=== PATIENT | female | born 1965 | race Caucasian/White ===

== ENCOUNTER → 2019-03-14 09:29 | Outpatient (BNVA) | payer MEDICARE, SELFPAY | PROVIDERS: Family Provider Internal Medicine; PCP Internal Medicine; Visit Provider Nurse Practitioner Psychiatric/Mental Health | DX: F33.2 Major depressive disorder, recurrent severe without psychotic features (principal); F41.1 Generalized anxiety disorder; F43.12 Post-traumatic stress disorder, chronic; Z87.820 Personal history of traumatic brain injury | CPT/HCPCS: 99213 ==

== ENCOUNTER → 2019-03-15 10:23 | Outpatient (BNVA) | payer MEDICARE, SELFPAY | PROVIDERS: Family Provider Internal Medicine; PCP Internal Medicine; Visit Provider Anesthesiology | DX: M47.813 Spondylosis without myelopathy or radiculopathy, cervicothoracic region (principal); M51.36 Other intervertebral disc degeneration, lumbar region; M50.920 Unspecified cervical disc disorder, mid-cervical region, unspecified level; M25.511 Pain in right shoulder; M25.512 Pain in left shoulder; G50.0 Trigeminal neuralgia; Z79.891 Long term (current) use of opiate analgesic | CPT/HCPCS: 99214 ==

== ENCOUNTER 2019-03-31 14:00 | Emergency (ER) | payer MEDICARE, MEDICAID, SELFPAY ==
[2019-03-31 14:11] VITALS: BP 162/85; PULSE 79; RESP 16; TEMP 36.6; O2SAT 98; BMI 34.3
--- NOTE | 2019-03-31 14:56 | PC.NURSE ---
Pt sitting in waiting room. [place] brought to pt. No other needs at this time.
--- NOTE | 2019-03-31 15:34 | ED_ITS ---
Entered by Lia Trammell, acting as scribe for Lisa Durham DO Mar 31, 2019 14:00 HPI - Chest Pain General: Chief Complaint: Chest Pain Stated Complaint: Chest pain Time Seen by Provider: 03/31/19 15:34 Source: patient and family Mode of arrival: ambulatory Limitations: no limitations History of Present Illness: HPI narrative: 54 yo Female presents to ED with co mplaint of chest pain and confusion. Pt's family states that the patient has been having issues with confusion and memory loss. Pt's family states that the patient has a seizure history. Pt's family states that since November patient has had body pain and needs an MRI but can't get it here because of her VNS. Pt states that she has felt well in a long time. MD complaint: chest pain Onset (ago): day(s) Timing of current episode: constant and still present Onset: during rest Pain location: substernal Pain radiation: none Pain scale (0-10): 6 Relieving factors: nothing Exacerbating factors: nothing Associated symptoms: Reports other (confusion); Deny abdominal pain, dyspnea, fever(s), nausea or vomiting Treatment prior to arrival: none Review of Systems Const: Denies: fever, chills, change in appetite or malaise Eyes: Denies: change in vision, blurry vision, eye discharge or eye redness ENMT: Denies: throat pain, uvular edema, painful swallowing, mouth pain, dental pain, nasal congestion or facial/sinus pain Card: Denies: chest pain, irregular heart rhythm, swelling of feet/ankles, shortness of breath on exertion, shortness of breath when lying down or leg pain with exertion Resp: Denies: shortness of breath, productive cough, wheezing or coughing up blood GI: Denies: abdominal pain, nausea, vomiting, diarrhea, constipation or fecal incontinence : Denies: flank pain, difficulty urinating, painful urination, urinary frequency, urinary urgency or urinary hesitancy Musc: Denies: neck pain, back pain, extremity pain or extremity swelling Skin/Breast: Denies: rash, itching, redness, yellow skin or dry skin Neuro: Denies: headache, numbness in extremities, weakness in extremities, changes in sensation, lack of coordination or difficulty walking Psych: Denies: anxiety, depression, mood swings, panic attacks, sleeping less, suicidal ideation or homicidal ideation Endo: Denies: excessive urination, excessive thirst or tired all the time Tani/Lymph: Denies: easy bruising, petechiae or enlarged lymph nodes All/Imm: Denies: hives, throat swelling, facial swelling, acute wheezing or seasonal allergies PFSH ED PFSH: Statuses (acute, chronic, etc) shown below reflect problem list status as previously entered and may not be historically accurate Medical History Cervical disc disorder of mid-cervical region (Chronic) Chronic post-traumatic stress disorder (Acute) DDD (degenerative disc disease), lumbar (Chronic) Encounter for long-term use of opiate analgesic (Chronic) Facial pain syndrome (Chronic) Generalized anxiety disorder (Acute) Major depressive disorder, recurrent severe without psychotic features (Acute) Personal history of traumatic brain injury (Acute) Shoulder pain, bilateral (Chronic) Spondylosis without myelopathy or radiculopathy, cervicothoracic region (Chronic) Surgical History History of facial surgery (Acute) 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 S/P appendectomy (Acute) S/P section (Acute) S/P cholecystectomy (Acute) S/P hysterectomy (Acute) S/P tubal ligation (Acute) Social History Smoking and tobacco status: former smoker Second hand smoke exposure: No Alcohol intake: never Physical Exam Const: COMMON NORMALS: no apparent distress, oriented x3, no limitations, healthy appearing, alert and well nourished GENERAL APPEARANCE: cooperative, comfortable, well kempt and well developed ORIENTATION/CONSCIOUSNESS: Yes awake, Yes oriented to person, Yes oriented to place and Yes oriented to time HENMT: COMMON NORMALS: normocephalic, head/scalp atraumatic, hearing grossly normal bilaterally, external ears normal, EAC's normal, TM's normal bilaterally, external nose normal, nasal mucous membranes and turbinates normal, moist oral mucous membranes, oropharynx normal, dentition normal and gingiva normal HEAD & SCALP: normal to inspection, normocephalic and atraumatic FACE & SINUS: normal facial exam NOSE: external nose normal and nasal mucous membranes and turbinates normal EXTERNAL EAR: Yes external ears normal EXTERNAL AUDITORY CANAL: EAC's normal TYMPANIC MEMBRANE: TM's normal bilaterally MOUTH: oral and palatal mucosa normal, lip normal and tongue normal THROAT: no uvular edema Eye: COMMON NORMALS: PERRL, EOMs intact bilaterally, conjunctivae normal, no scleral icterus and normal visual walsh by confrontation GENERAL EYE: normal appearance of both eyes and normal light reflex VISUAL ACUITY: Yes acuity normal ALIGNMENT: Yes alignment normal PERIORBITAL: periorbital findings normal EYELID: eyelids normal CONJUNCTIVA: Yes conjunctivae normal SCLERA: sclerae normal PUPIL: Yes PERRL and Yes accommodation reflex normal DIRECT OPHTHALMOSCOPY: Yes normal light reflex Neck/C-Spine: COMMON NORMALS: full ROM, no lymphadenopathy, supple, no meningeal signs and no JVD GENERAL: Yes normal visual inspection CAROTIDS: Yes normal carotid upstroke CERVICAL SPINE: Yes cervical ROM normal Lymph: LYMPHATIC: no lymphadenopathy noted Chest: COMMONS NORMALS: inspection of chest normal CHEST: Yes symmetrical chest wall rise Resp: COMMON NORMALS: normal respiratory effort, no retractions, no use of accessory muscles and clear to auscultation bilaterally EFFORT & INSPECTION: Yes able to speak in complete sentences and Yes symmetric chest movement AUSCULTATION: clear to auscultation bilaterally Cardio: COMMON NORMALS: no JVD, regular rate, regular rhythm, S1 normal heart sound, S2 normal heart sound, no murmurs and peripheral pulses 2+ throughout RATE: regular rate RHYTHM: regular rhythm HEART SOUNDS: S1 normal and S2 normal PERIPHERAL PULSES: pulses 2+ throughout GI: COMMON NORMALS: normal to inspection, nondistended, normoactive bowel sounds and non-tender : COMMON NORMALS: Yes no CVA tenderness BLADDER/KIDNEY EXAM: Yes no CVA tenderness Back/Pelvis: COMMON NORMALS: no CVA tenderness, thoracic and lumbar spine normal to inspection, no thoracic nor lumbar tenderness and thoraco-lumbar ROM normal Extremity: COMMON NORMALS: normal to inspection, full ROM, normal capillary r efill, no calf tenderness and no pedal edema Neuro: COMMON NORMALS: oriented x3, CN's II-XII intact bilaterally, moves all extremities, no focal motor deficits, no sensory deficits noted and gait normal SENSORIUM/ORIENTATION: Yes alert, Yes oriented to person, Yes oriented to place and Yes oriented to time MENINGEAL SIGNS: Yes no meningeal signs SPEECH: speech normal GAIT: Yes normal gait MOTOR EXAM: strength 5/5 throughout, no pronator drift and no tremor noted Psych: COMMON NORMALS: mental status grossly normal, thought process normal, cooperative, affect normal, speech normal and activity/motor behavior normal APPEARANCE: Yes well kempt SPEECH: Yes normal speech THOUGHT PROCESS: normal thought process THOUGHT CONTENT: Yes normal thought content INSIGHT: insight good Skin: COMMON NORMALS: no rashes or lesions noted, no wounds, skin turgor normal and no jaundice GENERAL SKIN EXAM: no rashes or lesions noted and turgor normal Course ED course: Patient resting in ER, no evidence of acute neurologic event or deterioration. Able to answer all questions. Primarily concerned with possible stroke per family with last known normal 2300 yesterday. NIH 0 currently. Spouse stated confusion was brief and some slurred words but again transient. Advsied I would change Ultram for Loma as she does have seixure history and discussed adding Lyrica to regimen. Both agree. WIll treat over the weekend and advise follow up with PCP wednesday, return for problems Vital Signs: Vital signs: Vital Signs Temperature 98 F 03/31/19 14:11 Pulse Rate 79 03/31/19 14:11 Respiratory Rate 16 03/31/19 14:11 Blood Pressure 162/85 03/31/19 14:11 Pulse Oximetry 98 03/31/19 14:11 MDM - Chest Pain Differential Diagnosis: Cardiac arrest differential diagnosis: Unlikely acute massive pulmonary embolism, acute respiratory failure, acute myocardial infarction, cardiac arrest and sudden cardiac Lab Data: Labs: Lab Results 03/31/19 03/31/19 03/31/19 Range/Units 14:39 14:39 16:11 Sodium 136 (136-145) mmol/L Potassium 4.2 (3.5-5.1) mmol/L Chloride 99 (98-107) mmol/L Carbon Dioxide 24 (22-29) mmol/L Anion Gap 17.2 (5-19) BUN 9 (6-20) mg/dL Creatinine 0.8 (0.5-0.9) mg/dL GFR Calculation 74.5 L (90-130) mL/min Glucose 95 (65-115) mg/dL Calcium 9.8 (8.5-10.5) mg/dL Total Bilirubin 0.2 (0.15-1.2) mg/dL AST 24 (0-32) U/L ALT 35 H (0-33) U/L Alkaline Phosphata se 109 H (35-105) IU/L Troponin T Baselin e (0-10) ng/mL Total Protein 6.5 L (6.6-8.7) g/dL Albumin 3.9 (3.5-5.2) g/dL Globulin 2.6 (1.3-4.6) g/dL Urine Color Colorless (Yellow) Urine Appearance Clear (CLEAR) Urine pH 6.5 (5-7) Ur Specific Gravit y 1.005 (1.005-1.030) Urine Protein Neg (Negative) Urine Glucose (UA) Norm (Normal) Urine Ketones Negative (Negative) Urine Occult Blood Neg (Negative) Urine Nitrate Negative (Negative) Urine Bilirubin Neg (NEGATIVE) Urine Urobilinogen Norm (Negative) mg/dL Ur Leukocyte Ginger ase Negative (Negative) Urine Opiates Scre en Negative (Negative) ng/mL Ur Barbiturates Sc reen Negative (Negative) ng/mL Ur Phencyclidine S crn Negative (Negative) ng/mL Ur Amphetamines Sc reen Negative (Negative) ng/mL U Benzodiazepines Scrn Negative (Negative) ng/mL Urine Cocaine Scre en Negative (Negative) ng/mL U Marijuana (THC) Screen Negative (Negative) ng/mL Ethyl Alcohol < 10 (0-10) mg/dL 03/31/19 Range/Units 16:11 Sodium (136-145) mmol/L Potassium (3.5-5.1) mmol/L Chloride (98-107) mmol/L Carbon Dioxide (22-29) mmol/L Anion Gap (5-19) BUN (6-20) mg/dL Creatinine (0.5-0.9) mg/dL GFR Calculation (90-130) mL/min Glucose (65-115) mg/dL Calcium (8.5-10.5) mg/dL Total Bilirubin (0.15-1.2) mg/dL AST (0-32) U/L ALT (0-33) U/L Alkaline Phosphata se (35-105) IU/L Troponin T Baselin e 6 (0-10) ng/mL Total Protein (6.6-8.7) g/dL Albumin (3.5-5.2) g/dL Globulin (1.3-4.6) g/dL Urine Color (Yellow) Urine Appearance (CLEAR) Urine pH (5-7) Ur Specific Gravit y (1.005-1.030) Urine Protein (Negative) Urine Glucose (UA) (Normal) Urine Ketones (Negative) Urine Occult Blood (Negative) Urine Nitrate (Negative) Urine Bilirubin (NEGATIVE) Urine Urobilinogen (Negative) mg/dL Ur Leukocyte Ginger ase (Negative) Urine Opiates Scre en (Negative) ng/mL Ur Barbiturates Sc reen (Negative) ng/mL Ur Phencyclidine S crn (Negative) ng/mL Ur Amphetamines Sc reen (Negative) ng/mL U Benzodiazepines Scrn (Negative) ng/mL Urine Cocaine Scre en (Negative) ng/mL U Marijuana (THC) Screen (Negative) ng/mL Ethyl Alcohol (0-10) mg/dL Imaging Data^: CXR: Radiologist's impression: [place] [address] XRay Report Signed Patient: Mikala Love #: [id number] : 1965Acct#:[id number] Age/Sex: 54 / FADM Date: 03/31/19 Loc: ERRoom/Bed: Attending Dr: Ordering Provider/Ordering MD: Lisa Durham DO Date of Service: 03/31/19 Procedure(s): XR chest 1V portable [id number] Accession Number(s): [id number] Report Number: [id number] WS: [id number] Portable AP upright chest, 03/31/2019 Clinical Data: cp Comparison: Portable chest, 12/07/2018. Findings: No nodules, masses or effusions are seen. The heart is normal. The pulmonary vascularity is not increased. No pneumonia or pneumothorax is seen. There is a generator overlying the left lower chest and the wire leads to the base of the left neck. There clips in the right upper quadrant from a cholecystectomy. XR/XR chest 1V portable [id number] Impression: Negative chest. Dictated By:Mónica Townsend MD Signed By:Mónica Townsend Date/Time:03/31/19 1553 DD/ 1552 CT Head: Radiologist's impression: [facility] [address] [place] [address] CT Scan Report Signed Patient: Mikala Love #: [id number] : 1965Acct#:[id number] Age/Sex: 54 / FADM Date: 03/31/19 Loc: ERRoom/Bed: Attending Dr: Ordering Provider/Ordering MD: Lisa Durham DO Date of Service: 03/31/19 Procedure(s): CT head wo con* [id number] Accession Number(s): [id number] Report Number: [id number] WS: [id number] CT HEAD NONCONTRAST HISTORY: confusion TECHNIQUE: Contiguous axial imaging performed through the brain in 2.5 mm i maging. Bone and soft tissue windows. Sagittal and coronal reformats reviewed. All CT scans at [facility] use at least one of these dose optimization techniques: automated exposure control; mA and/or kV adjustment per patient size (includes targeted exams where dose is matched to clinical indication); or iterative reconstruction. DLP: 781.74 mGy.cm COMPARISON: 12/07/2018 No acute intracranial hemorrhage, midline shift or mass effect. No atrophy or prior infarcts or herniation. Minimal chronic microvascular ischemic changes in the white matter. No prior infarct. Ventricles: Normal size with no hydrocephalus. Paranasal sinuses: Mild mucoperiosteal thickening in the LEFT maxillary sinus. Mastoid air cells: Well pneumatized. Calvarium and scalp: Skull is intact with no soft tissue edema or swelling. CT/CT head wo con* [id number] IMPRESSION: 1. Stable noncontrast head CT. No acute intracranial hemorrhage or edema. 2. Minimally mucoperiosteal thickening in the RIGHT maxillary sinus. Dictated By:Ny Nowak DO Signed By:Ny Nowak DOSigned Date/Time:03/31/19 1631 DD/ 1629 Discharge Plan Discharge Patient Disposition: Home, Self-Care Clinical Impression: Generalized pain Condition: Stable Prescriptions: New Lyrica 50 mg capsule 50 mg PO DAILY Qty: 7 RF: 0 Loma 5-325 mg tablet 1 tab PO Q6H PRN (Reason: pain) Qty: 14 RF: 0 No Action cyclobenzaprine 10 mg tablet 10 mg PO TID PRN (Reason: muscle spasm) 30 Days Qty: 90 RF: 1 lamotrigine 100 mg tablet 100 mg PO BID RF: 0 multivitamin Capsule 1 cap PO QAM RF: 0 propranolol 10 mg tablet 10 mg PO DAILY RF: 0 pantoprazole [Protonix] 40 mg tablet,delayed release (DR/EC) 40 mg PO BID RF: 0 magnesium gluconate [Mag-G] 27 mg magnesium (500 mg) tablet 27 mg PO .MONTHLY RF: 0 aspirin [Adult Low Dose Aspirin] 81 mg tablet,delayed release (DR/EC) 81 mg PO QDAY RF: 0 tramadol 50 mg tablet 50 mg PO BID PRN (Reason: pain) 23 Days Qty: 46 RF: 0 Discharge Orders: Discharge Order (Routine); Ordered 03/31/19 Ordered By: Lisa Durham Referrals: JUDE LINO DO [Primary Care Provider] - Discharge Diet: Usual diet Discharge Activity: Resume usual activity Patient Instructions: Chronic Pain Activity Restrictions/Additional Instructions: Stop taking Ultram Coding Level of Care Code ED Needle Loom Tender for Chg Fwd Exam Problem Focused The documentation recorded by the Valeri nieto Carmen, accurately reflects the service I personally performed and the decisions made by Marva gaffney Amanda, DO Mar 31, 2019 14:00
--- NOTE | 2019-03-31 15:35 | ECG_ITS ---
Measurements Intervals [place] Rate: 80 P: 33 MN: 172 QRS: 57 QRSD: 84 T: 55 QT: 354 QTc: 410 SINUS RHYTHM WITH OCCASIONAL SUPRAVENTRICULAR PREMATURE COMPLEXES Compared to ECG 12/07/2018 13:27:24 First degree AV block no longer present Electronically Signed On 03-31-2019 22:16:53 SPENT GRAIN DRYER by Liya Portillo M.D. [id number]
--- NOTE | 2019-03-31 15:35 | XR_ITS ---
WS: [id number] Portable AP upright chest, 03/31/2019 Clinical Data: cp Comparison: Portable chest, 12/07/2018. Findings: No nodules, masses or effusions are seen. The heart is normal. The pulmonary vascularity is not increased. No pneumonia or pneumothorax is seen. There is a generator overlying the left lower c hest and the wire leads to the base of the left neck. There clips in the right upper quadrant from a cholecystectomy. XR/XR chest 1V portable [id number] Impression: Negative chest.
--- NOTE | 2019-03-31 15:50 | CT_ITS ---
WS: [id number] CT HEAD NONCONTRAST HISTORY: confusion TECHNIQUE: Contiguous axial imaging performed through the brain in 2.5 mm imaging. Bone and soft tiss ue windows. Sagittal and coronal reformats reviewed. All CT scans at [facility] use at ast one of these dose optimization techniques: automated exposure control; mA and/or kV adjustment pe r patient size (includes targeted exams where dose is matched to clinical indication); or iterative r econstruction. DLP: 781.74 mGy.cm COMPARISON: 12/07/2018 No acute intracranial hemorrhage, midline shift or mass effect. No atrophy or prior infarcts or herniation. Minimal chronic microvascular ischemic changes in the wh ite matter. No prior infarct. Ventricles: Normal size with no hydrocephalus. Paranasal sinuses: Mild mucoperiosteal thickening in the LEFT maxillary sinus. Mastoid air cells: Well pneumatized. Calvarium and scalp: Skull is intact with no soft tissue edema or swelling. CT/CT head wo con* [id number] IMPRESSION: 1. Stable noncontrast head CT. No acute intracranial hemorrhage or edema. 2. Minimally mucoperiosteal thickening in the RIGHT maxillary sinus.
[2019-03-31 16:19] LABS: Add Urine Microscopic? NO
[2019-03-31 16:26] LABS: Blood Urine Neg (Negative); Glucose Urine UA Norm (Normal); Ketones Urine Negative (Negative); Nitrate Urine Negative (Negative); Protein Urine Neg (Negative); Specific Gravity, Urine 1.005 (1.005-1.030); Urine Appearance Clear (CLEAR); Urine Color Colorless (Yellow); pH Urine 6.5 (5-7)
[2019-03-31 16:27] LABS: Bilirubin Urine Neg (NEGATIVE); Leukocyte Esterase Urine Negative (Negative); Urobilinogen Urine Norm (Negative)
[2019-03-31 16:38] LABS: Alanine Aminotransferase 35 U/L (0-33); Albumin Level 3.9 g/dL (3.5-5.2); Alkaline Phosphatase 109 IU/L (35-105); Anion Gap 17.2 (5-19); Aspartate Amino Transferase 24 U/L (0-32); Blood Urea Nitrogen 9 mg/dL (6-20); Calcium 9.8 mg/dL (8.5-10.5); Carbon Dioxide 24 mmol/L (22-29); Chloride 99 mmol/L (98-107); Globulin 2.6 g/dL (1.3-4.6); Glomerular Filtration Rate 74.5 mL/min (90-130); Glucose 95 mg/dL (65-115); Potassium 4.2 mmol/L (3.5-5.1); Sodium 136 mmol/L (136-145); Total Bilirubin 0.2 mg/dL (0.15-1.2); Total Protein 6.5 g/dL (6.6-8.7)
[2019-03-31 16:40] LABS: Troponin(5th) Baseline 6 ng/mL (0-10)
[2019-03-31 16:41] LABS: Amphetamines Screen Urine Negative (Negative); Barbiturates Screen Urine Negative (Negative); Benzodiazepines Screen Urine Negative (Negative); Cocaine Screen Urine Negative (Negative); Opiate Screen Urine Negative (Negative); PCP Screen Urine Negative (Negative); THC Screen Urine Negative (Negative)
[2019-03-31 17:23] LABS: Alcohol Level < 10 mg/dL (0-10)
[2019-03-31 17:24] LABS: Basophils # 0.1 10^3/uL (0.0-0.1); Basophils % 1.3 %; Eosinophils # 0.4 10^3/uL (0.0-0.8); Eosinophils % 6.2 %; Hematocrit 37.3 % (37.0-47.0); Hemoglobin 11.3 g/dL (11.5-15.3); Lymphocytes # 2.8 10^3/uL (0.8-4.8); Lymphocytes % 41.6 %; Mean Corpuscular HGB Conc 30.3 g/dL (30.0-36.0); Mean Corpuscular Hemoglobin 26.8 pg (28.0-34.0); Mean Corpuscular Volume 88.4 fL (81-99); Mean Platelet Volume 10.8 fL (7.4-10.4); Monocytes # 0.4 10^3/uL (0.2-0.9); Monocytes % 6.5 %; Neutrophils % 43.8 %; Nucleated Red Blood Cells % 0 %; Red Blood Count 4.22 10^6/uL (4.1-5.3); Red Cell Distribution Width 13.4 % (12.1-15.1); White Blood Count 6.8 10^3/uL (4.0-10.0)
[2019-03-31 17:43] LABS: Slide Review Slide Review Perform
[2019-03-31 17:46] LABS: Platelet Count 279 10^3/cmm (130-400)
[2019-03-31 18:16] VITALS: BP 142/69; PULSE 80; RESP 18; O2SAT 98
== END 2019-03-31 18:16 | disposition home or self-care (01) ==
PROVIDERS: Emergency Provider Emergency Medicine; Family Provider Internal Medicine; PCP Internal Medicine
DX: R52 Pain, unspecified (principal); Z79.82 Long term (current) use of aspirin; Z87.891 Personal history of nicotine dependence; Z79.899 Other long term (current) drug therapy
CPT/HCPCS: 70450; 71045; 80053; 80307; 81003; 84484; 85025; 93005; 99282; 99284

== ENCOUNTER → 2019-04-04 10:55 | Outpatient (BNVA) | payer MEDICARE, SELFPAY | PROVIDERS: Family Provider Internal Medicine; PCP Internal Medicine; Visit Provider Anesthesiology | DX: M47.813 Spondylosis without myelopathy or radiculopathy, cervicothoracic region (principal); M51.36 Other intervertebral disc degeneration, lumbar region; M50.920 Unspecified cervical disc disorder, mid-cervical region, unspecified level; G50.0 Trigeminal neuralgia; M25.511 Pain in right shoulder; M25.512 Pain in left shoulder; M79.651 Pain in right thigh; M79.652 Pain in left thigh; Z79.891 Long term (current) use of opiate analgesic | CPT/HCPCS: 99214 ==

== ENCOUNTER → 2019-05-09 08:23 | Outpatient (BNVA) | payer MEDICARE, SELFPAY | PROVIDERS: Family Provider Internal Medicine; PCP Internal Medicine; Visit Provider Anesthesiology | DX: M51.36 Other intervertebral disc degeneration, lumbar region (principal); M79.651 Pain in right thigh; M79.652 Pain in left thigh; M47.813 Spondylosis without myelopathy or radiculopathy, cervicothoracic region; M50.920 Unspecified cervical disc disorder, mid-cervical region, unspecified level; M25.511 Pain in right shoulder; M25.512 Pain in left shoulder; G50.0 Trigeminal neuralgia; Z79.891 Long term (current) use of opiate analgesic | CPT/HCPCS: 99214 ==

== ENCOUNTER → 2019-08-23 13:35 | Outpatient (BNVA) | payer MEDICARE, SELFPAY | PROVIDERS: Family Provider Internal Medicine; PCP Internal Medicine; Visit Provider Nurse Practitioner | DX: M54.41 Lumbago with sciatica, right side (principal); M54.42 Lumbago with sciatica, left side; M47.813 Spondylosis without myelopathy or radiculopathy, cervicothoracic region; M50.920 Unspecified cervical disc disorder, mid-cervical region, unspecified level; R29.6 Repeated falls; Z79.891 Long term (current) use of opiate analgesic | CPT/HCPCS: 99213; 99214 ==

== ENCOUNTER 2019-10-13 07:30 | Outpatient (RCR) | payer MEDICARE, MEDICAID, SELFPAY | END 2019-10-23 23:59 | disposition home or self-care (01) | LOC: SPT 07:30 | PROVIDERS: PCP Internal Medicine; Referring Provider Nurse Practitioner; Visit Provider Nurse Practitioner | DX: I69.993 Ataxia following unspecified cerebrovascular disease (principal) | CPT/HCPCS: 97112; 97162 ==

== ENCOUNTER 2019-10-24 06:00 | Outpatient (RCR) | payer MEDICARE, MEDICAID, SELFPAY | END 2019-11-22 23:59 | disposition home or self-care (01) | LOC: SPT 06:00 | PROVIDERS: PCP Internal Medicine; Referring Provider Nurse Practitioner; Visit Provider Nurse Practitioner | DX: R29.6 Repeated falls (principal); Z86.73 Personal history of transient ischemic attack (TIA), and cerebral infarction without residual deficits | CPT/HCPCS: 97112 ==

== ENCOUNTER → 2019-11-03 12:57 | Outpatient (BNVA) | payer MEDICARE, MEDICAID, SELFPAY | PROVIDERS: Family Provider Internal Medicine; PCP Internal Medicine; Visit Provider Nurse Practitioner | DX: M54.42 Lumbago with sciatica, left side (principal); M54.41 Lumbago with sciatica, right side; M51.36 Other intervertebral disc degeneration, lumbar region; M47.813 Spondylosis without myelopathy or radiculopathy, cervicothoracic region; M50.920 Unspecified cervical disc disorder, mid-cervical region, unspecified level; R29.6 Repeated falls; Z91.81 History of falling; R56.9 Unspecified convulsions; Z86.73 Personal history of transient ischemic attack (TIA), and cerebral infarction without residual deficits; Z79.891 Long term (current) use of opiate analgesic | CPT/HCPCS: 99215 ==

== ENCOUNTER → 2019-11-30 15:02 | Outpatient (BNVA) | payer MEDICARE, MEDICAID, SELFPAY | PROVIDERS: Family Provider Internal Medicine; PCP Internal Medicine; Visit Provider Anesthesiology | DX: M51.36 Other intervertebral disc degeneration, lumbar region (principal); M50.920 Unspecified cervical disc disorder, mid-cervical region, unspecified level; M47.813 Spondylosis without myelopathy or radiculopathy, cervicothoracic region; Z86.73 Personal history of transient ischemic attack (TIA), and cerebral infarction without residual deficits; Z79.891 Long term (current) use of opiate analgesic | CPT/HCPCS: 99214 ==

== ENCOUNTER 2020-02-19 07:47 | Outpatient (CLI) | payer MEDICARE, MEDICAID, SELFPAY ==
--- NOTE | 2020-02-19 08:01 | CT_ITS ---
WS: [id number] Exam: CT sinus wo con* [id number] Date/Time of Exam: 02/19/2020 8:05 AM Reason For Exam: CHRONIC MAXILLARY SINUSITIS DLP: 338.[address] scans at [facility] use at least one of these dose optimization techniques: automat ed exposure control; mA and/or kV adjustment per patient size (includes targeted exams where dose is matched to clinical indication); or iterative reconstruction. The paranasal sinuses are evaluated in the axial plane with coronal and sagittal reformatted images. The frontal, ethmoid and sphenoid sinuses are clear. There are numerous old fractures of both maxilla ry sinuses stabilized with plate and screw fixation. The medial berg of both maxillary sinuses are o pen to the nasal turbinates. The bilateral inferior nasal turbinates are displaced into the maxillary sinuses. No fluid level or mass noted in the maxillary sinus. Mild mucosal thickening on the right. Marked rightward deviation of the nasal septum which demonstrates old fracture. There is hardware in the the bilateral mandibular rami. The mastoids and middle ear cavities are clear. No sign of bone d estruction or acute fracture. CT/CT sinus wo con* [id number] IMPRESSION: 1. Minimal mucosal thickening of the maxillary sinuses probably posttraumatic i n nature. 2. No evidence of acute sinusitis. 3. Old bilateral maxillary sinus fractures with the hardware fixation. Addition al postoperative and posttraumatic findings as indicated above.
== END 2020-02-19 07:48 | disposition home or self-care (01) ==
LOC: RADWPI 07:55
PROVIDERS: PCP Internal Medicine; Visit Provider Specialist
DX: J32.0 Chronic maxillary sinusitis (principal)
CPT/HCPCS: 70486

== ENCOUNTER 2020-02-19 20:00 | Outpatient (CLI) | payer MEDICARE, MEDICAID, SELFPAY | END 2020-02-19 20:01 | disposition home or self-care (01) | LOC: SLEEP 02-20 08:45 | PROVIDERS: PCP Internal Medicine; Visit Provider Physician Assistant | DX: G47.33 Obstructive sleep apnea (adult) (pediatric) (principal); G47.8 Other sleep disorders | CPT/HCPCS: 95810 ==

== ENCOUNTER → 2020-03-08 09:05 | Outpatient (BNVA) | payer MEDICARE, MEDICAID, SELFPAY | PROVIDERS: PCP Internal Medicine; Visit Provider Anesthesiology | DX: M47.813 Spondylosis without myelopathy or radiculopathy, cervicothoracic region (principal); M51.36 Other intervertebral disc degeneration, lumbar region; M50.920 Unspecified cervical disc disorder, mid-cervical region, unspecified level; Z79.891 Long term (current) use of opiate analgesic; Z86.73 Personal history of transient ischemic attack (TIA), and cerebral infarction without residual deficits | CPT/HCPCS: 99213 ==

== ENCOUNTER 2020-03-21 18:00 | Inpatient (IN) | payer MEDICARE, MEDICAID, SELFPAY ==
[2020-03-21] VITALS (20 sets, daily range): BP systolic 115–195; BP diastolic 65–103; PULSE 80–96; RESP 17–28; O2SAT 92–98
--- NOTE | 2020-03-21 18:04 | XR_ITS ---
WS: [id number] Exam: XR chest 1V portable [id number] Date/Time of Exam: 03/21/2020 6:30 PM Reason For Exam: reduced breath sounds Comparison 03/31/2019. Diffuse interstitial densities noted throughout both lungs. Cardiomediastinal structures unremarkable for technique. Neurostimulator seen along the left chest with the leads extending along the left nec k. No pleural effusions or pneumothorax. Impression 1. Diffuse interstitial densities noted bilaterally. This may represent developing interstitial pneum onia. Short-term imaging follow-up should be considered.
--- NOTE | 2020-03-21 18:05 | CTR_ITS ---
PROCEDURE INFORMATION: Exam: CT Head Without Contrast Exam date and time: 03/21/2020 6:06 PM Age: 55 years old Clinical indication: Weakness, extremity; Right; Additional info: Symptoms of acute stroke TECHNIQUE: Imaging protocol: Computed tomography of the head without contrast. Radiation optimization: All CT scans at this facility use at least one of these dose optimization techniques: automated exposure control; mA and/or kV adjustment per patient size (includes targeted exams where dose is matched to clinical indication); or iterative reconstruction. COMPARISON: CT head wo con* [id number] 03/31/2019 4:30 PM RADIATION DOSE METRICS: Total DLP (mGy-cm): 804.44 FINDINGS: Brain: Unremarkable. No hemorrhage. No significant white matter disease. No edema. Cerebral ventricles: No ventriculomegaly. Bones/joints: Unremarkable. No acute fracture. Paranasal sinuses: Visualized sinuses are unremarkable. No fluid levels. Mastoid air cells: Unremarkable as visualized. No mastoid effusion. Soft tissues: Unremarkable. CT/CT head wo con* [id number] IMPRESSION: 1. No acute intracranial abnormality demonstrated. 2. There is no interval change from the prior examination. Radiation Dose CTDIVOL = (mGy): DLP = 804.44 (mGy-cm)
--- NOTE | 2020-03-21 18:05 | ECG_ITS ---
[facility] Test Date: 2020-03-21 Pat Name: Mikala Love Department: Room: Gender: Female Chief Steward/Stewardess: : 1965 Requested By: Bud Summers Order Number: [id number] Lucretia MD: Eden Pollard M.D. Measurements Intervals [place] Rate: 90 P: 61 CA: 208 QRS: 51 QRSD: 89 T: 48 QT: 330 QTc: 405 Interpretive Statements SINUS RHYTHM POSSIBLE LEFT ATRIAL ENLARGEMENT [-0.1mV P WAVE IN V1/V2] LOW QRS VOLTAGE IN PRECORDIAL LEADS [QRS DEFLECTION < 1.0 mV IN CHEST LEADS] NONSPECIFIC ST & T-WAVE ABNORMALITY Compared to ECG 03/31/2019 14:07:35 Low QRS voltage now present T-wave abnormality now present Electronically Signed On 03-22-2020 22:14:03 GUEST SERVICE SUPERVISOR by Eden Pollard M.D. [id number]
[2020-03-21 18:12] LABS: Glucose Point of Care 106 mg/dL (70-110)
[2020-03-21] MEDS: labetalol 5 mg/mL SDV 20mL 10 MG IVP ×2 (18:15→18:21)
[2020-03-21 18:28] LABS: Basophils # 0.1 10^3/uL (0.0-0.1); Basophils % 0.7 %; Eosinophils # 0.5 10^3/uL (0.0-0.8); Eosinophils % 3.9 %; Hematocrit 37.9 % (37.0-47.0); Hemoglobin 12.5 g/dL (11.5-15.3); Lymphocytes % 22.1 %; Mean Corpuscular Hemoglobin 28.2 pg (28.0-34.0); Mean Corpuscular Volume 85.4 fL (81-99); Mean Platelet Volume 10.4 fL (7.4-10.4); Monocytes # 0.8 10^3/uL (0.2-0.9); Monocytes % 6.1 %; Neutrophils # 9.05 10^3/uL (1.8-7.7); Neutrophils % 66.5 %; Nucleated Red Blood Cells % 0 %; Platelet Count 415 10^3/cmm (130-400); Red Blood Count 4.44 10^6/uL (4.1-5.3); Red Cell Distribution Width 12.7 % (12.1-15.1); White Blood Count 13.6 10^3/uL (4.0-10.0)
[2020-03-21 18:33] LABS: Partial Thromboplastin Time 30.2 SECONDS (23.9-36.7)
[2020-03-21 18:40] LABS: Alanine Aminotransferase 17 U/L (0-33); Albumin Level 4.5 g/dL (3.5-5.2); Alkaline Phosphatase 143 IU/L (35-105); Anion Gap 14.5 (5-19); Aspartate Amino Transferase 13 U/L (0-32); Blood Urea Nitrogen 13 mg/dL (6-20); Carbon Dioxide 32 mmol/L (22-29); Chloride 97 mmol/L (98-107); Glomerular Filtration Rate 64.8 mL/min (90-130); Glucose 95 mg/dL (65-115); Osmolality Calculated 290 mOsm/kg (285-295); Potassium 3.5 mmol/L (3.5-5.1); Sodium 140 mmol/L (136-145); Total Bilirubin 0.2 mg/dL (0.15-1.2); Total Protein 7.5 g/dL (6.6-8.7)
--- NOTE | 2020-03-21 18:53 | PC.NURSE ---
CHEST XRAY AT BEDSIDE
[2020-03-21 19:15] LABS: INR 0.94 (0.8-1.2)
--- NOTE | 2020-03-21 20:33 | PM.HP ---
Providers/Chief Complaint Primary Care Provider: Yesenia Lazo DO Chief Complaint: poss stroke History of Present Illness Mikala Love is a 55 year old female who presented today with chief complaint of right-sided weakness and not able to talk. is at the bedside who is endorsing that around 5 PM Ms. Love started complaining of headache, he went to the bathroom and when he returned after 30 minutes he noticed that Ms. Love was very lethargic, she was laying in her bed, he tried to get her up and take her to the bathroom, she needed assistance from the bedroom to the bathroom, she was able to move her lips but was not producing voice. She never had any seizure-like activities before, she was awake and alert throughout this, no seizure witnessed by the . Her symptoms persisted until she arrived in the ER, considering weakness of right arm and leg and mute presentation code stroke was called Dr. Villegas evaluated the patient and recommended TPA, CT head was unremarkable she was given 20 mg of IV labetalol When I evaluated the patient she was able to say her leg hurts, is telling me that recently she dropped her college courses because of stress, she was learning confucianism and agriculture. Patient also laughed during my conversation with her, she was able to keep her right leg in the ER for about 5 seconds, her right hand hospitality coordinator was weaker than the left hand, she would close her eyes when I was checking her extraocular movements however pupils are reactive, positive convergence no hemianopsia or inattention noted. NIH 5, patient is able to comprehend my questions and articulate few of the words. Review of Systems Const: Denies: fever(s) Eyes: Denies: change in vision ENMT: Denies: throat pain Card: Denies: chest pain Resp: Denies: dyspnea GI: Denies: abdominal pain : Denies: flank pain Musc: Denies: neck pain Skin/Breast: Denies: rash Neuro: Reports: difficulty walking and behavioral changes Psych: Reports: anxiety and depression Endo: Denies: polyuria Tani/Lymph: Denies: easy bruising All/Imm: Denies: urticaria Medications/Allergies Home Medications Medication Instructions Recorded Confirmed Last Taken Type aspirin 81 mg tablet,delayed 81 mg PO DAILY@0600 03/14/19 03/21/20 03/21/20 History release pantoprazole 40 mg tablet,delayed 40 mg PO BID@0600,1999 tab 03/14/19 03/21/20 03/21/20 History release docusate sodium 100 mg capsule 100 mg PO DAILY@0600 PRN 08/23/19 03/21/20 03/21/20 History amlodipine 2.5 mg tablet 2.5 mg PO BID@0600,199911/03/19 03/21/20 03/21/20 History atorvastatin 40 mg tablet 40 mg PO DAILY@0600 11/03/19 03/21/20 03/21/20 History hydrocodone 5 mg-acetaminophen 325 1 tab PO TID PRN 30 Days #90 tab 11/03/19 03/21/20 Unknown Rx mg tablet lamotrigine 100 mg tablet 200 mg PO BID@0600,1999 tab 11/03/19 03/21/20 03/21/20 History ondansetron HCl 4 mg tablet 4 mg PO Q6H 11/03/19 03/21/20 Unknown History primidone 50 mg tablet 125 mg PO BID@0600,199911/03/19 03/21/20 03/21/20 History losartan 25 mg tablet 25 mg PO BID@0600,199911/30/19 03/21/20 03/21/20 History tizanidine 4 mg tablet 4 mg PO TID PRN 30 Days #120 tab 03/08/20 03/21/20 Unknown Rx hydrochlorothiazide 25 mg PO DAILY@0600 03/21/20 03/21/20 03/21/20 History slxametrwyzg-acxsddqx-wropia 1 tab PO DAILY@0600 03/21/20 03/21/20 03/21/20 History [Multivitamin 50 Plus] propranolol 10 mg PO DAILY@0600 03/21/20 03/21/20 03/21/20 History Allergies Allergy/AdvReac Type Severity Reaction Status Date / Time lisinopril Allergy Unknown Unknown Verified 03/08/20 09:12 shellfish derived Allergy Unknown hives Verified 03/08/20 09:12 aripiprazole [From Abilify] Allergy Unknown Verified 03/08/20 09:12 codeine Allergy Unknown Verified 03/08/20 09:12 duloxetine Allergy ADR-Anxiety Verified 03/08/20 09:12 erythromycin base Allergy ADR-Nausea Verified 03/08/20 09:12 fluticasone [From Flonase] Allergy ADR-Anxiety Verified 03/08/20 09:12 guaifenesin [From Mucinex] Allergy ADR-Anxiety Verified 03/08/20 09:12 Iodinated Contrast Media Allergy Unknown Verified 03/08/20 09:12 lithium Allergy Unknown Verified 03/08/20 09:12 nitroglycerin Allergy Unknown Verified 03/08/20 09:12 risperidone [From Risperdal] Allergy ALGY-Hives Verified 03/08/20 09:12 venlafaxine [From Effexor] Allergy Unknown Verified 03/08/20 09:12 quetiapine [From Seroquel] AdvReac Unknown ZOMBIE Verified 03/08/20 09:12 tramadol AdvReac IMPROVEMENT ANALYST Verified 03/08/20 09:12 COMPLICATION PFSH Acute PFSH: Medical History Cervical disc disorder of mid-cervical region Chronic post-traumatic stress disorder DDD (degenerative disc disease), lumbar Encounter for long-term use of opiate analgesic Facial numbness Facial pain syndrome Generalized anxiety disorder HTN (hypertension) Hx of deep venous thrombosis Intermittent confusion Major depressive disorder, recurrent severe without psychotic features CONRAD (obstructive sleep apnea) Personal history of traumatic brain injury Seizure Shoulder pain, bilateral Spondylosis without myelopathy or radiculopathy, cervicothoracic region Transient atrial fibrillation Surgical History History of facial surgery 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 S/P appendectomy S/P section S/P cholecystectomy S/P hysterectomy S/P tubal ligation Family History Other Cancer Diabetes Hypertension Social History Smoking and tobacco status: former smoker Second hand smoke exposure: No Alcohol intake: never Vitals/I&O/Wt Last Vital Signs Pulse 80 03/21/20 18:42 Resp 23 H 03/21/20 18:42 BP 166/94 03/21/20 18:42 Pulse Ox 93 03/21/20 18:42 03/21/20 03/21/20 03/21/20 06:59 14:59 22:59 Intake Total 85.0 / 85.0 Balance 85.0 / 85.0 Weight last 48 hrs Weight 94.393 kg Physical Exam Narrative: EXAM NARRATIVE: Middle-age female who is laying comfortably in her bed at the bedside Patient is awake alert oriented x3 GCS 15 NIH 5, she is able to comprehend my verbal commands has weak right hand hospitality coordinator, she is able to keep her right leg in the ER for 5 seconds it drifts but does not hit the bed, no pronator drift, she closes her eyes when I was checking extraocular movement of her eyes however EOMI intact convergence positive no inattention or hemianopsia or visual field deficit noted She was able to tell me her leg hurts and she is stUDYING ORTHODOX, also had a laughter during my conversation with her S1, S2 sinus rhythm Normotensive Abdomen soft nontender Lower extremity no edema gangrene ulcer No joint swelling Data : 03/21/20 17:50 03/21/20 17:50 A&P Assessment and plan (1) Acute right-sided weakness: Status: Acute (2) Cervical disc disorder of mid-cervical region: Status: Chronic (3) DDD (degenerative disc disease), lumbar: Status: Chronic Additional A&P Information Acute right-sided weakness CT head unremarkable NIH score 5 status post TPA Admit to ICU Post TPA management neurochecks every 4, avoid Hogan catheter placement, avoid hypertension Currently she is normotensive afebrile saturating well on room air I would not start aspirin or Plavix for next 24 hours, will get CTA head and neck start her on high-dose statins Rule out ischemic stroke, her presentation is very inconsistent and atypical, she is able to comprehend my verbal commands and articulate that her leg hurts and she is reading confucianism these days but stammers to initiate conversation Bilateral carotid Doppler from October 2018 revealed no significant stenosis of carotid arteries Neck pain she does not have any signs of meningitis Cervical spine CT from 03/12 revealed C5-C7 exiting nerve root encroachment more pronounced at lEFT C5, repeat cervical CT scan in the morning this time her presentation is consistent with right hemiparesis, she has no acute respiratory distress Obstructive sleep apnea her bicarb is around 32 We will keep her on auto CPAP overnight Cardiac diet Physical therapy evaluation DVT prophylaxis not indicated would use SCDs status post TPA Full code Attestations Medical Necessity Statement*: Anticipating stay in the hospital cross more than 2 midnights currently in the ICU post TPA after acute presentation of right-sided weakness Time Spent in Patient Care: 50MINS Coding Level of Care Code Acute Gis Database Administrator for Familiag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
[2020-03-21 20:34] LABS: Add Urine Microscopic? YES; Bilirubin Urine Neg (Negative); Blood Urine 3+ (Negative); Glucose Urine UA Norm (Normal); Ketones Urine Negative (Negative); Leukocyte Esterase Urine Negative (Negative); Nitrate Urine Negative (Negative); Protein Urine Neg (Negative); Specific Gravity, Urine 1.005 (1.005-1.030); Urine Appearance Clear (CLEAR); Urine Color Straw (Yellow); Urobilinogen Urine Norm (Negative)
[2020-03-21 20:37] LABS: Amphetamines Screen Urine Negative (Negative); Barbiturates Screen Urine Positive (Negative); Benzodiazepines Screen Urine Negative (Negative); Cocaine Screen Urine Negative (Negative); Opiate Screen Urine Negative (Negative); PCP Screen Urine Negative (Negative); THC Screen Urine Negative (Negative)
[2020-03-21 20:42] LABS: Add Urine Culture? No; Bacteria Urine TRACE /hpf; Squamous Epithelial Cell Urine 0-4 /hpf (0-5)
--- NOTE | 2020-03-21 20:45 | W.ED.NEUROSD ---
HPI - Neuro Symptoms/Deficit General: Chief Complaint: Neuro Symptoms/Deficit Stated Complaint: poss stroke Time Seen by Provider: 03/21/20 18:04 History of Present Illness: HPI Narrative: The patient is a 55-year-old female who comes to the ER with a possible stroke. EMS says that the said the patient had right-sided facial droop and decreased responsiveness at 5:15 PM they noted her having trouble getting her words out. On arrival to the ER she has significant right-sided weakness and she is unable to speak with her voice but she is able to use her mouth to sound words out. Facial droop not present in the ER. She was seen by Dr. Villegas who recommended TPA administration and it was given emergently. Onset (ago): minute(s) (45) Time: 05:15 Timing confirmed by: spouse Location: speech, right face, right arm and right leg History of same: Yes Severity: moderate Quality: weak Relieving factors: none Exacerbating factors: none Context: sudden onset Associated symptoms: Deny chest pain or headache(s) Review of Systems General: Reports: 10 or more systems reviewed and unremarkable except in HPI and below Const: Denies: fatigue Eyes: Denies: change in vision, blurry vision or eye redness ENMT: Denies: throat pain, swelling of lips/tongue, ear or mastoid pain or nasal congestion Card: Denies: chest pain, palpitations, irregular heart rhythm, edema, dyspnea on exertion or orthopnea Resp: Denies: dyspnea, productive cough or non-productive cough GI: Denies: abdominal pain, diarrhea or GI cramping : Denies: flank pain, difficulty voiding, urinary frequency or urinary urgency Musc: Denies: neck pain, back pain, extremity pain, joint pain, joint redness, limited range of motion or muscle weakness Skin/Breast: Denies: rash, pruritus, erythema, skin pain or skin tenderness Neuro: Reports: weakness in extremities; Denies: headache(s), numbness in extremities, sensory changes, difficulty walking, dizziness or confusion Psych: Denies: anxiety or depression Endo: Denies: polyuria All/Imm: Denies: urticaria, throat swelling or tongue swelling PFSH ED PFSH: Medical History (Updated 03/21/20 @ 21:08 by Bud Summers MD) Cervical disc disorder of mid-cervical region Chronic post-traumatic stress disorder DDD (degenerative disc disease), lumbar Encounter for long-term use of opiate analgesic Facial numbness Facial pain syndrome Generalized anxiety disorder HTN (hypertension) Hx of deep venous thrombosis Intermittent confusion Major depressive disorder, recurrent severe without psychotic features CONRAD (obstructive sleep apnea) Personal history of traumatic brain injury Seizure Shoulder pain, bilateral Spondylosis without myelopathy or radiculopathy, cervicothoracic region Transient atrial fibrillation Surgical History History of facial surgery 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 S/P appendectomy S/P section S/P cholecystectomy S/P hysterectomy S/P tubal ligation Family History Other Cancer Diabetes Hypertension Social History Smoking and tobacco status: former smoker Second hand smoke exposure: No Alcohol intake: never Physical Exam Const: COMMON NORMALS: no acute distress, average body habitus, patient oriented x3, no limitations, healthy appearing, alert and well nourished GENERAL APPEARANCE: cooperative, comfortable, well kempt and well developed ORIENTATION/CONSCIOUSNESS: Yes awake, Yes oriented to person, Yes oriented to place and Yes oriented to time HENMT: COMMON NORMALS: normocephalic, external ears normal and Normal external nose present HEAD & SCALP: normal to inspection and normocephalic NOSE: Normal external nose present EXTERNAL EAR: Yes external ears normal MOUTH: Normal oral and palatal mucosa present THROAT: posterior oropharynx normal Eye: COMMON NORMALS: Equal, round and reactive pupils present and EOMs intact bilaterally GENERAL EYE: appearance normal, both eyes and all related structures PUPIL: Yes Equal, round and reactive pupils present Neck/C-Spine: COMMON NORMALS: full ROM, no lymphadenopathy, no meningeal signs and no JVD GENERAL: Yes normal visual inspection Lymph: LYMPHATIC: no lymphadenopathy noted Chest: COMMONS NORMALS: normal inspection of the chest and normal palpation of entire chest wall Resp: COMMON NORMALS: normal respiratory effort, No retractions, No use of accessory muscles, clear to auscultation bilaterally and percussion normal EFFORT & INSPECTION: Yes able to speak in complete sentences AUSCULTATION: clear to auscultation bilaterally PERCUSSION: percussion normal Cardio: COMMON NORMALS: no JVD, regular rate, regular rhythm, S1 normal heart sound present, S2 normal heart sound present and Peripheral pulses 2+ throughout RATE: regular rate RHYTHM: regular rhythm HEART SOUNDS: S1 normal heart sound present and S2 normal heart sound present PERIPHERAL PULSES: Peripheral pulses 2+ throughout GI: COMMON NORMALS: Normal to inspection, nondistended, normoactive bowel sounds present, Soft to palpation, non-tender and no masses INSPECTION: Yes normal to inspection PALPATION: Yes Soft to palpation : COMMON NORMALS: Yes no CVA tenderness BLADDER/KIDNEY EXAM: Yes no CVA tenderness Back/Pelvis: COMMON NORMALS: no CVA tenderness, thoracic and lumbar spine normal to inspection, no thoracic nor lumbar tenderness and thoraco-lumbar ROM normal Extremity: COMMON NORMALS: normal to inspection, full ROM, capillary refill normal, no joint enlargement and no pedal edema GENERAL: Yes normal exam except as noted Neuro: COMMON NORMALS: patient oriented x3 SENSORIUM/ORIENTATION: Yes alert, Yes oriented to person, Yes oriented to place and Yes oriented to time MENINGEAL SIGNS: Yes no meningeal signs Psych: APPEARANCE: Yes well kempt Skin: COMMON NORMALS: no rashes or lesions noted GENERAL SKIN EXAM: no rashes or lesions noted Course Vital Signs: Vital signs: Vital Signs Pulse Rate 80 03/21/20 18:42 Respiratory Rate 23 H 03/21/20 18:42 Blood Pressure 166/94 03/21/20 18:42 Pulse Oximetry 93 03/21/20 18:42 MDM - Neuro Symptoms/Deficit MDM Narrative: Medical decision making narrative: The patient was evaluated by Dr. Villegas in the ER who recommended giving TPA. CT head negative. She received it and has been stable since. She has some movement in her right side that is inconsistent. Discussed with Dr. German who accepts for ICU admission post TPA Lab Data: Labs: Lab Results 03/21/20 03/21/20 03/21/20 Range/Units 17:50 17:50 17:50 WBC 13.6 H (4.0-10.0) 10^3/ uL RBC 4.44 (4.1-5.3) 10^6/u L Hgb 12.5 (11.5-15.3) g/dL Hct 37.9 (37.0-47.0) % MCV 85.4 (81-99) fL MCH 28.2 (28.0-34.0) pg MCHC 33.0 (30.0-36.0) g/dL RDW 12.7 (12.1-15.1) % Plt Count 415 H (130-400) 10^3/c mm MPV 10.4 (7.4-10.4) fL Neut % (Auto) 66.5 % Lymph % (Auto) 22.1 % [place] % (Auto) 6.1 % Eos % (Auto) 3.9 % Baso % (Auto) 0.7 % Neut # (Auto) 9.05 H (1.8-7.7) 10^3/u L Lymph # (Auto) 3.0 (0.8-4.8) 10^3/u L [place] # (Auto) 0.8 (0.2-0.9) 10^3/u L Eos # (Auto) 0.5 (0.0-0.8) 10^3/u L Baso # (Auto) 0.1 (0.0-0.1) 10^3/u L Nucleated RBC % (a uto) 0 % Nucleated RBCs # 0.0 /100WBC PT 12.90 (12.1-14.9) SECO NDS INR 0.94 (0.8-1.2) APTT 30.2 (23.9-36.7) SECO NDS Sodium 140 (136-145) mmol/L Potassium 3.5 (3.5-5.1) mmol/L Chloride 97 L (98-107) mmol/L Carbon Dioxide 32 H (22-29) mmol/L Anion Gap 14.5 (5-19) BUN 13 (6-20) mg/dL Creatinine 0.9 (0.5-0.9) mg/dL GFR Calculation 64.8 L (90-130) mL/min Glucose 95 (65-115) mg/dL POC Glucose (70-110) mg/dL Calculated Osmolal ity 290 (285-295) mOsm/k g Calcium 10.0 (8.5-10.5) mg/dL Total Bilirubin 0.2 (0.15-1.2) mg/dL AST 13 (0-32) U/L ALT 17 (0-33) U/L Alkaline Phosphata se 143 H (35-105) IU/L Total Protein 7.5 (6.6-8.7) g/dL Albumin 4.5 (3.5-5.2) g/dL Globulin 3.0 (1.3-4.6) g/dL Urine Color (Yellow) Urine Appearance (CLEAR) Urine pH (5-7) Ur Specific Gravit y (1.005-1.030) Urine Protein (Negative) Urine Glucose (UA) (Normal) Urine Ketones (Negative) Urine Blood (Negative) Urine Nitrate (Negative) Urine Bilirubin (Negative) Urine Urobilinogen (Negative) mg/dL Ur Leukocyte Ginger ase (Negative) Urine RBC (0-2) /hpf Urine WBC (0-5) /hpf Ur Squamous Epith Cells (0-5) /hpf Amorphous Sediment Urine Bacteria (NONE) /hpf Urine Opiates Scre en (Negative) ng/mL Ur Barbiturates Sc reen (Negative) ng/mL Ur Phencyclidine S crn (Negative) ng/mL Ur Amphetamines Sc reen (Negative) ng/mL U Benzodiazepines Scrn (Negative) ng/mL Urine Cocaine Scre en (Negative) ng/mL U Marijuana (THC) Screen (Negative) ng/mL 03/21/20 03/21/20 03/21/20 Range/Units 18:08 20:10 20:10 WBC (4.0-10.0) 10^3/ uL RBC (4.1-5.3) 10^6/u L Hgb (11.5-15.3) g/dL Hct (37.0-47.0) % MCV (81-99) fL MCH (28.0-34.0) pg MCHC (30.0-36.0) g/dL RDW (12.1-15.1) % Plt Count (130-400) 10^3/c mm MPV (7.4-10.4) fL Neut % (Auto) % Lymph % (Auto) % [place] % (Auto) % Eos % (Auto) % Baso % (Auto) % Neut # (Auto) (1.8-7.7) 10^3/u L Lymph # (Auto) (0.8-4.8) 10^3/u L [place] # (Auto) (0.2-0.9) 10^3/u L Eos # (Auto) (0.0-0.8) 10^3/u L Baso # (Auto) (0.0-0.1) 10^3/u L Nucleated RBC % (a uto) % Nucleated RBCs # /100WBC PT (12.1-14.9) SECO NDS INR (0.8-1.2) APTT (23.9-36.7) SECO NDS Sodium (136-145) mmol/L Potassium (3.5-5.1) mmol/L Chloride (98-107) mmol/L Carbon Dioxide (22-29) mmol/L Anion Gap (5-19) BUN (6-20) mg/dL Creatinine (0.5-0.9) mg/dL GFR Calculation (90-130) mL/min Glucose (65-115) mg/dL POC Glucose 106 (70-110) mg/dL Calculated Osmolal ity (285-295) mOsm/k g Calcium (8.5-10.5) mg/dL Total Bilirubin (0.15-1.2) mg/dL AST (0-32) U/L ALT (0-33) U/L Alkaline Phosphata se (35-105) IU/L Total Protein (6.6-8.7) g/dL Albumin (3.5-5.2) g/dL Globulin (1.3-4.6) g/dL Urine Color Straw (Yellow) Urine Appearance Clear (CLEAR) Urine pH 7.0 (5-7) Ur Specific Gravit y 1.005 (1.005-1.030) Urine Protein Neg (Negative) Urine Glucose (UA) Norm (Normal) Urine Ketones Negative (Negative) Urine Blood 3+ H (Negative) Urine Nitrate Negative (Negative) Urine Bilirubin Neg (Negative) Urine Urobilinogen Norm (Negative) mg/dL Ur Leukocyte Ginger ase Negative (Negative) Urine RBC 5-10 H (0-2) /hpf Urine WBC None (0-5) /hpf Ur Squamous Epith Cells 0-4 H (0-5) /hpf Amorphous Sediment Not Reportable Urine Bacteria Trace (NONE) /hpf Urine Opiates Scre en Negative (Negative) ng/mL Ur Barbiturates Sc reen Positive H (Negative) ng/mL Ur Phencyclidine S crn Negative (Negative) ng/mL Ur Amphetamines Sc reen Negative (Negative) ng/mL U Benzodiazepines Scrn Negative (Negative) ng/mL Urine Cocaine Scre en Negative (Negative) ng/mL U Marijuana (THC) Screen Negative (Negative) ng/mL Discharge Plan Discharge Patient Disposition: Admitted As Inpatient Clinical Impression: Acute right-sided weakness Condition: Stable Coding Level of Care Code ED Butcher Supervisor for Kun Saba
--- NOTE | 2020-03-21 22:20 | CTR_ITS ---
PROCEDURE INFORMATION: Exam: CT Angiography Head With Contrast Exam date and time: 03/21/2020 11:48 PM Age: 55 years old Clinical indication: Speech disturbance; Slurred speech; Additional info: Post tpa TECHNIQUE: Imaging protocol: Computed tomography angiography of the head with intravenous contrast. 3D rendering (Not supervised by radiologist): MIP and/or 3D reconstructed images were created by the technologist. Radiation optimization: All CT scans at this facility use at least one of these dose optimization techniques: automated exposure control; mA and/or kV adjustment per patient size (includes targeted exams where dose is matched to clinical indication); or iterative reconstruction. Contrast material: [id number]; Contrast volume: 95 ml; Contrast route: INTRAVENOUS (IV); COMPARISON: 1. CT head wo con* [id number] 2020-03-21 17:[address] head wo con* [id number] 2019-03-31 16:30 RADIATION DOSE METRICS: Total DLP (mGy-cm): 2172.19 FINDINGS: ANTERIOR CIRCULATION: Right internal carotid artery: Unremarkable. Intracranial segment is patent with no significant stenosis. No aneurysm. Right middle cerebral artery: Unremarkable. No occlusion or significant stenosis. No aneurysm. Right anterior cerebral artery: Unremarkable. No occlusion or significant stenosis. No aneurysm. Left internal carotid artery: Unremarkable. Intracranial segment is patent with no significant stenosis. No aneurysm. Left middle cerebral artery: Unremarkable. No occlusion or significant stenosis. No aneurysm. Left anterior cerebral artery: Unremarkable. No occlusion or significant stenosis. No aneurysm. POSTERIOR CIRCULATION: Right vertebral artery: Unremarkable. No occlusion or significant stenosis. No aneurysm. Left vertebral artery: Unremarkable. No occlusion or significant stenosis. No aneurysm. Basilar artery: Unremarkable. No occlusion or significant stenosis. No aneurysm. Right posterior cerebral artery: Unremarkable. No occlusion or significant stenosis. No aneurysm. Left posterior cerebral artery: Unremarkable. No occlusion or significant stenosis. No aneurysm. Brain: No definite mass, mass effect, or midline shift. Cerebral ventricles: No ventriculomegaly. Bones/joints: Unremarkable. No acute fracture. Soft tissues: Unremarkable. IMPRESSION: No large vessel stenosis or occlusion. PROCEDURE INFORMATION: Exam: CT Angiography Neck With Contrast Exam date and time: 03/21/2020 11:48 PM Age: 55 years old Clinical indication: Speech disturbance; Slurred speech; Additional info: Post tpa TECHNIQUE: Imaging protocol: Computed tomography angiography of the neck with intravenous contrast. 3D rendering (Not supervised by radiologist): MIP and/or 3D reconstructed images were created by the technologist. Radiation optimization: All CT scans at this facility use at least one of these dose optimization techniques: automated exposure control; mA and/or kV adjustment per patient size (includes targeted exams where dose is matched to clinical indication); or iterative reconstruction. Contrast material: [id number]; Contrast volume: 95 ml; Contrast route: INTRAVENOUS (IV); COMPARISON: 1. CT head wo con* [id number] 2020-03-21 17:[address] head wo con* [id number] 2019-03-31 16:30 RADIATION DOSE METRICS: Total DLP (mGy-cm): 2172.19 FINDINGS: Right common carotid artery: No stenosis. No dissection or occlusion. Right internal carotid artery: No stenosis of the extracranial segment. No dissection or occlusion. Right external carotid artery: No occlusion or stenosis of the origin. Right vertebral artery: No stenosis. No dissection or occlusion. Left common carotid artery: No stenosis. No dissection or occlusion. Left internal carotid artery: No stenosis of the extracranial segment. No dissection or occlusion. Left external carotid artery: No occlusion or stenosis of the origin. Left vertebral artery: No stenosis. No dissection or occlusion. Bones/joints: Moderate cervical spondylosis. Soft tissues: Normal. No significant soft tissue swelling. CT/CT angio headneck* [id number] IMPRESSION: No stenosis or occlusion. REFERENCES: NASCET CRITERIA. The degree of internal carotid artery stenosis is based on NASCET criteria. Normal is no stenosis. Mild is less than 50% stenosis. Moderate is 50-69% stenosis. Severe is 70% to 99% stenosis. Total occlusion is no detectable patent lumen. Radiation Dose CTDIVOL = (mGy): DLP = 2172.19~2172.19 (mGy-cm)
[2020-03-21] MEDS: HYDROmorphone 1 mg/mL INJ 1 mL 0.5 MG IVP (23:11)
[2020-03-21] MEDS: diphenhydrAMINE 50 mg/mL SDV 1mL IVP (23:15)
[2020-03-21] MEDS: iodixanol 320 mg/mL 100mL Btl IV (23:49)
[2020-03-22] VITALS (55 sets, daily range): BP systolic 89–148; BP diastolic 46–77; PULSE 66–92; RESP 13–26; TEMP 36.7; O2SAT 90–98
[2020-03-22] MEDS: HYDROmorphone 1 mg/mL INJ 1 mL 0.5 MG IVP ×2 (02:36→05:54)
--- NOTE | 2020-03-22 02:59 | PC.NURSE ---
[address] aware that pt failed nurse-driven swallow test. Dr aware pt cannot take oral medicines. Speech therapy order is in for a swallow consult. Medicines not given at this time. Dayshift nurse to be notified.
--- NOTE | 2020-03-22 07:00 | CTR_ITS ---
PROCEDURE INFORMATION: Exam: CT Cervical Spine Without Contrast Exam date and time: 03/22/2020 7:16 AM Age: 55 years old Clinical indication: Neck pain TECHNIQUE: Imaging protocol: Computed tomography images of the cervical spine without contrast. Radiation optimization: All CT scans at this facility use at least one of these dose optimization techniques: automated exposure control; mA and/or kV adjustment per patient size (includes targeted exams where dose is matched to clinical indication); or iterative reconstruction. COMPARISON: CT Cervical Spine w cont [id number] 03/10/2018 12:24 PM RADIATION DOSE METRICS: Total DLP (mGy-cm): 730.19 FINDINGS: Vertebrae: No fracture or other acute bony abnormalities are seen. There is straightening of the cervical spine which is probably positional. There is degenerative disc space narrowing with mild sclerosis and osteophytes. Degenerative changes are present in the facet joints greater on the left side with narrowing sclerosis and hypertrophy.. C2-C3: No significant disc protrusion. No severe spinal canal stenosis. No significant neural foraminal narrowing. C3-C4: No significant disc protrusion. No severe spinal canal stenosis. No significant neural foraminal narrowing. C4-C5: No significant disc protrusion. No severe spinal canal stenosis. There are facet joint hypertrophic changes causing moderate narrowing of the left C4-C5 neural foramen. C5-C6: There is mild degenerative disc protrusion/osteophyte complex. No herniation is seen. No severe spinal canal stenosis. No significant neural foraminal narrowing. C6-C7: No significant disc protrusion. No severe spinal canal stenosis. No significant neural foraminal narrowing. C7-T1: No significant disc protrusion. No severe spinal canal stenosis. No significant neural foraminal narrowing. Soft tissues: Unremarkable. Lungs: Lung apices are normal. CT/CT cervical spin wo con* [id number] IMPRESSION: 1. No acute abnormality. 2. Chronic degenerative changes. There is no significant central spinal canal stenosis. There is moderate narrowing of the left C4-C5 neural foramen. Radiation Dose CTDIVOL = (mGy): DLP = 730.19 (mGy-cm)
--- NOTE | 2020-03-22 09:16 | PC.OT ---
HOLD OT EVALUATION UNTIL 03/23 DUE TO TPA ADMINISTRATION AND PROTOCOL. TO BE ATTEMPTED TOMORROW.
[2020-03-22] MEDS: HYDROcodone-acetaminophen 5-325 mg Tablet 1 TAB PO (11:01)
[2020-03-22] MEDS: acetaminophen 500 mg Tablet PO ×3 (11:02→20:22)
[2020-03-22] MEDS: atorvastatin 40 mg Tablet 80 MG PO (11:05)
--- NOTE | 2020-03-22 11:48 | USCV_ITS ---
Mikala Love Age: 55 Gender: F : 1965 Exam Date: 03/22/2020 15:15 Ordering Phys: Debbie Alas MD Technologist: Hellen Zelaya Exam Location[place] [facility] [place] Indication: CVA BP: 102 / 51 HR: 75 Rhythm: Sinus Technical Quality: Adequate MEASUREMENTS (Male / Female) Normal Values 2D ECHO LV Diastolic Diameter PLAX 3.1 cm 4.2 - 5.9 / 3.9 - 5.3 cm LV Systolic Diameter PLAX 2.4 cm LV Chamber Size 4.1 cm IVS Diastolic Thickness 1.1 cm 0.6 - 1.0 / 0.6 - 0.9 cm IVS Systolic Thickness 1.5 cm LVPW Diastolic Thickness 1.1 cm 0.6 - 1.0 / 0.6 - 0.9 cm LVPW Systolic Thickness 1.4 cm RV Chamber Size 2.2 cm LVOT Diameter 2.0 cm LV Ejection Fraction 2D Teich 48.5 % LV Ejection Fraction MOD 2C 80.0 % LV Ejection Fraction 2C AL 82.7 % LA Diameter 3.2 cm LA Width 2.9 cm LA Height 4.8 cm RA Width 2.5 cm RA Height 4.3 cm Aorta at Sinotubular Diameter 3.0 cm M-MODE LV Diastolic Diameter MM 2.7 cm 4.2 - 5.9 / 3.9 - 5.3 cm LV Systolic Diameter MM 1.7 cm LV Ejection Fraction MM Teich 68.9 % IVS Diastolic Thickness MM 1.9 cm 0.6 - 1.0 / 0.6 - 0.9 cm IVS Systolic Thickness MM 1.7 cm LVPW Diastolic Thickness MM 1.3 cm 0.6 - 1.0 / 0.6 - 0.9 cm LVPW Systolic Thickness MM 1.4 cm RV Diastolic Diameter MM 1.5 cm Aortic Annulus Diameter 2.9 cm LA Ao Ratio MM 1.3 MV E Point Septal Separation 0.3 cm DOPPLER AV Peak Velocity 195.0 cm/s LVOT Peak Velocity 96.0 cm/s AV Area Cont Eq vti 2.1 cm squared AV Area Cont Eq pk 1.6 cm squared MV Area PHT 4.9 cm squared Mitral E to A Ratio 1.1 MV E' Velocity 72.0 cm/s Mitral E to MV E' Ratio 11.6 Mitral E to LV E' Lateral Ratio 10.7 Mitral E to LV E' Septal Ratio 12.7 TR Peak Velocity 224.8 cm/s TR Peak Gradient 20.2 mmHg TR Mean Velocity 162.6 cm/s TR Mean Gradient 11.8 mmHg TR Velocity Time Integral 51.5 cm TV Peak E Velocity 65.0 cm/s Right Atrial Pressure 3.0 mmHg Pulmonary Artery Systolic Pressu 23.2 mmHg PV Peak Velocity 93.0 cm/s RV Acceleration Time 0.1 s RV Ejection Time 0.3 s RV AcT/ET 0.3 FINDINGS Left Ventricle Normal left ventricular size and systolic function. LVEF is 60 to 65%. No regional wall motion abnormalities are seen. Normal diastolic filling pattern. Right Ventricle The right ventricle is normal in size and function. Right Atrium The right atrium is normal in size. Left Atrium The left atrium is normal in size. Mitral Valve Structurally normal mitral valve without significant stenosis or prolapse. There is no mitral regurgitation. Aortic Valve Aortic valve is thickened. No significant aortic stenosis is seen. There is no aortic regurgitation. Tricuspid Valve Structurally normal tricuspid valve without significant stenosis or regurgitation. Insufficient TR jet to calculate RVSP. Pulmonic Valve Structurally normal pulmonic valve without significant stenosis. There is no pulmonic regurgitation. Pericardium Normal pericardium without effusion. Aorta Normal ascending aorta dimension. CONCLUSIONS LV systolic function test was normal with a EF of 60 to 65%. Normal diastolic function. No significant valvular heart disease noted. Aortic valve thickening without significant stenosis or regurgitation. Compared to prior echocardiogram from 11/17/2018, no significant changes are seen. Albin Campbell MD (Electronically Signed) Final Date: 22 March 2020 18:48 S
--- NOTE | 2020-03-22 11:49 | ECG_ITS ---
[facility] Test Date: 2020-03-22 Pat Name: Mikala Love Department: Room: [id number] Gender: Female [employer]: : 1965 Requested By: Debbie Alas Order Number: [id number] Lucretia MD: Eden Pollard M.D. Measurements Intervals [place] Rate: 71 P: 46 UT: 238 QRS: 15 QRSD: 89 T: 26 QT: 380 QTc: 416 Interpretive Statements SINUS RHYTHM WITH FIRST DEGREE AV BLOCK Compared to ECG 03/21/2020 18:10:02 First degree AV block now present T-wave abnormality no longer present Electronically Signed On 03-22-2020 22:23:01 FINE ARTS MODEL by Eden Pollard M.D. [id number]
--- NOTE | 2020-03-22 13:10 | PC.CHAP ---
Pastoral Care Encounter/Spiritual Assessment Type of Contact [] Declined feeder loader visit [] Patient/Family/Request visit [] Outpatient visit [] Follow-up visit [] Physician referral [] Code/Alert [] Routine visit [] Staff referral [] Actively dying [] Patient sleeping [] Family support [] [] Out of room [] Palliative care [] [xx] Receiving care in room [] Pre-surgical visit [] Trauma [] Long length of stay [xx] ICU visit [xx] Other: Follow up needed Relational/Emotional Strength [] Patient feels connected with others/family/visitors/staff [] Distress [] Loneliness/isolation [] Abandonment Spirituality of Patient [] Person of Elenita [] Attends Taoist of their Elenita [] Believes in Prayer [] Reads Bible or Religion materials [] There are Spiritual issues to be addressed Sales And Production Manager Interventions [] Prayer [] Active listening [] Non-anxious presence [] Spiritual/emotional support [] Crisis/trauma care [] Spiritual counseling [] Bereavement support [] Provided bereavement packet [] Provided Bible/devotional materials [] Provided toy/stuffed animal, coloring book to patient or family member [] Provided Communion [] Anointing/Ulmer [] Salvation [] Completed spiritual assessment [] Other: Impact on Illness or Injury [] Angry [] Fearful [] Anxious [] Often cries [] Exhaustion [] Unable to work [] Unable to attend gnosticism [] Unable to walk/stand [] Unable to read [] Unable to drive [] Unable to eat/drink [] Unable to sleep [] Unable to be with family [] Patient intubated [] Other: Summary Medicl staff were working with her constantly so visit not accomplished. Follow up later. Time spent with patient
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
[2020-03-22] MEDS: tizanidine 4 mg Tablet PO ×2 (16:05→21:31)
--- NOTE | 2020-03-22 16:12 | P.PN_ITS ---
Subjective Subjective: Interval history: overnight labs and H7P reveiwed. Irregular HR noted on tele, appears to be sinus arrhythmias Medications: Reviewed: Yes Vitals/I&O/Wt Last Vital Signs Temp 98.1 F 03/22/20 05:00 Pulse 82 03/22/20 15:00 Resp 15 03/22/20 10:00 BP 102/51 03/22/20 10:00 Pulse Ox 97 03/22/20 11:13 03/22/20 03/22/20 03/22/20 06:59 14:59 22:59 Output Total 225 / 225 225 / 225 Balance -225 / -140.0 -225 / -225 Weight last 48 hrs Weight 94.393 kg Physical Exam Narrative: EXAM NARRATIVE: GEN: Awake, alert and oriented, no acute distress CVS: S1S2 N RS: CTA B/L Abd: Soft, nt/nd , bs+ MASTER AUTOMOTIVE TECHNICIAN: Power 1 out of 5 R lower extremity, 2 out of 5 R upper extremity , 5/5 lue and lle Data : 03/21/20 17:50 03/21/20 17:50 A&P Assessment and plan (1) Acute right-sided weakness: Status: Acute (2) Cervical disc disorder of mid-cervical region: Status: Chronic (3) DDD (degenerative disc disease), lumbar: Status: Chronic Additional A&P Information Acute right-sided weakness CT head unremarkable NIH score 5 status post TPA Post TPA management neurochecks every 4, avoid Hogan catheter placement, avoid hypertension Currently she is normotensive afebrile saturating well on room air Hold off on aspirin or Plavix for next 24 hours Continue statin [address] this evening CTa neck without significant carotis stenosis Has h/o transient A fib after a stress test few years ago. Holter from one year ago without significant events. Check 12 lead EKG and echocardiogram to r/o cardiac causes Obstructive sleep apnea her bicarb is around 32 We will keep her on auto CPAP overnight Cardiac diet Physical therapy evaluation DVT prophylaxis not indicated would use SCDs status post TPA Full code Attestations Medical Necessity Statement*: [address] scan this evening, therapy assessment Coding Level of Care Code Acute Carpenters Supervisor for Chg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
--- NOTE | 2020-03-22 16:13 | PC.PT ---
HOLD PT EVALUATION UNTIL 03/23 DUE TO TPA ADMINISTRATION AND PROTOCOL. TO BE ATTEMPTED TOMORROW.
--- NOTE | 2020-03-22 19:00 | CTR_ITS ---
PROCEDURE INFORMATION: Exam: CT Head Without Contrast Exam date and time: 03/22/2020 7:17 PM Age: 55 years old Clinical indication: Other: 24 hr S/P tpa f/u; Patient HX: F/u 24 hrs S/P tpa; Additional info: Post tpa TECHNIQUE: Imaging protocol: Computed tomography of the head without contrast. Radiation optimization: All CT scans at this facility use at least one of these dose optimization techniques: automated exposure control; mA and/or kV adjustment per patient size (includes targeted exams where dose is matched to clinical indication); or iterative reconstruction. COMPARISON: CT head wo con* [id number] 03/21/2020 5:53 PM RADIATION DOSE METRICS: Total DLP (mGy-cm): 775.87 FINDINGS: Brain: There are moderate periventricular and subcortical lucencies consistent with chronic microvascular ischemic changes. The conley-white differentiation is maintained. No hemorrhage. No edema. Cerebral ventricles: No ventriculomegaly. Bones/joints: Unremarkable. No acute fracture. Paranasal sinuses: Visualized sinuses are unremarkable. No fluid levels. Mastoid air cells: Visualized mastoid air cells are well aerated. Soft tissues: Unremarkable. CT/CT head wo con* [id number] IMPRESSION: No acute intracranial abnormality. Chronic microvascular ischemic changes. Radiation Dose CTDIVOL = (mGy): DLP = 775.87 (mGy-cm)
[2020-03-22] MEDS: primidone 50 mg Tablet 125 MG PO (20:28)
[2020-03-22] MEDS: lamoTRIgine 100 mg Tablet 200 MG PO (20:30)
[2020-03-22] MEDS: pantoprazole DR 40 mg Tablet PO (20:30)
[2020-03-22] MEDS: losartan 50 mg Tablet 25 MG PO (20:31)
[2020-03-22] MEDS: amlodipine 5 mg Tablet 2.5 MG PO (20:31)
--- NOTE | 2020-03-22 20:45 | PC.NURSE ---
Patient transported to CT and back by wheelchair, without any incident. Resting in bed, reading a book, and no other verbalized needs at this time.
--- NOTE | 2020-03-22 21:43 | PC.NURSE ---
phoned to check-in on patient. Reviewed patient's plan of care, v/s and tests/procedures planned. No other questions at this time.
[2020-03-23] VITALS (22 sets, daily range): BP systolic 88–138; BP diastolic 52–85; PULSE 57–80; RESP 13–20; TEMP 36.5–37; O2SAT 92–98
[2020-03-23] MEDS: HYDROcodone-acetaminophen 5-325 mg Tablet 1 TAB PO ×3 (03:16→22:18)
[2020-03-23] MEDS: acetaminophen 500 mg Tablet PO ×4 (03:16→22:20)
[2020-03-23 05:39] LABS: Anion Gap 15.3 (5-19); Blood Urea Nitrogen 16 mg/dL (6-20); Calcium 9.3 mg/dL (8.5-10.5); Carbon Dioxide 28 mmol/L (22-29); Chloride 98 mmol/L (98-107); Glomerular Filtration Rate 74.2 mL/min (90-130); Glucose 103 mg/dL (65-115); Osmolality Calculated 287 mOsm/kg (285-295); Potassium 3.3 mmol/L (3.5-5.1); Sodium 138 mmol/L (136-145)
[2020-03-23] MEDS: primidone 50 mg Tablet 125 MG PO ×2 (06:09→20:59)
[2020-03-23] MEDS: amlodipine 5 mg Tablet 2.5 MG PO ×2 (06:10→20:56)
[2020-03-23] MEDS: losartan 50 mg Tablet 25 MG PO ×2 (06:11→20:55)
[2020-03-23] MEDS: lamoTRIgine 100 mg Tablet 200 MG PO ×2 (06:12→20:56)
[2020-03-23] MEDS: pantoprazole DR 40 mg Tablet PO ×2 (06:12→20:55)
[2020-03-23] MEDS: hydroCHLOROthiazide 25 mg Tablet PO (06:13)
--- NOTE | 2020-03-23 07:03 | PC.NURSE ---
Shift Summary: Mostly uneventful shift noted. Patient rested well. Had two complaints of pain throughout shift that was treated with PRN pain medications. Stated she usually only takes Tylenol with her Hydrocodone for her home use to control pain. Patient was able to get up and down from bedside commode with minimal standby assistance. No needs verbalized at this time. Report given to oncjenny dayshift RN.
[2020-03-23] MEDS: atorvastatin 40 mg Tablet 80 MG PO (08:55)
[2020-03-23] MEDS: tizanidine 4 mg Tablet PO ×2 (08:57→22:20)
--- NOTE | 2020-03-23 10:05 | PM.PN ---
Subjective Subjective: Interval history: no acute overnight events, [address] scan withotu any hemorrhage, echocardiogram without any gross abnormalities, EKG with sinus rhythm. Awaiting PT assesment for discharge planning Medications: Reviewed: Yes Vitals/I&O/Wt Last Vital Signs Temp 98.2 F 03/23/20 00:00 Pulse 65 03/23/20 07:02 Resp 16 03/23/20 07:02 BP 132/67 03/23/20 07:02 Pulse Ox 94 03/23/20 06:30 03/22/20 03/23/20 03/23/20 22:59 06:59 14:59 Intake Total 750 / 750 250 / 1000 250 / 250 Output Total 500 / 725 850 / 1575 300 / 300 Balance 250 / 25 -600 / -575 -50 / -50 Weight last 48 hrs Weight 94.393 kg Physical Exam Narrative: EXAM NARRATIVE: GEN: Awake, alert and oriented, no acute distress CVS: S1S2 N RS: CTA B/L Abd: Soft, nt/nd , bs+ Nuero: R hemiparesis Data : 03/21/20 17:50 03/23/20 04:46 A&P Assessment and plan (1) Acute right-sided weakness: Status: Acute (2) Cervical disc disorder of mid-cervical region: Status: Chronic (3) DDD (degenerative disc disease), lumbar: Status: Chronic Additional A&P Information Acute right-sided weakness Initial CT head unremarkable NIH score 5 status post TPA on 03/[address] without any hemorrhage Resume ASA 81mg qd Continue statin CTa neck without significant carotis stenosis Has h/o transient A fib after a stress test few years ago, sinus rhythm 12 lead EKG and echocardiogram without obvious abnormalities. Obstructive sleep apnea her bicarb is around 32 We will keep her on auto CPAP overnight Cardiac diet Physical therapy evaluation pending Dispo: SNF vs home with HH DVT prophylaxis : lovenox Full code Attestations Medical Necessity Statement*: awaiting therapy assesssments for discharge planning Coding Level of Care Code Acute Checking Department Supervisor for Chg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
[2020-03-23] MEDS: potassium chloride oral liq 20 mEq/15 mL UDC 40 MEQ PO (14:41)
--- NOTE | 2020-03-23 17:27 | PC.NURSE ---
transfer to 2nd floor at this time
--- NOTE | 2020-03-23 17:43 | P.PN_ITS ---
Vitals/I&O/Wt Last Vital Signs Temp 98.6 F 03/23/20 17:32 Pulse 77 03/23/20 17:32 Resp 17 03/23/20 17:32 BP 110/67 03/23/20 17:32 Pulse Ox 94 03/23/20 17:32 03/23/20 03/23/20 03/23/20 06:59 14:59 22:59 Intake Total 250 / 1000 550 / 550 Output Total 850 / 1575 300 / 300 Balance -600 / -575 250 / 250 Weight last 48 hrs Weight 94.393 kg Data : 03/21/20 17:50 03/23/20 04:46 Coding Level of Care Code Acute Treating Plant Operator for Familiag Wandy
[2020-03-24 04:33] VITALS: BP 106/70; PULSE 76; RESP 16; TEMP 36.5; O2SAT 95
[2020-03-24] MEDS: acetaminophen 500 mg Tablet PO (06:29)
[2020-03-24] MEDS: docusate sodium 100 mg Capsule PO (06:30)
[2020-03-24] MEDS: hydroCHLOROthiazide 25 mg Tablet PO (06:30)
[2020-03-24] MEDS: pantoprazole DR 40 mg Tablet PO (06:30)
[2020-03-24] MEDS: amlodipine 5 mg Tablet 2.5 MG PO (06:30)
[2020-03-24] MEDS: lamoTRIgine 100 mg Tablet 200 MG PO (06:30)
[2020-03-24 06:31] VITALS: BP 106/70
[2020-03-24] MEDS: losartan 50 mg Tablet 25 MG PO (06:31)
[2020-03-24] MEDS: primidone 50 mg Tablet 125 MG PO (06:31)
--- NOTE | 2020-03-24 07:03 | PC.NURSE ---
Report to Dhara Chamberlain RN
[2020-03-24 07:25] VITALS: BP 140/73; PULSE 74; RESP 19; TEMP 36.5; O2SAT 96
[2020-03-24] MEDS: aspirin 81 mg EC Tablet PO (08:32)
[2020-03-24] MEDS: atorvastatin 40 mg Tablet 80 MG PO (08:33)
[2020-03-24] MEDS: HYDROcodone-acetaminophen 5-325 mg Tablet 1 TAB PO (08:34)
--- NOTE | 2020-03-24 08:55 | PC.SOCIAL ---
Pg 2 IMM Explained to pt Pg 2 IMM. No questions voiced. Provided pt a copy. Signed, dated, & timed a copy & placed in chart.
--- NOTE | 2020-03-24 10:56 | PM.DCS ---
Discharge Providers Date of Admission: 03/21/20 21:30 Date of Discharge: March 24, 2020 Attending Provider at Admission: Liya German MD Attending Provider at Discharge: Debbie Alas MD Primary Care Provider: Yesenia Lazo DO Diagnoses at Discharge Discharge Diagnosis (1) Acute right-sided weakness: Status: Acute (2) Cervical disc disorder of mid-cervical region: Status: Chronic (3) DDD (degenerative disc disease), lumbar: Status: Chronic Reason for Visit Reason for Visit: poss stroke Hospital Course Hospital Course Mikala Love is a 55 year old female who presented today with chief complaint of right-sided weakness and not able to talk. Code stroke was called , Dr. Villegas evaluated the patient and recommended TPA, which she received on 03/22. Since getting the TPA her right-sided weakness improved, as did her aphasia. 24-hour post TPA CT did not show any evidence of hemorrhage. Antiplatelets were resumed at the time of discharge. She is being discharged with Plavix 75 mg p.o. daily for the next 3 weeks and thereafter transition back to her aspirin 81 mg which she was on previously. Recommend follow-up with her current neurologist in [place] versus Dr. Villegas, patient is figuring out her insurance currently to see which provider she would be able to follow-up with. No acute events noted during hospital admission otherwise. Home health including physical therapy was arranged. Physical Exam Narrative: EXAM NARRATIVE: GEN: Awake, alert and oriented, no acute distress , speech is much improved, no word finding difficulty noted today CVS: S1S2 N RS: CTA B/L Abd: Soft, nt/nd , bs+ DRAMA THERAPIST: Right upper extremity 4 out of 5, left upper extremity 5 out of 5 lower extremity weakness also improving additionally compared to on admission today. Discharge Data Data Completed and Pending: Completed Studies During Hospitalization Category Date Time Status CT angio headneck * 65990/56713 Rout ine Cat Scan 03/21/20 22:[address] cervical spin wo con* 50808 Rout ine Cat Scan 03/22/20 07:[address] head wo con* 7 0450 Routine Cat Scan 03/22/20 19:[address] head wo con* 7 0450 Stat Cat Scan 03/21/20 18:05 Completed XR chest 1V miguel ble [id number] Stat Exams 03/21/20 18:04 Completed CV echo complete* [id number] Routine Ultrasound 03/22/20 11:48 Completed Vitals: Last Vital Signs Temp 97.7 F 03/24/20 07:25 Pulse 74 03/24/20 07:25 Resp 19 H 03/24/20 07:25 BP 140/73 03/24/20 07:25 Pulse Ox 96 03/24/20 07:25 Discharge Plan Discharge Patient Disposition: Home Health Service Condition: Stable Prescriptions: New Plavix 75 mg tablet 75 mg PO DAILY 21 Days Qty: 21 RF: 0 Continued pantoprazole [Protonix] 40 mg tablet,delayed release (DR/EC) 40 mg PO BID@599,1999 RF: 0 lamotrigine 100 mg tablet 200 mg PO BID@599,1999 RF: 0 ondansetron HCl [Zofran] 4 mg tablet 4 mg PO Q6H RF: 0 amlodipine 2.5 mg tablet 2.5 mg PO BID@599,1999 RF: 0 primidone 50 mg tablet 125 mg PO BID@599,1999 RF: 0 hydrocodone-acetaminophen 5-325 mg tablet 1 tab PO TID PRN (Reason: pain) 30 Days Qty: 90 RF: 0 losartan 25 mg tablet 25 mg PO BID@599,1999 RF: 0 docusate sodium 100 mg capsule 100 mg PO DAILY@0600 PRN (Reason: Constipation) RF: 0 tizanidine 4 mg tablet 4 mg PO TID PRN (Reason: muscle spasticity) 30 Days Qty: 120 RF: 1 Multivitamin 50 Plus Tablet 1 tab PO DAILY@0600 RF: 0 propranolol 10 mg tablet 10 mg PO DAILY@0600 RF: 0 hydrochlorothiazide 25 mg tablet 25 mg PO DAILY@0600 RF: 0 Changed atorvastatin 40 mg tablet 80 mg PO DAILY@0600 Qty: 0 RF: 0 Held aspirin [Adult Low Dose Aspirin] 81 mg tablet,delayed release (DR/EC) 81 mg PO DAILY@0600 RF: 0 Hold Instructions: Resume on 04/14/20. Discharge Orders: Discharge Order (Routine); Ordered 03/24/20 Ordered By: Debbie Alas Other Ambulatory Orders: DME: Walker (Order) Location: None Selected Ordered By: Debbie Alas Referrals: [facility] [Other] (Call this number if you are interested in getting [facility] setup. They will ask questions & it is based off of a point system, from the answers of the questions they asked. ) [facility] [Outside] [facility] ([facility]) [Outside] Yesenia Lazo DO [Primary Care Provider] - 7-10 days (Call office Wednesday to make an appointment to be seen within the next 1-7 days for a follow up.) Discharge Diet: Usual diet and As Directed Discharge Activity: Increase activity as tolerated and As per PT/OT instructions Patient Instructions: Clopidogrel (By mouth), Ischemic Stroke (DC), Stroke Stoplight Discharge Attestations Time Spent in Discharge Care*: greater than 30 min Quality Metrics Clinical Quality Measures During this hospital stay, did patient experience: Stroke Contraindication to Antithrombotic: Antithrombotic prescribed Contraindication to Anticoagulation: Anticoagulation prescribed Contraindication to Statin: Statin prescribed Contraindication to tPA: tPA given Coding Level of Care Code 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
[2020-03-24 11:53] VITALS: BP 151/101; PULSE 74; RESP 18; TEMP 36.6; O2SAT 97
[2020-03-24 12:15] VITALS: BP 151/101; PULSE 74; RESP 18; TEMP 36.6; O2SAT 97
== END 2020-03-24 12:16 | disposition home health service (06) | DRG 62 ==
LOC: ER 21:08 → ICU 21:36 → MEDSURG 03-23 17:11
PROVIDERS: Admitting Provider Internal Medicine; Emergency Provider Family Medicine; PCP Internal Medicine; Visit Provider Student in an Organized Health Care Education/Training Program
DX: I63.9 Cerebral infarction, unspecified (principal); G81.90 Hemiplegia, unspecified affecting unspecified side; F33.3 Major depressive disorder, recurrent, severe with psychotic symptoms; M50.920 Unspecified cervical disc disorder, mid-cervical region, unspecified level; M51.36 Other intervertebral disc degeneration, lumbar region; F43.10 Post-traumatic stress disorder, unspecified; I48.91 Unspecified atrial fibrillation; Z79.82 Long term (current) use of aspirin; R29.705 NIHSS score 5; I10 Essential (primary) hypertension; G47.33 Obstructive sleep apnea (adult) (pediatric); Z87.891 Personal history of nicotine dependence
CPT/HCPCS: 12345; 36415; 36416; 70450; 70496; 70498; 71045; 72125; 80048; 80053; 80306; 81001; 82962; 85025; 85610; 85730; 92523; 92610; 93005; 93306; 94660; 97110; 97161; 97166; 97530; 99283; J1170; J1200; J1650; J2930; J2997; J3490; Q9967

== ENCOUNTER 2020-04-02 20:00 | Outpatient (CLI) | payer MEDICARE, MEDICAID, SELFPAY | END 2020-04-02 20:01 | disposition home or self-care (01) | LOC: SLEEP 04-03 09:46 | PROVIDERS: PCP Internal Medicine; Visit Provider Physician Assistant | DX: G47.33 Obstructive sleep apnea (adult) (pediatric) (principal) | CPT/HCPCS: 95811 ==

== ENCOUNTER → 2020-04-15 09:38 | Outpatient (BNVA) | payer MEDICARE, MEDICAID, SELFPAY | PROVIDERS: PCP Internal Medicine; Referring Provider Nurse Practitioner Family; Visit Provider Nurse Practitioner | DX: I69.351 Hemiplegia and hemiparesis following cerebral infarction affecting right dominant side (principal); G40.909 Epilepsy, unspecified, not intractable, without status epilepticus; R00.2 Palpitations; Z96.82 Presence of neurostimulator; Z87.891 Personal history of nicotine dependence | CPT/HCPCS: 95970; 99205 ==

== ENCOUNTER 2020-04-29 08:34 | Outpatient (CLI) | payer MEDICARE, MEDICAID, SELFPAY ==
--- NOTE | 2020-04-29 08:42 | MR_ITS ---
WS: [id number] MRI HEAD WITH CONTRAST TECHNIQUE: Sagittal T1, T2 axial, T2 axial FLAIR, axial susceptibility weighted imaging, axial diffus ion weighted images, and coronal T2 images were obtained. Pre and post-T1 axial and post T1 coronal i mages. ADC and FSPGR images. CLINICAL INFORMATION: I63.512 - Cerebral infarction due to unspecified occlusion or stenosis of left middle cerebral artery COMPARISON: CT head March 22, 2019 And MRI September 09, 2019 FINDINGS: No evidence of restricted diffusion to suggest acute ischemia. Ventricular system and basal cisterns are patent. Moderate small vessel changes. Moderate parenchymal volume loss. Normal posterior fossa. Normal vascular flow voids at the skull base. No extra-axial fluid collections. No evidence of mass o r mass effect. Paranasal sinuses and mastoid air cells are well aerated. Mild mucosal thickening in t he maxillary sinuses. Evidence of prior maxillary antrostomies with polypoid mucosal thickening. Mild symmetric atrophy temporal lobes and hippocampal formations. Normal optic chiasm and pituitary i nfundibulum. No hemosiderin on susceptibly weighted images. No abnormal gadolinium enhancement. Normal optic chiasm and pituitary infundibulum. Normal cavernous sinuses and Meckel's cave. Normal dural venous sinuses. MR/MR head wo/w con [id number] IMPRESSION: 1. No evidence of restricted diffusion to suggest acute ischemia. 2. Moderate small vessel changes with moderate parenchymal volume loss. 3. No hemosiderin on susceptibly weighted images. 4. No abnormal gadolinium enhancement. 5. No other significant changes from previous.
[2020-04-29] MEDS: gadobenate dimeglumine 20 mL vial IV (09:59)
== END 2020-04-29 08:35 | disposition home or self-care (01) ==
LOC: RADSHAW 08:38
PROVIDERS: PCP Internal Medicine; Visit Provider Nurse Practitioner
DX: I63.512 Cerebral infarction due to unspecified occlusion or stenosis of left middle cerebral artery (principal)
CPT/HCPCS: 70553; A9577

== ENCOUNTER 2020-05-08 08:00 | Outpatient (CLI) | payer MEDICARE, MEDICAID, SELFPAY ==
--- NOTE | 2020-05-08 08:13 | MM_ITS ---
WS: [id number] Bilateral screening digital mammogram, 05/08/2020 Clinical Data: SCREENING Comparison: 09/29/2018, 01/07/2017, 12/13/2015, 06/25/2015, 06/10/2015, 06/07/2014, 03/15/2013, 03/12/2004. Findings: The breast parenchymal pattern shows fat replacement. No spiculated masses or clustered calcification s are seen. There are no secondary signs of carcinoma. There is a pacemaker generator in the left axi lla. There are lymph nodes in the right axilla. MM/[place] [id number] Impression: 1. Negative bilateral mammogram unchanged. 2. Recommend annual screening mammograms. BIRADS: 1-Negative FOLLOW UP: 1 Year Follow-up The CAD roller checker was used.
== END 2020-05-08 08:01 | disposition home or self-care (01) ==
LOC: RADSHAW 08:06
PROVIDERS: PCP Internal Medicine; Visit Provider Nurse Practitioner Family
DX: Z12.31 Encounter for screening mammogram for malignant neoplasm of breast (principal)
CPT/HCPCS: 77067

== ENCOUNTER → 2020-06-24 13:33 | Outpatient (BNVA) | payer MEDICARE, MEDICAID, SELFPAY | PROVIDERS: PCP Internal Medicine; Visit Provider Nurse Practitioner | DX: I69.351 Hemiplegia and hemiparesis following cerebral infarction affecting right dominant side (principal); R93.0 Abnormal findings on diagnostic imaging of skull and head, not elsewhere classified; R53.1 Weakness; Z87.891 Personal history of nicotine dependence | CPT/HCPCS: 99213 ==

== ENCOUNTER → 2020-07-03 12:21 | Outpatient (BNVA) | payer MEDICARE, MEDICAID, SELFPAY | PROVIDERS: PCP Internal Medicine; Visit Provider Nurse Practitioner | DX: G89.29 Other chronic pain (principal); M47.813 Spondylosis without myelopathy or radiculopathy, cervicothoracic region; M50.920 Unspecified cervical disc disorder, mid-cervical region, unspecified level; M51.36 Other intervertebral disc degeneration, lumbar region; G50.0 Trigeminal neuralgia; M25.511 Pain in right shoulder; M25.512 Pain in left shoulder; R29.6 Repeated falls; Z86.73 Personal history of transient ischemic attack (TIA), and cerebral infarction without residual deficits; Z79.891 Long term (current) use of opiate analgesic | CPT/HCPCS: 99214 ==

== ENCOUNTER → 2020-07-09 11:30 | Outpatient (BNVA) | payer MEDICARE, MEDICAID, SELFPAY | PROVIDERS: PCP Internal Medicine; Visit Provider Specialist | DX: F44.5 Conversion disorder with seizures or convulsions (principal); F44.9 Dissociative and conversion disorder, unspecified; S06.9X9S Unspecified intracranial injury with loss of consciousness of unspecified duration, sequela; Y93.9 Activity, unspecified; M47.813 Spondylosis without myelopathy or radiculopathy, cervicothoracic region; M51.36 Other intervertebral disc degeneration, lumbar region; M50.920 Unspecified cervical disc disorder, mid-cervical region, unspecified level; G50.0 Trigeminal neuralgia; M25.511 Pain in right shoulder; M25.512 Pain in left shoulder; Z86.73 Personal history of transient ischemic attack (TIA), and cerebral infarction without residual deficits; Z87.891 Personal history of nicotine dependence | CPT/HCPCS: 99215 ==

== ENCOUNTER → 2020-07-24 07:54 | Outpatient (BNVA) | payer MEDICARE, MEDICAID, SELFPAY | PROVIDERS: PCP Internal Medicine; Visit Provider Anesthesiology | DX: G89.29 Other chronic pain (principal); M51.36 Other intervertebral disc degeneration, lumbar region; M47.813 Spondylosis without myelopathy or radiculopathy, cervicothoracic region; M50.920 Unspecified cervical disc disorder, mid-cervical region, unspecified level; Z86.73 Personal history of transient ischemic attack (TIA), and cerebral infarction without residual deficits; Z79.891 Long term (current) use of opiate analgesic | CPT/HCPCS: 99214 ==

== ENCOUNTER 2020-09-11 14:39 | Inpatient (IN) | payer MEDICARE, MEDICAID, SELFPAY ==
[2020-09-11 14:54] VITALS: BP 163/99; PULSE 81; RESP 17; TEMP 37.2; O2SAT 99; BMI 34.7
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
[2020-09-11 16:02] LABS: Basophils # 0.1 10^3/uL (0.0-0.1); Basophils % 0.8 %; Eosinophils # 0.4 10^3/uL (0.0-0.8); Eosinophils % 3.3 %; Hematocrit 35.3 % (37.0-47.0); Hemoglobin 11.8 g/dL (11.5-15.3); Lymphocytes # 2.1 10^3/uL (0.8-4.8); Lymphocytes % 19.9 %; Mean Corpuscular HGB Conc 33.4 g/dL (30.0-36.0); Mean Corpuscular Hemoglobin 28.4 pg (28.0-34.0); Mean Corpuscular Volume 84.9 fL (81-99); Mean Platelet Volume 10.4 fL (7.4-10.4); Monocytes # 0.7 10^3/uL (0.2-0.9); Monocytes % 6.5 %; Neutrophils # 7.42 10^3/uL (1.8-7.7); Neutrophils % 69.1 %; Nucleated Red Blood Cells % 0 %; Platelet Count 349 10^3/cmm (130-400); Red Blood Count 4.16 10^6/uL (4.1-5.3); White Blood Count 10.7 10^3/uL (4.0-10.0)
[2020-09-11 16:09] LABS: Amphetamines Screen Urine Negative (Negative); Barbiturates Screen Urine Positive (Negative); Benzodiazepines Screen Urine Negative (Negative); Cocaine Screen Urine Negative (Negative); Opiate Screen Urine Positive (Negative); PCP Screen Urine Negative (Negative); THC Screen Urine Negative (Negative)
[2020-09-11 16:36] LABS: Alanine Aminotransferase 25 U/L (0-33); Albumin Level 4.6 g/dL (3.5-5.2); Alkaline Phosphatase 135 IU/L (35-105); Anion Gap 16.1 (5-19); Aspartate Amino Transferase 16 U/L (0-32); Blood Urea Nitrogen 13 mg/dL (6-20); Calcium 8.8 mg/dL (8.5-10.5); Carbon Dioxide 27 mmol/L (22-29); Chloride 93 mmol/L (98-107); Globulin 1.9 g/dL (1.3-4.6); Glomerular Filtration Rate 64.8 mL/min (90-130); Glucose 96 mg/dL (65-115); Osmolality Calculated 274 mOsm/kg (285-295); Potassium 4.1 mmol/L (3.5-5.1); Sodium 132 mmol/L (136-145); Total Bilirubin 0.2 mg/dL (0.15-1.2); Total Protein 6.5 g/dL (6.6-8.7)
[2020-09-11 16:38] LABS: Acetaminophen < 5.0 ug/mL (10-30); Alcohol Level < 10 mg/dL (0-10); Salicylate < 0.3 mg/dL (3-10)
[2020-09-11] MEDS: tizanidine 4 mg Tablet PO (17:16)
[2020-09-11] MEDS: HYDROcodone-acetaminophen 5-325 mg Tablet 1 TAB PO (17:16)
[2020-09-11 17:57] VITALS: BP 138/82; PULSE 87; O2SAT 99
--- NOTE | 2020-09-11 18:00 | PC.PHAR ---
pt states she takes care of her own medications-pt verified meds
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
[2020-09-11 18:46] VITALS: BP 162/94; PULSE 94; RESP 18; TEMP 36.7; O2SAT 97
[2020-09-11 21:16] VITALS: BP 108/69; PULSE 79; RESP 19; TEMP 36.6; O2SAT 97
[2020-09-12] MEDS: hyDROXYzine 25 mg Capsule 50 MG PO (01:46)
[2020-09-12] MEDS: acetaminophen 325 mg Tablet 650 MG PO ×2 (01:46→11:57)
--- NOTE | 2020-09-12 01:47 | PC.NURSE ---
Vistaril 50mg Po given for insomnia and anxiety.
[2020-09-12 03:51] VITALS: BP 146/76; PULSE 78; RESP 16; TEMP 36.7; O2SAT 99
[2020-09-12] MEDS: hydroCHLOROthiazide 25 mg Tablet PO (08:11)
[2020-09-12] MEDS: losartan 50 mg Tablet PO ×2 (08:11→20:33)
[2020-09-12] MEDS: pantoprazole DR 40 mg Tablet PO ×2 (08:11→20:34)
[2020-09-12] MEDS: lamoTRIgine 100 mg Tablet 200 MG PO ×2 (08:11→20:35)
[2020-09-12] MEDS: HYDROcodone-acetaminophen 5-325 mg Tablet 1 TAB PO ×3 (08:28→21:37)
[2020-09-12] MEDS: fixodent 39 gm Tube 1 APPLIC DENTAL (10:03)
[2020-09-12 13:40] VITALS: BP 134/80; PULSE 72; RESP 15; TEMP 37.6; O2SAT 97
[2020-09-12] MEDS: tizanidine 4 mg Tablet PO ×2 (13:42→21:37)
--- NOTE | 2020-09-12 13:42 | PC.NURSE ---
PRN ZANAFLEX 4 MG GIVEN PO PER PT C/O MUSCLE SPASMS
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
[2020-09-12] MEDS: atorvastatin 40 mg Tablet 80 MG PO (20:33)
[2020-09-12] MEDS: amlodipine 5 mg Tablet 2.5 MG PO (20:35)
[2020-09-12 21:02] VITALS: BP 138/82; PULSE 76; RESP 18; TEMP 37; O2SAT 97
[2020-09-12] MEDS: diphenhydrAMINE 50 mg Capsule PO (21:34)
[2020-09-13 06:00] VITALS: BP 121/78; PULSE 100; RESP 16; TEMP 36.6; O2SAT 96
[2020-09-13] MEDS: fixodent 39 gm Tube 1 APPLIC DENTAL (07:13)
[2020-09-13] MEDS: pantoprazole DR 40 mg Tablet PO ×2 (08:13→20:29)
[2020-09-13] MEDS: losartan 50 mg Tablet PO ×2 (08:13→20:48)
[2020-09-13] MEDS: lamoTRIgine 100 mg Tablet 200 MG PO ×2 (08:13→20:47)
[2020-09-13] MEDS: hydroCHLOROthiazide 25 mg Tablet PO (08:13)
[2020-09-13] MEDS: tizanidine 4 mg Tablet PO ×3 (08:14→20:28)
[2020-09-13] MEDS: amlodipine 5 mg Tablet PO (08:14)
[2020-09-13] MEDS: clopidogrel 75 mg Tablet PO (08:14)
[2020-09-13] MEDS: propranolol 20 mg Tablet 10 MG PO (08:14)
[2020-09-13] MEDS: HYDROcodone-acetaminophen 5-325 mg Tablet 1 TAB PO ×3 (08:15→20:48)
--- NOTE | 2020-09-13 08:15 | PC.NURSE ---
PRN ZANAFLEX 4 MG GIVEN PO PER PT C/O STATED MUSCLE SPASMS. 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 MOOD PLEASANT. SMILING AND LAUGHING IN CONVERSATION WITH STAFF.
[2020-09-13] MEDS: acetaminophen 325 mg Tablet 650 MG PO (10:03)
[2020-09-13] MEDS: diphenhydrAMINE 50 mg Capsule PO ×3 (11:18→21:37)
--- NOTE | 2020-09-13 11:19 | PC.NURSE ---
PRN BENADRYL 50 MG GIVEN PO PER PT C/O STATED ITCHING SOMATIC IN COMPLAINTS, ASKING FOR ANY AND ALL PRN MEDICATIONS SHE CAN HAVE
[2020-09-13 14:00] VITALS: BP 158/88; PULSE 73; RESP 17; TEMP 36.8; O2SAT 97
--- NOTE | 2020-09-13 15:37 | PM.NPN ---
Subjective NPU Subjective: Interval history: Mikala presents today reporting that she is feeling really any different. We reviewed her medications and discussed the risk benefits and alternatives of starting Geodon twice daily with meals in the morning and she understood and agreed proceed as is documented in this note. We discussed her situation at home and now she and her have had a challenging relationship for some time. But she continued to talk about the multiple and that about her own feelings or anger in relation to him. Mental Status Exam MSE Comments: This is an obese white female in hospital scrubs with adequate grooming and eye contact. Walking with a rolling walker with mild shuffling. No abnormal movements. Cooperative with exam in no acute distress. Speech is normal rate and volume. Mood described as same, affect slightly subdued. Thought process organized. Thought content: Patient denies suicidal ideation but continued homicidal ideation, there were no delusions reported or noted, he denied any auditory or visual hallucinations but spoke about different multiples speaking. That really concentration were intact and memory appeared unreliable at times and unreliable at others but none were formally tested. He is alert and oriented x3. Insight and judgment are impaired and impulse control is limited. Vitals/I&O/Wt Last Vital Signs Temp 98.3 F 09/13/20 14:00 Pulse 73 09/13/20 14:00 Resp 17 09/13/20 14:00 BP 158/88 09/13/20 14:00 Pulse Ox 97 09/13/20 14:00 Data NPU : 09/11/20 15:54 09/11/20 15:54 A&P Additional A&P Information (1) Aggressive behavior: (2) History of dissociative disorder: (3) S/P placement of VNS (vagus nerve stimulation) device: (4) Traumatic brain injury: (5) Dissociative and conversion disorder: (6) Functional 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: (7) Abnormal MRI of head: (8) Seizure disorder: (9) Left acute arterial ischemic stroke, MCA (middle cerebral artery): (10) Acute right-sided weakness: (11) History of recent fall: (12) Spine pain, lumbar: (13) Status post cerebrovascular accident: (14) Frequent falls: (15) CONRAD (obstructive sleep apnea): (16) Transient atrial fibrillation: (17) Seizure: (18) HTN (hypertension): (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, cervicothoracic region: (20) Encounter for long-term use of opiate analgesic: (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 1. Continue current medication. Start geodon 20 mg po bid with meals tomorrow morning 2. Continue every 15 minute checks for safety. 3. Encourage individual, group and milieu therapies. 4. We will explore records and determine whether a medication change is appropriate. Involuntary Hold Information 96 Hour Hold: 96 Hour Involuntary Admission: No Attestations NPU Medical Necessity Statement*: Inpatient hospitalization is medically necessary and the clinically appropriate intervention at this time. We will monitor medications and make changes as indicated. Likely length of stay 3-5 days. Coding Level of Care Code Acute Executive Search Consultant for [facility]
--- NOTE | 2020-09-13 16:27 | PC.NURSE ---
PRN ZANAFLEX & BENADRYL ZANAFLEX 4 MG GIVEN PO WITH BENADRYL 50 MG PO PER PT C/O STATED MUSCLE SPASMS AND ITCHING
[2020-09-13 20:12] VITALS: PULSE 73; RESP 17; TEMP 36.4; O2SAT 97
[2020-09-13] MEDS: amlodipine 5 mg Tablet 2.5 MG PO (20:27)
[2020-09-13] MEDS: atorvastatin 40 mg Tablet 80 MG PO (20:29)
[2020-09-13 20:48] VITALS: BP 130/92
[2020-09-13] MEDS: primidone 50 mg Tablet 100 MG PO (21:00)
--- NOTE | 2020-09-13 21:55 | PC.NURSE ---
Requested Benadryl 50 mg po for itching skin. Given.
[2020-09-14] MEDS: tizanidine 4 mg Tablet PO ×3 (01:44→22:33)
[2020-09-14] MEDS: diphenhydrAMINE 50 mg Capsule PO ×4 (01:44→22:33)
--- NOTE | 2020-09-14 02:08 | PC.NURSE ---
Benadryl 50 mg po given for c/o itching. Zanaflex 4 mg po given for c/o muscle cramps.
[2020-09-14] MEDS: HYDROcodone-acetaminophen 5-325 mg Tablet 1 TAB PO (03:36)
[2020-09-14] MEDS: clopidogrel 75 mg Tablet PO (05:55)
[2020-09-14] MEDS: amlodipine 5 mg Tablet PO (05:55)
[2020-09-14 06:00] VITALS: BP 116/72; PULSE 78; RESP 18; TEMP 36.5; O2SAT 96
[2020-09-14] MEDS: losartan 50 mg Tablet PO ×2 (10:08→22:01)
[2020-09-14] MEDS: lamoTRIgine 100 mg Tablet 200 MG PO ×2 (10:08→22:03)
[2020-09-14] MEDS: propranolol 20 mg Tablet 10 MG PO (10:08)
[2020-09-14] MEDS: hydroCHLOROthiazide 25 mg Tablet PO (10:09)
[2020-09-14] MEDS: pantoprazole DR 40 mg Tablet PO ×2 (10:09→22:02)
[2020-09-14] MEDS: primidone 50 mg Tablet 150 MG PO (10:09)
--- NOTE | 2020-09-14 10:11 | PC.NURSE ---
PRN ZANAFLEX 4 MG GIVEN PO PER PT C/O MUSCLE SPASMS
--- NOTE | 2020-09-14 12:18 | PC.NURSE ---
PRN BENADRYL 50 MG GIVEN PO PER PT C/O ITCHING
[2020-09-14] MEDS: ziprasidone hcl 20 mg Capsule PO ×2 (13:23→17:58)
[2020-09-14 13:55] VITALS: BP 107/63; PULSE 77; RESP 18; TEMP 36.8; O2SAT 93
--- NOTE | 2020-09-14 16:05 | PM.NPN ---
Subjective NPU Subjective: Interval history: Mikala presents today reporting that she is feeling a little better. She denies clear efficacy of Geodon but denies that it is making things worse or that she is having any specific side effects. She was able to contemplate the possibility of discharge and that being something that can be safely undertaken which is a start. She denies current thoughts to kill her . And reports he sleeping okay. Mental Status Exam MSE Comments: This is an obese white female in hospital scrubs with adequate grooming and eye contact. Walking with a rolling walker with mild shuffling. No abnormal movements. Cooperative with exam in no acute distress. Speech is normal rate and volume. Mood described as a little better maybe, affect slightly brighter. Thought process organized. Thought content: Patient denies suicidal or homicidal ideation, there were no delusions reported or noted, he denied any auditory or visual hallucinations and did not speak about her multiples. That really concentration were intact and memory appeared more reliable at time, but none were formally tested. She is alert and oriented x3. Insight and judgment are limited and impulse control is limited, but improving. Vitals/I&O/Wt Last Vital Signs Temp 98.3 F 09/14/20 13:55 Pulse 77 09/14/20 13:55 Resp 18 09/14/20 13:55 BP 107/63 09/14/20 13:55 Pulse Ox 93 09/14/20 13:55 Weight last 48 hrs Weight 91.626 kg Data NPU : 09/11/20 15:54 09/11/20 15:54 A&P Additional A&P Information (1) Aggressive behavior: (2) History of dissociative disorder: (3) S/P placement of VNS (vagus nerve stimulation) device: (4) Traumatic brain injury: (5) Dissociative and conversion disorder: (6) Functional 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: (7) Abnormal MRI of head: (8) Seizure disorder: (9) Left acute arterial ischemic stroke, MCA (middle cerebral artery): (10) Acute right-sided weakness: (11) History of recent fall: (12) Spine pain, lumbar: (13) Status post cerebrovascular accident: (14) Frequent falls: (15) CONRAD (obstructive sleep apnea): (16) Transient atrial fibrillation: (17) Seizure: (18) HTN (hypertension): (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, cervicothoracic region: (20) Encounter for long-term use of opiate analgesic: (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 1. Continue current medication. Start geodon 20 mg po bid with meals. 2. Continue every 15 minute checks for safety. 3. Encourage individual, group and milieu therapies. Involuntary Hold Information 96 Hour Hold: 96 Hour Involuntary Admission: No Attestations NPU Medical Necessity Statement*: Inpatient hospitalization is medically necessary and the clinically appropriate intervention at this time. We will monitor medications and make changes as indicated. Likely length of stay 2-4 days. Coding Level of Care Code Acute Research Statistician for [facility]
--- NOTE | 2020-09-14 18:03 | PC.NURSE ---
PRN BENADRYL 50 MG GIVEN PO PER PT C/O STATED ITCHING
[2020-09-14 22:00] VITALS: BP 138/75; PULSE 81; RESP 18; TEMP 36.7; O2SAT 99
[2020-09-14 22:01] VITALS: BP 138/82
[2020-09-14] MEDS: atorvastatin 40 mg Tablet 80 MG PO (22:03)
[2020-09-14] MEDS: amlodipine 5 mg Tablet 2.5 MG PO (22:04)
--- NOTE | 2020-09-14 22:40 | PC.NURSE ---
PT REQUESTED BENADRYL FOR ALLERGIC RASH ITCH, TIZANIDINE FOR MUSCLE SPASMS AND PAIN MED FOR BODY ACHES. BENADRYL 50MG PO, TIZANIDINE 4MG PO, AND NORCO 5/325 PO GIVEN.
--- NOTE | 2020-09-15 | PC.NURSE ---
PT RESTING QUIETLY WITH BOTH EYES CLOSED.
[2020-09-15] MEDS: HYDROcodone-acetaminophen 5-325 mg Tablet 1 TAB PO ×4 (04:26→23:51)
[2020-09-15 06:00] VITALS: BP 132/82; PULSE 66; RESP 18; TEMP 36.6; O2SAT 97; BMI 34.7
[2020-09-15] MEDS: clopidogrel 75 mg Tablet PO (06:32)
[2020-09-15] MEDS: amlodipine 5 mg Tablet PO ×2 (06:32→21:30)
[2020-09-15] MEDS: fixodent 39 gm Tube 1 APPLIC DENTAL ×2 (06:33→15:19)
[2020-09-15] MEDS: ziprasidone hcl 20 mg Capsule PO ×2 (06:59→17:27)
[2020-09-15] MEDS: propranolol 20 mg Tablet 10 MG PO (09:07)
[2020-09-15] MEDS: hydroCHLOROthiazide 25 mg Tablet PO (09:07)
[2020-09-15 09:08] VITALS: BP 132/82
[2020-09-15] MEDS: pantoprazole DR 40 mg Tablet PO ×2 (09:08→21:28)
[2020-09-15] MEDS: lamoTRIgine 100 mg Tablet 200 MG PO ×2 (09:08→21:29)
[2020-09-15] MEDS: losartan 50 mg Tablet PO ×2 (09:08→21:30)
[2020-09-15] MEDS: primidone 50 mg Tablet 150 MG PO (09:09)
[2020-09-15] MEDS: tizanidine 4 mg Tablet PO ×3 (13:15→21:29)
[2020-09-15 14:00] VITALS: BP 133/94; PULSE 81; RESP 20; TEMP 36; O2SAT 95
--- NOTE | 2020-09-15 18:21 | PM.NPN ---
Subjective NPU Subjective: Interval history: Mikala presents today reporting that she is doing better and feels more optimistic that she can be safe at home. With medications are really helping and we discussed the risks, benefits and alternatives of discharging in the morning which she understood and agreed to proceed as documented in this note. Mental Status Exam MSE Comments: This is an obese white female in hospital scrubs with adequate grooming and eye contact. Walking with a rolling walker with mild shuffling. No abnormal movements. Cooperative with exam in no acute distress. Speech is normal rate and volume. Mood described as better, affect brighter. Thought process organized. Thought content: Patient denies suicidal or homicidal ideation, there were no delusions reported or noted, she denied any auditory or visual hallucinations and did not speak about her multiples. That really concentration were intact and memory appeared more reliable at time, but none were formally tested. She is alert and oriented x3. Insight and judgment are limited, but improving and impulse control is improving. Vitals/I&O/Wt Last Vital Signs Temp 98.3 F 09/15/20 21:44 Pulse 76 09/15/20 21:44 Resp 16 09/15/20 21:44 BP 92/62 09/15/20 21:44 Pulse Ox 95 09/15/20 21:44 Weight last 48 hrs Weight 91.626 kg Data NPU : 09/11/20 15:54 09/11/20 15:54 A&P Additional A&P Information (1) Aggressive behavior: (2) History of dissociative disorder: (3) S/P placement of VNS (vagus nerve stimulation) device: (4) Traumatic brain injury: (5) Dissociative and conversion disorder: (6) Functional 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: (7) Abnormal MRI of head: (8) Seizure disorder: (9) Left acute arterial ischemic stroke, MCA (middle cerebral artery): (10) Acute right-sided weakness: (11) History of recent fall: (12) Spine pain, lumbar: (13) Status post cerebrovascular accident: (14) Frequent falls: (15) CONRAD (obstructive sleep apnea): (16) Transient atrial fibrillation: (17) Seizure: (18) HTN (hypertension): (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, cervicothoracic region: (20) Encounter for long-term use of opiate analgesic: (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 1. Continue current medication. 2. Continue every 15 minute checks for safety. 3. Encourage individual, group and milieu therapies. Involuntary Hold Information 96 Hour Hold: 96 Hour Involuntary Admission: No Attestations NPU Medical Necessity Statement*: Inpatient hospitalization is medically necessary and the clinically appropriate intervention at this time. We will monitor medications and make changes as indicated. Likely length of stay 1-3 days. Coding Level of Care Code Acute Rubber Stamp Dies Inspector for Kun Saba
[2020-09-15] MEDS: diphenhydrAMINE 50 mg Capsule PO (21:28)
[2020-09-15] MEDS: atorvastatin 40 mg Tablet 80 MG PO (21:28)
[2020-09-15] MEDS: primidone 50 mg Tablet 100 MG PO (21:29)
[2020-09-15 21:30] VITALS: BP 104/77
--- NOTE | 2020-09-15 21:30 | PC.NURSE ---
pt requested zanaflex, benadryl and pain med be given with HS meds. Zanaflex 4mg po, benadryl 50mg po given.
[2020-09-15 21:44] VITALS: BP 92/62; PULSE 76; RESP 16; TEMP 36.8; O2SAT 95
--- NOTE | 2020-09-15 23:27 | PC.NURSE ---
Patient states I'm nervous about going home tomorrow and that she is terrified of hurting . Extensive discussion regarding resources and coping mechanisms reviewed. Patient states she has MOCARS magnet on her refridgerator and and herself have MOCARS and BHC programmed into their phone.
[2020-09-15] MEDS: amlodipine 5 mg Tablet 2.5 MG PO (23:33)
[2020-09-15] MEDS: hyDROXYzine 25 mg Capsule 50 MG PO (23:51)
--- NOTE | 2020-09-15 23:55 | PC.NURSE ---
pt requested pain med and med for anxiety. norco 5/325 po and vistaril 50mg given.
--- NOTE | 2020-09-16 01:15 | PC.NURSE ---
pt resting quietly with both eyes closed.
[2020-09-16 06:00] VITALS: BP 104/62; PULSE 84; RESP 14; TEMP 36.9; O2SAT 95
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
[2020-09-16] MEDS: clopidogrel 75 mg Tablet PO (07:00)
[2020-09-16] MEDS: ziprasidone hcl 20 mg Capsule PO (07:01)
[2020-09-16] MEDS: amlodipine 5 mg Tablet PO (07:01)
[2020-09-16] MEDS: fixodent 39 gm Tube 1 APPLIC DENTAL (07:03)
[2020-09-16 09:28] VITALS: BP 104/62; PULSE 84; RESP 14; TEMP 36.9; O2SAT 95
[2020-09-16] MEDS: acetaminophen 325 mg Tablet 650 MG PO (09:31)
[2020-09-16] MEDS: hydroCHLOROthiazide 25 mg Tablet PO (09:31)
[2020-09-16 09:34] VITALS: BP 104/62
[2020-09-16] MEDS: tizanidine 4 mg Tablet PO (09:34)
[2020-09-16] MEDS: losartan 50 mg Tablet PO (09:34)
[2020-09-16] MEDS: propranolol 20 mg Tablet 10 MG PO (09:35)
[2020-09-16] MEDS: lamoTRIgine 100 mg Tablet 200 MG PO (09:35)
[2020-09-16] MEDS: pantoprazole DR 40 mg Tablet PO (09:36)
[2020-09-16] MEDS: primidone 50 mg Tablet 150 MG PO (09:38)
--- NOTE | 2020-09-16 15:38 | DCPLANNER ---
IMM completed with pt on 09/16/20 @ 2496
== END 2020-09-16 09:49 | disposition home or self-care (01) | DRG 883 ==
LOC: ER 16:48 → NP 17:51
PROVIDERS: Admitting Provider Psychiatry & Neurology Psychiatry; Emergency Provider Physician Assistant; PCP Internal Medicine; Visit Provider Psychiatry & Neurology Psychiatry
DX: F44.81 Dissociative identity disorder (principal); F33.9 Major depressive disorder, recurrent, unspecified; E66.9 Obesity, unspecified; Z68.34 Body mass index [BMI] 34.0-34.9, adult; Z81.8 Family history of other mental and behavioral disorders; G89.29 Other chronic pain; M47.813 Spondylosis without myelopathy or radiculopathy, cervicothoracic region; I10 Essential (primary) hypertension; Z87.820 Personal history of traumatic brain injury; F43.12 Post-traumatic stress disorder, chronic; F41.1 Generalized anxiety disorder; Z86.718 Personal history of other venous thrombosis and embolism; G47.33 Obstructive sleep apnea (adult) (pediatric); Z96.82 Presence of neurostimulator; G40.909 Epilepsy, unspecified, not intractable, without status epilepticus; Z79.891 Long term (current) use of opiate analgesic; Z79.02 Long term (current) use of antithrombotics/antiplatelets; R45.850 Homicidal ideations; M51.36 Other intervertebral disc degeneration, lumbar region; R29.6 Repeated falls
CPT/HCPCS: 80053; 80306; 80307; 85025; 99285; Q0163

== ENCOUNTER → 2020-09-24 08:01 | Outpatient (BNVA) | payer MEDICARE, MEDICAID, SELFPAY | PROVIDERS: PCP Internal Medicine; Visit Provider Anesthesiology | DX: G89.29 Other chronic pain (principal); M47.813 Spondylosis without myelopathy or radiculopathy, cervicothoracic region; M51.36 Other intervertebral disc degeneration, lumbar region; M50.920 Unspecified cervical disc disorder, mid-cervical region, unspecified level; Z79.891 Long term (current) use of opiate analgesic; Z86.73 Personal history of transient ischemic attack (TIA), and cerebral infarction without residual deficits | CPT/HCPCS: 99214 ==

== ENCOUNTER 2020-09-28 17:15 | Emergency (ER) | payer MEDICARE, MEDICAID, SELFPAY ==
[2020-09-28 17:51] VITALS: BP 160/88; PULSE 75; RESP 18; TEMP 37.1; O2SAT 95; BMI 35.9
--- NOTE | 2020-09-28 19:19 | ED_ITS ---
HPI - Back Pain/Injury General: Chief Complaint: Back Pain/Injury Stated Complaint: BACK PAIN Time Seen by Provider: 09/28/20 19:19 History of Present Illness: HPI Narrative: 55-year-old female comes in today with complaints of injuries to the neck and low back. Patient reports that she was sitting on the seat of her walker when her pad pulled away from her causing her to lose balance and fall from the seat. Patient reports some neck and low back pain. Patient does have a history of chronic neck and low back pain. Patient denies any loss of consciousness. Patient states the pain is just a little worse than her normal. Patient appears well. Patient does have a c- collar intact from EMS transport to the ER. Review of Systems General: Reports: 10 or more systems reviewed and unremarkable except in HPI and below Musc: Reports: neck pain and back pain PFSH ED PFSH: Medical History Abnormal MRI of head Cervical disc disorder of mid-cervical region Chronic post-traumatic stress disorder DDD (degenerative disc disease), lumbar Encounter for long-term use of opiate analgesic Facial numbness Facial pain syndrome Generalized anxiety disorder HTN (hypertension) Hx of deep venous thrombosis Intermittent confusion Major depressive disorder, recurrent severe without psychotic features CONRAD (obstructive sleep apnea) Personal history of traumatic brain injury Seizure Seizure disorder Shoulder pain, bilateral Spondylosis without myelopathy or radiculopathy, cervicothoracic region Transient atrial fibrillation Surgical History History of facial surgery 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 S/P appendectomy S/P section S/P cholecystectomy S/P hysterectomy S/P placement of VNS (vagus nerve stimulation) device S/P tubal ligation Family History Other Cancer Diabetes Hypertension Social History Smoking and tobacco status: former smoker Second hand smoke exposure: No Alcohol intake: never History of recent travel: No Physical Exam Const: COMMON NORMALS: no acute distress and patient oriented x3 GENERAL APPEARANCE: cooperative HENMT: COMMON NORMALS: normocephalic and Normal external nose present HEAD & SCALP: normal to inspection and normocephalic NOSE: Normal external nose present Eye: GENERAL EYE: appearance normal, both eyes and all related structures Neck/C-Spine: OTHER: Tenderness is noted along cervical spine, c-collar is intact on initial exam. Chest: COMMONS NORMALS: normal inspection of the chest Resp: COMMON NORMALS: normal respiratory effort EFFORT & INSPECTION: Yes able to speak in complete sentences Cardio: COMMON NORMALS: regular rate and regular rhythm RATE: regular rate RHYTHM: regular rhythm GI: COMMON NORMALS: non-tender Back/Pelvis: THORACIC SPINE/UPPER BACK: Yes normal to inspection LUMBAR SPINE/LOWER BACK: Yes lumbar spinal tenderness Lumbar spinal tenderness location: L2 Extremity: COMMON NORMALS: normal to inspection Neuro: COMMON NORMALS: patient oriented x3 and moves all extremities Psych: COMMON NORMALS: mental status grossly normal and cooperative Skin: COMMON NORMALS: no rashes or lesions noted GENERAL SKIN EXAM: no rashes or lesions noted Course ED course: Initial review of the x-ray of the cervical spine indicated no acute fractures we will await radiology for final report. I went ahead and removed patient hard cervical collar she was able to new her neck without any increase in pain or discomfort. Patient appears well. Patient is feeling better after orphenadrine for muscle spasms. Vital Signs: Vital signs: Vital Signs Temperature 98.7 F 09/28/20 17:51 Pulse Rate 75 09/28/20 17:51 Respiratory Rate 18 09/28/20 17:51 Blood Pressure 160/88 09/28/20 17:51 Pulse Oximetry 95 09/28/20 17:51 MDM - Back Pain/Injury MDM Narrative: Medical decision making narrative: 55-year-old female comes in today for evaluation of injury sustained from a fall from a seated position. On exam patient has some tenderness in the cervical spine and the L1-L2 area of the lumbar spine. Patient moves extremities well. Patient does have some weakness to the right upper and lower extremities secondary to a prior CVA. Differential diagnosis includes but not limited to muscle spasm, contusion, fracture. X-rays of the cervical spine and the lumbar spine indicated no acute fractures. Patient was given a dose of orphenadrine IM in the emergency department with improvement of muscle spasms. Patient was also given 2 Tylenol for complaints of headache. Patient has hydrocodone and tizanidine at home for her routine treatment of pain. Patient believed that those medications would be appropriate for her. Recommended patient follow-up with primary care for recheck in 1 week. Return to the ER for as needed. Discharge Plan Discharge Patient Disposition: Home Clinical Impression: Fall Qualifiers: Encounter type: initial encounter Qualified Code(s): W19.XXXA - Unspecified fall, initial encounter Condition: Stable Prescriptions: No Action pantoprazole [Protonix] 40 mg tablet,delayed release (DR/EC) 40 mg PO BID RF: 0 ondansetron HCl [Zofran] 4 mg tablet 4 mg PO Q6H PRN (Reason: Nausea And Vomiting) RF: 0 amlodipine 2.5 mg tablet See Rx Instructions .ROUTE .COMPLEX RF: 0 clopidogrel 75 mg tablet 75 mg PO QAM RF: 0 docusate sodium 100 mg capsule See Rx Instructions .ROUTE .COMPLEX PRN (Reason: Constipation) RF: 0 losartan 50 mg tablet 50 mg PO BID RF: 0 hydrocodone-acetaminophen 5-325 mg tablet 1 tab PO QID PRN (Reason: pain) 30 Days Qty: 120 RF: 0 hydrocodone-acetaminophen 5-325 mg tablet 1 tab PO QID 30 Days Qty: 120 RF: 0 tizanidine 4 mg tablet 4 mg PO QID PRN (Reason: muscle spasticity) 30 Days Qty: 120 RF: 1 Multivitamin 50 Plus Tablet 1 tab PO DAILY RF: 0 propranolol 10 mg tablet 10 mg PO DAILY RF: 0 hydrochlorothiazide 25 mg tablet 25 mg PO DAILY RF: 0 Metamucil 3.4 gram/5.4 gram Powder 1 - 2 tbsp PO PRN RF: 0 Rescue Herb Liquid See Rx Instructions .ROUTE .COMPLEX RF: 0 Wild Lettuce Extract See Rx Instructions .ROUTE .COMPLEX RF: 0 atorvastatin 40 mg tablet 80 mg PO QPM RF: 0 primidone 50 mg tablet See Rx Instructions .ROUTE .COMPLEX RF: 0 lamotrigine 100 mg tablet 200 mg PO BID RF: 0 ziprasidone HCl 20 mg Capsule 20 mg PO 0700,1700 30 Days Qty: 60 RF: 1 Discharge Orders: Discharge ED (Routine); Ordered 09/28/20 Ordered By: Cali Lamas Referrals: Yesenia Lazo DO [Primary Care Provider] - Discharge Diet: Usual diet Discharge Activity: Increase activity as tolerated Patient Instructions: Fall Prevention for Older Adults (ED), Opioid Safety Activity Restrictions/Additional Instructions: Activity as tolerated. Continue with routine medications as directed. Follow- up with primary care for further instruction. Return to the ER for new concerns. Coding Level of Care Code ED Cardroom Manager for Kun Fwkaci Exam Comprehensive
--- NOTE | 2020-09-28 19:28 | XRR_ITS ---
PROCEDURE INFORMATION: Exam: XR Cervical Spine Exam date and time: 09/28/2020 7:28 PM Age: 55 years old Clinical indication: Injury or trauma; Fall; Blunt trauma; Prior surgery; Surgery date: 6+ months; Additional info: Fall from sitting TECHNIQUE: Imaging protocol: XR of the cervical spine. Views: 2 or 3 views. COMPARISON: CT cervical spin wo con* [id number] 03/22/2020 7:20 AM FINDINGS: Tubes, catheters and devices: There are leads overlying the left neck. Bones/joints: Multilevel uncovertebral and facet degenerative changes. Multilevel disc space narrowing. The C7 vertebra is not well seen on the lateral view secondary to overlying shadows. Soft tissues: Unremarkable. XR/XR cervical spine 3V* [id number] IMPRESSION: There are degenerative changes as described above. No evidence for acute fracture. Please note the C7 vertebra is not well seen on the lateral view.
--- NOTE | 2020-09-28 19:28 | XRR_ITS ---
PROCEDURE INFORMATION: Exam: XR Lumbosacral Spine Exam date and time: 09/28/2020 7:28 PM Age: 55 years old Clinical indication: Injury or trauma; Fall; Blunt trauma (contusions or hematomas); Additional info: Fall from sitting TECHNIQUE: Imaging protocol: XR of the lumbosacral spine. Views: 2 or 3 views. COMPARISON: CT Lumbar Spine w philip [id number] 03/10/2018 12:21 PM FINDINGS: Bones/joints: 7 degree lumbar levoscoliosis. There is a transitional lumbosacral vertebra designated L5 for the purposes of this study with a bat wing type left L5 transverse process articulating with the sacrum. Degenerative changes are present across this articulation. Multilevel small marginal osteophyte formations. There is multilevel lumbar facet arthropathy. Soft tissues: Unremarkable. Intraperitoneal space: Clips are present in the right upper quadrant consistent with prior cholecystectomy. XR/XR lumbar spine 2-3V* [id number] IMPRESSION: 1. There are degenerative changes as described above. No evidence for acute fracture. 2. 7 degree lumbar levoscoliosis.
[2020-09-28] MEDS: orphenadrine 30 mg/mL Inj 2 mL 60 MG IM (19:57)
[2020-09-28] MEDS: acetaminophen 500 mg Tablet 1000 MG PO (20:59)
[2020-09-28 21:11] VITALS: BP 159/89; PULSE 77; RESP 18; O2SAT 96
== END 2020-09-28 21:13 | disposition home or self-care (01) ==
PROVIDERS: Emergency Provider Nurse Practitioner Family; PCP Internal Medicine
DX: M54.2 Cervicalgia (principal); M54.5 Low back pain; Z79.02 Long term (current) use of antithrombotics/antiplatelets; I10 Essential (primary) hypertension; Z87.891 Personal history of nicotine dependence
CPT/HCPCS: 72040; 72100; 96372; 99283; J2360

== ENCOUNTER 2020-10-01 14:51 | Outpatient (RCR) | payer MEDICARE, MEDICAID, SELFPAY | END 2020-10-22 23:59 | disposition home or self-care (01) | LOC: SPT 14:51 | PROVIDERS: PCP Internal Medicine; Referring Provider Internal Medicine; Visit Provider Internal Medicine | DX: I69.90 Unspecified sequelae of unspecified cerebrovascular disease (principal); M54.2 Cervicalgia; M54.9 Dorsalgia, unspecified | CPT/HCPCS: 97110; 97162 ==

== ENCOUNTER → 2020-10-08 08:06 | Outpatient (BNVA) | payer MEDICARE, MEDICAID, SELFPAY | PROVIDERS: PCP Internal Medicine; Visit Provider Specialist | DX: G37.9 Demyelinating disease of central nervous system, unspecified (principal); F44.5 Conversion disorder with seizures or convulsions | CPT/HCPCS: 99215 ==

== ENCOUNTER 2020-10-23 06:00 | Outpatient (RCR) | payer MEDICARE, MEDICAID, SELFPAY | END 2020-11-21 23:59 | disposition home or self-care (01) | LOC: SPT 06:00 | PROVIDERS: PCP Internal Medicine; Referring Provider Internal Medicine; Visit Provider Internal Medicine | DX: I63.9 Cerebral infarction, unspecified (principal); M54.2 Cervicalgia; M54.9 Dorsalgia, unspecified | CPT/HCPCS: 97110 ==

== ENCOUNTER → 2020-11-13 08:32 | Outpatient (BNVA) | payer MEDICARE, MEDICAID, SELFPAY | PROVIDERS: PCP Internal Medicine; Visit Provider Psychiatry & Neurology Psychiatry | DX: F44.9 Dissociative and conversion disorder, unspecified (principal); F60.3 Borderline personality disorder; F44.5 Conversion disorder with seizures or convulsions; F43.12 Post-traumatic stress disorder, chronic; L73.9 Follicular disorder, unspecified | CPT/HCPCS: 99204 ==

== ENCOUNTER 2020-11-22 06:00 | Outpatient (RCR) | payer MEDICARE, MEDICAID, SELFPAY | END 2020-12-22 23:59 | disposition home or self-care (01) | LOC: SPT 06:00 | PROVIDERS: PCP Internal Medicine; Referring Provider Internal Medicine; Visit Provider Internal Medicine | DX: M54.2 Cervicalgia (principal) | CPT/HCPCS: 97110 ==

== ENCOUNTER 2020-11-26 08:01 | Emergency (ER) | payer MEDICARE, MEDICAID, SELFPAY ==
[2020-11-26] VITALS (7 sets, daily range): BP systolic 130–174; BP diastolic 71–92; PULSE 70–88; RESP 17–20; TEMP 36.1; O2SAT 94–99; BMI 35.7
--- NOTE | 2020-11-26 08:10 | ECG_ITS ---
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 Measurements Intervals [place] Rate: 70 P: 48 OK: 258 QRS: 31 QRSD: 78 T: 41 QT: 382 QTc: 413 Interpretive Statements SINUS RHYTHM WITH FIRST DEGREE AV BLOCK MODERATE ST DEPRESSION [0.05+ mV ST DEPRESSION] Compared to ECG 03/22/2020 13:17:32 ST (T wave) deviation now present Electronically Signed On 11-26-2020 17:29:14 CDT by Curtis Jefferson M.D. [id number]
--- NOTE | 2020-11-26 08:10 | CT_ITS ---
WS: [id number] CT HEAD NONCONTRAST HISTORY: Symptoms of Acute Stroke TECHNIQUE: Contiguous axial imaging performed through the brain in 2.5 mm imaging. Bone and soft tiss ue windows. Sagittal and coronal reformats reviewed. All CT scans at [facility] use at least one of these dose optimization techniques: automated exposure control; mA and/or kV adjustment per pa tient size (includes targeted exams where dose is matched to clinical indication); or iterative recon struction. DLP: 854.49 mGy.cm COMPARISON: 03/22/2020 No acute intracranial hemorrhage, midline shift or mass effect. Very minimal cerebral atrophy and very mild chronic microvascular ischemic type changes. Small prior lacunar infarct in the anterior limb RIGHT internal capsule. Ventricles: Normal size with no hydrocephalus. Paranasal sinuses: Extensive surgical repair involving the maxillary sinuses with mucoperiosteal thic kening. Similar findings are seen on prior studies. This is not acute. Mastoid air cells: Well pneumatized. Calvarium and scalp: Skull is intact with no soft tissue edema or swelling. CT/CT head wo con* [id number] IMPRESSION: 1. No acute intracranial hemorrhage or edema. 2. Mild atrophy and chronic ischemic disease. No change since 03/22/2020.
[2020-11-26 08:37] LABS: Glucose Point of Care 120 mg/dL (70-110)
--- NOTE | 2020-11-26 08:38 | PC.NURSE ---
Pt has no right sided arm or leg drift but does have right sided weak hand and foot strength. Pt reports a previous stroke with right sided deficits and states baseline right sided deficits.
--- NOTE | 2020-11-26 08:44 | PC.NURSE ---
ERP states no IV at this time and to straight stick pt. Lab at bedside to obtain blood at this time.
[2020-11-26 09:08] LABS: Basophils # 0.1 10^3/uL (0.0-0.1); Basophils % 0.5 %; Eosinophils # 0.2 10^3/uL (0.0-0.8); Eosinophils % 1.3 %; Hematocrit 33.2 % (37.0-47.0); Hemoglobin 10.7 g/dL (11.5-15.3); Lymphocytes # 1.5 10^3/uL (0.8-4.8); Lymphocytes % 11.7 %; Mean Corpuscular HGB Conc 32.2 g/dL (30.0-36.0); Mean Platelet Volume 10.7 fL (7.4-10.4); Monocytes # 0.7 10^3/uL (0.2-0.9); Monocytes % 5.5 %; Neutrophils # 10.27 10^3/uL (1.8-7.7); Neutrophils % 80.7 %; Nucleated Red Blood Cells % 0 %; Platelet Count 316 10^3/cmm (130-400); Red Blood Count 3.69 10^6/uL (4.1-5.3); Red Cell Distribution Width 12.9 % (12.1-15.1); White Blood Count 12.7 10^3/uL (4.0-10.0)
[2020-11-26 09:28] LABS: INR 0.96 (0.8-1.2)
[2020-11-26 09:29] LABS: Partial Thromboplastin Time 28.1 SECONDS (23.9-36.7)
[2020-11-26 09:36] LABS: Amphetamines Screen Urine Negative (Negative); Barbiturates Screen Urine Positive (Negative); Benzodiazepines Screen Urine Negative (Negative); Cocaine Screen Urine Negative (Negative); Opiate Screen Urine Positive (Negative); PCP Screen Urine Negative (Negative); THC Screen Urine Negative (Negative)
[2020-11-26 09:39] LABS: Alanine Aminotransferase 22 U/L (0-33); Albumin Level 4.4 g/dL (3.5-5.2); Alkaline Phosphatase 122 IU/L (35-105); Anion Gap 16.3 (5-19); Aspartate Amino Transferase 13 U/L (0-32); Blood Urea Nitrogen 20 mg/dL (6-20); Calcium 9.6 mg/dL (8.5-10.5); Carbon Dioxide 27 mmol/L (22-29); Chloride 91 mmol/L (98-107); Globulin 2.4 g/dL (1.3-4.6); Glomerular Filtration Rate 42.4 mL/min (90-130); Glucose 89 mg/dL (65-115); Osmolality Calculated 274 mOsm/kg (285-295); Potassium 3.3 mmol/L (3.5-5.1); Sodium 131 mmol/L (136-145); Total Bilirubin 0.2 mg/dL (0.15-1.2); Total Protein 6.8 g/dL (6.6-8.7)
[2020-11-26 09:47] LABS: Glucose Urine UA Norm (Normal); Ketones Urine Negative (Negative); Protein Urine Neg (Negative); Urine Appearance Clear (CLEAR); Urine Color Yellow (Yellow); pH Urine 5 (5-7)
[2020-11-26 09:48] LABS: Add Urine Microscopic? YES; Bacteria Urine TRACE /hpf; Bilirubin Urine Neg (Negative); Blood Urine 2+ (Negative); Leukocyte Esterase Urine Negative (Negative); Nitrate Urine Negative (Negative); RBC Urine 0-4 /hpf (0-2); Squamous Epithelial Cell Urine RARE /hpf (0-5); Urobilinogen Urine Norm (Negative); WBC Urine RARE /hpf (0-5)
--- NOTE | 2020-11-26 10:12 | W.ED.NEUROSD ---
HPI - Neuro Symptoms/Deficit General: Chief Complaint: Weakness Stated Complaint: sent by pcp needs checked poss stroke Time Seen by Provider: 11/26/20 08:04 History of Present Illness: HPI Narrative: 55-year-old female presents to the emergency room with complaint of left-sided numbness and weakness difficulty with walking. She was seen earlier today had some reported some dizziness at her primary care doctor's office and had some lateral nystagmus. On arrival here she is still having difficulty walking. She did previously this year had an MRI and CTA of the head and work-up for stroke and there was no significant finding. He is denying any chest pain at this time. Patient reports she got up around 2 AM this morning and was at her normal baseline without any difficulties and when she got up later this morning she began having difficult time with the dizziness and weakness on the right side. Onset (ago): hour(s) Location: left arm and left leg History of same: Yes Severity: mild Quality: weak and numb Relieving factors: none Exacerbating factors: none Context: sudden onset Associated symptoms: Reports tingling, vertigo and weakness; Deny chest pain, cough, diaphoresis, fevers/chills, headache(s), anorexia, malaise, nausea, seizures, short of breath, syncope or vomiting Treatments Prior to Arrival: none Review of Systems Const: Denies: malaise or diaphoresis Card: Denies: chest pain or syncope GI: Denies: nausea or vomiting Neuro: Reports: vertigo; Denies: headache(s) [facility] ED PFSH: Medical History (Updated 11/26/20 @ 16:04 by Carmine Estrella DO) Abnormal MRI of head Cervical disc disorder of mid-cervical region Chronic post-traumatic stress disorder DDD (degenerative disc disease), lumbar Encounter for long-term use of opiate analgesic Facial numbness Facial pain syndrome Generalized anxiety disorder HTN (hypertension) Hx of deep venous thrombosis Intermittent confusion Major depressive disorder, recurrent severe without psychotic features CONRAD (obstructive sleep apnea) Personal history of traumatic brain injury Psychiatric care Seizure Seizure disorder Shoulder pain, bilateral Spondylosis without myelopathy or radiculopathy, cervicothoracic region Transient atrial fibrillation Surgical History History of facial surgery 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 S/P appendectomy S/P section S/P cholecystectomy S/P hysterectomy S/P placement of VNS (vagus nerve stimulation) device S/P tubal ligation Family History Other Cancer Diabetes Hypertension Social History (Updated 11/13/20 @ 08:53 by Kian Apple LPN) Smoking and tobacco status: former smoker Quit status (tobacco): has quit using tobacco Year quit tobacco: 2014 Second hand smoke exposure: No Alcohol intake: never History of recent travel: No NIH stroke score NIHSS: Level Of Consciousness - 1a: 0 Level Of Consciousness Questions - 1b: Both Correct Level Of Consciousness Commands - 1c: Both Correct Best Gaze - 2: Normal Visual [place] - 3: No Visual Loss Facial Palsy - 4: Normal Motor Arm Right - 5: Drift Motor Arm Left - 5: No Drift Motor Leg Right - 6: Effort Against [place] Motor Leg Left - 6: No Drift Limb Ataxia - 7: Present In Two Limbs Sensory - 8: Mild To Moderate Loss Best Language - 9: No Aphasia Dysarthia - 10: Normal Extinction And Inattention - 11: 0 Score: Total Score: 6 Physical Exam Const: COMMON NORMALS: no acute distress GENERAL APPEARANCE: cooperative and comfortable ORIENTATION/CONSCIOUSNESS: Yes awake, Yes oriented to person, Yes oriented to place and Yes oriented to time HENMT: COMMON NORMALS: normocephalic, atraumatic, hearing grossly normal bilaterally, external ears normal, EAC's normal, TM's normal bilaterally, Normal nasal mucous membranes and turbinates present, moist oral mucous membranes and oropharynx normal HEAD & SCALP: normocephalic and atraumatic NOSE: Normal nasal mucous membranes and turbinates present EXTERNAL EAR: Yes external ears normal EXTERNAL AUDITORY CANAL: EAC's normal TYMPANIC MEMBRANE: TM's normal bilaterally Eye: COMMON NORMALS: Equal, round and reactive pupils present, EOMs intact bilaterally, conjunctivae normal and no scleral icterus CONJUNCTIVA: Yes conjunctivae normal PUPIL: Yes Equal, round and reactive pupils present Neck/C-Spine: COMMON NORMALS: full ROM, no lymphadenopathy, supple and no JVD Lymph: LYMPHATIC: no lymphadenopathy noted and no lymphedema noted Resp: COMMON NORMALS: normal respiratory effort, No retractions, No use of accessory muscles and clear to auscultation bilaterally AUSCULTATION: clear to auscultation bilaterally Cardio: COMMON NORMALS: no JVD, regular rate, regular rhythm and No murmurs present (Cardio) RATE: regular rate RHYTHM: regular rhythm GI: COMMON NORMALS: Soft to palpation and No hepatosplenomegaly present AUSCULTATION: Yes normoactive bowel sounds PALPATION: Yes Soft to palpation, No Tenderness to palpation present (GI), No Guarding due to palpation present (GI) and Yes No hepatosplenomegaly present Extremity: COMMON NORMALS: normal to inspection, capillary refill normal, no clubbing, cyanosis or edema, no calf tenderness and no pedal edema Neuro: SENSORIUM/ORIENTATION: Yes oriented to person, Yes oriented to place and Yes oriented to time Skin: COMMON NORMALS: no rashes or lesions noted GENERAL SKIN EXAM: no rashes or lesions noted Course Vital Signs: Vital signs: Vital Signs Temperature 97 F L 11/26/20 08:06 Pulse Rate 78 11/26/20 15:13 Respiratory Rate 17 11/26/20 15:13 Blood Pressure 166/92 11/26/20 15:13 Pulse Oximetry 95 11/26/20 15:13 MDM - Neuro Symptoms/Deficit MDM Narrative: Medical decision making narrative: Patient presents from diagnostic challenges and that she has had significant previous work-up which was negative she seen Dr. Villegas in the past and has not had any significant findings. She had the recent MRI in the recent CT of the head and neck which was also negative. Her stroke score is rather subjective a couple of points. Is evaluating her she would be fully functional in the bed readjusting herself moving repositioning using small items with her right hand without any difficulty with good coordination however when I went specifically to test her she would develop right arm drift and weakness in the right arm. However I did notice she actually had significant loss of sensation in the right leg compared to the left using the tip of a dulled 18-gauge needle she had no response to sharp touch on the right foot but reacted quickly on the left foot. Discussed case with Dr. Villegas she is very familiar this patient she recommends repeating CTA of the head and if negative will allow patient to go home. Given her previous work-up she felt a lot of this was functional issues. We had significant difficulty securing IV access for the CTA eventually were able to do so the CTA is negative by this time patient symptoms have pretty much resolved. I discussed with the patient that she is a lot of functional symptoms in the past related to her anxiety and stress issues. She readily acknowledges this and admits that could be part of the problem. After the CTA was completed she is feeling better since her symptoms are resolved and she is okay with going home. Given all of this history I think we can safely let her go home continue her current medications follow-up with primary care doctor return if is further problems. Lab Data: Labs: Lab Results 11/26/20 11/26/20 11/26/20 08:32 08:48 08:48 WBC 12.7 10^3/uL H 10 ^3/uL (4.0-10.0) RBC 3.69 10^6/uL L 10 ^6/uL (4.1-5.3) Hgb 10.7 g/dL L g/dL (11.5-15.3) Hct 33.2 % L % (37.0-47.0) MCV 90.0 fl fl (81-99) MCH 29.0 pg pg (28.0-34.0) MCHC 32.2 g/dL g/dL (30.0-36.0) RDW 12.9 % % (12.1-15.1) Plt Count 316 10^3/cmm 10^3 /cmm (130-400) MPV 10.7 fL H fL (7.4-10.4) Neut % (Auto) 80.7 % % Lymph % (Auto) 11.7 % % [place] % (Auto) 5.5 % % Eos % (Auto) 1.3 % % Baso % (Auto) 0.5 % % Neut # (Auto) 10.27 10^3/uL H 1 0^3/uL (1.8-7.7) Lymph # (Auto) 1.5 10^3/uL 10^3/ uL (0.8-4.8) [place] # (Auto) 0.7 10^3/uL 10^3/ uL (0.2-0.9) Eos # (Auto) 0.2 10^3/uL 10^3/ uL (0.0-0.8) Baso # (Auto) 0.1 10^3/uL 10^3/ uL (0.0-0.1) Nucleated RBC % (a uto) 0 % % Nucleated RBCs # 0.0 /100WBC /100W BC PT 13.10 SECONDS SEC ONDS (12.1-14.9) INR 0.96 (0.8-1.2) APTT 28.1 SECONDS SECO NDS (23.9-36.7) Sodium Potassium Chloride Carbon Dioxide Anion Gap BUN Creatinine GFR Calculation Glucose POC Glucose 120 mg/dL H mg/dL (70-110) Calculated Osmolal ity Calcium Total Bilirubin AST ALT Alkaline Phosphata se Total Protein Albumin Globulin Urine Color Urine Appearance Urine pH Ur Specific Gravit y Urine Protein Urine Glucose (UA) Urine Ketones Urine Blood Urine Nitrate Urine Bilirubin Urine Urobilinogen Ur Leukocyte Ginger ase Urine RBC Urine WBC Ur Squamous Epith Cells Amorphous Sediment Urine Bacteria Urine Opiates Scre en Ur Barbiturates Sc reen Ur Phencyclidine S crn Ur Amphetamines Sc reen U Benzodiazepines Scrn Urine Cocaine Scre en U Marijuana (THC) Screen 11/26/20 11/26/20 11/26/20 08:48 09:20 09:20 WBC RBC Hgb Hct MCV MCH MCHC RDW Plt Count MPV Neut % (Auto) Lymph % (Auto) [place] % (Auto) Eos % (Auto) Baso % (Auto) Neut # (Auto) Lymph # (Auto) [place] # (Auto) Eos # (Auto) Baso # (Auto) Nucleated RBC % (a uto) Nucleated RBCs # PT INR APTT Sodium 131 mmol/L L mmol /L (136-145) Potassium 3.3 mmol/L L mmol /L (3.5-5.1) Chloride 91 mmol/L L mmol/ L (98-107) Carbon Dioxide 27 mmol/L mmol/L (22-29) Anion Gap 16.3 (5-19) BUN 20 mg/dL mg/dL (6-20) Creatinine 1.3 mg/dL H mg/dL (0.5-0.9) GFR Calculation 42.4 mL/min L mL/ min (90-130) Glucose 89 mg/dL mg/dL (65-115) POC Glucose Calculated Osmolal ity 274 mOsm/kg L mOs m/kg (285-295) Calcium 9.6 mg/dL mg/dL (8.5-10.5) Total Bilirubin 0.2 mg/dL mg/dL (0.15-1.2) AST 13 U/L U/L (0-32) ALT 22 U/L U/L (0-33) Alkaline Phosphata se 122 IU/L H IU/L (35-105) Total Protein 6.8 g/dL g/dL (6.6-8.7) Albumin 4.4 g/dL g/dL (3.5-5.2) Globulin 2.4 g/dL g/dL (1.3-4.6) Urine Color Yellow (Yellow) Urine Appearance Clear (CLEAR) Urine pH 5 (5-7) Ur Specific Gravit y 1.020 (1.005-1.030) Urine Protein Neg (Negative) Urine Glucose (UA) Norm (Normal) Urine Ketones Negative (Negative) Urine Blood 2+ H (Negative) Urine Nitrate Negative (Negative) Urine Bilirubin Neg (Negative) Urine Urobilinogen Norm mg/dL mg/dL (Negative) Ur Leukocyte Ginger ase Negative (Negative) Urine RBC 0-4 /hpf H /hpf (0-2) Urine WBC Rare /hpf /hpf (0-5) Ur Squamous Epith Cells Rare /hpf /hpf (0-5) Amorphous Sediment Not Reportable Urine Bacteria Trace /hpf /hpf (NONE) Urine Opiates Scre en Positive ng/mL H ng/mL (Negative) Ur Barbiturates Sc reen Positive ng/mL H ng/mL (Negative) Ur Phencyclidine S crn Negative ng/mL ng /mL (Negative) Ur Amphetamines Sc reen Negative ng/mL ng /mL (Negative) U Benzodiazepines Scrn Negative ng/mL ng /mL (Negative) Urine Cocaine Scre en Negative ng/mL ng /mL (Negative) U Marijuana (THC) Screen Negative ng/mL ng /mL (Negative) Discharge Plan Discharge Patient Disposition: Home Clinical Impression: Right leg weakness Condition: Stable Prescriptions: No Action pantoprazole [Protonix] 40 mg tablet,delayed release (DR/EC) 40 mg PO BID RF: 0 ondansetron HCl [Zofran] 4 mg tablet 4 mg PO Q6H PRN (Reason: Nausea And Vomiting) RF: 0 amlodipine 2.5 mg tablet 2.5 mg PO BID RF: 0 clopidogrel 75 mg tablet 75 mg PO QAM RF: 0 oahkoplhm-mqfsgoe-tnaaknkcd Capsule 3 cap PO QPM RF: 0 docusate sodium 100 mg capsule See Rx Instructions .ROUTE .COMPLEX PRN (Reason: Constipation) RF: 0 losartan 50 mg tablet 50 mg PO BID RF: 0 hydrocodone-acetaminophen 5-325 mg tablet 1 tab PO QID PRN (Reason: pain) 30 Days Qty: 120 RF: 0 tizanidine 4 mg tablet 4 mg PO QID PRN (Reason: muscle spasticity) 30 Days Qty: 120 RF: 1 primidone 50 mg tablet See Rx Instructions .ROUTE .COMPLEX Qty: 450 RF: 0 Multivitamin 50 Plus Tablet 1 tab PO DAILY@12 RF: 0 propranolol 10 mg tablet 10 mg PO DAILY@12 RF: 0 hydrochlorothiazide 25 mg tablet 25 mg PO DAILY@12 RF: 0 Metamucil 3.4 gram/5.4 gram Powder 1 - 2 tbsp PO PRN RF: 0 lamotrigine 100 mg tablet 200 mg PO BID RF: 0 atorvastatin 80 mg tablet 80 mg PO QPM RF: 0 Benadryl 25 mg Capsule 25 mg PO TID RF: 0 prazosin 5 mg capsule 5 mg PO BEDTIME RF: 0 ziprasidone HCl 20 mg capsule 20 mg PO BID@0700,1700 RF: 0 Discharge Orders: Discharge ED (Routine); Ordered 11/26/20 Ordered By: Carmine Estrella Referrals: Yesenia Lazo DO [Primary Care Provider] - Discharge Diet: Usual diet Discharge Activity: Increase activity as tolerated Patient Instructions: Opioid Safety Coding Level of Care Code ED 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
--- NOTE | 2020-11-26 10:29 | CT_ITS ---
WS: [id number] CT ANGIOGRAM CEREBRAL AND CAROTID ARTERIES HISTORY: L sided weakness TECHNIQUE: CT angiogram is performed of the carotid and cerebral arteries. During arterial injection imaging is obtained from the skull vertex to the aortic arch in 1.25 mm imaging. Coronal and sagittal reformats are submitted. Additional multi planar reformats of the carotid and cerebral arteries are submitted, MIP imaging also reviewed. NASCET criteria utilized. [facility] CT [email or web address] at least one of these dose optimization techniques: automated exposure control; mA and/or kV adjust ment per patient size (includes targeted exams where dose is matched to clinical indication); or iter ative reconstruction. CONTRAST: Visipaque 320; 95 mL IV. DLP: 2206.59 mGy.cm COMPARISON: None available. Carotid Angiogram: Right carotid: Common carotid artery: Arises normally from the innominate artery. No significant plaque or stenosis. Internal carotid artery: No plaque or stenosis. External carotid artery: Patent. Left carotid: Common carotid artery: Arises normally from the aorta. No significant plaque or stenosis. Internal carotid artery: No plaque or stenosis. External carotid artery: Patent. Right vertebral artery: Unremarkable. Left vertebral artery: Unremarkable. Arises normally from the subclavian artery. Subclavian arteries: No stenosis or significant abnormality. Upper thorax: Normal. Thyroid gland: Normal. Osseous structures: Unremarkable. CEREBRAL ANGIOGRAM: Intracranial vertebral arteries: Normal with no significant atherosclerosis. Basilar artery: No significant stenosis or occlusion. No aneurysm. Intracranial Internal carotid arteries: Poor opacification through the petrous ridges. No occlusion. Mild atherosclerotic plaque. Middle cerebral arteries: Normal. Anterior cerebral arteries and ACOM: Normal. Posterior cerebral arteries and PCOM's: Normal. Dural venous sinuses are normally enhancing. CT/CT angio headneck* [id number] IMPRESSION: 1. Normal carotid arteries. 2. Mild atherosclerosis in the intracranial carotid arteries. No high-grade st enosis or occlusions.
[2020-11-26] MEDS: diphenhydrAMINE 50 mg/mL SDV 1mL IVP (14:02)
[2020-11-26] MEDS: hydrocortisone 100 mg/2 mL SDV IVP (14:02)
[2020-11-26] MEDS: sodium chloride 0.9% 500 ML 999 ML IV (14:03)
[2020-11-26] MEDS: iodixanol 320 mg/mL 100mL Btl IV (14:42)
--- NOTE | 2020-11-26 14:52 | PC.PHAR ---
pt states she takes care of her own medications-rx filled on 11/16/20 30d/s for amlodipine 5mg po qam and 2.5mg qpm-pt states just takes 2.5mg bid-notes are made in the pharmacy comments
== END 2020-11-26 16:31 | disposition home or self-care (01) ==
PROVIDERS: Emergency Provider Family Medicine; PCP Internal Medicine
DX: R53.1 Weakness (principal); Z79.02 Long term (current) use of antithrombotics/antiplatelets; I10 Essential (primary) hypertension; Z87.891 Personal history of nicotine dependence; L03.011 Cellulitis of right finger
CPT/HCPCS: 10160; 36415; 36416; 70450; 70496; 70498; 80053; 80306; 81001; 82962; 85025; 85610; 85730; 93005; 96374; 96375; 99284; J1200; J1720; J7040; Q9967

== ENCOUNTER → 2020-11-29 08:45 | Outpatient (BNVA) | payer MEDICARE, MEDICAID, SELFPAY | PROVIDERS: PCP Internal Medicine; Visit Provider Anesthesiology | DX: G89.29 Other chronic pain (principal); M51.36 Other intervertebral disc degeneration, lumbar region; M50.920 Unspecified cervical disc disorder, mid-cervical region, unspecified level; M47.813 Spondylosis without myelopathy or radiculopathy, cervicothoracic region; Z86.73 Personal history of transient ischemic attack (TIA), and cerebral infarction without residual deficits; Z79.891 Long term (current) use of opiate analgesic | CPT/HCPCS: 99214 ==

== ENCOUNTER → 2020-12-25 09:41 | Outpatient (BNVA) | payer MEDICARE, MEDICAID, SELFPAY | PROVIDERS: PCP Internal Medicine; Visit Provider Psychiatry & Neurology Psychiatry | DX: F43.12 Post-traumatic stress disorder, chronic (principal); F60.3 Borderline personality disorder | CPT/HCPCS: 99213 ==

== ENCOUNTER → 2021-01-06 15:53 | Outpatient (BNVA) | payer MEDICARE, MEDICAID, SELFPAY | PROVIDERS: PCP Internal Medicine; Visit Provider Nurse Practitioner | DX: F44.5 Conversion disorder with seizures or convulsions (principal); Z87.891 Personal history of nicotine dependence | CPT/HCPCS: 99212; 99213 ==

== ENCOUNTER → 2021-03-03 15:39 | Outpatient (BNVA) | payer MEDICARE, MEDICAID, SELFPAY | PROVIDERS: PCP Family Medicine Adult Medicine; Visit Provider Family Medicine Adult Medicine | DX: I10 Essential (primary) hypertension (principal); I25.10 Atherosclerotic heart disease of native coronary artery without angina pectoris; Z13.6 Encounter for screening for cardiovascular disorders; R73.03 Prediabetes | CPT/HCPCS: 80053; 83036; 84443; 85025 ==

== ENCOUNTER → 2021-03-07 09:48 | Outpatient (BNVA) | payer MEDICARE, MEDICAID, SELFPAY | PROVIDERS: PCP Family Medicine Adult Medicine; Visit Provider Anesthesiology | DX: G89.29 Other chronic pain (principal); Z13.6 Encounter for screening for cardiovascular disorders; E66.9 Obesity, unspecified; Z68.34 Body mass index [BMI] 34.0-34.9, adult; M51.36 Other intervertebral disc degeneration, lumbar region; M47.813 Spondylosis without myelopathy or radiculopathy, cervicothoracic region; M50.920 Unspecified cervical disc disorder, mid-cervical region, unspecified level; Z86.73 Personal history of transient ischemic attack (TIA), and cerebral infarction without residual deficits; Z79.891 Long term (current) use of opiate analgesic; Z87.891 Personal history of nicotine dependence | CPT/HCPCS: 80061; 99214 ==

== ENCOUNTER 2021-03-11 14:26 | Outpatient (CLI) | payer MEDICARE, MEDICAID, SELFPAY ==
--- NOTE | 2021-03-11 14:34 | USCV_ITS ---
Mikala Love Age: 56 Gender: F : 1965 Exam Date: 03/11/2021 14:52 Ordering Phys: Omar Valencia MD Technologist: Delbert Salter Exam Location: [facility] [place] Indication: chest pain BP: 106 / 84 HR: 59 Rhythm: Sinus Technical Quality: Adequate MEASUREMENTS (Male / Female) Normal Values 2D ECHO LV Diastolic Diameter PLAX 2.7 cm 4.2 - 5.9 / 3.9 - 5.3 cm LV Systolic Diameter PLAX 1.9 cm IVS Diastolic Thickness 0.9 cm 0.6 - 1.0 / 0.6 - 0.9 cm IVS Systolic Thickness 1.1 cm LVPW Diastolic Thickness 1.1 cm 0.6 - 1.0 / 0.6 - 0.9 cm LVPW Systolic Thickness 1.0 cm LVOT Diameter 2.0 cm LV Ejection Fraction 2D Teich 57.1 % LV Ejection Fraction MOD 2C 54.9 % LV Ejection Fraction 2C AL 53.4 % LA Diameter 3.9 cm LA Width 3.4 cm LA Height 5.1 cm RA Width 3.4 cm RA Height 3.9 cm Aorta at Sinotubular Diameter 2.2 cm M-MODE Aortic Annulus Diameter 3.0 cm LA Ao Ratio MM 1.5 MV E Point Septal Separation 0.8 cm DOPPLER AV Peak Velocity 186.0 cm/s LVOT Peak Velocity 134.0 cm/s AV Area Cont Eq vti 2.0 cm squared AV Area Cont Eq pk 2.3 cm squared MV Area PHT 5.0 cm squared Mitral E to A Ratio 0.9 MV E' Velocity 61.5 cm/s Mitral E to MV E' Ratio 11.5 Mitral E to LV E' Lateral Ratio 11.8 Mitral E to LV E' Septal Ratio 11.4 TR Peak Velocity 197.0 cm/s TR Peak Gradient 15.5 mmHg TV Peak E Velocity 100.0 cm/s Right Atrial Pressure 3.0 mmHg Pulmonary Artery Systolic Pressu 18.5 mmHg PV Peak Velocity 75.0 cm/s FINDINGS Left Ventricle Normal left ventricular cavity size. Normal left ventricular systolic function. No regional wall motion abnormalities. Left ventricular ejection fraction is estimated at 60 %. Grade I/IV diastolic dysfunction (abnormal relaxation filling pattern), normal to mildly elevated filling pressures. Right Ventricle The right ventricle is normal in size and function. Right Atrium The right atrium is normal in size. Left Atrium The left atrium is normal in size. Mitral Valve Moderately thickened mitral valve. No mitral valve stenosis. Mild mitral valve regurgitation. Aortic Valve Structurally normal aortic valve without significant sclerosis or stenosis. There is no aortic regurgitation. Tricuspid Valve Trace tricuspid valve regurgitation. Pulmonic Valve Structurally normal pulmonic valve without significant stenosis. There is no pulmonic regurgitation. Pericardium Normal pericardium without effusion. Aorta Normal ascending aorta dimension. CONCLUSIONS 1-Normal left ventricular cavity size. Normal left ventricular systolic function. No regional wall motion abnormalities. Left ventricular ejection fraction is estimated at 60 %. Grade I/IV diastolic dysfunction (abnormal relaxation filling pattern), normal to mildly elevated filling pressures. 2-There is no pericardial effusion. 3-No significant valve abnormalities. 4-Pulmonary artery systolic pressure is within normal limits. 5-Right atrial pressure is around 5 mm of mercury. 6-No significant change since the prior echocardiogram study of 03/22/2020. Liya Portillo MD (Electronically Signed) Final Date: 11 March 2021 18:58 S
== END 2021-03-11 14:27 | disposition home or self-care (01) ==
LOC: RAD 14:30
PROVIDERS: PCP Family Medicine Adult Medicine; Visit Provider Family Medicine
DX: R01.1 Cardiac murmur, unspecified (principal); I95.1 Orthostatic hypotension; R07.9 Chest pain, unspecified
CPT/HCPCS: 93306

== ENCOUNTER → 2021-03-12 09:46 | Outpatient (BNVA) | payer MEDICARE, MEDICAID, SELFPAY | PROVIDERS: PCP Family Medicine Adult Medicine; Visit Provider Psychiatry & Neurology Psychiatry | DX: F43.12 Post-traumatic stress disorder, chronic (principal); F60.3 Borderline personality disorder; F44.9 Dissociative and conversion disorder, unspecified; F41.1 Generalized anxiety disorder; F33.2 Major depressive disorder, recurrent severe without psychotic features | CPT/HCPCS: 99213 ==

== ENCOUNTER → 2021-06-04 12:49 | Outpatient (BNVA) | payer MEDICARE, MEDICAID, SELFPAY | PROVIDERS: PCP Family Medicine Adult Medicine; Visit Provider Psychiatry & Neurology Psychiatry | DX: F43.12 Post-traumatic stress disorder, chronic (principal); F60.3 Borderline personality disorder; F44.9 Dissociative and conversion disorder, unspecified; F41.1 Generalized anxiety disorder; F33.2 Major depressive disorder, recurrent severe without psychotic features | CPT/HCPCS: 99213 ==

== ENCOUNTER → 2021-06-10 09:11 | Outpatient (BNVA) | payer MEDICARE, MEDICAID, SELFPAY | PROVIDERS: PCP Family Medicine Adult Medicine; Visit Provider Family Medicine Adult Medicine | DX: R73.03 Prediabetes (principal); I10 Essential (primary) hypertension; Z86.718 Personal history of other venous thrombosis and embolism; Z13.6 Encounter for screening for cardiovascular disorders; K59.03 Drug induced constipation; T40.2X5A Adverse effect of other opioids, initial encounter | CPT/HCPCS: 80053; 83036 ==

== ENCOUNTER → 2021-07-10 13:55 | Outpatient (BNVA) | payer MEDICARE, MEDICAID, SELFPAY | PROVIDERS: PCP Family Medicine Adult Medicine; Visit Provider Family Medicine Adult Medicine | DX: S89.91XA Unspecified injury of right lower leg, initial encounter (principal); W19.XXXA Unspecified fall, initial encounter | CPT/HCPCS: 73562 ==

== ENCOUNTER → 2021-07-14 13:34 | Outpatient (BNVA) | payer MEDICARE, MEDICAID, SELFPAY | PROVIDERS: PCP Family Medicine Adult Medicine; Visit Provider Thoracic Surgery (Cardiothoracic Vascular Surgery) | DX: L97.811 Non-pressure chronic ulcer of other part of right lower leg limited to breakdown of skin (principal); I96 Gangrene, not elsewhere classified | CPT/HCPCS: 97597; 99203; 99213 ==

== ENCOUNTER → 2021-07-28 13:18 | Outpatient (BNVA) | payer MEDICARE, MEDICAID, SELFPAY | PROVIDERS: PCP Family Medicine Adult Medicine; Visit Provider Thoracic Surgery (Cardiothoracic Vascular Surgery) | DX: L97.811 Non-pressure chronic ulcer of other part of right lower leg limited to breakdown of skin (principal) | CPT/HCPCS: 99212; 99213; A6212 ==

== ENCOUNTER → 2021-08-04 09:47 | Outpatient (BNVA) | payer MEDICARE, MEDICAID, SELFPAY | PROVIDERS: PCP Family Medicine Adult Medicine; Visit Provider Thoracic Surgery (Cardiothoracic Vascular Surgery) | DX: Z09 Encounter for follow-up examination after completed treatment for conditions other than malignant neoplasm (principal) | CPT/HCPCS: 99212 ==

== ENCOUNTER → 2021-08-20 07:55 | Outpatient (BNVA) | payer MEDICARE, MEDICAID, SELFPAY | PROVIDERS: PCP Family Medicine Adult Medicine; Visit Provider Nurse Practitioner | DX: Z96.82 Presence of neurostimulator (principal) | CPT/HCPCS: 95970; G0463 ==

== ENCOUNTER → 2021-09-15 09:51 | Outpatient (BNVA) | payer MEDICARE, MEDICAID, SELFPAY | PROVIDERS: PCP Family Medicine Adult Medicine; Visit Provider Internal Medicine Cardiovascular Disease | DX: R42 Dizziness and giddiness (principal); R07.9 Chest pain, unspecified; I10 Essential (primary) hypertension; I48.91 Unspecified atrial fibrillation; G47.33 Obstructive sleep apnea (adult) (pediatric); Z87.891 Personal history of nicotine dependence | CPT/HCPCS: 99214 ==

== ENCOUNTER → 2021-11-18 09:57 | Outpatient (BNVA) | payer MEDICARE, MEDICAID, SELFPAY | PROVIDERS: PCP Family Medicine Adult Medicine; Visit Provider Podiatrist Foot & Ankle Surgery | DX: L60.3 Nail dystrophy (principal); R94.4 Abnormal results of kidney function studies; Z86.718 Personal history of other venous thrombosis and embolism; M79.671 Pain in right foot; M79.672 Pain in left foot | CPT/HCPCS: 11721 ==

== ENCOUNTER → 2021-12-09 13:19 | Outpatient (BNVA) | payer MEDICARE, MEDICAID, SELFPAY | PROVIDERS: PCP Family Medicine Adult Medicine; Visit Provider Family Medicine Adult Medicine | DX: I10 Essential (primary) hypertension (principal); R94.4 Abnormal results of kidney function studies; R73.03 Prediabetes; G89.4 Chronic pain syndrome; Z86.718 Personal history of other venous thrombosis and embolism; I25.10 Atherosclerotic heart disease of native coronary artery without angina pectoris; F44.5 Conversion disorder with seizures or convulsions; F60.3 Borderline personality disorder; S06.9X9A Unspecified intracranial injury with loss of consciousness of unspecified duration, initial encounter; G47.33 Obstructive sleep apnea (adult) (pediatric); M51.36 Other intervertebral disc degeneration, lumbar region; F33.2 Major depressive disorder, recurrent severe without psychotic features; F41.1 Generalized anxiety disorder | CPT/HCPCS: 80053; 83036; 85025 ==

== ENCOUNTER → 2022-02-06 07:42 | Outpatient (BNVA) | payer MEDICARE, MEDICAID, SELFPAY | PROVIDERS: PCP Family Medicine Adult Medicine; Referring Provider Specialist; Visit Provider Nurse Practitioner | DX: I67.2 Cerebral atherosclerosis (principal); Z96.82 Presence of neurostimulator | CPT/HCPCS: 99212 ==

== ENCOUNTER → 2022-03-17 11:37 | Outpatient (BNVA) | payer MEDICARE, MEDICAID, SELFPAY | PROVIDERS: PCP Family Medicine Adult Medicine; Visit Provider Podiatrist Foot & Ankle Surgery | DX: L60.3 Nail dystrophy (principal); N18.2 Chronic kidney disease, stage 2 (mild); R94.4 Abnormal results of kidney function studies; Z86.718 Personal history of other venous thrombosis and embolism | CPT/HCPCS: 11721 ==

== ENCOUNTER → 2022-03-23 12:42 | Outpatient (BNVA) | payer MEDICARE, MEDICAID, SELFPAY | PROVIDERS: PCP Family Medicine Adult Medicine; Visit Provider Internal Medicine Cardiovascular Disease | DX: R42 Dizziness and giddiness (principal); R07.9 Chest pain, unspecified; G47.33 Obstructive sleep apnea (adult) (pediatric); F41.1 Generalized anxiety disorder; I12.9 Hypertensive chronic kidney disease with stage 1 through stage 4 chronic kidney disease, or unspecified chronic kidney disease; N18.2 Chronic kidney disease, stage 2 (mild); B37.9 Candidiasis, unspecified | CPT/HCPCS: 99214; Q3014 ==

== ENCOUNTER → 2022-06-15 10:20 | Outpatient (BNVA) | payer MEDICARE, MEDICAID, SELFPAY | PROVIDERS: PCP Family Medicine Adult Medicine; Visit Provider Podiatrist Foot & Ankle Surgery | DX: I73.9 Peripheral vascular disease, unspecified (principal); L60.3 Nail dystrophy; R94.4 Abnormal results of kidney function studies; Z86.718 Personal history of other venous thrombosis and embolism; N18.2 Chronic kidney disease, stage 2 (mild) | CPT/HCPCS: 11721 ==

== ENCOUNTER 2022-07-25 10:11 | Observation (INO) | payer MEDICARE, MEDICAID, SELFPAY ==
[2022-07-25] VITALS (13 sets, daily range): BP systolic 147–187; BP diastolic 77–98; PULSE 57–69; RESP 16–18; TEMP 36.5–37.2; O2SAT 95–99; BMI 30.7
--- NOTE | 2022-07-25 10:25 | CTR_ITS ---
PROCEDURE INFORMATION: Exam: CT Cervical Spine Without Contrast Exam date and time: 07/25/2022 10:52 AM Age: 57 years old Clinical indication: Syncope and fall with blunt trauma. TECHNIQUE: Imaging protocol: Computed tomography of the cervical spine without contrast. Radiation optimization: All CT scans at this facility use at least one of these dose optimization techniques: automated exposure control; mA and/or kV adjustment per patient size (includes targeted exams where dose is matched to clinical indication); or iterative reconstruction. REPORTING DATA: Count of CT and Cardiac NM exams in prior 12 months: This patient has received 0 known CTs and 0 known cardiac nuclear medicine studies in the 12 months prior to the current study. COMPARISON: CT cervical spin wo con* [id number] 03/22/2020 7:20 AM RADIATION DOSE METRICS: Total DLP (mGy-cm): 181 FINDINGS: Straightening and slight reversal of the normal cervical lordosis may relate to patient positioning or muscle spasm. No prevertebral soft tissue swelling is seen. Mild degenerative disc disease in the cervical spine. Old fractures involving the maxillary sinuses with hardware. There is mucosal thickening in the right maxillary sinus. The atlantoaxial interval and craniocervical junction are maintained. Small, scattered cervical lymph nodes are noted. Mild scarring in the lung apices. There is tubing in the low left neck and ventral left chest wall that is incompletely visualized and of unknown clinical significance. CT/CT cervical spin wo con* [id number] IMPRESSION: 1. No acute cervical fracture. 2. Straightening and slight reversal of the normal cervical lordosis may relate to patient positioning or muscle spasm. 3. Tubing in the low left neck and ventral left chest wall that is incompletely visualized and of unknown clinical significance.
--- NOTE | 2022-07-25 10:25 | CTR_ITS ---
PROCEDURE INFORMATION: Exam: CT Head Without Contrast Exam date and time: 07/25/2022 10:52 AM Age: 57 years old Clinical indication: Syncope and fall with blunt trauma. TECHNIQUE: Imaging protocol: Computed tomography of the head without contrast. Radiation optimization: All CT scans at this facility use at least one of these dose optimization techniques: automated exposure control; mA and/or kV adjustment per patient size (includes targeted exams where dose is matched to clinical indication); or iterative reconstruction. REPORTING DATA: Count of CT and Cardiac NM exams in prior 12 months: This patient has received 0 known CTs and 0 known cardiac nuclear medicine studies in the 12 months prior to the current study. COMPARISON: CT head wo con* [id number] 11/26/2020 8:16 AM RADIATION DOSE METRICS: Total DLP (mGy-cm): 1257.07 FINDINGS: Brain: No acute intracranial hemorrhage. No mass, mass effect or midline shift. There is no evidence of acute large vessel infarct. The subcortical and periventricular white matter is normal in attenuation. The posterior fossa is grossly unremarkable; however, it is partially obscurred by beam hardening artifact. Cerebral ventricles: The ventricles are normal in configuration. Paranasal sinuses: The visualized paranasal sinuses are clear. Mastoid air cells: No mastoid effusion. Orbital cavities: The visualized orbits are unremarkable. Bones/joints: No acute fracture is seen. Soft tissues: No significant scalp soft tissue swelling is seen. CT/CT head wo con* [id number] IMPRESSION: No acute intracranial abnormality.
--- NOTE | 2022-07-25 10:26 | XRR_ITS ---
PROCEDURE INFORMATION: Exam: XR Chest Exam date and time: 07/25/2022 10:47 AM Age: 57 years old Clinical indication: Patient HX: Syncope and fall; ; Additional info: Syncope, fall TECHNIQUE: Imaging protocol: Radiologic exam of the chest. Views: 1 view. COMPARISON: CR XR chest 1V portable [id number] 03/21/2020 6:42 PM FINDINGS: Lungs: Central interstitial markings are indistinct. There is focal opacity in the central left lower lung. No consolidation on the right. Pleural spaces: There is no pleural effusion or pneumothorax. Heart/Mediastinum: There is mild enlargement of the cardiac silhouette. Bones/joints: There is moderate degenerative disease at both shoulders. No acute fracture. XR/XR chest 1V portable [id number] IMPRESSION: 1. Indistinct central interstitial markings suggest interstitial edema. This finding is persistent or recurrent since 03/21/2020. 2. Focal opacity in the left lower lung is new. Probable atelectasis. Infection or neoplasm cannot be excluded. Recommend radiographic follow-up to resolution. 3. Cardiac enlargement.
--- NOTE | 2022-07-25 10:26 | ECG_ITS ---
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 Measurements Intervals [place] Rate: 63 P: 46 ND: 271 QRS: 30 QRSD: 88 T: 38 QT: 400 QTc: 411 Interpretive Statements SINUS RHYTHM WITH FIRST DEGREE AV BLOCK LOW QRS VOLTAGE IN PRECORDIAL LEADS [QRS DEFLECTION < 1.0 mV IN CHEST LEADS] Compared to ECG 11/26/2020 08:12:42 Low QRS voltage now present ST (T wave) deviation no longer present Electronically Signed On 07-25-2022 12:09:27 CDT by Albin Campbell M.D. [id number]
--- NOTE | 2022-07-25 10:32 | XRR_ITS ---
PROCEDURE INFORMATION: Exam: XR Right Hip Exam date and time: 07/25/2022 10:49 AM Age: 57 years old Clinical indication: Injury or trauma; Blunt trauma (contusions or hematomas); Right; Injury date: 07/25/22; Patient HX: Syncope; Fall; C/O pain RT hip; Additional info: Fall, pain TECHNIQUE: Imaging protocol: Radiologic exam of the right hip. Views: 1 view hip with pelvis when performed. COMPARISON: CT abdomen pelvis w con* [id number] 05/28/2018 1:49 PM FINDINGS: Bones/joints: Alignment is normal. Joint spaces are preserved. No visible pelvic or femoral fracture. The visible portion the sacrum is unremarkable. Soft tissues: Visible soft tissues are unremarkable. XR/XR hip RT 2-3V wo/w pel* [id number] IMPRESSION: No acute fracture.
[2022-07-25 10:39] LABS: Basophils # 0.1 10^3/uL (0.0-0.1); Basophils % 1.2 %; Eosinophils # 0.2 10^3/uL (0.0-0.8); Eosinophils % 3.3 %; Hematocrit 34.6 % (37.0-47.0); Hemoglobin 11.1 g/dL (11.5-15.3); Lymphocytes # 1.9 10^3/uL (0.8-4.8); Mean Corpuscular HGB Conc 32.1 g/dL (30.0-36.0); Mean Corpuscular Hemoglobin 28.6 pg (28.0-34.0); Mean Corpuscular Volume 89.2 fl (81-99); Mean Platelet Volume 11.2 fL (7.4-10.4); Monocytes # 0.3 10^3/uL (0.2-0.9); Monocytes % 4.8 %; Neutrophils # 3.39 10^3/uL (1.8-7.7); Neutrophils % 58.5 %; Nucleated Red Blood Cells % 0 %; Platelet Count 264 10^3/cmm (130-400); Red Blood Count 3.88 10^6/uL (4.1-5.3); Red Cell Distribution Width 12.7 % (12.1-15.1); White Blood Count 5.8 10^3/uL (4.0-10.0)
[2022-07-25 10:54] LABS: Alanine Aminotransferase 19 U/L (0-33); Albumin Level 3.9 g/dL (3.5-5.2); Alkaline Phosphatase 87 U/L (35-105); Anion Gap 13.1 (5-19); Aspartate Amino Transferase 14 U/L (0-32); Blood Urea Nitrogen 13 mg/dL (6-20); Calcium 9.1 mg/dL (8.5-10.5); Carbon Dioxide 30 mmol/L (22-29); Chloride 103 mmol/L (98-107); Glomerular Filtration Rate 73.7 mL/min (90-130); Glucose 85 mg/dL (65-115); Osmolality Calculated 293 mOsm/kg (285-295); Potassium 4.1 mmol/L (3.5-5.1); Sodium 142 mmol/L (136-145); Total Bilirubin 0.2 mg/dL (0.15-1.2); Total Protein 5.9 g/dL (6.6-8.7)
[2022-07-25 10:55] LABS: Troponin(5th) Baseline 6 ng/L (0-10)
--- NOTE | 2022-07-25 12:04 | ED_ITS ---
HPI - Syncope General: Chief Complaint: Syncope Stated Complaint: SYNCOPE; FALL Time Seen by Provider: 07/25/22 10:25 History of Present Illness: This patient is a 57 year old presenting for a syncopal episode. She says that she was walking her puppy and then work up in the ambulance. She doesn't remember feeling poorly before had. She has a history of TBI, borderline personality, functional neurological disorder. She is asking repeated questions in the ED - she asked me several times if her was at dialysis and also wanted to know where her dog was. She complains of pain in the right hip. She has a history of chronic pain and sees the pain clinic for hydrocodone. 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 Generalized anxiety disorder HTN (hypertension) Hx of deep venous thrombosis Left acute arterial ischemic stroke, MCA (middle cerebral artery) Lip lesion Major depressive disorder, recurrent severe 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 S/P tubal ligation Family History Other Cancer Diabetes Hypertension Social History Smoking and tobacco status: never smoked Quit status (tobacco): has quit using tobacco Year quit tobacco: 2014 Second hand smoke exposure: No Smoking risk assessment/counseling performed?: No Alcohol intake: former Year of sobriety/quit date alcohol: 2002 Desire information about alcohol rehabilitation?: No Counseling given: No Substance/Drug Use: never Desire information about substance/drug rehabilitation?: No Counseling given: No Caregiver/support person: Yes Lives independently: No Household members: significant other Marital status: service: No Current occupational status: disabled Current gender identity: Female and Trans [id number] Physical Exam Const: COMMON NORMALS: no acute distress, no limitations and alert GENERAL APPEARANCE: cooperative and comfortable HENMT: HEAD & SCALP: normal to inspection FACE & SINUS: normal facial exam OTHER: surgical repair scars from cleft lip Eye: GENERAL EYE: appearance normal, both eyes and all related structures Neck/C-Spine: COMMON NORMALS: supple, no meningeal signs and no JVD Chest: COMMONS NORMALS: normal inspection of the chest Resp: COMMON NORMALS: normal respiratory effort, No use of accessory muscles and clear to auscultation bilaterally AUSCULTATION: clear to auscultation bilaterally Cardio: COMMON NORMALS: no JVD, regular rate, regular rhythm and No murmurs present (Cardio) RATE: regular rate RHYTHM: regular rhythm GI: COMMON NORMALS: Normal to inspection, nondistended, normoactive bowel sounds present, Soft to palpation and non-tender INSPECTION: Yes normal to inspection AUSCULTATION: Yes normoactive bowel sounds PALPATION: Yes Soft to palpation Back/Pelvis: COMMON NORMALS: thoracic and lumbar spine normal to inspection Extremity: COMMON NORMALS: normal to inspection Neuro: COMMON NORMALS: moves all extremities, no focal motor deficits and no sensory deficits noted SENSORIUM/ORIENTATION: Yes alert and Yes other (repetitive questioning) MENINGEAL SIGNS: Yes no meningeal signs Psych: COMMON NORMALS: mental status grossly normal, cooperative and normal affect Skin: COMMON NORMALS: no rashes or lesions noted and turgor normal GENERAL SKIN EXAM: no rashes or lesions noted and turgor normal Course Vital Signs: Vital signs: Vital Signs Temperature 97.9 F 07/25/22 17:41 Pulse Rate 65 07/25/22 17:41 Respiratory Rate 18 07/25/22 17:41 Blood Pressure 180/82 07/25/22 17:41 Pulse Oximetry 97 07/25/22 17:41 Oxygen Delivery Me thod Room Air 07/25/22 17:41 MDM - Syncope Medical Decision Making Syncope - no further history available the episode was not witnessed and patient has no recollection. Hip pain on the right - xrays pending. Check labs, EKG, CT head and C spine. Evaluate for injuries from the fall, as well as causes of a syncopal episode. Note is made of the patient's history of functional neurological disorder. Patient was not able to get up and walk and thus will be admitted to the hospital. MR requested to rule out stroke. Lab Data 07/25/22 10:24 07/25/22 10:24 Radiology Impressions Cervical Spine CT 07/25/22 10:25 IMPRESSION: 1. No acute cervical fracture. 2. Straightening and slight reversal of the normal cervical lordosis may relate to patient positioning or muscle spasm. 3. Tubing in the low left neck and ventral left chest wall that is incompletely visualized and of unknown clinical significance. Head CT 07/25/22 10:25 IMPRESSION: No acute intracranial abnormality. Head MRI 07/25/22 15:26 IMPRESSION: No acute intracranial abnormality. Laboratory Results WBC 5.8 10^3/uL (4.0-10.0) 07/25/22 10:24 RBC 3.88 10^6/uL (4.1-5.3) L 07/25/22 10:24 Hgb 11.1 g/dL (11.5-15.3) L 07/25/22 10:24 Hct 34.6 % (37.0-47.0) L 07/25/22 10:24 MCV 89.2 fl (81-99) 07/25/22 10:24 MCH 28.6 pg (28.0-34.0) 07/25/22 10:24 MCHC 32.1 g/dL (30.0-36.0) 07/25/22 10:24 RDW 12.7 % (12.1-15.1) 07/25/22 10:24 Plt Count 264 10^3/cmm (130-400) 07/25/22 10:24 MPV 11.2 fL (7.4-10.4) H 07/25/22 10:24 Neut % (Auto) 58.5 % 07/25/22 10:24 Lymph % (Auto) 32.0 % 07/25/22 10:24 [place] % (Auto) 4.8 % 07/25/22 10:24 Eos % (Auto) 3.3 % 07/25/22 10:24 Baso % (Auto) 1.2 % 07/25/22 10:24 Neut # (Auto) 3.39 10^3/uL (1.8-7.7) 07/25/22 10:24 Lymph # (Auto) 1.9 10^3/uL (0.8-4.8) 07/25/22 10:24 [place] # (Auto) 0.3 10^3/uL (0.2-0.9) 07/25/22 10:24 Eos # (Auto) 0.2 10^3/uL (0.0-0.8) 07/25/22 10:24 Baso # (Auto) 0.1 10^3/uL (0.0-0.1) 07/25/22 10:24 Nucleated RBC % (auto) 0 % 07/25/22 10:24 Nucleated RBCs # 0.0 /100WBC 07/25/22 10:24 Sodium 142 mmol/L (136-145) 07/25/22 10:24 Potassium 4.1 mmol/L (3.5-5.1) 07/25/22 10:24 Chloride 103 mmol/L (98-107) 07/25/22 10:24 Carbon Dioxide 30 mmol/L (22-29) H 07/25/22 10:24 Anion Gap 13.1 (5-19) 07/25/22 10:24 BUN 13 mg/dL (6-20) 07/25/22 10:24 Creatinine 0.8 mg/dL (0.5-0.9) 07/25/22 10:24 GFR Calculation 73.7 mL/min (90-130) L 07/25/22 10:24 Glucose 85 mg/dL (65-115) 07/25/22 10:24 Calculated Osmolality 293 mOsm/kg (285-295) 07/25/22 10:24 Calcium 9.1 mg/dL (8.5-10.5) 07/25/22 10:24 Iron 47 ug/dL (37-145) 07/25/22 10:24 TIBC 245 mcg/dl 07/25/22 10:24 % Saturation 19.1 % (20-50) L 07/25/22 10:24 Unsat Iron Binding 198 ug/dL (112-347) 07/25/22 10:24 Total Bilirubin 0.2 mg/dL (0.15-1.2) 07/25/22 10:24 AST 14 U/L (0-32) 07/25/22 10:24 ALT 19 U/L (0-33) 07/25/22 10:24 Alkaline Phosphatase 87 U/L (35-105) 07/25/22 10:24 Creatine Kinase 51 U/L (26-192) 07/25/22 10:24 Troponin T Baseline 6 ng/L (0-10) 07/25/22 10:24 Troponin T 120 Minute 6.00 ng/L (0-10) 07/25/22 12:38 Delta Troponin T 0 ABS# (0-10) 07/25/22 12:38 Total Protein 5.9 g/dL (6.6-8.7) L 07/25/22 10:24 Albumin 3.9 g/dL (3.5-5.2) 07/25/22 10:24 Globulin 2.0 g/dL (1.3-4.6) 07/25/22 10:24 Vitamin B12 1008 pg/mL (232-1245) 07/25/22 10:24 Procalcitonin 0.02 ng/mL (0-0.5) 07/25/22 10:24 TSH 2.14 uIU/mL (0.27-4.20) 07/25/22 10:24 Urine Color Yellow (Yellow) 07/25/22 11:39 Urine Appearance Clear (CLEAR) 07/25/22 11:39 Urine pH 8 (5-7) H 07/25/22 11:39 Ur Specific [place] 1.020 (1.005-1.030) 07/25/22 11:39 Urine Protein Neg (Negative) 07/25/22 11:39 Urine Glucose (UA) Norm (Normal) 07/25/22 11:39 Urine Ketones Negative (Negative) 07/25/22 11:39 Urine Blood 2+ (Negative) H 07/25/22 11:39 Urine Nitrate Negative (Negative) 07/25/22 11:39 Urine Bilirubin Neg (Negative) 07/25/22 11:39 Prot Sulfosalicylic Acd Negative (Negative) 07/25/22 11:39 Urine Urobilinogen Norm mg/dL (Negative) 07/25/22 11:39 Ur Leukocyte Esterase 1+ (Negative) H 07/25/22 11:39 Urine RBC 0-4 /hpf (0-2) H 07/25/22 11:39 Urine WBC 5-10 /hpf (0-5) H 07/25/22 11:39 Ur Squamous Epith Cells 0-4 /hpf (0-5) H 07/25/22 11:39 Amorphous Sediment Not Reportable 07/25/22 11:39 Urine Bacteria Trace /hpf (NONE) 07/25/22 11:39 Urine Mucus Trace /hpf 07/25/22 11:39 Urine Opiates Screen Negative ng/mL (Negative) 07/25/22 11:39 Ur Barbiturates Screen Negative ng/mL (Negative) 07/25/22 11:39 Ur Phencyclidine Scrn Negative ng/mL (Negative) 07/25/22 11:39 Ur Amphetamines Screen Negative ng/mL (Negative) 07/25/22 11:39 U Benzodiazepines Scrn Negative ng/mL (Negative) 07/25/22 11:39 Urine Cocaine Screen Negative ng/mL (Negative) 07/25/22 11:39 U Marijuana (THC) Screen Negative ng/mL (Negative) 07/25/22 11:39 Discharge Plan Discharge Patient Disposition: Admitted As Inpatient Admit Provider: Wicho Reyes Clinical Impression: Syncope, Chronic pain disorder, Unable to ambulate Condition: Stable Coding Level of Care Code ED Cloud Architect for Kun Saba
--- NOTE | 2022-07-25 12:13 | ECG_ITS ---
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 Measurements Intervals [place] Rate: 58 P: 42 OR: 248 QRS: 44 QRSD: 92 T: 44 QT: 406 QTc: 401 Interpretive Statements SINUS BRADYCARDIA WITH FIRST DEGREE AV BLOCK Compared to ECG 07/25/2022 10:34:52 Sinus rhythm no longer present Electronically Signed On 07-25-2022 21:05:36 CDT by Albin Campbell M.D. [email or web address] [email or web address] regional medical centerUnion Bay [email or web address]/[id number]
[2022-07-25 12:30] LABS: Add Urine Microscopic? YES; Bilirubin Urine Neg (Negative); Blood Urine 2+ (Negative); Glucose Urine UA Norm (Normal); Ketones Urine Negative (Negative); Leukocyte Esterase Urine 1+ (Negative); Nitrate Urine Negative (Negative); Protein Urine Neg (Negative); Sulfosalicylic Acid Urine Negative (Negative); Urine Appearance Clear (CLEAR); Urine Color Yellow (Yellow); Urobilinogen Urine Norm (Negative); pH Urine 8 (5-7)
[2022-07-25 12:32] LABS: RBC Urine 0-4 /hpf (0-2); Squamous Epithelial Cell Urine 0-4 /hpf (0-5)
[2022-07-25 12:33] LABS: Bacteria Urine TRACE /hpf; Mucus Urine TRACE /hpf
[2022-07-25 12:34] LABS: Add Urine Culture? Yes
--- NOTE | 2022-07-25 13:58 | PC.NURSE ---
ORTHOSTATIC VS ATTEMPTED TO OBTAIN. PT UNABLE TO STAND FOR DURATION OF BLOOD PRESSURE MEASUREMENT
[2022-07-25 13:59] LABS: Troponin 5 2HR Delta 0 ABS# (0-10)
[2022-07-25] MEDS: sodium chloride 0.9% 1,000 ML 999 ML IV (14:11)
[2022-07-25] MEDS: fentaNYL 50 mcg/mL INJ 2mL IVP (14:11)
--- NOTE | 2022-07-25 15:22 | PC.NURSE ---
PT ATTEMPTED TO AMBULATE. PT TOOK ONE STEP AND COLLAPSED. PT DID NOT FALL TO FLOOR. PT CAUGHT HERSELF WITH ASSISTANCE OF STAFF MEMBER AND GAIT BELT.
--- NOTE | 2022-07-25 15:26 | MRR_ITS ---
PROCEDURE INFORMATION: Exam: MR Head Without Contrast Exam date and time: 07/25/2022 4:19 PM Age: 57 years old Clinical indication: Weakness, extremity; Bilateral; Additional info: Unable to stand TECHNIQUE: Imaging protocol: Magnetic resonance imaging of the head without contrast. COMPARISON: CT head wo con* [id number] 07/25/2022 10:52 AM FINDINGS: Brain: No acute infarct. No hemorrhage. Stable mild involutional changes of the brain. No mass effect. Cerebral ventricles: Stable ventricular size. No ventriculomegaly. Bones/joints: Unremarkable. Paranasal sinuses: There is a polyp present in the right maxillary sinus extending into the nasal cavity as well as a polyp seen in the left nasal cavity. No sinus air-fluid levels. Mastoid air cells: Normal as visualized. No mastoid effusion. Orbital cavities: Unremarkable. Soft tissues: Unremarkable. MR/MR head wo con* [id number] IMPRESSION: No acute intracranial abnormality.
--- NOTE | 2022-07-25 15:47 | PC.NURSE ---
PT REQUESTED SIGN MRI CONSENT FOR DUE TO INABILITY TO SIGN BECAUSE OF TREMORS.
--- NOTE | 2022-07-25 16:06 | USCV_ITS ---
Mikala Love Age: 57 Gender: F : 1965 Exam Date: 07/25/2022 21:23 Ordering Phys: Wicho Reyes MD Technologist: ROSSI Exam Location: [facility] Indication: stroke BP: / HR: 68 Rhythm: Sinus Technical Quality: Adequate MEASUREMENTS (Male / Female) Normal Values 2D ECHO LV Diastolic Diameter PLAX 4.8 cm 4.2 - 5.9 / 3.9 - 5.3 cm LV Systolic Diameter PLAX 3.1 cm IVS Diastolic Thickness 0.6 cm 0.6 - 1.0 / 0.6 - 0.9 cm IVS Systolic Thickness 1.1 cm LVPW Diastolic Thickness 0.6 cm 0.6 - 1.0 / 0.6 - 0.9 cm LVPW Systolic Thickness 1.0 cm LVOT Diameter 2.0 cm LV Ejection Fraction 2D Teich 63.6 % LV Ejection Fraction MOD 2C 66.1 % LV Ejection Fraction 2C AL 66.6 % LA Diameter 3.2 cm M-MODE Aortic Annulus Diameter 2.5 cm LA Ao Ratio MM 1.5 MV E Point Septal Separation 0.4 cm DOPPLER AV Peak Velocity 158.0 cm/s LVOT Peak Velocity 144.0 cm/s AV Area Cont Eq vti 3.3 cm squared AV Area Cont Eq pk 2.9 cm squared MV Area PHT 2.9 cm squared Mitral E to A Ratio 0.9 MV E' Velocity 53.0 cm/s Mitral E to MV E' Ratio 10.4 Mitral E to LV E' Lateral Ratio 10.7 Mitral E to LV E' Septal Ratio 10.2 TR Peak Velocity 158.7 cm/s TR Peak Gradient 10.1 mmHg TV Peak E Velocity 52.0 cm/s Right Atrial Pressure 3.0 mmHg Pulmonary Artery Systolic Pressu 13.1 mmHg PV Peak Velocity 111.0 cm/s FINDINGS Left Ventricle Left ventricle is normal in size. LV systolic function is normal with EF 60 to 65%. No regional wall motion abnormalities are seen. Grade 1 diastolic dysfunction Right Ventricle Normal in size and function Right Atrium Normal in size Left Atrium Normal in size Mitral Valve Structurally normal mitral valve. Mild mitral regurgitation. Aortic Valve Structurally normal aortic valve.No significant stenosis or regurgitation. Tricuspid Valve Mild tricuspid regurgitation. Pulmonary artery systolic pressure is normal Pulmonic Valve Not well-visualized. Pericardium Normal Aorta Normal in size IVC Appears to be normal CONCLUSIONS LV systolic function is normal with EF 60 to 65%. Grade 1 disatolic dysfunction Mild mitral regurgitation Mild tricuspid regurgitation Compared to prior echocardiogram from 03/11/2021, no significant changes are needed. Albin Campebll MD (Electronically Signed) Final Date: 26 July 2022 10:43 S
--- NOTE | 2022-07-25 16:06 | P.HP_ITS ---
Providers/Chief Complaint Admitting Physician: Wicho Reyes MD Primary Care Provider: Giovanni Eugene MD Chief Complaint: SYNCOPE; FALL History of Present Illness Mikala Love is a 57 year old female with past medical history of hypertension, former smoker, history of seizure s/p VNS implant which was turned off in 2016, possible TIA, on chronic pain management with pain team, borderline personality disorder, anxiety/depression, PTSD, possibility of schizophrenia who presented to the ER today after being found collapsed on her porch. As per the who is at bedside patient went out to walk the dog and she was found by the neighbor in a collapsed manner. Patient only remembers waking up while in the ambulance to the ER. He does not remember anything around the episode. There was no bowel or bladder accidents or frothing from the mouth. Patient did have 4 episodes of collapse on . Today is Wednesday. During that time she was complaining of dizziness prior to the episodes. Denied any chest pain, nausea, vomiting, hot flashes, changes in her vision. In the ER she is complaining of pain in her back and weakness in the legs on trying to stand up on multiple occasions hence hospitalist service was consulted for admission. Review of Systems General: Reports: 10 or more systems reviewed and unremarkable except in HPI and below Const: Denies: fever(s), chills, body aches, change in appetite, change in weight, malaise, night sweats, diaphoresis, change in sleep pattern, daytime sleepiness or snoring Eyes: Denies: change in vision, blurry vision, photophobia, eye discomfort or eye discharge ENMT: Denies: throat pain, enlarged tonsils, hoarseness, mouth pain, oral so res, dry mouth, tinnitus, nasal congestion or post nasal drip Card: Denies: chest pain, palpitations, irregular heart rhythm, edema, swelling of feet/ankles, lightheadedness, syncope, pre-syncope, dyspnea on exertion, orthopnea, leg pain with exertion or acrocyanosis Resp: Denies: dyspnea, productive cough, non-productive cough, wheezing, stridor, pain on inspiration, change in phlegm color, hemoptysis or chest congestion GI: Denies: abdominal pain, nausea, vomiting, hematemesis, coffee ground emesis, dysphagia, heartburn, diarrhea, constipation, bloating, GI cramping, change in bowel habits, pain on defecation, hematochezia or melena : Denies: flank pain, dysuria, urinary frequency, urinary urgency, urinary hesitancy, nocturia or hematuria Musc: Denies: neck pain, back pain, extremity pain, joint pain, joint swelling, joint redness, joint stiffness or limited range of motion Neuro: Denies: headache(s), numbness in extremities, weakness in extremities, sensory changes, lack of coordination, difficulty walking, frequent falls, dizziness, vertigo, confusion, Slurred speech present, difficulty communicating thoughts or seizure-like activity Psych: Denies: anxiety, depression, mood swings, panic attacks, hopelessness or irritability Endo: Denies: polyuria, polydipsia, tired all the time, cold intolerance, excessive sweating, flushing or heat intolerance Tani/Lymph: Denies: easy bruising or easy bleeding All/Imm: Denies: tongue swelling, facial swelling or acute wheezing Medications/Allergies Home Medications Medication Instructions Recorded Confirmed Last Taken Type docusate sodium 100 mg capsule See Rx Instructions .Route 08/23/19 07/25/22 07/24/22 History .COMPLEX PRN Constipation lgcgonocsgjf-rdwiyplc-abgezm 1 tab PO DAILY@12 03/21/20 07/25/22 07/24/22 History tablet (Multivitamin 50 Plus tablet) propranolol 10 mg tablet 10 mg PO DAILY@12 03/21/20 07/25/22 07/24/22 History clopidogrel 75 mg tablet 75 mg PO QAM 04/15/20 07/25/22 07/24/22 History psyllium husk 3.4 gram/5.4 gram 1 - 2 tbsp PO DAILY PRN 06/04/21 07/25/22 07/24/22 History oral powder (Metamucil) Constipation ondansetron HCl 4 mg tablet See Rx Instructions .Route 12/10/21 07/25/22 Unknown Rx .COMPLEX #20 tabs tizanidine 4 mg tablet 4 mg PO BID PRN muscle spasticity 12/15/21 07/25/22 Unknown Rx #60 tabs atorvastatin 80 mg tablet 80 mg PO DAILY for high 03/02/22 07/25/22 07/24/22 Rx cholesterol #90 tabs naloxegol 25 mg tablet 25 mg PO QAM #30 tabs 03/16/22 07/25/22 07/24/22 Rx mupirocin 2 % topical ointment 1 applic topical BID PRN Rash 03/23/22 07/25/22 Unknown History pantoprazole 40 mg tablet,delayed 40 mg PO BID #60 tabs 05/08/22 07/25/22 07/24/22 Rx release (Protonix) hydrocodone 7.5 mg-acetaminophen 1 tab PO BID PRN pain 06/02/22 07/25/22 Unknown History 325 mg tablet lamotrigine 200 mg tablet 200 mg PO BID #60 tabs 06/02/22 07/25/22 07/24/22 Rx (Lamictal) prazosin 5 mg capsule 20 mg PO BEDTIME #120 caps 06/02/22 07/25/22 07/24/22 Rx ziprasidone HCl 40 mg capsule 40 mg PO BID #60 caps 06/02/22 07/25/22 07/24/22 Rx (Geodon) gabapentin 100 mg capsule 100 mg PO TID chronic pain #90 caps 06/16/22 07/25/22 07/24/22 Rx trazodone 100 mg tablet 400 mg PO BEDTIME PRN insomnia 07/25/22 07/25/22 Unknown History Allergies Allergy/AdvReac Type Severity Reaction Status Date / Time lisinopril Allergy Unknown Unknown Verified 06/15/22 10:22 shellfish derived Allergy Unknown hives Verified 06/15/22 10:22 aripiprazole [From Abilify] Allergy Unknown Verified 06/15/22 10:22 codeine Allergy Unknown Verified 06/15/22 10:22 duloxetine Allergy ADR-Anxiety Verified 06/15/22 10:22 erythromycin base Allergy ADR-Nausea Verified 06/15/22 10:22 fluticasone [From Flonase] Allergy ADR-Anxiety Verified 06/15/22 10:22 guaifenesin [From Mucinex] Allergy ADR-Anxiety Verified 06/15/22 10:22 Iodinated Contrast Media Allergy Unknown Verified 06/15/22 10:22 lithium Allergy Unknown Verified 06/15/22 10:22 nitroglycerin Allergy Unknown Verified 06/15/22 10:22 risperidone [From Risperdal] Allergy ALGY-Hives Verified 06/15/22 10:22 venlafaxine [From Effexor] Allergy Unknown Verified 06/15/22 10:22 quetiapine [From Seroquel] AdvReac Unknown ZOMBIE Verified 06/15/22 10:22 tramadol AdvReac FISCAL ECONOMIST Verified 06/15/22 10:22 COMPLICATION TOILET PAPER Allergy ADR-Itching Uncoded 06/15/22 10:22 PFSH Acute PFSH: Medical History (Updated 07/25/22 @ 16:31 by Wicho Reyes MD) CAD (coronary artery disease) [place] rash of groin Cervical disc disorder of mid-cervical region Chronic pain disorder CKD (chronic kidney disease), stage II DDD (degenerative disc disease), lumbar Demyelinating changes in 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 Generalized anxiety disorder HTN (hypertension) Hx of deep venous thrombosis Left acute arterial ischemic stroke, MCA (middle cerebral artery) Lip lesion Major depressive disorder, recurrent severe without psychotic features Night terror disorder Onychodystrophy CONRAD (obstructive sleep apnea) Pre-diabetes Psychiatric care PVD (peripheral vascular disease) Shoulder pain, bilateral Therapeutic opioid induced constipation Transient atrial fibrillation Yeast cells and fungal elements present on diagnostic testing Surgical History (Updated 07/25/22 @ 16:36 by Wicho Reyes MD) History of facial surgery 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 S/P tubal ligation Family History Other Cancer Diabetes Hypertension Social History Smoking and tobacco status: never smoked Quit status (tobacco): has quit using tobacco Year quit tobacco: 2014 Second hand smoke exposure: No Smoking risk assessment/counseling performed?: No Alcohol intake: former Year of sobriety/quit date alcohol: 2002 Desire information about alcohol rehabilitation?: No Counseling given: No Substance/Drug Use: never Desire information about substance/drug rehabilitation?: No Counseling given: No Caregiver/support person: Yes Lives independently: No Household members: significant other Marital status: service: No Current occupational status: disabled Current gender identity: Female and Trans Scuj-xw-Qzqrsi Vitals/I&O/Wt Last Vital Signs Temp 99.0 F 07/25/22 10:24 Pulse 61 07/25/22 14:15 Resp 16 07/25/22 14:15 BP 161/83 07/25/22 14:15 Pulse Ox 96 07/25/22 14:15 O2 Del Method Room Air 07/25/22 11:10 Weight last 48 hrs Weight 81.193 kg Physical Exam Narrative: General: No acute distress, AO x3 HEENT: PERRLA, pupils bilaterally equal and reactive Chest: Normal vesicular breath sounds, no added sounds, equal good air entry bilaterally CVS: S1-S2 regular, no murmurs, no tachycardia, no gallops, no rubs Abdomen: Soft, nontender, no organomegaly, bowel sounds present Neuro: No focal deficits, no facial deformity, AO x3, power 5/5 in all limbs Data 07/25/22 10:24 07/25/22 10:24 Other Labs: Radiology Impressions Cervical Spine CT 07/25/22 10:25 IMPRESSION: 1. No acute cervical fracture. 2. Straightening and slight reversal of the normal cervical lordosis may relate to patient positioning or muscle spasm. 3. Tubing in the low left neck and ventral left chest wall that is incompletely visualized and of unknown clinical significance. Head CT 07/25/22 10:25 IMPRESSION: No acute intracranial abnormality. Laboratory Results WBC 5.8 10^3/uL (4.0-10.0) 07/25/22 10:24 RBC 3.88 10^6/uL (4.1-5.3) L 07/25/22 10:24 Hgb 11.1 g/dL (11.5-15.3) L 07/25/22 10:24 Hct 34.6 % (37.0-47.0) L 07/25/22 10:24 MCV 89.2 fl (81-99) 07/25/22 10:24 MCH 28.6 pg (28.0-34.0) 07/25/22 10:24 MCHC 32.1 g/dL (30.0-36.0) 07/25/22 10:24 RDW 12.7 % (12.1-15.1) 07/25/22 10:24 Plt Count 264 10^3/cmm (130-400) 07/25/22 10:24 MPV 11.2 fL (7.4-10.4) H 07/25/22 10:24 Neut % (Auto) 58.5 % 07/25/22 10:24 Lymph % (Auto) 32.0 % 07/25/22 10:24 [place] % (Auto) 4.8 % 07/25/22 10:24 Eos % (Auto) 3.3 % 07/25/22 10:24 Baso % (Auto) 1.2 % 07/25/22 10:24 Neut # (Auto) 3.39 10^3/uL (1.8-7.7) 07/25/22 10:24 Lymph # (Auto) 1.9 10^3/uL (0.8-4.8) 07/25/22 10:24 [place] # (Auto) 0.3 10^3/uL (0.2-0.9) 07/25/22 10:24 Eos # (Auto) 0.2 10^3/uL (0.0-0.8) 07/25/22 10:24 Baso # (Auto) 0.1 10^3/uL (0.0-0.1) 07/25/22 10:24 Nucleated RBC % (auto) 0 % 07/25/22 10:24 Nucleated RBCs # 0.0 /100WBC 07/25/22 10:24 Sodium 142 mmol/L (136-145) 07/25/22 10:24 Potassium 4.1 mmol/L (3.5-5.1) 07/25/22 10:24 Chloride 103 mmol/L (98-107) 07/25/22 10:24 Carbon Dioxide 30 mmol/L (22-29) H 07/25/22 10:24 Anion Gap 13.1 (5-19) 07/25/22 10:24 BUN 13 mg/dL (6-20) 07/25/22 10:24 Creatinine 0.8 mg/dL (0.5-0.9) 07/25/22 10:24 GFR Calculation 73.7 mL/min (90-130) L 07/25/22 10:24 Glucose 85 mg/dL (65-115) 07/25/22 10:24 Calculated Osmolality 293 mOsm/kg (285-295) 07/25/22 10:24 Calcium 9.1 mg/dL (8.5-10.5) 07/25/22 10:24 Total Bilirubin 0.2 mg/dL (0.15-1.2) 07/25/22 10:24 AST 14 U/L (0-32) 07/25/22 10:24 ALT 19 U/L (0-33) 07/25/22 10:24 Alkaline Phosphatase 87 U/L (35-105) 07/25/22 10:24 Troponin T Baseline 6 ng/L (0-10) 07/25/22 10:24 Troponin T 120 Minute 6.00 ng/L (0-10) 07/25/22 12:38 Delta Troponin T 0 ABS# (0-10) 07/25/22 12:38 Total Protein 5.9 g/dL (6.6-8.7) L 07/25/22 10:24 Albumin 3.9 g/dL (3.5-5.2) 07/25/22 10:24 Globulin 2.0 g/dL (1.3-4.6) 07/25/22 10:24 Urine Color Yellow (Yellow) 07/25/22 11:39 Urine Appearance Clear (CLEAR) 07/25/22 11:39 Urine pH 8 (5-7) H 07/25/22 11:39 Ur Specific [place] 1.020 (1.005-1.030) 07/25/22 11:39 Urine Protein Neg (Negative) 07/25/22 11:39 Urine Glucose (UA) Norm (Normal) 07/25/22 11:39 Urine Ketones Negative (Negative) 07/25/22 11:39 Urine Blood 2+ (Negative) H 07/25/22 11:39 Urine Nitrate Negative (Negative) 07/25/22 11:39 Urine Bilirubin Neg (Negative) 07/25/22 11:39 Prot Sulfosalicylic Acd Negative (Negative) 07/25/22 11:39 Urine Urobilinogen Norm mg/dL (Negative) 07/25/22 11:39 Ur Leukocyte Esterase 1+ (Negative) H 07/25/22 11:39 Urine RBC 0-4 /hpf (0-2) H 07/25/22 11:39 Urine WBC 5-10 /hpf (0-5) H 07/25/22 11:39 Ur Squamous Epith Cells 0-4 /hpf (0-5) H 07/25/22 11:39 Amorphous Sediment Not Reportable 07/25/22 11:39 Urine Bacteria Trace /hpf (NONE) 07/25/22 11:39 Urine Mucus Trace /hpf 07/25/22 11:39 A&P Assessment and plan (1) Syncope: Unknown etiology. Could be multifactorial in the patient. Patient does have history of TIA, possible stroke, seizure disorder, borderline personality disorder, chronic pain disorder, generalized anxiety disorder in the past. Blood work in the ER negative for any signs of infection or electrolyte abnormality. Troponin cycle negative in 2 hours. UA negative for UTI. Complete troponin cycled. MRI brain for further work-up of stroke, rule out hypertensive changes. Check echocardiogram, carotid Dopplers. Orthostatic blood pressure checks. Urine drug screen. surveillance system monitor. Check Lamictal levels. Check TSH, vitamin B12, folate, iron panel. PT/OT evaluation. Fall, seizure precautions. Continue chronic home medications. Normal saline at 75 cc/h for 1 bag. (2) Back pain: Cervical spine negative for any acute abnormality. Hip x-ray negative for acute abnormality. Check lumbar x-ray Continue with [place] 7.5 mg every 6 hourly as needed. PT as above. (3) CAD (coronary artery disease): Troponin cycled so far negative. Echocardiogram as above. Continue with home dose of statin, clopidogrel, propranolol. (4) HTN (hypertension): Goal blood pressure less than 140/90 mmHg. For now continue with home dose of prazosin, propanolol. Will uptitrate medications as per goal blood pressures. Qualifiers: Hypertension type: essential hypertension Qualified Code(s): I10 - Essential (primary) hypertension (5) CKD (chronic kidney disease), stage II: Creatinine at goal. Monitor BMP daily. (6) Major depressive disorder, recurrent severe without psychotic features: With history of generalized anxiety disorder, borderline personality disorder. Continue with home dose of Lamictal, trazodone and ziprasidone. 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: (11) Chronic pain disorder: Plan Full code. Cardiac diet. Heparin 5000 every 12 hourly for DVT prophylaxis Continue with home dose of Protonix for PUD prophylaxis. Attestations Medical Necessity Statement*: Admission under observation for less than 2 midnights for full work-up of ankle pain and collapse while TIA/stroke is ruled out. Diagnoses Syncope R55 Back pain M54.9 CAD (coronary artery disease) I25.10 HTN (hypertension) I10 Hypertension type: essential hypertension CKD (chronic kidney disease), stage II N18.2 Major depressive disorder, recurrent severe without psychotic features F33.2 Generalized anxiety disorder F41.1 Borderline personality disorder in adult F60.3 Functional 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 F44.5 S/P placement of VNS (vagus nerve stimulation) device Z96.89 Chronic pain disorder G89.4
--- NOTE | 2022-07-25 16:06 | USR_ITS ---
PROCEDURE INFORMATION: Exam: US Duplex Bilateral Extracranial Arteries; Complete; Carotid Arteries Exam date and time: 07/25/2022 8:52 PM Age: 57 years old Clinical indication: Syncope and collapse TECHNIQUE: Imaging protocol: Real-time duplex ultrasound scan of the bilateral extracranial arteries combining conley scale, color Doppler and spectral waveform analysis with image documentation. Complete exam. Exam focused on the carotid arteries. COMPARISON: CT angio headneck* [id number] 11/26/2020 2:18 PM FINDINGS: Right common carotid artery: Unremarkable. No occlusion or stenosis. Waveforms are normal. Right internal carotid artery: Mild atherosclerotic plaque is seen in the proximal right internal carotid artery without significant stenosis (0%). Right ICA/CCA ratio: Within normal limits. Right external carotid artery: No stenosis in the origin. Right vertebral artery: Unremarkable. Antegrade flow. Left common carotid artery: Unremarkable. No occlusion or stenosis. Waveforms are normal. Left internal carotid artery: Unremarkable. No occlusion or stenosis. Waveforms are normal. Left ICA/CCA ratio: Within normal limits. Left external carotid artery: No stenosis in the origin. Left vertebral artery: Unremarkable. Antegrade flow. US/CV carotid duplex BI* [id number] IMPRESSION: No evidence of hemodynamically significant stenosis. REFERENCES: SRU CRITERIA. The degree of internal carotid artery stenosis is based on criteria defined by the Society of Radiologists in Ultrasound (SRU). Normal is no stenosis. Mild is less than 50% stenosis. Moderate is 50-69% stenosis. Severe is greater than 69% stenosis to near occlusion. Near occlusion is a markedly narrowed lumen. Total occlusion is no detectable patent lumen.
--- NOTE | 2022-07-25 16:26 | ECG_ITS ---
[facility] Test Date: 2022-07-25 Pat Name: Mikala Love Department: Room: 273 Gender: Female Account Services Representative: : 1965 Requested By: Lillie Blank Order Number: [id number] Lucretia MD: Albin Campbell M.D. Measurements Intervals [place] Rate: 64 P: 44 VT: 224 QRS: 35 QRSD: 90 T: 22 QT: 393 QTc: 405 Interpretive Statements SINUS RHYTHM WITH FIRST DEGREE AV BLOCK Compared to ECG 07/25/2022 12:13:03 Sinus bradycardia no longer present Electronically Signed On 07-25-2022 21:05:13 CDT by Albin Campbell M.D. [id number]
[2022-07-25 16:36] LABS: Amphetamines Screen Urine Negative (Negative); Barbiturates Screen Urine Negative (Negative); Benzodiazepines Screen Urine Negative (Negative); Cocaine Screen Urine Negative (Negative); Opiate Screen Urine Negative (Negative); PCP Screen Urine Negative (Negative); THC Screen Urine Negative (Negative)
[2022-07-25 17:30] LABS: Procalcitonin 0.02 ng/mL (0-0.5); Thyroid Stimulating Hormone 2.14 uIU/mL (0.27-4.20); Vitamin B12 1008 pg/mL (232-1245)
[2022-07-25 17:40] LABS: Creatine Phosphokinase 51 U/L (26-192); Iron 47 ug/dL (37-145); Percent Saturation 19.1 % (20-50); Total Iron Binding Capacity 245 mcg/dl; Unsaturated Iron Binding 198 ug/dL (112-347)
[2022-07-25 18:14] LABS: Troponin 5 6HR Delta 0 ng/L (0-12)
[2022-07-25] MEDS: sodium chloride 0.9% 1,000 ML 75 ML IV (18:46)
[2022-07-25] MEDS: heparin 5,000 unit/mL INJ 1 mL 5000 UNIT SUBCUT (18:47)
[2022-07-25] MEDS: pantoprazole DR 40 mg Tablet PO (18:47)
[2022-07-25] MEDS: ziprasidone hcl 40 mg Capsule PO (18:47)
--- NOTE | 2022-07-25 19:52 | PC.NURSE ---
Patient reports that she visits the pain clinic for chronic pain and takes Hydrocodone daily at 10AM and 10PM. Patient reports that her last Hydrocodone was given at 10PM on 07/24/2022. On 07/25/2022 patient drug screen negative for Opiates. Patient states that a nurse from [facility] [place] sets up medications for her. Notifies Dr. Reyes of findings, no new orders. Report completed to Elder Abuse Hotline on 07/25/2022 at 1951. Confirmation number : [id number].
[2022-07-25] MEDS: prazosin 5 mg Capsule 20 MG PO (22:01)
[2022-07-25] MEDS: gabapentin 100 mg Capsule PO (22:02)
[2022-07-25] MEDS: HYDROcodone-acetaminophen 7.5-325 mg Tablet 1 TAB PO (22:02)
[2022-07-25] MEDS: trazodone 100 mg Tablet 400 MG PO (22:06)
[2022-07-25] MEDS: tizanidine 4 mg Tablet PO (22:06)
[2022-07-26] VITALS (9 sets, daily range): BP systolic 94–135; BP diastolic 60–77; PULSE 52–84; RESP 15–18; TEMP 36.4–36.9; O2SAT 91–98
[2022-07-26] MEDS: HYDROcodone-acetaminophen 7.5-325 mg Tablet 1 TAB PO ×3 (03:57→20:02)
[2022-07-26 05:07] LABS: Basophils # 0.1 10^3/uL (0.0-0.1); Basophils % 0.7 %; Eosinophils # 0.1 10^3/uL (0.0-0.8); Eosinophils % 1.5 %; Hematocrit 36.3 % (37.0-47.0); Hemoglobin 11.6 g/dL (11.5-15.3); Lymphocytes # 2.6 10^3/uL (0.8-4.8); Mean Corpuscular Hemoglobin 28.2 pg (28.0-34.0); Mean Corpuscular Volume 88.3 fl (81-99); Mean Platelet Volume 10.7 fL (7.4-10.4); Monocytes # 0.4 10^3/uL (0.2-0.9); Monocytes % 4.1 %; Neutrophils # 5.67 10^3/uL (1.8-7.7); Neutrophils % 64.5 %; Nucleated Red Blood Cells % 0 %; Platelet Count 251 10^3/cmm (130-400); Red Blood Count 4.11 10^6/uL (4.1-5.3); Red Cell Distribution Width 12.3 % (12.1-15.1); White Blood Count 8.8 10^3/uL (4.0-10.0)
[2022-07-26 05:30] LABS: Chol HDL Ratio 2.35 mg/dL (0.0-4.40); Cholesterol 134 mg/dL (0-200); Estmated Average Glucose 103; HDL Cholesterol 57 mg/dL (60-100); Hemoglobin A1C 5.2 % (4.0-6.0); LDL Cholesterol Calculated 60 mg/dL (50-129); LDL HDL Ratio 1.05 RATIO (0.00-3.22); Triglycerides 83 mg/dL (0-150)
[2022-07-26 05:31] LABS: Alanine Aminotransferase 17 U/L (0-33); Albumin Level 3.7 g/dL (3.5-5.2); Alkaline Phosphatase 91 U/L (35-105); Anion Gap 13.5 (5-19); Aspartate Amino Transferase 15 U/L (0-32); Blood Urea Nitrogen 9 mg/dL (6-20); Calcium 8.1 mg/dL (8.5-10.5); Carbon Dioxide 27 mmol/L (22-29); Chloride 100 mmol/L (98-107); Glomerular Filtration Rate 102.7 mL/min (90-130); Glucose 88 mg/dL (65-115); Magnesium 1.8 mg/dL (1.7-2.3); Osmolality Calculated 282 mOsm/kg (285-295); Phosphorus 3.1 mg/dL (2.5-4.5); Potassium 3.5 mmol/L (3.5-5.1); Sodium 137 mmol/L (136-145); Total Bilirubin 0.4 mg/dL (0.15-1.2); Total Protein 5.7 g/dL (6.6-8.7)
[2022-07-26] MEDS: heparin 5,000 unit/mL INJ 1 mL 5000 UNIT SUBCUT ×2 (05:38→18:10)
[2022-07-26] MEDS: clopidogrel 75 mg Tablet PO (05:38)
[2022-07-26 07:00] LABS: Folate Level > 20.0 ng/mL (4.8-37.3)
--- NOTE | 2022-07-26 08:20 | ECG_ITS ---
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 Interpretive Statements NAME OF STUDY: LEXISCAN SESTAMIBI STRESS TEST INDICATION: Syncope PROCEDURE: At the baseline, the blood pressure was 130/71 mmHg with a heart rate of 61 bpm. The electrocardiogram showed sinus rhythm with baseline artifact. The Lexiscan was infused over a period of 20 seconds. A total of 0.4 milligrams of Lexiscan was infused. The stress phase was continued for a total of 5 minutes. Heart rate at the end of the stress phase was 89 bpm with a blood pressure 114/55 mm Hg. The EKG at the peak infusion revealed sinus rhythm at 89 bpm with no significant [address]-T wave changes. Sestamibi was injected 20 seconds after the Lexiscan infusion. Blood pressure at the end of the recovery phase was 107/58 mmHg with a heart rate of 84 beats per minute. CONCLUSION: 1. No significant EKG changes with the LexiScan infusion. 2. No LexiScan induced chest pain or cardiac arrhythmia. 3. Normal blood pressure and heart rate response. 4. Sestamibi/sestamibi perfusion scan pending; see separate report. Electronically Signed On 08-03-2022 16:32:10 CDT by Eden Pollard M.D. [id number]
[2022-07-26] MEDS: atorvastatin 40 mg Tablet 80 MG PO (09:39)
[2022-07-26] MEDS: pantoprazole DR 40 mg Tablet PO ×2 (09:39→18:10)
[2022-07-26] MEDS: lamoTRIgine 100 mg Tablet 200 MG PO ×2 (09:39→18:10)
[2022-07-26] MEDS: ziprasidone hcl 40 mg Capsule PO ×2 (09:39→18:10)
[2022-07-26] MEDS: gabapentin 100 mg Capsule PO ×3 (09:39→20:02)
--- NOTE | 2022-07-26 09:48 | CTR_ITS ---
PROCEDURE INFORMATION: Exam: CT Lumbar Spine Without Contrast Exam date and time: 07/26/2022 3:37 PM Age: 57 years old Clinical indication: Low back pain TECHNIQUE: Imaging protocol: Computed tomography of the lumbar spine without contrast. Radiation optimization: All CT scans at this facility use at least one of these dose optimization techniques: automated exposure control; mA and/or kV adjustment per patient size (includes targeted exams where dose is matched to clinical indication); or iterative reconstruction. REPORTING DATA: Count of CT and Cardiac NM exams in prior 12 months: This patient has received 2 known CTs and 0 known cardiac nuclear medicine studies in the 12 months prior to the current study. COMPARISON: CT lumbar spine w con [id number] 03/10/2018 12:21 PM RADIATION DOSE METRICS: Total DLP (mGy-cm): 687.72 FINDINGS: Bones/joints: No acute fracture. Normal alignment. Multilevel small endplate osteophytes similar to prior exam. Oerm-rt-zbnxwwcx facet arthropathy. L1-L2: No significant disc bulge or herniation. No severe spinal canal stenosis. No significant neural foraminal narrowing. L2-L3: No significant disc bulge or herniation. No severe spinal canal stenosis. No significant neural foraminal narrowing. L3-L4: No significant disc bulge or herniation. No severe spinal canal stenosis. No significant neural foraminal narrowing. L4-L5: No significant disc bulge or herniation. No severe spinal canal stenosis. No significant neural foraminal narrowing. L5-S1: No significant disc bulge or herniation. No severe spinal canal stenosis. No significant neural foraminal narrowing. Soft tissues: Unremarkable. CT/CT lumbar spine wo con* [id number] IMPRESSION: No acute spine findings. No severe stenosis.
[2022-07-26] MEDS: morphine 4 mg/mL SDV 1 mL 2 MG IVP (10:58)
[2022-07-26] MEDS: tizanidine 4 mg Tablet PO (11:04)
--- NOTE | 2022-07-26 14:22 | P.PN_ITS ---
Subjective Subjective: Patient was seen this morning, she is lying flat in bed, refusing to move, due to severe back pain, she is telling that she has severe spasms of her back, the morphine in the hydrocodone helped alleviate the pain but it continues to return, she has chronic back pain, but after a fall it has worsened, she has a chronic history of low back pain for which she has received back injections before, but the back injections she tells me have worn off, she did get up to the side of the bed with help, she tells me that she had severe pain, denies any chest pain, palpitations Vitals/I&O/Wt Last Vital Signs Temp 97.7 F 07/26/22 08:00 Pulse 65 07/26/22 08:00 Resp 18 07/26/22 10:58 BP 135/77 07/26/22 08:00 Pulse Ox 95 07/26/22 08:00 O2 Del Method Room Air 07/26/22 03:31 07/25/22 07/26/22 07/26/22 22:59 06:59 14:59 Intake Total 1000 / 1000 1500 / 1500 Balance 1000 / 1000 1500 / 1500 Weight last 48 hrs Weight 81.193 kg Weight 81.193 kg Physical Exam Const: COMMON NORMALS: no acute distress and patient oriented x3 Resp: COMMON NORMALS: normal respiratory effort, No retractions, No use of accessory muscles and clear to auscultation bilaterally AUSCULTATION: clear to auscultation bilaterally Cardio: COMMON NORMALS: regular rate, regular rhythm, S1 normal heart sound present and S2 normal heart sound present RATE: regular rate RHYTHM: re gular rhythm HEART SOUNDS: S1 normal heart sound present and S2 normal heart sound present GI: COMMON NORMALS: Normal to inspection, nondistended, normoactive bowel sounds present and non-tender Extremity: COMMON NORMALS: no pedal edema Neuro: COMMON NORMALS: patient oriented x3 Psych: COMMON NORMALS: mental status grossly normal Data 07/26/22 04:36 07/26/22 04:36 Micro: Microbiology 07/25/22 11:39 Urine Culture - Preliminary Urine,Clean Catch A&P Assessment and plan (1) Syncope: Sounds like true syncope and collapse episode No significant evidence of UTI No significant radiographic evidence of pneumonia 6-hour troponin 6 Does have sinus bradycardia Cardiac echocardiogram LV systolic function is normal with EF 60 to 65%. ?Grade 1 disatolic dysfunction ?Mild mitral regurgitation ?Mild tricuspid regurgitation ?Compared to prior echocardiogram from 03/11/2021, no significant ?changes are needed. Carotid artery ultrasound no evidence of hemodynamically significant stenosis MRI brain for further work-up of stroke, rule out hypertensive changes. Orthostatic blood pressure checks, mildly positive start normal saline at 50 cc an hour surveillance monitor. Check Lamictal levels. PT/OT evaluation. Fall, seizure precautions. Continue chronic home medications. Given her syncope and collapse episode, with underlying history of CAD, we will go ahead and perform a cardiac stress test (2) Back pain: Cervical spine negative for any acute abnormality. Hip x-ray negative for acute abnormality. Continues to have intractable pain CT lumbar spine Continue with [place] 7.5 mg every 4 hours hourly as needed., Morphine for breakthrough pain 2 mg every 12 hours PT as above. (3) CAD (coronary artery disease): Troponin cycled so far negative. Echocardiogram as above. Continue with home dose of statin, clopidogrel, stop for valve due to concerns for orthostatic hypotension N.p.o. midnight, for cardiac stress test tomorrow morning (4) HTN (hypertension): Goal blood pressure less than 140/90 mmHg. For now continue with home dose of prazosin, propanolol. Will uptitrate medications as per goal blood pressures. Qualifiers: Hypertension type: essential hypertension Qualified Code(s): I10 - Essential (primary) hypertension (5) CKD (chronic kidney disease), stage II: Creatinine at goal. Monitor BMP daily. (6) Major depressive disorder, recurrent severe without psychotic features: With history of generalized anxiety disorder, borderline personality disorder. Continue with home dose of Lamictal, trazodone and ziprasidone. 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 Cardiac diet. Heparin 5000 every 12 hourly for DVT prophylaxis Continue with home dose of Protonix for PUD prophylaxis. Plan for today pain control, up out of bed, n.p.o. midnight, for cardiac stress test tomorrow morning, CT lumbar spine Attestations Medical Necessity Statement*: Patient requires hospitalization, for syncope and collapse, intractable low back pain and High Time for a total of 60 minutes, includes reviewing past or interval history, examining/interviewing patient, placing orders, counseling patient/family/other support, updating patient/family/other support, discussing plan of care with staff, communicating with other healthcare providers, documenting encounter and coordinating care Diagnoses Syncope R55 Back pain M54.9 CAD (coronary artery disease) I25.10 HTN (hypertension) I10 Hypertension type: essential hypertension CKD (chronic kidney disease), stage II N18.2 Major depressive disorder, recurrent severe without psychotic features F33.2 Generalized anxiety disorder F41.1 Borderline personality disorder in adult F60.3 Functional 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 F44.5 S/P placement of VNS (vagus nerve stimulation) device Z96.89 Chronic pain disorder G89.4 Syncope and collapse R55 Acute exacerbation of chronic low back pain M54.50; G89.29 Orthostatic hypotension I95.1 Intractable pain R52
[2022-07-26] MEDS: sodium chloride 0.9% 1,000 ML 50 ML IV (15:22)
[2022-07-26] MEDS: trazodone 100 mg Tablet 400 MG PO (20:02)
[2022-07-26] MEDS: prazosin 5 mg Capsule 20 MG PO (20:02)
[2022-07-26] MEDS: docusate sodium 100 mg Capsule PO (20:09)
[2022-07-27] VITALS (20 sets, daily range): BP systolic 89–153; BP diastolic 57–86; PULSE 54–94; RESP 14–18; TEMP 36.5–37.2; O2SAT 89–97
[2022-07-27] MEDS: HYDROcodone-acetaminophen 7.5-325 mg Tablet 1 TAB PO ×3 (00:06→22:00)
[2022-07-27] MEDS: tizanidine 4 mg Tablet PO ×2 (00:06→22:02)
[2022-07-27 05:35] LABS: Basophils # 0.1 10^3/uL (0.0-0.1); Basophils % 0.9 %; Eosinophils # 0.2 10^3/uL (0.0-0.8); Eosinophils % 3.3 %; Hematocrit 34.3 % (37.0-47.0); Hemoglobin 10.9 g/dL (11.5-15.3); Lymphocytes # 2.1 10^3/uL (0.8-4.8); Lymphocytes % 33.6 %; Mean Corpuscular HGB Conc 31.8 g/dL (30.0-36.0); Mean Corpuscular Hemoglobin 28.7 pg (28.0-34.0); Mean Corpuscular Volume 90.3 fl (81-99); Mean Platelet Volume 10.8 fL (7.4-10.4); Monocytes # 0.4 10^3/uL (0.2-0.9); Monocytes % 6.9 %; Neutrophils % 55.1 %; Nucleated Red Blood Cells % 0 %; Platelet Count 235 10^3/cmm (130-400); Red Cell Distribution Width 12.6 % (12.1-15.1); White Blood Count 6.4 10^3/uL (4.0-10.0)
[2022-07-27 05:49] LABS: Anion Gap 10.1 (5-19); Blood Urea Nitrogen 12 mg/dL (6-20); Calcium 8.4 mg/dL (8.5-10.5); Carbon Dioxide 30 mmol/L (22-29); Chloride 105 mmol/L (98-107); Glomerular Filtration Rate 64.3 mL/min (90-130); Glucose 89 mg/dL (65-115); Osmolality Calculated 291 mOsm/kg (285-295); Potassium 4.1 mmol/L (3.5-5.1); Sodium 141 mmol/L (136-145)
[2022-07-27] MEDS: clopidogrel 75 mg Tablet PO (05:49)
[2022-07-27] MEDS: heparin 5,000 unit/mL INJ 1 mL 5000 UNIT SUBCUT ×2 (05:49→18:18)
[2022-07-27] MEDS: regadenoson 0.4 Mg/5 ml Syringe IVP (07:45)
--- NOTE | 2022-07-27 08:00 | NMCV_ITS ---
NM noni perf SPECT r/s* [id number] Mikala Love Age: 57 Gender: F : 1965 Exam Date: 07/27/2022 08:00 Ordering Phys: Messi Madrid MD Technologist: ELAN Johnson Exam Location: [facility] Indications: CHEST PAIN STRESS TEST Please see separate stress test report in [facility] for full findings IMAGE PROTOCOL Rest/Stress 1 Lexiscan Day Radiopharmaceutical Dose (mCi) Administration Site Administered by Rest: Tc-99m 10.7 IV ELAN Ochoa Sestamibi Stress:Tc-99m 32.8 IV ELAN Ochoa Sestamibi Rest: 27-Jul-2022 60 Discovery 630 Stress: 27-Jul-2022 30 Discovery 630 0.4mg Lexiscan. Supine position only as patient was unable to lay prone. SPECT RESULTS Technical Quality: Excellent Raw Data Analysis: Normal Image Corrections: No attenuation or motion correction applied Summed Stress Score: 0 Summed Rest Score: 0 Summed Difference Score: 0 PERFUSION FINDINGS SPECT images demonstrate homogeneous tracer distribution throughout the myocardium. FUNCTIONAL RESULTS (calculated via Gated SPECT) Stress Image LV EF (%): 74 Stress EDV (mL):62 TID: 0.88 Stress ESV (mL):16 FUNCTIONAL FINDINGS: There is normal left ventricular systolic function. IMPRESSIONS 1. Normal myocardial perfusion imaging with no evidence of ischemia 2. LV systolic function is normal. Albin Campbell MD (Electronically Signed) Final Date: 27 July 2022 12:50 S
[2022-07-27] MEDS: lamoTRIgine 100 mg Tablet 200 MG PO ×2 (08:51→18:18)
[2022-07-27] MEDS: atorvastatin 40 mg Tablet 80 MG PO (08:52)
[2022-07-27] MEDS: gabapentin 100 mg Capsule PO ×3 (08:52→22:00)
[2022-07-27] MEDS: ziprasidone hcl 40 mg Capsule PO ×2 (08:52→18:18)
[2022-07-27] MEDS: pantoprazole DR 40 mg Tablet PO ×2 (08:52→18:18)
--- NOTE | 2022-07-27 09:43 | PC.NURSE ---
Jennifer Otero with Adult [employer] Services calls to confirm report received. States she will check on patient this week.
--- NOTE | 2022-07-27 13:04 | ECG_ITS ---
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 Measurements Intervals [place] Rate: 79 P: 48 MT: 201 QRS: 7 QRSD: 97 T: 7 QT: 394 QTc: 452 Interpretive Statements SINUS RHYTHM Compared to ECG 07/25/2022 17:33:34 First degree AV block no longer present Electronically Signed On 07-27-2022 16:43:26 CDT by Albin Campbell M.D. [id number]
--- NOTE | 2022-07-27 13:40 | PC.OT ---
Tx held d/t heart rate between 14 and 45
--- NOTE | 2022-07-27 14:37 | ECG_ITS ---
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 Measurements Intervals [place] Rate: 67 P: 32 HI: 207 QRS: -3 QRSD: 93 T: 6 QT: 416 QTc: 440 Interpretive Statements SINUS RHYTHM Compared to ECG 07/27/2022 13:04:09 No significant changes Electronically Signed On 07-27-2022 16:45:19 CDT by Albin Campbell M.D. [id number]
[2022-07-27 14:54] LABS: Troponin(5th) Baseline 6 ng/L (0-10)
--- NOTE | 2022-07-27 16:09 | PM.PN ---
Subjective Subjective: Patient was seen this morning, she tells me that she continues to have back pain, no lightheadedness, no dizziness, denies passing out, she went for her stress test Patient was seen after her stress test, stress test results were within normal limits, I was can have physical therapy work with her, to see if she could go home When patient worked with physical therapy, apparently she passed out she was not on telemetry, no significant head trauma but she fell to her knees, she was gotten back into a chair her orthostats were negative, on telemetry monitoring her heart rates were in the 30s, normal sinus rhythm -When I examined her, she was on telemetry heart rates in the 30s, alert oriented x3 she tells me that she was not feeling well, no lightheadedness, dizziness but was in a lot of pain, EKG performed showed heart rates in the 70s, normal sinus rhythm, no bundle branch block, no AV block, no acute ST-T wave changes, baseline troponin 6 Her repeat orthostatics were within normal limits I advised patient that we will probably watch her for another 24 hours move her down to CSU for monitoring for symptomatic bradycardia the question is is that is her recurrent syncope and collapse episodes related to her bradycardia Spoke to cardiology spoke to Dr. Hernandez who will consult and see patient for consideration of possible pacemaker placement depending on her clinical progress currently she is hemodynamically stable, alert oriented x3, normal sinus rhythm heart rates in the 70s She had an event monitor placed back in 2020 which showed heart rate anywhere between 55-1 26, Vitals/I&O/Wt Last Vital Signs Temp 97.8 F 07/27/22 15:42 Pulse 74 07/27/22 15:42 Resp 18 07/27/22 15:42 BP 147/86 07/27/22 15:42 Pulse Ox 96 07/27/22 15:42 O2 Del Method Room Air 07/27/22 15:42 07/27/22 07/27/22 07/27/22 06:59 14:59 22:59 Intake Total 1120 / 1120 Balance 1120 / 1120 Weight last 48 hrs Weight 81.193 kg Physical Exam Const: COMMON NORMALS: no acute distress and patient oriented x3 Resp: COMMON NORMALS: normal respiratory effort, No retractions, No use of accessory muscles and clear to auscultation bilaterally AUSCULTATION: clear to auscultation bilaterally Cardio: COMMON NORMALS: regular rhythm, S1 normal heart sound present and S2 normal heart sound present RATE: bradycardic RHYTHM: regular rhythm HEART SOUNDS: S1 normal heart sound present and S2 normal heart sound present GI: COMMON NORMALS: Normal to inspection, nondistended, normoactive bowel sounds present, non-tender and no bruits Extremity: COMMON NORMALS: capillary refill normal and no pedal edema Neuro: COMMON NORMALS: patient oriented x3 Psych: COMMON NORMALS: mental status grossly normal Data 07/27/22 05:06 07/27/22 05:06 Micro: Microbiology 07/25/22 11:39 Urine Culture - Final Urine,Clean Catch A&P Assessment and plan (1) Syncope: Sounds like true syncope and collapse episode No significant evidence of UTI No significant radiographic evidence of pneumonia 6-hour troponin 6 Does have sinus bradycardia, as below Cardiac echocardiogram LV systolic function is normal with EF 60 to 65%. ?Grade 1 disatolic dysfunction ?Mild mitral regurgitation ?Mild tricuspid regurgitation ?Compared to prior echocardiogram from 03/11/2021, no significant ?changes are needed. 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 Check Lamictal levels. PT/OT evaluation. Fall, seizure precautions. Continue chronic home medications. Beta-rodney stopped Carotid artery ultrasound within normal limits Cardiac stress test shows IMPRESSIONS ?1.? Normal myocardial perfusion imaging with no evidence of ischemia ?2.? LV systolic function is normal. -Sinus bradycardia as of below, cardiology consulted, will monitor in CSU (2) Back pain: Cervical spine negative for any acute abnormality. Hip x-ray negative for acute abnormality. Continues to have intractable pain CT lumbar spine Continue with [place] 7.5 mg every 4 hours hourly as needed., Morphine for breakthrough pain 2 mg every 12 hours PT as above. (3) CAD (coronary artery disease): Troponin cycled so far negative. Echocardiogram as above. Continue with home dose of statin, clopidogrel, stop for valve due to concerns for orthostatic hypotension N.p.o. midnight, for cardiac stress test tomorrow morning (4) HTN (hypertension): Goal blood pressure less than 140/90 mmHg. For now continue with home dose of prazosin, propanolol. Will uptitrate medications as per goal blood pressures. Qualifiers: Hypertension type: essential hypertension Qualified Code(s): I10 - Essential (primary) hypertension (5) CKD (chronic kidney disease), stage II: Creatinine at goal. Monitor BMP daily. (6) Major depressive disorder, recurrent severe without psychotic features: With history of generalized anxiety disorder, borderline personality disorder. Continue with home dose of Lamictal, trazodone and ziprasidone. 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: (11) Chronic pain disorder: (12) Syncope and collapse: - As above (13) Acute exacerbation of chronic low back pain: - CT lumbar spine no acute findings (14) Orthostatic hypotension: - Repeat orthostatics unremarkable (15) Intractable pain: - Pain control as above (16) Symptomatic bradycardia: - Potentially patient's syncope and collapse episodes could be due to symptomatic bradycardia -Had 1 episode here in the hospital which during physical therapy she passed out, to her knees, she lost conscious according to physical therapy staff was not on telemetry no facial droop, no slurring of her words, currently alert and awake, no facial droop, no slurring of her words, no unilateral weakness, no focal weakness, just feels unwell she tells me -We will continue to monitor telemetry -Atropine as needed for heart rate less than 60 and symptomatic bradycardia -Potentially narcotics could be an etiology behind her bradycardia as her dose of hydrocodone has been increased, will monitor -Dr. Hernandez consulted Plan Full code. Cardiac diet. Heparin 5000 every 12 hourly for DVT prophylaxis Continue with home dose of Protonix for PUD prophylaxis. Plan for today moved down to cardiac stepdown unit, monitor for pain, continue telemetry monitoring, cardiology consulted spoke to cardiology spoke to nursing staff spoke to patient, Attestations Medical Necessity Statement*: Patient requires hospitalization for recurrent syncope and collapse, symptomatic bradycardia Diagnoses Syncope R55 Back pain M54.9 CAD (coronary artery disease) I25.10 HTN (hypertension) I10 Hypertension type: essential hypertension CKD (chronic kidney disease), stage II N18.2 Major depressive disorder, recurrent severe without psychotic features F33.2 Generalized anxiety disorder F41.1 Borderline personality disorder in adult F60.3 Functional 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 F44.5 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
--- NOTE | 2022-07-27 17:03 | PM.CONSULT ---
Providers/Reason For Consult Consulting Physician/Specialty*: Dr. Pollard, Cardiology Reason for Consult*: Syncopal epiosde Attending Physician: Messi Madrid MD Primary Care Provider: Giovanni Eugene MD History of Present Illness History of Present Illness Mikala Love is a 57 year old female ?with past medical history of obesity, anxiety/depression, posttraumatic stress disorder,borderline personality disorder, chronic migraines, history of hypertension, former smoker, history of seizures, status post VNS implant and explant in 2014, possible TIA in 1992, history of cardiac workup for chest pain in the past. She had some form of stress test attempted at [place] [facility] that sounds like?possibly dobutamine stress test where she had a transient atrial fibrillation in that setting.?She? is using CPAP. She has h/o aneurysm in her mom, maternal grandfather and another aunt. She was admitted with syncopal episode, back pain and fall. She tells me yesterday she did not behave herself. She did not greet her acquaintances in her apartement complex while taking her dog for walk. Shortly after she was outside she passed out and does not recall any of this. She was herself after she was in the hospital. She underwent stress test that did not show ischemia. No significant pauses or bradycardia on telemetry. She was about to be discharged but while walking with PT her legs gave way and she sat on ground. Her HR afterwards was reportedly in 30's. She was not on tele when the episode happened Review of Systems Const: Denies: fever(s) or chills Eyes: Denies: change in vision Card: Denies: chest pain, palpitations, irregular heart rhythm, swelling of feet/ankles, lightheadedness, dyspnea on exertion or orthopnea Resp: Denies: dyspnea, productive cough or non-productive cough GI: Reports: nausea; Denies: abdominal pain or vomiting Musc: Reports: neck pain, back pain and joint pain Neuro: Denies: headache(s) or dizziness Psych: Denies: anxiety or depression Tani/Lymph: Reports: easy bruising; Denies: easy bleeding Medications/Allergies Home Medications Medication Instructions Recorded Confirmed Last Taken Type docusate sodium 100 mg capsule See Rx Instructions .Route 08/23/19 07/25/22 07/24/22 History .COMPLEX PRN Constipation dnbtkmxkfeit-rczmzduv-sjcaop 1 tab PO DAILY@12 03/21/20 07/25/22 07/24/22 History tablet (Multivitamin 50 Plus tablet) propranolol 10 mg tablet 10 mg PO DAILY@12 03/21/20 07/25/22 07/24/22 History clopidogrel 75 mg tablet 75 mg PO QAM 04/15/20 07/25/22 07/24/22 History psyllium husk 3.4 gram/5.4 gram 1 - 2 tbsp PO DAILY PRN 06/04/21 07/25/22 07/24/22 History oral powder (Metamucil) Constipation ondansetron HCl 4 mg tablet See Rx Instructions .Route 12/10/21 07/25/22 Unknown Rx .COMPLEX #20 tabs tizanidine 4 mg tablet 4 mg PO BID PRN muscle spasticity 12/15/21 07/25/22 Unknown Rx #60 tabs atorvastatin 80 mg tablet 80 mg PO DAILY for high 03/02/22 07/25/22 07/24/22 Rx cholesterol #90 tabs naloxegol 25 mg tablet 25 mg PO QAM #30 tabs 03/16/22 07/25/22 07/24/22 Rx mupirocin 2 % topical ointment 1 applic topical BID PRN Rash 03/23/22 07/25/22 Unknown History pantoprazole 40 mg tablet,delayed 40 mg PO BID #60 tabs 05/08/22 07/25/22 07/24/22 Rx release (Protonix) hydrocodone 7.5 mg-acetaminophen 1 tab PO BID PRN pain 06/02/22 07/25/22 Unknown History 325 mg tablet lamotrigine 200 mg tablet 200 mg PO BID #60 tabs 06/02/22 07/25/22 07/24/22 Rx (Lamictal) prazosin 5 mg capsule 20 mg PO BEDTIME #120 caps 06/02/22 07/25/22 07/24/22 Rx ziprasidone HCl 40 mg capsule 40 mg PO BID #60 caps 06/02/22 07/25/22 07/24/22 Rx (Geodon) gabapentin 100 mg capsule 100 mg PO TID chronic pain #90 caps 06/16/22 07/25/22 07/24/22 Rx trazodone 100 mg tablet 400 mg PO BEDTIME PRN insomnia 07/25/22 07/25/22 Unknown History Allergies Allergy/AdvReac Type Severity Reaction Status Date / Time lisinopril Allergy Unknown Unknown Verified 06/15/22 10:22 shellfish derived Allergy Unknown hives Verified 06/15/22 10:22 aripiprazole [From Abilify] Allergy Unknown Verified 06/15/22 10:22 aspartame Allergy ADR-Nausea Verified 07/28/22 10:17 codeine Allergy Unknown Verified 06/15/22 10:22 duloxetine Allergy ADR-Anxiety Verified 06/15/22 10:22 erythromycin base Allergy ADR-Nausea Verified 06/15/22 10:22 fluticasone [From Flonase] Allergy ADR-Anxiety Verified 06/15/22 10:22 guaifenesin [From Mucinex] Allergy ADR-Anxiety Verified 06/15/22 10:22 Iodinated Contrast Media Allergy Unknown Verified 06/15/22 10:22 lithium Allergy Unknown Verified 06/15/22 10:22 nitroglycerin Allergy Unknown Verified 06/15/22 10:22 risperidone [From Risperdal] Allergy ALGY-Hives Verified 06/15/22 10:22 venlafaxine [From Effexor] Allergy Unknown Verified 06/15/22 10:22 quetiapine [From Seroquel] AdvReac Unknown ZOMBIE Verified 06/15/22 10:22 tramadol AdvReac [employer] Verified 06/15/22 10:22 COMPLICATION [employer] Allergy ADR-Itching Uncoded 06/15/22 10:22 Current Medications Generic Name Dose Route Start Last Admin Trade Name Freq PRN Reason Stop Dose Admin Hydrocodone Bitart/Acetaminophen 1 tab 07/26/22 09:48 07/27/22 08:52 Hydrocodone-Acetaminophen 7.5-325 Mg Tablet PO 1 tab Q4H PRN Administration pain Atorvastatin Calcium 80 mg 07/26/22 09:00 07/27/22 08:52 Atorvastatin 40 Mg Tablet PO 80 mg DAILY LITA Administration Clopidogrel Bisulfate 75 mg 07/26/22 06:00 07/27/22 05:49 Clopidogrel 75 Mg Tablet PO 75 mg QAM LITA Administration Docusate Sodium 100 mg 07/25/22 18:09 07/26/22 20:09 Docusate Sodium 100 Mg Capsule PO 100 mg BEDTIME PRN Administration CONSTIPATION Gabapentin 100 mg 07/25/22 21:00 07/27/22 15:34 Gabapentin 100 Mg Capsule PO 100 mg TID LITA Administration Heparin Sodium (Porcine) 5,000 unit 07/25/22 18:00 07/27/22 05:49 Heparin 5,000 Unit/Ml Inj 1 Ml SUBCUT 5,000 unit Q12H LITA Administration Lamotrigine 200 mg 07/26/22 09:00 07/27/22 08:51 Lamotrigine 100 Mg Tablet PO 200 mg BID LITA Administration Pantoprazole Sodium 40 mg 07/25/22 18:00 07/27/22 08:[address] 40 Mg Tablet PO 40 mg BID LITA Administration Prazosin HCl 20 mg 07/25/22 21:00 07/26/22 20:02 Prazosin 5 Mg Capsule PO 20 mg BEDTIME LITA Administration Tizanidine HCl 4 mg 07/25/22 17:41 07/27/22 00:06 Tizanidine 4 Mg Tablet PO 4 mg BID PRN Administration muscle spasticity Trazodone HCl 400 mg 07/25/22 17:41 07/26/22 20:02 Trazodone 100 Mg Tablet PO 400 mg BEDTIME PRN Administration insomnia Ziprasidone 40 mg 07/25/22 18:00 07/27/22 08:52 Ziprasidone Hcl 40 Mg Capsule PO 40 mg BID LITA Administration PFSH Acute PFSH: Medical History CAD (coronary artery disease) [place]ina rash of groin Cervical disc disorder of mid-cervical region Chronic pain disorder CKD (chronic kidney disease), stage II DDD (degenerative disc disease), lumbar Demyelinating changes in 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 Generalized anxiety disorder HTN (hypertension) Hx of deep venous thrombosis Left acute arterial ischemic stroke, MCA (middle cerebral artery) Lip lesion Major depressive disorder, recurrent severe without psychotic features Night terror disorder Onychodystrophy CONRAD (obstructive sleep apnea) Pre-diabetes Psychiatric care PVD (peripheral vascular disease) Shoulder pain, bilateral Therapeutic opioid induced constipation Transient atrial fibrillation Yeast cells and fungal elements present on diagnostic testing Surgical History History of facial surgery 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 S/P tubal ligation Family History Other Cancer Diabetes Hypertension Social History Smoking and tobacco status: never smoked Quit status (tobacco): has quit using tobacco Year quit tobacco: 2014 Second hand smoke exposure: No Smoking risk assessment/counseling performed?: No Alcohol intake: former Year of sobriety/quit date alcohol: 2002 Desire information about alcohol rehabilitation?: No Counseling given: No Substance/Drug Use: never Desire information about substance/drug rehabilitation?: No Counseling given: No Caregiver/support person: Yes Lives independently: No Household members: significant other Marital status: service: No Current occupational status: disabled Current gender identity: Female and Trans Hecs-yr-Buxxyp Vitals/I&O/Wt Last Vital Signs Temp 97.8 F 07/27/22 15:42 Pulse 74 07/27/22 15:42 Resp 18 07/27/22 15:42 BP 147/86 07/27/22 15:42 Pulse Ox 96 07/27/22 15:42 O2 Del Method Room Air 07/27/22 15:42 07/27/22 07/27/22 07/27/22 06:59 14:59 22:59 Intake Total 1120 / 1120 Balance 1120 / 1120 Weight last 48 hrs Weight 179 lb Physical Exam Const: COMMON NORMALS: no acute distress, patient oriented x3 and alert GENERAL APPEARANCE: cooperative, comfortable, well kempt and well hydrated HENMT: COMMON NORMALS: hearing grossly normal bilaterally, external ears normal and moist oral mucous membranes FACE & SINUS: normal facial exam EXTERNAL EAR: Yes external ears normal Eye: COMMON NORMALS: EOMs intact bilaterally and no scleral icterus GENERAL EYE: appearance normal, both eyes and all related structures ALIGNMENT: Yes alignment normal Neck/C-Spine: COMMON NORMALS: no lymphadenopathy, supple and no JVD GENERAL: Yes normal visual inspection and Yes trachea midline CAROTIDS: Yes normal carotid upstroke Lymph: LYMPHATIC: no lymphadenopathy noted Chest: COMMONS NORMALS: normal inspection of the chest and normal palpation of entire chest wall CHEST: Yes Symmetrical chest wall rise and No tenderness Resp: COMMON NORMALS: clear to auscultation bilaterally EFFORT & INSPECTION: Yes able to speak in complete sentences, No tachypneic, No respiratory distress, No pursed lip breathing, No labored and No Actively coughing AUSCULTATION: clear to auscultation bilaterally, no crackles, no rales, no rhonchi and no wheezes Cardio: COMMON NORMALS: no JVD, regular rate, regular rhythm, S1 normal heart sound present, S2 normal heart sound present and Peripheral pulses 2+ throughout PALPATION: normal PMI RATE: regular rate RHYTHM: regular rhythm HEART SOUNDS: S1 normal heart sound present, S2 normal heart sound present, no click, no gallops and no murmurs BRUITS: no carotid bruits PERIPHERAL PULSES: Peripheral pulses 2+ throughout, radial pulses present, posterior tibial pulses present and dorsalis pedis present GI: COMMON NORMALS: Soft to palpation AUSCULTATION: Yes normoactive bowel sounds PALPATION: Yes Soft to palpation, No Tenderness to palpation present (GI), No Guarding due to palpation present (GI) and No Rigid due to palpation PERCUSSION: tympanic to percussion Extremity: GENERAL: No clubbing, No cyanosis, Yes edema and No pallor Neuro: COMMON NORMALS: patient oriented x3 and no focal motor deficits SENSORIUM/ORIENTATION: Yes alert Psych: COMMON NORMALS: Normal thought process present and speech normal APPEARANCE: Yes well kempt SPEECH: Yes normal speech MOOD & AFFECT: Yes euthymic mood THOUGHT PROCESS: Normal thought process present THOUGHT CONTENT: Yes Normal thought content present Data 07/29/22 04:22 07/29/22 04:22 Micro: Microbiology 07/25/22 11:39 Urine Culture - Final Urine,Clean Catch Other data: TTE (07/26/22) ?CONCLUSIONS ?LV systolic function is normal with EF 60 to 65%. ?Grade 1 disatolic dysfunction ?Mild mitral regurgitation ?Mild tricuspid regurgitation ?Compared to prior echocardiogram from 03/11/2021, no significant ?changes are needed. Event monitor (04/2020) Conclusion: 1.? Baseline rhythm is sinus rhythm.? Heart rate ranged from 55 to 126 bpm with average heart rate of 75 bpm. 2.? Patient symptoms did not correlate with any arrhythmia. 3.? Normal monitor. A&P Assessment and plan (1) Syncope and collapse: No arrhythmia on telemetry, no significant bradycardia. -not orthostatic +ve -plan for overnight monitoring and d/c on event monitor on discharge. (2) CKD (chronic kidney disease), stage II: (3) CONRAD (obstructive sleep apnea): Plan s/p fall Weakness H/O seizures Conversion disorder Coding Level of Care Code 91699 Diagnoses Syncope and collapse R55 CKD (chronic kidney disease), stage II N18.2 CONRAD (obstructive sleep apnea) G47.33
[2022-07-27 17:28] LABS: Troponin 5 2HR Delta 0 ABS# (0-10)
--- NOTE | 2022-07-27 18:54 | ECG_ITS ---
[facility] Test Date: 2022-07-27 Pat Name: Mikala Love Department: Room: 273 Gender: Female Scientific Aide: : 1965 Requested By: Messi Madrid Order Number: [id number] Lucretia MD: Albin Campbell M.D. Measurements Intervals [place] Rate: 76 P: 38 TN: 177 QRS: 27 QRSD: 86 T: 20 QT: 326 QTc: 368 Interpretive Statements SINUS RHYTHM NONSPECIFIC T-WAVE ABNORMALITY Compared to ECG 07/27/2022 14:37:22 T-wave abnormality now present Electronically Signed On 07-27-2022 18:28:19 CDT by Albin Campbell M.D. [id number]
--- NOTE | 2022-07-27 21:29 | PC.NURSE ---
2125: patient alert, oriented, no complaints, transported to [facility] via wheelchair, tolerated well, belongings sent with patient.
[2022-07-27 21:54] LABS: Troponin 5 6HR Delta 0 ng/L (0-12)
[2022-07-27] MEDS: bisacodyl 5 mg Tablet 10 MG PO (22:01)
[2022-07-27] MEDS: docusate sodium 100 mg Capsule PO (22:02)
[2022-07-27] MEDS: prazosin 5 mg Capsule 20 MG PO (22:23)
[2022-07-28] VITALS (159 sets, daily range): BP systolic 96–128; BP diastolic 53–75; PULSE 55–90; RESP 7–29; TEMP 36.4–36.6; O2SAT 85–96
[2022-07-28] MEDS: clopidogrel 75 mg Tablet PO (05:05)
[2022-07-28] MEDS: heparin 5,000 unit/mL INJ 1 mL 5000 UNIT SUBCUT ×2 (05:05→18:16)
[2022-07-28 06:00] LABS: Basophils # 0.1 10^3/uL (0.0-0.1); Basophils % 1.1 %; Eosinophils # 0.2 10^3/uL (0.0-0.8); Eosinophils % 3.4 %; Hematocrit 35.9 % (37.0-47.0); Hemoglobin 11.3 g/dL (11.5-15.3); Lymphocytes # 2.9 10^3/uL (0.8-4.8); Lymphocytes % 40.7 %; Mean Corpuscular HGB Conc 31.5 g/dL (30.0-36.0); Mean Corpuscular Volume 88.9 fl (81-99); Mean Platelet Volume 11.3 fL (7.4-10.4); Monocytes # 0.5 10^3/uL (0.2-0.9); Monocytes % 6.6 %; Neutrophils # 3.43 10^3/uL (1.8-7.7); Neutrophils % 47.9 %; Nucleated Red Blood Cells % 0 %; Platelet Count 260 10^3/cmm (130-400); Red Blood Count 4.04 10^6/uL (4.1-5.3); Red Cell Distribution Width 12.5 % (12.1-15.1); White Blood Count 7.2 10^3/uL (4.0-10.0)
[2022-07-28 06:26] LABS: Blood Urea Nitrogen 15 mg/dL (6-20); Calcium 8.7 mg/dL (8.5-10.5); Carbon Dioxide 26 mmol/L (22-29); Chloride 103 mmol/L (98-107); Glomerular Filtration Rate 73.7 mL/min (90-130); Glucose 75 mg/dL (65-115); Osmolality Calculated 290 mOsm/kg (285-295); Sodium 140 mmol/L (136-145)
[2022-07-28 06:29] LABS: Anion Gap 14.8 (5-19); Potassium 3.8 mmol/L (3.5-5.1)
--- NOTE | 2022-07-28 09:09 | ECG_ITS ---
[facility] Test Date: 2022-07-28 Pat Name: Mikala Love Department: Room: 101 Gender: Female Acid Blower: : 1965 Requested By: Messi Madrid Order Number: [id number] Lucretia MD: Eden Pollard M.D. Measurements Intervals [place] Rate: 82 P: 39 VT: 172 QRS: 31 QRSD: 98 T: 30 QT: 319 QTc: 373 Interpretive Statements SINUS RHYTHM NONSPECIFIC T-WAVE ABNORMALITY Compared to ECG 07/27/2022 18:06:24 No significant changes Electronically Signed On 07-28-2022 16:51:01 CDT by Eden Pollard M.D. [id number]
[2022-07-28 09:11] LABS: Glucose Point of Care 166 mg/dL (70-110)
[2022-07-28] MEDS: atorvastatin 40 mg Tablet 80 MG PO (09:16)
[2022-07-28] MEDS: ziprasidone hcl 40 mg Capsule PO ×2 (09:17→18:17)
[2022-07-28] MEDS: pantoprazole DR 40 mg Tablet PO ×2 (09:17→18:17)
[2022-07-28] MEDS: gabapentin 100 mg Capsule PO ×3 (09:17→20:35)
[2022-07-28] MEDS: lamoTRIgine 100 mg Tablet 200 MG PO ×2 (09:17→18:17)
--- NOTE | 2022-07-28 10:37 | CT_ITS ---
WS: [id number] CT HEAD TECHNIQUE: Noncontrast CT of the head obtained from the skullbase to the vertex. CLINICAL INFORMATION: fall COMPARISON: July 25, 2022 CT and MRI DLP: 1018.[address] scans at [facility] use at least one of these dose optimization techniques: automated e xposure control; mA and/or kV adjustment per patient size (includes targeted exams where dose is matc hed to clinical indication); or iterative reconstruction. FINDINGS: No evidence of intracranial hemorrhage or mass effect. Ventricular system and basal cisterns are yañez nt. Mild small vessel changes with moderate parenchymal volume loss. Vascular calcification. No extra -axial fluid collections. Paranasal sinuses and mastoid air cells are well aerated. .Normal visualized soft tissues. CT/CT head wo con* [id number] IMPRESSION: 1. No evidence of intracranial hemorrhage or mass effect. 2. Mild small vessel changes with moderate parenchymal volume loss. 3. No acute intracranial findings.
--- NOTE | 2022-07-28 11:44 | PC.OT ---
OT tx with held due to pt having rapid response called this a.m. Will attempt tx again at later time.
--- NOTE | 2022-07-28 15:15 | PM.PN ---
Subjective Subjective: - Patient was examined multiple times throughout the morning -Early in the morning rapid response was called, as nursing staff were performing orthostatic vitals, patient dropped to her knees, no loss of consciousness, she was still alert, but slow according to nursing staff no facial droop, no slurring of her words, no seizure-like episodes -I was present during this event -Her orthostats at that time were negative, no significant systolic blood pressure dropped more than 20 her pulse was normal sinus rhythm, in the 80s, -Patient was gone back into bed, n she is back in bed, she was complaining of low back pain, she denies any headaches, no blurry vision, no nausea, no vomiting, -She tells me that she has chronic right-sided weakness right upper right lower extremity weakness after her stroke, after her first stroke, and after her second stroke the right-sided weakness worsen, she does have persistent right upper right lower extremity weakness which she deals with, -On examination she does have weakness on the right side right upper right lower extremity compared to left is about 4 out of 5 no slurring of words, no facial droop, no visual deficits she is actually reading a book right now -I spoke to patient's home health care nurse, who is at bedside, and present during the event, who tells me that this happens frequently at her home, a couple times a day, it when she falls to the floor, and she usually has to crawl -She denies any headaches, no blurry vision, no nausea, no vomiting, abdominal pain, no chest pain, no palpitations -I advised patient that I have done an extensive work-up and I cannot find any significant medical reason to explain her falls, I do not think she has orthostatic hypotension as her orthostats have been negative I do not think it is POTS, as there is no tachycardia associated with these episodes, she did have that bradycardia yesterday with heart rates into the low 30s, but beyond that there is been nothing else to exactly explain her symptoms and I do not quite an extensive work-up -I spoke to neurology, spoke to Dr. Olguin, who recommended an outpatient EEG, with a event monitor -Discussed with patient that we will likely need an event monitor EEG as outpatient, I would recommend either her going to a residential facility for rehab, she is open to this, will have case workers, I will monitor for the next 24 hours, she is agreeable Vitals/I&O/Wt Last Vital Signs Temp 97.6 F 07/28/22 08:00 Pulse 73 07/28/22 11:14 Resp 16 07/28/22 11:14 BP 119/54 07/28/22 11:14 Pulse Ox 92 07/28/22 11:14 O2 Del Method Room Air 07/28/22 11:14 07/28/22 07/28/22 07/28/22 06:59 14:59 22:59 Intake Total 600 / 600 Balance 600 / 600 Weight last 48 hrs Weight 81.238 kg Physical Exam Const: COMMON NORMALS: no acute distress and patient oriented x3 Resp: COMMON NORMALS: normal respiratory effort, No retractions, No use of accessory muscles and clear to auscultation bilaterally AUSCULTATION: clear to auscultation bilaterally Cardio: COMMON NORMALS: regular rate, regular rhythm, S1 normal heart sound present and S2 normal heart sound present RATE: regular rate RHYTHM: regular rhythm HEART SOUNDS: S1 normal heart sound present and S2 normal heart sound present GI: COMMON NORMALS: Normal to inspection, nondistended, normoactive bowel sounds present and non-tender Extremity: COMMON NORMALS: no pedal edema Neuro: COMMON NORMALS: patient oriented x3 Psych: COMMON NORMALS: mental status grossly normal Data 07/28/22 03:42 07/28/22 03:42 A&P Assessment and plan (1) Syncope: Has recurrent presyncopal episodes, does not pass out, feels weakness in her knees, and falls to her knees, during this episode this morning there was no bradycardia, no tachycardia there was no orthostatic hypotension According to caregiver, these happen daily when she is at her home No significant evidence of UTI No significant radiographic evidence of pneumonia 6-hour troponin 6 Does have sinus bradycardia, as below Cardiac echocardiogram LV systolic function is normal with EF 60 to 65%. ?Grade 1 disatolic dysfunction ?Mild mitral regurgitation ?Mild tricuspid regurgitation ?Compared to prior echocardiogram from 03/11/2021, no significant ?changes are needed. Carotid artery ultrasound no evidence of hemodynamically significant stenosis MRI brain for further work-up of stroke, within normal limits Orthostatic blood pressure checks, repeat this morning negative She has a history of CVA, status post tPA in 2020, with chronic right upper right lower extremity weakness electronic device monitor. PT/OT evaluation. Fall, seizure precautions. Continue chronic home medications. Beta-rodney stopped Carotid artery ultrasound within normal limits Cardiac stress test shows IMPRESSIONS ?1.? Normal myocardial perfusion imaging with no evidence of ischemia ?2.? LV systolic function is normal. -Sinus bradycardia as of below, cardiology consulted, will monitor in [facility], no current episodes, we will medically manage likely discharge in event monitor Will continue to monitor the next 24 hours Working on potential residential facility placement for rehab Will repeat CT of the head (2) Back pain: Cervical spine negative for any acute abnormality. Hip x-ray negative for acute abnormality. CT lumbar spine no acute findings Decrease hydrocodone, 7.5 mg to every 12 hours PT as above. (3) CAD (coronary artery disease): Troponin cycled so far negative. Echocardiogram as above. Continue with home dose of statin, clopidogrel, (4) HTN (hypertension): Goal blood pressure less than 140/90 mmHg. For now continue with home dose of prazosin, propanolol. Will uptitrate medications as per goal blood pressures. Qualifiers: Hypertension type: essential hypertension Qualified Code(s): I10 - Essential (primary) hypertension (5) CKD (chronic kidney disease), stage II: Creatinine at goal. Monitor BMP daily. (6) Major depressive disorder, recurrent severe without psychotic features: With history of generalized anxiety disorder, borderline personality disorder. Continue with home dose of Lamictal, trazodone and ziprasidone. 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: (11) Chronic pain disorder: (12) Syncope and collapse: - As above (13) Acute exacerbation of chronic low back pain: - CT lumbar spine no acute findings (14) Orthostatic hypotension: - Repeat orthostatics unremarkable (15) Intractable pain: - Pain control as above (16) Symptomatic bradycardia: - Potentially patient's syncope and collapse episodes could be due to symptomatic bradycardia -Had 1 episode here in the hospital which during physical therapy she passed out, to her knees, she lost conscious according to physical therapy staff was not on telemetry no facial droop, no slurring of her words, currently alert and awake, no facial droop, no slurring of her words, has chronic right upper right lower extremity weakness from prior stroke -During this episode of presyncope, this morning rapid response was called, no bradycardia noted -We will continue to monitor telemetry -Atropine as needed for heart rate less than 60 and symptomatic bradycardia -Dr. simentalsulted Plan Full code. Cardiac diet. Heparin 5000 every 12 hourly for DVT prophylaxis Continue with home dose of Protonix for PUD prophylaxis. Plan for today continue telemetry monitoring, CT of the head, spoke to cardiology, spoke to neurology, Attestations Medical Necessity Statement*: Patient requires hospitalization for recurrent presyncopal symptoms, bradycardia Diagnoses Syncope R55 Back pain M54.9 CAD (coronary artery disease) I25.10 HTN (hypertension) I10 Hypertension type: essential hypertension CKD (chronic kidney disease), stage II N18.2 Major depressive disorder, recurrent severe without psychotic features F33.2 Generalized anxiety disorder F41.1 Borderline personality disorder in adult F60.3 Functional 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 F44.5 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
[2022-07-28] MEDS: tizanidine 4 mg Tablet PO (15:19)
--- NOTE | 2022-07-28 16:48 | PM.PN ---
Subjective Subjective: Another episode of falling and sitting on floor while walking No events on telemetry Medications: Reviewed: Yes Vitals/I&O/Wt Last Vital Signs Temp 97.6 F 07/28/22 08:00 Pulse 65 07/28/22 16:00 Resp 17 07/28/22 16:00 BP 108/62 07/28/22 16:00 Pulse Ox 96 07/28/22 16:00 O2 Del Method Room Air 07/28/22 16:00 07/28/22 07/28/22 07/28/22 06:59 14:59 22:59 Intake Total 600 / 600 Balance 600 / 600 Weight last 48 hrs Weight 179 lb 1.6 oz Physical Exam Const: COMMON NORMALS: no acute distress, patient oriented x3 and alert GENERAL APPEARANCE: cooperative, comfortable, well kempt and well hydrated HENMT: COMMON NORMALS: hearing grossly normal bilaterally and external ears normal FACE & SINUS: normal facial exam EXTERNAL EAR: Yes external ears normal Eye: COMMON NORMALS: EOMs intact bilaterally and no scleral icterus GENERAL EYE: appearance normal, both eyes and all related structures ALIGNMENT: Yes alignment normal Neck/C-Spine: COMMON NORMALS: no lymphadenopathy, supple and no JVD GENERAL: Yes normal visual inspection and Yes trachea midline CAROTIDS: Yes normal carotid upstroke Lymph: LYMPHATIC: no lymphadenopathy noted Chest: COMMONS NORMALS: normal inspection of the chest and normal palpation of entire chest wall CHEST: Yes Symmetrical chest wall rise and No tenderness Resp: COMMON NORMALS: clear to auscultation bilaterally AUSCULTATION: clear to auscultation bilaterally, no crackles, no rales, no rhonchi and no wheezes Cardio: COMMON NORMALS: no JVD, regular rate, regular rhythm, S1 normal heart sound present, S2 normal heart sound present and Peripheral pulses 2+ throughout PALPATION: normal PMI RATE: regular rate RHYTHM: regular rhythm HEART SOUNDS: S1 normal heart sound present, S2 normal heart sound present, no gallops and no murmurs BRUITS: no carotid bruits PERIPHERAL PULSES: Peripheral pulses 2+ throughout, radial pulses present, posterior tibial pulses present and dorsalis pedis present GI: COMMON NORMALS: Soft to palpation AUSCULTATION: Yes normoactive bowel sounds PALPATION: Yes Soft to palpation, No Tenderness to palpation present (GI), No Guarding due to palpation present (GI) and No Rigid due to palpation Extremity: GENERAL: No cyanosis, Yes edema and No pallor Neuro: COMMON NORMALS: patient oriented x3 and no focal motor deficits SENSORIUM/ORIENTATION: Yes alert Psych: COMMON NORMALS: Normal thought process present and speech normal APPEARANCE: Yes well kempt SPEECH: Yes normal speech MOOD & AFFECT: Yes euthymic mood THOUGHT PROCESS: Normal thought process present THOUGHT CONTENT: Yes Normal thought content present Data 07/29/22 04:22 07/29/22 04:22 A&P Assessment and plan (1) Syncope and collapse: No arrhythmia on telemetry, no significant bradycardia. -not orthostatic +ve - d/c on 30 day event monitor on discharge. (2) CKD (chronic kidney disease), stage II: (3) CONRAD (obstructive sleep apnea): Plan s/p fall Weakness H/O seizures Conversion disorder Attestations Medical Necessity Statement*: As per primary team Coding Level of Care Code 80434 Diagnoses Syncope and collapse R55 CKD (chronic kidney disease), stage II N18.2 CONRAD (obstructive sleep apnea) G47.33
[2022-07-28] MEDS: trazodone 100 mg Tablet 400 MG PO (20:35)
[2022-07-28] MEDS: bisacodyl 5 mg Tablet 10 MG PO (20:36)
[2022-07-28] MEDS: prazosin 5 mg Capsule 20 MG PO (20:47)
[2022-07-29] VITALS (55 sets, daily range): BP systolic 92–128; BP diastolic 59–83; PULSE 55–120; RESP 7–27; TEMP 37.2; O2SAT 91–95
[2022-07-29] MEDS: clopidogrel 75 mg Tablet PO (05:32)
[2022-07-29] MEDS: heparin 5,000 unit/mL INJ 1 mL 5000 UNIT SUBCUT (05:32)
[2022-07-29 05:49] LABS: Basophils # 0.1 10^3/uL (0.0-0.1); Basophils % 0.8 %; Eosinophils # 0.2 10^3/uL (0.0-0.8); Eosinophils % 2.4 %; Hematocrit 35.2 % (37.0-47.0); Hemoglobin 11.2 g/dL (11.5-15.3); Lymphocytes # 2.3 10^3/uL (0.8-4.8); Lymphocytes % 27.3 %; Mean Corpuscular HGB Conc 31.8 g/dL (30.0-36.0); Mean Corpuscular Hemoglobin 28.6 pg (28.0-34.0); Monocytes # 0.5 10^3/uL (0.2-0.9); Monocytes % 6.5 %; Neutrophils # 5.25 10^3/uL (1.8-7.7); Neutrophils % 62.8 %; Nucleated Red Blood Cells % 0 %; Platelet Count 252 10^3/cmm (130-400); Red Blood Count 3.91 10^6/uL (4.1-5.3); Red Cell Distribution Width 12.9 % (12.1-15.1); White Blood Count 8.4 10^3/uL (4.0-10.0)
[2022-07-29 06:05] LABS: Blood Urea Nitrogen 13 mg/dL (6-20); Calcium 8.7 mg/dL (8.5-10.5); Carbon Dioxide 25 mmol/L (22-29); Chloride 105 mmol/L (98-107); Glomerular Filtration Rate 73.7 mL/min (90-130); Glucose 78 mg/dL (65-115); Osmolality Calculated 289 mOsm/kg (285-295); Sodium 140 mmol/L (136-145)
[2022-07-29 06:14] LABS: Anion Gap 13.4 (5-19); Potassium 3.4 mmol/L (3.5-5.1)
[2022-07-29] MEDS: atorvastatin 40 mg Tablet 80 MG PO (08:56)
[2022-07-29] MEDS: potassium chloride ER 20 mEq Tablet PO (08:56)
[2022-07-29] MEDS: lamoTRIgine 100 mg Tablet 200 MG PO (08:56)
[2022-07-29] MEDS: pantoprazole DR 40 mg Tablet PO (08:56)
[2022-07-29] MEDS: gabapentin 100 mg Capsule PO (08:56)
[2022-07-29] MEDS: ziprasidone hcl 40 mg Capsule PO (08:57)
--- NOTE | 2022-07-29 10:34 | PM.DCS ---
Discharge Providers Date of Admission: 07/25/22 15:27 Date of Discharge: July 29, 2022 Attending Provider at Admission: Wicho Reyes MD Attending Provider at Discharge: Messi Madrid MD Primary Care Provider: Giovanni Eugene MD Diagnoses at Discharge Discharge Diagnosis (1) Syncope and collapse: Status: Acute (2) CKD (chronic kidney disease), stage II: Status: Acute (3) CONRAD (obstructive sleep apnea): Status: Acute Reason for Visit Reason for Visit: SYNCOPE; FALL Hospital Course Hospital Course Mikala Love is a 57 year old female with past medical history of hypertension, former smoker, history of seizure s/p VNS implant which was turned off in 2016, possible TIA, on chronic pain management with pain team, borderline personality disorder, anxiety/depression, PTSD, possibility of schizophrenia who presented to the ER today after being found collapsed on her porch.? As per the who is at bedside patient went out to walk the dog and she was found by the neighbor in a collapsed manner.? Patient only remembers waking up while in the ambulance to the ER.? He does not remember anything around the episode.? There was no bowel or bladder accidents or frothing from the mouth.? Patient did have 4 episodes of collapse on .? Today is Wednesday.? During that time she was complaining of dizziness prior to the episodes.? Denied any chest pain, nausea, vomiting, hot flashes, changes in her vision. In the ER she is complaining of pain in her back and weakness in the legs on trying to stand up on multiple occasions hence hospitalist service was consulted for admission. Patient had a prolonged and complicated hospital course, please look at my last progress note for further detail Patient was admitted to [facility] for syncope and collapse episode No significant evidence of UTI No significant radiographic evidence of pneumonia 6-hour troponin 6 Does have sinus bradycardia after 1 episode Cardiac echocardiogram LV systolic function is normal with EF 60 to 65%. ?Grade 1 disatolic dysfunction ?Mild mitral regurgitation ?Mild tricuspid regurgitation ?Compared to prior echocardiogram from 03/11/2021, no significant ?changes are needed. Carotid artery ultrasound no evidence of hemodynamically significant stenosis MRI brain for further work-up of stroke, rule out hypertensive changes. She has a history of 2 strokes, second stroke she received tPA, she tells me that she has chronic right upper right lower extremity weakness on examination chronically she had right upper extremity weakness 3-4/5, right lower extremity strength 3-4 out of 5, she tells me this is chronic, there is no acute changes, no facial droop, no slurring of her words, alert oriented x3 Orthostatic blood pressure checks, mildly positive start normal saline at 50 cc an hour night monitor. Check Lamictal levels. PT/OT evaluation. Fall, seizure precautions. Continue chronic home medications. Cardiac stress test low probability CT spine unremarkable Initially patient was orthostatic positive during hospitalization after fluid therapy, and holding propanolol for orthostats improved and resolved On July 27, 2022, patient was ambulating with physical therapy, when she went down on both knees, she did not pass out, during that event she was not hooked up to telemetry, but about an hour after her telemetry was reading sinus bradycardia, no bundle branch block, no AV block, cardiology was consulted, recommended monitoring she was monitored for the next 24 hours in [facility] On July 28, 2022, early in the morning rapid response was called nurses were performing orthostatic vitals when again patient went down on both knees, she did not pass out she was actually hooked up to telemetry I arrived early on the scene, her blood pressures were actually higher on the floor, no systolic blood pressure dropped more than 20, and she was normal sinus rhythm, she was alert oriented x3, no strokelike symptoms she has a chronic right-sided weakness, no facial droop, slurring her words, alert oriented x3, she was actually reading a book 30 minutes after the event I spoke to her home health care nurse that was actually present during the episode she tells me that this happens on a daily basis at home and patient typically crawls at home Patient has had an event monitor ordered in the past, with no acute findings I had a extensive discussion, I recommended intermediate placement for rehab she declined she will be discharged home on home health care Spoke to cardiology, will have her follow-up with cardiology outpatient, event monitor ordered Spoke to neurology, they will follow-up, EEG ordered Physical Exam Const: COMMON NORMALS: no acute distress and patient oriented x3 Resp: COMMON NORMALS: normal respiratory effort, No retractions, No use of accessory muscles and clear to auscultation bilaterally AUSCULTATION: clear to auscultation bilaterally Cardio: COMMON NORMALS: regular rate, regular rhythm, S1 normal heart sound present and S2 normal heart sound present RATE: regular rate RHYTHM: regular rhythm HEART SOUNDS: S1 normal heart sound present and S2 normal heart sound present GI: COMMON NORMALS: Normal to inspection, nondistended, normoactive bowel sounds present and non-tender Extremity: COMMON NORMALS: no pedal edema Neuro: COMMON NORMALS: patient oriented x3 Psych: COMMON NORMALS: mental status grossly normal Discharge Data Studies Completed and Pending Completed Studies During Hospitalization Category Date Time Status CT cervical spin wo con* [id number] Urgent Cat Scan 07/25/22 10:[address] head wo con* [id number] Routine Cat Scan 07/28/22 10:[address] head wo con* [id number] Stat Cat Scan 07/25/22 10:[address] lumbar spine wo con* [id number] Routine Cat Scan 07/26/22 09:48 Completed Sestamibi Stress Test Request Routine Exams 07/26/22 08:20 Draft XR chest 1V portable [id number] Stat Exams 07/25/22 10:26 Completed XR hip RT 2-3V wo/w pel* [id number] Stat Exams 07/25/22 10:32 Completed MR head wo con* [id number] Stat MRI 07/25/22 15:26 Completed NM noni perf SPECT r/s* [id number] Routine Nuc Med 07/27/22 08:00 Completed CV carotid duplex BI* [id number] Stat Ultrasound 07/25/22 16:06 Completed CV. echo complete* [id number] Routine Ultrasound 07/25/22 16:06 Completed Pending at discharge Category Date Time Status Basic Metabolic Panel AM LABS Lab 07/30/22 04:00 Ordered Complete Blood Count w/Auto AM LABS Lab 07/30/22 04:00 Ordered Lamotrigine (Lamictal) Level Timed Lab 07/25/22 17:21 Received Radiology Impressions Cervical Spine CT 07/25/22 10:25 IMPRESSION: 1. No acute cervical fracture. 2. Straightening and slight reversal of the normal cervical lordosis may relate to patient positioning or muscle spasm. 3. Tubing in the low left neck and ventral left chest wall that is incompletely visualized and of unknown clinical significance. Chest X-Ray 07/25/22 10:26 IMPRESSION: 1. Indistinct central interstitial markings suggest interstitial edema. This finding is persistent or recurrent since 03/21/2020. 2. Focal opacity in the left lower lung is new. Probable atelectasis. Infection or neoplasm cannot be excluded. Recommend radiographic follow-up to resolution. 3. Cardiac enlargement. Hip/Pelvis X-Ray 07/25/22 10:32 IMPRESSION: No acute fracture. Head MRI 07/25/22 15:26 IMPRESSION: No acute intracranial abnormality. Carotid Doppler Study 07/25/22 16:06 IMPRESSION: No evidence of hemodynamically significant stenosis. REFERENCES: SRU CRITERIA. The degree of internal carotid artery stenosis is based on criteria defined by the Society of Radiologists in Ultrasound (SRU). Normal is no stenosis. Mild is less than 50% stenosis. Moderate is 50-69% stenosis. Severe is greater than 69% stenosis to near occlusion. Near occlusion is a markedly narrowed lumen. Total occlusion is no detectable patent lumen. Lumbar Spine CT 07/26/22 09:48 IMPRESSION: No acute spine findings. No severe stenosis. Head CT 07/28/22 10:37 IMPRESSION: 1. No evidence of intracranial hemorrhage or mass effect. 2. Mild small vessel changes with moderate parenchymal volume loss. 3. No acute intracranial findings. Laboratory Results WBC 8.4 10^3/uL (4.0-10.0) 07/29/22 04:22 RBC 3.91 10^6/uL (4.1-5.3) L 07/29/22 04:22 Hgb 11.2 g/dL (11.5-15.3) L 07/29/22 04:22 Hct 35.2 % (37.0-47.0) L 07/29/22 04:22 MCV 90.0 fl (81-99) 07/29/22 04:22 MCH 28.6 pg (28.0-34.0) 07/29/22 04:22 MCHC 31.8 g/dL (30.0-36.0) 07/29/22 04:22 RDW 12.9 % (12.1-15.1) 07/29/22 04:22 Plt Count 252 10^3/cmm (130-400) 07/29/22 04:22 MPV 11.0 fL (7.4-10.4) H 07/29/22 04:22 Neut % (Auto) 62.8 % 07/29/22 04:22 Lymph % (Auto) 27.3 % 07/29/22 04:22 Dane % (Auto) 6.5 % 07/29/22 04:22 Eos % (Auto) 2.4 % 07/29/22 04:22 Baso % (Auto) 0.8 % 07/29/22 04:22 Neut # (Auto) 5.25 10^3/uL (1.8-7.7) 07/29/22 04:22 Lymph # (Auto) 2.3 10^3/uL (0.8-4.8) 07/29/22 04:22 Dane # (Auto) 0.5 10^3/uL (0.2-0.9) 07/29/22 04:22 Eos # (Auto) 0.2 10^3/uL (0.0-0.8) 07/29/22 04:22 Baso # (Auto) 0.1 10^3/uL (0.0-0.1) 07/29/22 04:22 Nucleated RBC % (auto) 0 % 07/29/22 04:22 Nucleated RBCs # 0.0 /100WBC 07/29/22 04:22 Sodium 140 mmol/L (136-145) 07/29/22 04:22 Potassium 3.4 mmol/L (3.5-5.1) L 07/29/22 04:22 Chloride 105 mmol/L (98-107) 07/29/22 04:22 Carbon Dioxide 25 mmol/L (22-29) 07/29/22 04:22 Anion Gap 13.4 (5-19) 07/29/22 04:22 BUN 13 mg/dL (6-20) 07/29/22 04:22 Creatinine 0.8 mg/dL (0.5-0.9) 07/29/22 04:22 GFR Calculation 73.7 mL/min (90-130) L 07/29/22 04:22 Glucose 78 mg/dL (65-115) 07/29/22 04:22 POC Glucose 166 mg/dL (70-110) H 07/28/22 09:07 Estimat Average Glucose 103 07/26/22 04:36 Hemoglobin A1c 5.2 % (4.0-6.0) 07/26/22 04:36 Calculated Osmolality 289 mOsm/kg (285-295) 07/29/22 04:22 Calcium 8.7 mg/dL (8.5-10.5) 07/29/22 04:22 Phosphorus 3.1 mg/dL (2.5-4.5) 07/26/22 04:36 Magnesium 1.8 mg/dL (1.7-2.3) 07/26/22 04:36 Iron 47 ug/dL (37-145) 07/25/22 10:24 TIBC 245 mcg/dl 07/25/22 10:24 % Saturation 19.1 % (20-50) L 07/25/22 10:24 Unsat Iron Binding 198 ug/dL (112-347) 07/25/22 10:24 Total Bilirubin 0.4 mg/dL (0.15-1.2) 07/26/22 04:36 AST 15 U/L (0-32) 07/26/22 04:36 ALT 17 U/L (0-33) 07/26/22 04:36 Alkaline Phosphatase 91 U/L (35-105) 07/26/22 04:36 Creatine Kinase 51 U/L (26-192) 07/25/22 10:24 Troponin T Baseline 6 ng/L (0-10) 07/27/22 14:15 Troponin T 120 Minute 6.00 ng/L (0-10) 07/27/22 16:29 Delta Troponin T 0 ABS# (0-10) 07/27/22 16:29 Troponin T Hi Sens 6Hr 6.00 ng/L (0-10) 07/27/22 20:14 Troponin T Hi Sens 6Hr Delta 0 ng/L (0-12) 07/27/22 20:14 Total Protein 5.7 g/dL (6.6-8.7) L 07/26/22 04:36 Albumin 3.7 g/dL (3.5-5.2) 07/26/22 04:36 Globulin 2.0 g/dL (1.3-4.6) 07/26/22 04:36 Triglycerides 83 mg/dL (0-150) 07/26/22 04:36 Cholesterol 134 mg/dL (0-200) 07/26/22 04:36 LDL Cholesterol, Calc 60 mg/dL (50-129) 07/26/22 04:36 HDL Cholesterol 57 mg/dL (60-100) L 07/26/22 04:36 LDL/HDL Ratio 1.05 RATIO (0.00-3.22) 07/26/22 04:36 Cholesterol/HDL Ratio 2.35 mg/dL (0.0-4.40) 07/26/22 04:36 Vitamin B12 1008 pg/mL (232-1245) 07/25/22 10:24 Folate > 20.0 ng/mL (4.8-37.3) 07/26/22 04:36 Procalcitonin 0.02 ng/mL (0-0.5) 07/25/22 10:24 TSH 2.14 uIU/mL (0.27-4.20) 07/25/22 10:24 Urine Color Yellow (Yellow) 07/25/22 11:39 Urine Appearance Clear (CLEAR) 07/25/22 11:39 Urine pH 8 (5-7) H 07/25/22 11:39 Ur Specific [place] 1.020 (1.005-1.030) 07/25/22 11:39 Urine Protein Neg (Negative) 07/25/22 11:39 Urine Glucose (UA) Norm (Normal) 07/25/22 11:39 Urine Ketones Negative (Negative) 07/25/22 11:39 Urine Blood 2+ (Negative) H 07/25/22 11:39 Urine Nitrate Negative (Negative) 07/25/22 11:39 Urine Bilirubin Neg (Negative) 07/25/22 11:39 Prot Sulfosalicylic Acd Negative (Negative) 07/25/22 11:39 Urine Urobilinogen Norm mg/dL (Negative) 07/25/22 11:39 Ur Leukocyte Esterase 1+ (Negative) H 07/25/22 11:39 Urine RBC 0-4 /hpf (0-2) H 07/25/22 11:39 Urine WBC 5-10 /hpf (0-5) H 07/25/22 11:39 Ur Squamous Epith Cells 0-4 /hpf (0-5) H 07/25/22 11:39 Amorphous Sediment Not Reportable 07/25/22 11:39 Urine Bacteria Trace /hpf (NONE) 07/25/22 11:39 Urine Mucus Trace /hpf 07/25/22 11:39 Urine Opiates Screen Negative ng/mL (Negative) 07/25/22 11:39 Ur Barbiturates Screen Negative ng/mL (Negative) 07/25/22 11:39 Ur Phencyclidine Scrn Negative ng/mL (Negative) 07/25/22 11:39 Ur Amphetamines Screen Negative ng/mL (Negative) 07/25/22 11:39 U Benzodiazepines Scrn Negative ng/mL (Negative) 07/25/22 11:39 Urine Cocaine Screen Negative ng/mL (Negative) 07/25/22 11:39 U Marijuana (THC) Screen Negative ng/mL (Negative) 07/25/22 11:39 Vitals Last Vital Signs Temp 98.9 F 07/29/22 03:44 Pulse 75 07/29/22 09:00 Resp 14 07/29/22 07:21 BP 119/71 07/29/22 09:00 Pulse Ox 94 07/29/22 08:00 O2 Del Method Room Air 07/29/22 08:00 Discharge Plan Discharge Patient Disposition: Home Condition: Stable Prescriptions: Continued clopidogrel 75 mg tablet 75 mg PO QAM docusate sodium 100 mg capsule See Rx Instructions .ROUTE .COMPLEX PRN (Reason: Constipation) Rx Instructions: 200mg po at noon and 100mg po bedtime hydrocodone-acetaminophen 7.5-325 mg tablet 1 tab PO BID PRN (Reason: pain) Rx Instructions: fill on or after 04/06/21 ziprasidone HCl [Geodon] 40 mg capsule 40 mg PO BID Qty: 60 2RF Rx Instructions: give with food (meal/snack) prazosin 5 mg capsule 20 mg PO BEDTIME Qty: 120 2RF lamotrigine [Lamictal] 200 mg tablet 200 mg PO BID Qty: 60 2RF mupirocin 2 % ointment 1 applic topical BID PRN (Reason: Rash) ondansetron HCl 4 mg tablet See Rx Instructions .ROUTE .COMPLEX Qty: 20 0RF Dose Instruction: TAKE 1 TABLET BY MOUTH EVERY 6 HOURS NEEDED FOR NAUSEA AND VOMITING Rx Instructions: TAKE 1 TABLET BY MOUTH EVERY 6 HOURS NEEDED FOR NAUSEA AND VOMITING tizanidine 4 mg tablet 4 mg PO BID PRN (Reason: muscle spasticity) Qty: 60 5RF atorvastatin 80 mg tablet 80 mg PO DAILY Qty: 90 1RF naloxegol 25 mg tablet 25 mg PO QAM Qty: 30 5RF Rx Instructions: must be taken on empty stomach; no food 1 hr after or 2-3 hrs before dose pantoprazole [Protonix] 40 mg tablet,delayed release (DR/EC) 40 mg PO BID Qty: 60 3RF gabapentin 100 mg capsule 100 mg PO TID Qty: 90 1RF Multivitamin 50 Plus Tablet 1 tab PO DAILY@12 Metamucil 3.4 gram/5.4 gram powder 1 - 2 tbsp PO DAILY PRN (Reason: Constipation) trazodone 100 mg tablet 400 mg PO BEDTIME PRN (Reason: insomnia) Discontinued propranolol 10 mg tablet 10 mg PO DAILY@12 Discharge Orders: Discharge Order (Routine); Ordered 07/29/22 Ordered By: Messi Madrid Other Ambulatory Orders: EEG amplitude integrated aEEG (Routine) Timeframe: 1 Day Facility: [facility] - Location: Neurology Ordered By: Messi Madrid MCT/Event Monitor 30 Days (Routine) Timeframe: 1 Day Facility: [facility] - Location: Radiology Ordered By: Messi Madrid Referrals: Giovanni Eugene MD [Primary Care Provider] - 08/06/22 3:00 pm (Please follow-up with Dr. Eugene on August 06 at 15:00P.M. If you have any questions or need to reschedule. Please call Today upon discharge you have an appointment [facility] to get placed with an 30 day event monotor at 2:00p.m. ) Jamel Olguin MD [Physician] - 2 weeks Eden Pollard MD [Physician] - 1 month Discharge Diet: Cardiac Discharge Activity: Resume usual activity Patient Instructions: Chronic Kidney Disease (DC), Syncope (DC), Bradycardia (DC), Opioid Safety Activity Restrictions/Additional Instructions: - If any recurrent syncopal episodes please go to emergency room -Event monitor ordered - Discharge Attestations Time Spent in Discharge Care*: greater than 30 min Quality Metrics Clinical Quality Measures [ No reported AMI, CVA or VTE this stay] Coding Level of Care Code 98527 Total time (in minutes) for Discharge: 50 Diagnoses Syncope and collapse R55 CKD (chronic kidney disease), stage II N18.2 CONRAD (obstructive sleep apnea) G47.33
--- NOTE | 2022-07-29 13:35 | PC.OT ---
OT TREATMENT HELD DUE TO SCHEDULED PATIENT D/C TODAY
[2022-07-31 08:34] LABS: Lamotrigine (Lamictal) Level 8.5 mcg/mL (2.5-15.0)
== END 2022-07-29 13:56 | disposition home or self-care (01) ==
LOC: ER 15:45 → MEDSURG 16:05 → CSU 07-27 21:25
PROVIDERS: Admitting Provider Student in an Organized Health Care Education/Training Program; Emergency Provider Emergency Medicine; PCP Family Medicine Adult Medicine; Visit Provider Family Medicine
DX: R55 Syncope and collapse (principal); G89.4 Chronic pain syndrome; Z79.891 Long term (current) use of opiate analgesic; G47.33 Obstructive sleep apnea (adult) (pediatric); I13.0 Hypertensive heart and chronic kidney disease with heart failure and stage 1 through stage 4 chronic kidney disease, or unspecified chronic kidney disease; I50.30 Unspecified diastolic (congestive) heart failure; N18.2 Chronic kidney disease, stage 2 (mild); Z87.891 Personal history of nicotine dependence; F60.3 Borderline personality disorder; F41.9 Anxiety disorder, unspecified; R00.1 Bradycardia, unspecified; I34.0 Nonrheumatic mitral (valve) insufficiency; I07.1 Rheumatic tricuspid insufficiency; I69.351 Hemiplegia and hemiparesis following cerebral infarction affecting right dominant side; F33.2 Major depressive disorder, recurrent severe without psychotic features; F44.5 Conversion disorder with seizures or convulsions; Z96.89 Presence of other specified functional implants; M54.50 Low back pain, unspecified; I95.1 Orthostatic hypotension; Z91.81 History of falling; I44.0 Atrioventricular block, first degree
CPT/HCPCS: 36415; 36416; 70450; 70551; 71045; 72125; 72131; 73502; 78452; 80048; 80053; 80061; 80175; 80306; 81001; 82550; 82607; 82746; 82962; 83036; 83540; 83550; 83735; 84100; 84145; 84443; 84484; 85025; 87086; 93005; 93017; 93306; 93880; 94664; 96361; 96372; 96374; 96375; 96376; 97110; 97116; 97161; 97165; 97530; 97535; 99285; A9500; G0378; J1644; J2270; J2785; J3010; J7030

== ENCOUNTER → 2022-08-17 12:54 | Outpatient (BNVA) | payer MEDICARE, MEDICAID, SELFPAY | PROVIDERS: PCP Family Medicine Adult Medicine; Visit Provider Podiatrist Foot & Ankle Surgery | DX: I73.9 Peripheral vascular disease, unspecified (principal); L60.8 Other nail disorders; L60.3 Nail dystrophy; R94.4 Abnormal results of kidney function studies; Z86.718 Personal history of other venous thrombosis and embolism; N18.2 Chronic kidney disease, stage 2 (mild) | CPT/HCPCS: 11721 ==

== ENCOUNTER → 2022-09-16 08:12 | Outpatient (BNVA) | payer MEDICARE, MEDICAID, SELFPAY | PROVIDERS: PCP Family Medicine Adult Medicine; Visit Provider Specialist | DX: R55 Syncope and collapse; F43.12 Post-traumatic stress disorder, chronic; F44.7 Conversion disorder with mixed symptom presentation; R25.1 Tremor, unspecified; R51.9 Headache, unspecified; R90.82 White matter disease, unspecified | CPT/HCPCS: 99215 ==

== ENCOUNTER → 2022-09-21 13:21 | Outpatient (BNVA) | payer MEDICARE, MEDICAID, SELFPAY | PROVIDERS: PCP Family Medicine Adult Medicine; Visit Provider Internal Medicine Cardiovascular Disease | DX: R42 Dizziness and giddiness (principal); R07.9 Chest pain, unspecified; G47.33 Obstructive sleep apnea (adult) (pediatric); F41.1 Generalized anxiety disorder; Z99.89 Dependence on other enabling machines and devices; I12.9 Hypertensive chronic kidney disease with stage 1 through stage 4 chronic kidney disease, or unspecified chronic kidney disease; N18.2 Chronic kidney disease, stage 2 (mild) | CPT/HCPCS: 99214 ==

== ENCOUNTER → 2022-10-01 07:25 | Outpatient (BNVA) | payer MEDICARE, MEDICAID, SELFPAY | PROVIDERS: PCP Family Medicine Adult Medicine; Referring Provider Specialist; Visit Provider Specialist | DX: F44.5 Conversion disorder with seizures or convulsions (principal); R55 Syncope and collapse | CPT/HCPCS: 95816 ==

== ENCOUNTER 2022-10-25 10:29 | Observation (INO) | payer MEDICARE, MEDICAID, SELFPAY ==
[2022-10-22 09:38] VITALS: BP 145/83; BMI 31.8
[2022-10-25] VITALS (17 sets, daily range): BP systolic 121–194; BP diastolic 64–95; PULSE 69–99; RESP 15–18; TEMP 36.3–36.9; O2SAT 91–98
--- NOTE | 2022-10-25 10:42 | CTR_ITS ---
PROCEDURE INFORMATION: Exam: CT Head Without Contrast Exam date and time: 10/25/2022 11:06 AM Age: 57 years old Clinical indication: Injury or trauma; Fall; Blunt trauma (contusions or hematomas) TECHNIQUE: Imaging protocol: Computed tomography of the head without contrast. Radiation optimization: All CT scans at this facility use at least one of these dose optimization techniques: automated exposure control; mA and/or kV adjustment per patient size (includes targeted exams where dose is matched to clinical indication); or iterative reconstruction. REPORTING DATA: Count of CT and Cardiac NM exams in prior 12 months: This patient has received 5 known CTs and 0 known cardiac nuclear medicine studies in the 12 months prior to the current study. COMPARISON: CT head wo con* [id number] 07/28/2022 2:36 PM RADIATION DOSE METRICS: Total DLP (mGy-cm): 853.2 FINDINGS: Brain: No acute hemorrhage identified. No large territorial areas of hypoattenuation concerning for ischemic infarct identified. No intracranial mass effect. Cerebral ventricles: The ventricles are within normal limits. Paranasal sinuses: The visualized sinuses are unremarkable. Mastoid air cells: The visualized mastoid air cells are well aerated. Bones/joints: The osseous structures are intact. Soft tissues: Unremarkable. CT/CT head wo con* [id number] IMPRESSION: No acute intracranial abnormality.
--- NOTE | 2022-10-25 10:42 | XRR_ITS ---
PROCEDURE INFORMATION: Exam: XR Chest Exam date and time: 10/25/2022 11:03 AM Age: 57 years old Clinical indication: Injury or trauma; Fall; Blunt trauma (contusions or hematomas); Additional info: Syncope TECHNIQUE: Imaging protocol: Radiologic exam of the chest. Views: 1 view. COMPARISON: CR XR chest 1V portable [id number] 07/25/2022 10:47 AM FINDINGS: Tubes, catheters and devices: Stimulator device noted overlying the left chest. Lungs: The lung parenchyma is clear. Pleural spaces: No pneumothorax. No pleural effusion. Heart/Mediastinum: The cardiomediastinal silhouette is within normal limits. Bones/joints: Unremarkable. Intraperitoneal space: Right upper quadrant cholecystostomy clips noted. XR/XR chest 1V portable [id number] IMPRESSION: No acute cardiopulmonary abnormality identified.
--- NOTE | 2022-10-25 10:42 | CTR_ITS ---
PROCEDURE INFORMATION: Exam: CT Cervical Spine Without Contrast Exam date and time: 10/25/2022 11:06 AM Age: 57 years old Clinical indication: Injury or trauma; Fall; Blunt trauma TECHNIQUE: Imaging protocol: Computed tomography of the cervical spine without contrast. Radiation optimization: All CT scans at this facility use at least one of these dose optimization techniques: automated exposure control; mA and/or kV adjustment per patient size (includes targeted exams where dose is matched to clinical indication); or iterative reconstruction. REPORTING DATA: Count of CT and Cardiac NM exams in prior 12 months: This patient has received 5 known CTs and 0 known cardiac nuclear medicine studies in the 12 months prior to the current study. COMPARISON: CT cervical spin wo con* [id number] 07/25/2022 10:52 AM RADIATION DOSE METRICS: Total DLP (mGy-cm): 594 FINDINGS: Bones/joints: The cervical spine maintains a normal lordotic curvature. No spondylolisthesis. The vertebral bodies maintain normal height. No fracture identified. The intervertebral discs maintain normal height. Multilevel facet arthropathy. Fusion of the left C4-C5 facet. Multilevel neural foraminal narrowing. Lungs: The visualized lung apices are normal. Soft tissues: No prevertebral soft tissue swelling identified. CT/CT cervical spin wo con* [id number] IMPRESSION: No acute fracture or traumatic malalignment identified within the cervical spine.
--- NOTE | 2022-10-25 10:43 | ECG_ITS ---
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
[2022-10-25 10:58] LABS: Basophils # 0.1 10^3/uL (0.0-0.1); Eosinophils # 0.2 10^3/uL (0.0-0.8); Eosinophils % 1.9 %; Hematocrit 38.2 % (36-47); Lymphocytes # 1.9 10^3/uL (0.8-4.8); Lymphocytes % 23.3 %; Mean Corpuscular HGB Conc 32.7 g/dL (30-55); Mean Corpuscular Hemoglobin 28.9 pg (27-33); Mean Corpuscular Volume 88.4 fl (85-98); Mean Platelet Volume 10.7 fL (7.4-10.4); Monocytes # 0.4 10^3/uL (0.2-0.9); Monocytes % 4.7 %; Neutrophils # 5.69 10^3/uL (1.8-7.7); Neutrophils % 68.7 %; Nucleated Red Blood Cells % 0 %; Platelet Count 300 10^3/cmm (157-399); Red Blood Count 4.32 10^6/uL (3.85-5.65); Red Cell Distribution Width 12.3 % (12.1-15.1); White Blood Count 8.28 10^3/uL (3.29-11.43)
[2022-10-25 11:11] LABS: Troponin(5th) Baseline 6 ng/L (0-10)
[2022-10-25 11:21] LABS: Alanine Aminotransferase 23 U/L (0-33); Albumin Level 4.2 g/dL (3.5-5.2); Alkaline Phosphatase 104 U/L (35-105); Blood Urea Nitrogen 18 mg/dL (6-20); Calcium 9.1 mg/dL (8.5-10.5); Carbon Dioxide 26 mmol/L (22-29); Chloride 102 mmol/L (98-107); Globulin 2.3 g/dL (1.3-4.6); Glomerular Filtration Rate 64.3 mL/min (90-130); Glucose 104 mg/dL (65-115); Lipase 28 U/L (13-60); NT Pro B Type Natriuretic Pept 284 pg/mL (0-125); Osmolality Calculated 290 mOsm/kg (285-295); Sodium 139 mmol/L (136-145); Thyroid Stimulating Hormone 1.15 uIU/mL (0.27-4.20); Total Bilirubin 0.3 mg/dL (0.15-1.2); Total Protein 6.5 g/dL (6.6-8.7)
[2022-10-25 11:22] LABS: Anion Gap 15.3 (5-19); Aspartate Amino Transferase 19 U/L (0-32); Potassium 4.3 mmol/L (3.5-5.1)
[2022-10-25 12:16] LABS: Add Urine Microscopic? NO; Charge for UA Resulting for Rev
[2022-10-25] MEDS: morphine 4 mg/mL SDV 1 mL IVP ×2 (12:24→13:43)
[2022-10-25] MEDS: ondansetron 2 mg/ML SDV 2 mL 4 MG IVP ×2 (12:27→13:43)
[2022-10-25 12:37] LABS: Bilirubin Urine Neg (Negative); Blood Urine Neg (Negative); Glucose Urine UA Norm (Normal); Ketones Urine Negative (Negative); Leukocyte Esterase Urine Negative (Negative); Nitrate Urine Negative (Negative); Protein Urine Neg (Negative); Sulfosalicylic Acid Urine Negative (Negative); Urine Appearance Clear (CLEAR); Urine Color Yellow (Yellow); Urobilinogen Urine Norm (Negative); pH Urine 8 (5-7)
[2022-10-25 12:38] LABS: Lactic Sepsis W/Reflex 1.2 mmol/L (0.5-2.2)
[2022-10-25 13:02] LABS: Troponin 5 2HR Delta 0 ABS# (0-10)
--- NOTE | 2022-10-25 13:30 | ECG_ITS ---
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
[2022-10-25] MEDS: alum-mag-hydroxide-sime 30 mL UDC PO (13:43)
--- NOTE | 2022-10-25 14:45 | PC.NURSE ---
RN WAS IN ROOM PERFORMING ORTHOSTATIC VITALS. WHEN PT WAS ASKED TO STAND UP PT FELL BACK DOWN ONTO BED. PT HAS NO INJURIES OR COMPLAINTS. DR MALIK FINK PENDING ORDERS
--- NOTE | 2022-10-25 16:11 | PM.HP ---
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 due to syncopal episode. Patient has in the last week, she had 4 syncopal episodes, no preceding lightheadedness or dizziness, no chest pain, no palpitations, no strokelike symptoms, no seizure-like symptoms. She tells me that today she was at [employer], she was going into [employer]danism when she had a witnessed syncopal episode, no seizure-like episodes reported, no postictal confusion, does report dysuria, increased urination, no fevers, chills, headache, blurry vision does report substernal chest pain across her chest, nonradiating, she has a soreness across her chest, Review of Systems Const: Denies: fever(s), chills or body aches Eyes: Denies: change in vision ENMT: Denies: throat pain Card: Reports: chest pain and syncope; Denies: palpitations or edema Resp: Denies: dyspnea GI: Denies: abdominal pain or nausea : Denies: flank pain or difficulty voiding Musc: Denies: neck pain or back pain Skin/Breast: Denies: rash Neuro: Reports: dizziness; Denies: headache(s), numbness in extremities, weakness in extremities or frequent falls Psych: Denies: anxiety or depression Endo: Reports: polyuria; Denies: polydipsia Tani/Lymph: Denies: easy bruising Medications/Allergies Home Medications Medication Instructions Recorded Confirmed Last Taken Type docusate sodium 100 mg capsule See Rx Instructions .Route 08/23/19 10/25/22 07/24/22 History .COMPLEX PRN Constipation [id number]-[id number] 1 tab PO DAILY@12 03/21/20 10/25/22 10/25/22 History tablet (Multivitamin 50 Plus tablet) clopidogrel 75 mg tablet 75 mg PO QAM 04/15/20 10/25/22 10/25/22 History psyllium husk 3.4 gram/5.4 gram 1 - 2 tbsp PO DAILY PRN 06/04/21 10/25/22 07/24/22 History oral powder (Metamucil) Constipation ondansetron HCl 4 mg tablet See Rx Instructions .Route 12/10/21 10/25/22 Unknown Rx .COMPLEX #20 tabs tizanidine 4 mg tablet 4 mg PO BID PRN muscle spasticity 12/15/21 10/25/22 Unknown Rx #60 tabs mupirocin 2 % topical ointment 1 applic topical BID PRN Rash 03/23/22 10/25/22 Unknown History lamotrigine 200 mg tablet 200 mg PO BID #60 tabs 09/01/22 10/25/22 10/25/22 Rx (Lamictal) pantoprazole 40 mg tablet,delayed 40 mg PO BID #60 tabs 09/01/22 10/25/22 10/25/22 Rx release (Protonix) prazosin 5 mg capsule 20 mg PO BEDTIME #120 caps 09/01/22 10/25/22 10/24/22 Rx trazodone 100 mg tablet 400 mg PO BEDTIME PRN insomnia 09/01/22 10/25/22 Unknown Rx #120 tabs ziprasidone HCl 40 mg capsule 40 mg PO BID #60 caps 09/01/22 10/25/22 10/24/22 Rx (Geodon) gabapentin 100 mg capsule 100 mg PO TID chronic pain #90 caps 09/16/22 10/25/22 10/25/22 Rx hydrocodone 7.5 mg-acetaminophen 1 tab PO BID pain 09/21/22 10/25/22 Unknown History 325 mg tablet naloxegol 25 mg tablet 25 mg PO QAM constipation #30 tabs 10/02/22 10/25/22 10/25/22 Rx acetaminophen 325 mg tablet 650 mg PO QID PRN Pain 10/25/22 10/25/22 Unknown History atorvastatin 80 mg tablet 80 mg PO DAILY 10/25/22 10/25/22 10/25/22 History diphenhydramine HCl 25 mg capsule 50 mg PO TID PRN Allergy Symptoms 10/25/22 10/25/22 Unknown History (Benadryl) propranolol 10 mg tablet 10 mg PO DAILY 10/25/22 10/25/22 10/25/22 History Allergies Allergy/AdvReac Type Severity Reaction Status Date / Time lisinopril Allergy Unknown Unknown Verified 10/25/22 11:42 shellfish derived Allergy Unknown hives Verified 10/25/22 11:42 aripiprazole [From Abilify] Allergy Unknown Verified 10/25/22 11:42 aspartame Allergy ADR-Nausea Verified 10/25/22 11:42 codeine Allergy Unknown Verified 10/25/22 11:42 duloxetine Allergy ADR-Anxiety Verified 10/25/22 11:42 erythromycin base Allergy ADR-Nausea Verified 10/25/22 11:42 fluticasone [From Flonase] Allergy ADR-Anxiety Verified 10/25/22 11:42 guaifenesin [From Mucinex] Allergy ADR-Anxiety Verified 10/25/22 11:42 Iodinated Contrast Media Allergy Unknown Verified 10/25/22 11:42 lithium Allergy Unknown Verified 10/25/22 11:42 nitroglycerin Allergy Unknown Verified 10/25/22 11:42 risperidone [From Risperdal] Allergy ALGY-Hives Verified 10/25/22 11:42 venlafaxine [From Effexor] Allergy Unknown Verified 10/25/22 11:42 quetiapine [From Seroquel] AdvReac Unknown ZOMBIE Verified 10/25/22 11:42 tramadol AdvReac FOOD SERVICE AGENT Verified 10/25/22 11:42 COMPLICATION TOILET PAPER Allergy ADR-Itching Uncoded 10/01/22 10:24 PFSH Acute PFSH: Medical History CAD (coronary artery disease) Divina rash of groin Cervical disc disorder of mid-cervical region Chronic pain disorder CKD (chronic kidney disease), stage II Constipation DDD (degenerative disc disease), lumbar Demyelinating changes in 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 Generalized anxiety disorder HTN (hypertension) Hx of deep venous thrombosis Left acute arterial ischemic stroke, MCA (middle cerebral artery) Lip lesion Major depressive disorder, recurrent severe without psychotic features Night terror disorder Onychodystrophy CONRAD (obstructive sleep apnea) Pre-diabetes Psychiatric care PVD (peripheral vascular disease) Shoulder pain, bilateral Syncope and collapse Therapeutic opioid induced constipation Transient atrial fibrillation Yeast cells and fungal elements present on diagnostic testing Surgical History History of facial surgery 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 S/P tubal ligation Family History Other Cancer Diabetes Hypertension Social History Smoking and tobacco status: former smoker Quit status (tobacco): has quit using tobacco Year quit tobacco: 2014 Second hand smoke exposure: No Smoking risk assessment/counseling performed?: No Alcohol intake: former Year of sobriety/quit date alcohol: 2002 Desire information about alcohol rehabilitation?: No Counseling given: No Substance/Drug Use: never Desire information about substance/drug rehabilitation?: No Counseling given: No Adopted: No Caregiver/support person: Yes (Nurse Camilla and aide helps with cooking, shopping and housework) Lives independently: No Household members: spouse Housing: Apartment Marital status: Marital status details: 6 years Number of children: 1 Number of grandchildren: 3 Highest education level completed: Associate Degree: Occupational, Technical, Vocational Program Education level details: Agriculture and business service: No Current occupational status: disabled Pets and animals: Yes Pets & animals: dog(s) Leisure activites: reading and other Leisure activities details: quilting Sexually active: Yes Do you think of yourself as: Straight/Heterosexual Current gender identity: Female Elenita/Adventism: Other Special elenita needs: No Agree to transfusion: Yes (10.20.22) Financial difficulty paying for basics: Hard Female Reproductive History: Para: 1 Spontaneous abortions: Yes (10) Vitals/I&O/Wt Last Vital Signs Temp 98.4 F 10/25/22 10:34 Pulse 69 10/25/22 15:51 Resp 18 10/25/22 15:51 BP 121/71 10/25/22 15:51 Pulse Ox 92 10/25/22 15:51 O2 Del Method Room Air 10/25/22 15:51 Physical Exam Const: COMMON NORMALS: no acute distress and patient oriented x3 GENERAL APPEARANCE: cooperative, well kempt and well developed HENMT: COMMON NORMALS: normocephalic and Normal external nose present HEAD & SCALP: normocephalic FACE & SINUS: normal facial exam NOSE: Normal external nose present Eye: COMMON NORMALS: Equal, round and reactive pupils present, EOMs intact bilaterally, conjunctivae normal and no scleral icterus CONJUNCTIVA: Yes conjunctivae normal PUPIL: Yes Equal, round and reactive pupils present Neck/C-Spine: COMMON NORMALS: full ROM, no lymphadenopathy, no meningeal signs, no JVD, Thyroid normal and No carotid bruits THYROID: Thyroid normal Lymph: LYMPHATIC: no lymphadenopathy noted Chest: COMMONS NORMALS: normal inspection of the chest Resp: COMMON NORMALS: normal respiratory effort, No retractions, No use of accessory muscles and clear to auscultation bilaterally AUSCULTATION: clear to auscultation bilaterally Cardio: COMMON NORMALS: regular rate, regular rhythm, S1 normal heart sound present, S2 normal heart sound present, No murmurs present (Cardio) and Peripheral pulses 2+ throughout RATE: regular rate RHYTHM: regular rhythm HEART SOUNDS: S1 normal heart sound present and S2 normal heart sound present PERIPHERAL PULSES: Peripheral pulses 2+ throughout GI: COMMON NORMALS: Normal to inspection, nondistended, normoactive bowel sounds present, Soft to palpation and non-tender : BLADDER/KIDNEY EXAM: Yes no CVA tenderness Back/Pelvis: COMMON NORMALS: no CVA tenderness Extremity: COMMON NORMALS: normal to inspection, no calf tenderness and no pedal edema Neuro: COMMON NORMALS: patient oriented x3, CN's II-XII intact bilaterally, moves all extremities, no focal motor deficits and no sensory deficits noted MENINGEAL SIGNS: Yes no meningeal signs OTHER: chronic RUE weakness Psych: COMMON NORMALS: mental status grossly normal, Normal thought process present, cooperative and speech normal APPEARANCE: Yes well kempt SPEECH: Yes normal speech THOUGHT PROCESS: Normal thought process present Skin: COMMON NORMALS: turgor normal and no jaundice GENERAL SKIN EXAM: turgor normal Data 10/25/22 10:15 10/25/22 10:15 A&P Assessment and plan (1) Syncope: (2) Chest pain: Plan Syncopal episode -EEG 10/01/2022IMPRESSION: This was a normal routine EEG, awake and drowsy, with no behavioral or electrographic epileptiform activity.? A normal EEG does not exclude a diagnosis of epilepsy.? A sleep deprived tracing is recommended if seizures are strongly suspected. -Has had recurrent episodes of syncope in the last week, -Has recent hospitalization for syncope, with episode of syncope in the hospital, while orthostats were negative In the past her caregiver has reported that the syncopal episodes happen on a daily basis UA no significant evidence of UTI Cardiac echocardiogram 07/2022 LV systolic function is normal with EF 60 to 65%. ?Grade 1 disatolic dysfunction ?Mild mitral regurgitation ?Mild tricuspid regurgitation ?Compared to prior echocardiogram from 03/11/2021, no significant ?changes are needed. Carotid artery ultrasound 07/2022 no evidence of hemodynamically significant stenosis MRI brain 07/2022 no acute findings She has a history of CVA, status post tPA in 2020, with chronic right upper right lower extremity weakness Her recent event monitor 08/2022 conclusion: ? 1. Baseline rhythm is sinus rhythm. HR ranges from 49-136, avg 71 bpm. 2. There were [less than 1%] ventricular ectopic beats, 5% SVE beats. 3. Other patient triggered episodes correlated with sinus rhythm. -Recently discharged from [facility] in July for with an exhaustive work-up for syncopal episodes, no acute findings, orthostats were negative then, -She does report recent stressors in her life, financial stressors Plan -Serial EKGs, serial troponins, telemetry monitoring -Orthostatic vitals -Start alprazolam 0.25 mg twice daily for anxiety episodes -PT OT -No pain complaints after fall -Full code -Lovenox for DVT prophylaxis Chest pain -Serial EKGs, serial troponins, telemetry monitoring stress test 07/2022 IMPRESSIONS ?1.? Normal myocardial perfusion imaging with no evidence of ischemia ?2.? LV systolic function is normal. Attestations Medical Necessity Statement*: Patient requires hospitalization, outpatient with observation for syncopal episode, chest pain Diagnoses Syncope R55 Chest pain R07.9
--- NOTE | 2022-10-25 16:18 | ED_ITS ---
HPI - Syncope General: Chief Complaint: Syncope Stated Complaint: SYNCOPE Time Seen by Provider: 10/25/22 10:34 History of Present Illness: This patient is a 57 year old presenting with a syncopal episode at [facility]. This resulted in a fall backwards and she hit the back of her head - per bystanders. The episode was witnessed by several of our outpatient physicians who were attending restorationist as well. The patient reports feeling dizzy before she passed out. She is anxious and tremulous now. She initially denied chest pain, and then developed chest pain while in the ED. She has been having syncopal episodes since July when she was noted to be bradycardic. She doesn't know whether that has continued or not. She does also have a history of seizures - but per bystanders this did not appear to be a seizure. She is a vague and inconsistent historian. 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 Generalized anxiety disorder HTN (hypertension) Hx of deep venous thrombosis Left acute arterial ischemic stroke, MCA (middle cerebral artery) Lip lesion Major depressive disorder, recurrent severe without psychotic features Night terror disorder Onychodystrophy CONRAD (obstructive sleep apnea) Pre-diabetes Psychiatric care PVD (peripheral vascular disease) Shoulder pain, bilateral Syncope and collapse Therapeutic opioid induced constipation Transient atrial fibrillation Yeast cells and fungal elements present on diagnostic testing Surgical History History of facial surgery 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 S/P tubal ligation Family History Other Cancer Diabetes Hypertension Social History Smoking and tobacco status: former smoker Quit status (tobacco): has quit using tobacco Year quit tobacco: 2014 Second hand smoke exposure: No Smoking risk assessment/counseling performed?: No Alcohol intake: former Year of sobriety/quit date alcohol: 2002 Desire information about alcohol rehabilitation?: No Counseling given: No Substance/Drug Use: never Desire information about substance/drug rehabilitation?: No Counseling given: No Adopted: No Caregiver/support person: Yes (Nurse Camilla and aide helps with cooking, shopping and housework) Lives independently: No Household members: spouse Housing: Apartment Marital status: Marital status details: 6 years Number of children: 1 Number of grandchildren: 3 Highest education level completed: Associate Degree: Occupational, Technical, Vocational Program Education level details: Agriculture and business service: No Current occupational status: disabled Pets and animals: Yes Pets & animals: dog(s) Leisure activites: reading and other Leisure activities details: quilting Sexually active: Yes Do you think of yourself as: Straight/Heterosexual Current gender identity: Female Elenita/Muslim: Other Special elenita needs: No Agree to transfusion: Yes (10.20.22) Financial difficulty paying for basics: Hard Female Reproductive History: Para: 1 Spontaneous abortions: Yes (10) Physical Exam Const: COMMON NORMALS: no acute distress, patient oriented x3, no limitations and alert GENERAL APPEARANCE: cooperative and comfortable HENMT: HEAD & SCALP: normal to inspection OTHER: old scars from a cleft lip repair Eye: GENERAL EYE: appearance normal, both eyes and all related structures Neck/C-Spine: COMMON NORMALS: supple, no meningeal signs and no JVD Chest: COMMONS NORMALS: normal inspection of the chest Resp: COMMON NORMALS: normal respiratory effort, No use of accessory muscles and clear to auscultation bilaterally AUSCULTATION: clear to auscultation bilaterally Cardio: COMMON NORMALS: no JVD, regular rate, regular rhythm and No murmurs present (Cardio) RATE: regular rate RHYTHM: regular rhythm GI: COMMON NORMALS: Normal to inspection, nondistended, normoactive bowel sounds present, Soft to palpation and non-tender INSPECTION: Yes normal to inspection AUSCULTATION: Yes normoactive bowel sounds PALPATION: Yes Soft to palpation Back/Pelvis: COMMON NORMALS: thoracic and lumbar spine normal to inspection Extremity: COMMON NORMALS: normal to inspection Neuro: COMMON NORMALS: patient oriented x3, moves all extremities, no focal motor deficits and no sensory deficits noted SENSORIUM/ORIENTATION: Yes alert MENINGEAL SIGNS: Yes no meningeal signs Psych: COMMON NORMALS: mental status grossly normal, cooperative and normal affect Skin: COMMON NORMALS: no rashes or lesions noted and turgor normal GENERAL SKIN EXAM: no rashes or lesions noted and turgor normal Course Vital Signs: Vital signs: Vital Signs Temperature 98.4 F 10/25/22 10:34 Pulse Rate 75 10/25/22 16:35 Respiratory Rate 18 10/25/22 16:35 Blood Pressure 121/77 10/25/22 16:35 Pulse Oximetry 97 10/25/22 16:35 Oxygen Delivery Me thod Room Air 10/25/22 16:35 MDM - Syncope Medical Decision Making Patient with a witnessed syncopal episode and loss of consciousness. She is recovered now, but developed severe chest pain while in the ED. She is allergic to nitro - she was given morphine and maalox but it took some time for the symptoms to resolve. A repeat EKG during this episode of pain showed a new inverted t was in V3 of uncertain significance. CT head and CT cspine neg for traumatic injury. Labs with normal troponin a 0 and 2 hours. Prior visits reviewed and she has had extensive work up for these symptoms - but I am not able to send her home today, as when we got her up from bed to transfer to the commode, and to try to get orthostatic vitals, she had brief LOC and collapsed - assisted back to bed by RN. Discussed with Dr. Madrid who will see her in the ED. Lab Data 10/25/22 10:15 10/25/22 10:15 Radiology Impressions Cervical Spine CT 10/25/22 10:42 IMPRESSION: No acute fracture or traumatic malalignment identified within the cervical spine. ADDENDUM: 10/25/22 1132 Partially visualized left-sided pleural effusion. Chest X-Ray 10/25/22 10:42 IMPRESSION: No acute cardiopulmonary abnormality identified. Head CT 10/25/22 10:42 IMPRESSION: No acute intracranial abnormality. Laboratory Results WBC 8.28 10^3/uL (3.29-11.43) 10/25/22 10:15 RBC 4.32 10^6/uL (3.85-5.65) 10/25/22 10:15 Hgb 12.50 g/dL (11.27-16.99) 10/25/22 10:15 Hct 38.2 % (36-47) 10/25/22 10:15 MCV 88.4 fl (85-98) 10/25/22 10:15 MCH 28.9 pg (27-33) 10/25/22 10:15 MCHC 32.7 g/dL (30-55) 10/25/22 10:15 RDW 12.3 % (12.1-15.1) 10/25/22 10:15 Plt Count 300 10^3/cmm (157-399) 10/25/22 10:15 MPV 10.7 fL (7.4-10.4) H 10/25/22 10:15 Neut % (Auto) 68.7 % 10/25/22 10:15 Lymph % (Auto) 23.3 % 10/25/22 10:15 [place] % (Auto) 4.7 % 10/25/22 10:15 Eos % (Auto) 1.9 % 10/25/22 10:15 Baso % (Auto) 1.0 % 10/25/22 10:15 Neut # (Auto) 5.69 10^3/uL (1.8-7.7) 10/25/22 10:15 Lymph # (Auto) 1.9 10^3/uL (0.8-4.8) 10/25/22 10:15 [place] # (Auto) 0.4 10^3/uL (0.2-0.9) 10/25/22 10:15 Eos # (Auto) 0.2 10^3/uL (0.0-0.8) 10/25/22 10:15 Baso # (Auto) 0.1 10^3/uL (0.0-0.1) 10/25/22 10:15 Nucleated RBC % (auto) 0 % 10/25/22 10:15 Nucleated RBCs # 0.0 /100WBC 10/25/22 10:15 Sodium 139 mmol/L (136-145) 10/25/22 10:15 Potassium 4.3 mmol/L (3.5-5.1) 10/25/22 10:15 Chloride 102 mmol/L (98-107) 10/25/22 10:15 Carbon Dioxide 26 mmol/L (22-29) 10/25/22 10:15 Anion Gap 15.3 (5-19) 10/25/22 10:15 BUN 18 mg/dL (6-20) 10/25/22 10:15 Creatinine 0.9 mg/dL (0.5-0.9) 10/25/22 10:15 GFR Calculation 64.3 mL/min (90-130) L 10/25/22 10:15 Glucose 104 mg/dL (65-115) 10/25/22 10:15 Calculated Osmolality 290 mOsm/kg (285-295) 10/25/22 10:15 Lactic Acid 1.2 mmol/L (0.5-2.2) 10/25/22 12:09 Calcium 9.1 mg/dL (8.5-10.5) 10/25/22 10:15 Magnesium 2.0 mg/dL (1.7-2.3) 10/25/22 10:15 Total Bilirubin 0.3 mg/dL (0.15-1.2) 10/25/22 10:15 AST 19 U/L (0-32) 10/25/22 10:15 ALT 23 U/L (0-33) 10/25/22 10:15 Alkaline Phosphatase 104 U/L (35-105) 10/25/22 10:15 Troponin T Baseline 6 ng/L (0-10) 10/25/22 10:15 Troponin T 120 Minute 6.00 ng/L (0-10) 10/25/22 12:09 Delta Troponin T 0 ABS# (0-10) 10/25/22 12:09 NT-Pro-B Natriuret Pep 284 pg/mL (0-125) H 10/25/22 10:15 Total Protein 6.5 g/dL (6.6-8.7) L 10/25/22 10:15 Albumin 4.2 g/dL (3.5-5.2) 10/25/22 10:15 Globulin 2.3 g/dL (1.3-4.6) 10/25/22 10:15 Lipase 28 U/L (13-60) 10/25/22 10:15 TSH 1.15 uIU/mL (0.27-4.20) 10/25/22 10:15 Urine Color Yellow (Yellow) 10/25/22 11:57 Urine Appearance Clear (CLEAR) 10/25/22 11:57 Urine pH 8 (5-7) H 10/25/22 11:57 Ur Specific [place] 1.010 (1.005-1.030) 10/25/22 11:57 Urine Protein Neg (Negative) 10/25/22 11:57 Urine Glucose (UA) Norm (Normal) 10/25/22 11:57 Urine Ketones Negative (Negative) 10/25/22 11:57 Urine Blood Neg (Negative) 10/25/22 11:57 Urine Nitrate Negative (Negative) 10/25/22 11:57 Urine Bilirubin Neg (Negative) 10/25/22 11:57 Prot Sulfosalicylic Acd Negative (Negative) 10/25/22 11:57 Urine Urobilinogen Norm mg/dL (Negative) 10/25/22 11:57 Ur Leukocyte Esterase Negative (Negative) 10/25/22 11:57 Discharge Plan Discharge Patient Disposition: Placed in Observation Clinical Impression: Chest pain, Syncope and collapse Coding Level of Care Code ED Seamer Panty Hose for Kun Saba
--- NOTE | 2022-10-25 16:43 | ECG_ITS ---
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
[2022-10-25 17:31] LABS: Amphetamines Screen Urine Negative (Negative); Barbiturates Screen Urine Negative (Negative); Benzodiazepines Screen Urine Negative (Negative); Cocaine Screen Urine Negative (Negative); Opiate Screen Urine Negative (Negative); PCP Screen Urine Negative (Negative); THC Screen Urine Negative (Negative)
[2022-10-25 17:57] LABS: Troponin 5 6HR Delta 0 ng/L (0-12)
[2022-10-25] MEDS: HYDROcodone-acetaminophen 7.5-325 mg Tablet 1 TAB PO (20:03)
[2022-10-25] MEDS: gabapentin 100 mg Capsule PO (20:03)
[2022-10-25] MEDS: sodium chloride 0.9% 1,000 ML 100 ML IV (20:04)
[2022-10-25] MEDS: enoxaparin 40 mg/0.4 mL Syringe SUBCUT (20:04)
[2022-10-25] MEDS: ziprasidone hcl 40 mg Capsule PO (20:04)
[2022-10-25] MEDS: pantoprazole DR 40 mg Tablet PO (20:04)
[2022-10-25] MEDS: prazosin 5 mg Capsule 20 MG PO (20:04)
[2022-10-25] MEDS: atorvastatin 40 mg Tablet PO (20:04)
[2022-10-25] MEDS: trazodone 100 mg Tablet 400 MG PO (20:16)
[2022-10-25 20:20] LABS: Thyroid Stimulating Hormone 2.08 uIU/mL (0.27-4.20)
--- NOTE | 2022-10-25 22:11 | ECG_ITS ---
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 Measurements Intervals [place] Rate: 72 P: 25 MT: 195 QRS: 38 QRSD: 89 T: 40 QT: 365 QTc: 400 Interpretive Statements SINUS RHYTHM WITH OCCASIONAL SUPRAVENTRICULAR PREMATURE COMPLEXES Compared to ECG 10/25/2022 16:48:21 First degree AV block no longer present Electronically Signed On 10-26-2022 22:35:03 CDT by Albin Campbell M.D. [id number]
--- NOTE | 2022-10-25 23:31 | ECG_ITS ---
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 Measurements Intervals [place] Rate: 73 P: 9 WA: 208 QRS: 34 QRSD: 87 T: 22 QT: 384 QTc: 425 Interpretive Statements SINUS RHYTHM Compared to ECG 10/25/2022 19:55:57 No significant changes Electronically Signed On 10-26-2022 22:34:07 CDT by Albin Campbell M.D. [id number]
[2022-10-26] VITALS (9 sets, daily range): BP systolic 116–158; BP diastolic 73–83; PULSE 60–88; RESP 16–22; TEMP 36.4–36.6; O2SAT 92–97
[2022-10-26] MEDS: sodium chloride 0.9% 1,000 ML 100 ML IV (05:04)
[2022-10-26] MEDS: clopidogrel 75 mg Tablet PO (05:04)
[2022-10-26 05:39] LABS: Basophils # 0.1 10^3/uL (0.0-0.1); Basophils % 1.1 %; Eosinophils # 0.1 10^3/uL (0.0-0.8); Eosinophils % 1.9 %; Hematocrit 36.8 % (36-47); Lymphocytes # 2.1 10^3/uL (0.8-4.8); Lymphocytes % 28.5 %; Mean Corpuscular HGB Conc 31.3 g/dL (30-55); Mean Corpuscular Hemoglobin 28.5 pg (27-33); Mean Corpuscular Volume 91.1 fl (85-98); Mean Platelet Volume 10.5 fL (7.4-10.4); Monocytes # 0.4 10^3/uL (0.2-0.9); Monocytes % 5.2 %; Neutrophils # 4.56 10^3/uL (1.8-7.7); Neutrophils % 62.9 %; Nucleated Red Blood Cells % 0 %; Platelet Count 253 10^3/cmm (157-399); Red Blood Count 4.04 10^6/uL (3.85-5.65); Red Cell Distribution Width 12.5 % (12.1-15.1); White Blood Count 7.26 10^3/uL (3.29-11.43)
[2022-10-26 05:55] LABS: Alanine Aminotransferase 109 U/L (0-33); Alkaline Phosphatase 178 U/L (35-105); Anion Gap 12.5 (5-19); Aspartate Amino Transferase 81 U/L (0-32); Blood Urea Nitrogen 19 mg/dL (6-20); Calcium 8.2 mg/dL (8.5-10.5); Carbon Dioxide 29 mmol/L (22-29); Chloride 102 mmol/L (98-107); Globulin 1.4 g/dL (1.3-4.6); Glomerular Filtration Rate 56.9 mL/min (90-130); Glucose 84 mg/dL (65-115); Magnesium 2.3 mg/dL (1.7-2.3); Osmolality Calculated 289 mOsm/kg (285-295); Phosphorus 3.9 mg/dL (2.5-4.5); Potassium 4.5 mmol/L (3.5-5.1); Sodium 139 mmol/L (136-145); Total Bilirubin 0.4 mg/dL (0.15-1.2); Total Protein 5.4 g/dL (6.6-8.7)
[2022-10-26] MEDS: gabapentin 100 mg Capsule PO ×3 (09:01→20:39)
[2022-10-26] MEDS: ziprasidone hcl 40 mg Capsule PO ×2 (09:01→17:29)
[2022-10-26] MEDS: lamoTRIgine 100 mg Tablet 200 MG PO ×2 (09:01→17:29)
[2022-10-26] MEDS: pantoprazole DR 40 mg Tablet PO ×2 (09:01→17:30)
[2022-10-26] MEDS: HYDROcodone-acetaminophen 7.5-325 mg Tablet 1 TAB PO (09:02)
[2022-10-26] MEDS: acetaminophen 325 mg Tablet 650 MG PO (15:12)
[2022-10-26 15:59] LABS: SARS Covid-2 Antigen negative (Negative)
--- NOTE | 2022-10-26 16:18 | PM.PN ---
Subjective Subjective: Complains of headache today. States that Tylenol and her routine pain medications are not working. Noted to have deranged LFTs which is new. Afebrile. states that she has had several tick bites recently Vitals/I&O/Wt Last Vital Signs Temp 97.7 F 10/26/22 12:00 Pulse 71 10/26/22 12:00 Resp 20 H 10/26/22 12:00 BP 124/79 10/26/22 12:00 Pulse Ox 94 10/26/22 12:00 O2 Del Method Room Air 10/26/22 12:00 10/26/22 10/26/22 10/26/22 06:59 14:59 22:59 Intake Total 900 / 900 1600 / 1600 Balance 900 / 900 1600 / 1600 Physical Exam Narrative: General: No acute distress, AO x3 HEENT: PERRLA, pupils bilaterally equal and reactive, pallors not present Chest: Normal vesicular breath sounds, no added sounds, equal good air entry bilaterally CVS: S1-S2 regular, no murmurs, no tachycardia, no gallops, no rubs Abdomen: Soft, nontender, no organomegaly, bowel sounds present Neuro: No focal deficits, no facial deformity, AO x3, power 5/5 in all limbs Data 10/26/22 04:47 10/26/22 04:47 A&P Assessment and plan (1) Syncope: (2) Chest pain: Plan Syncopal episode -Chart reviewed extensively including recent notes from neurology as recently as August 2022. Patient has a longstanding history of recurrent pseudoseizures and or reported syncopal and other multiple neurological symptoms. Extensive work-up in the past on multiple inpatient admissions and as outpatient has not revealed any underlying medical cause for the same. 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 Currently her physical exam is reassuring, no concerns for CVA No recurrence of syncope in the hospital. Overall impression is that of functional syncopal episode Normal orthostatics, telemetry montioring to continue # deranaged LFts new reassess with hydration in am Optimize pain medications for headcahe Continued observation Attestations Medical Necessity Statement*: repeat LFTS am labs, tick panel to be checked, Coding Level of Care Code Acute Code for Chg Fwd Diagnoses Syncope R55 Chest pain R07.9
[2022-10-26] MEDS: morphine 4 mg/mL SDV 1 mL 2 MG IVP (16:38)
[2022-10-26] MEDS: enoxaparin 40 mg/0.4 mL Syringe SUBCUT (20:39)
[2022-10-26] MEDS: atorvastatin 40 mg Tablet PO (20:40)
[2022-10-26] MEDS: prazosin 5 mg Capsule 20 MG PO (20:40)
[2022-10-26] MEDS: trazodone 100 mg Tablet 400 MG PO (20:52)
[2022-10-27] VITALS (7 sets, daily range): BP systolic 101–114; BP diastolic 63–73; PULSE 65–72; RESP 17–20; TEMP 36.1–36.8; O2SAT 93–96
[2022-10-27 05:44] LABS: Basophils # 0.1 10^3/uL (0.0-0.1); Basophils % 1.1 %; Eosinophils # 0.2 10^3/uL (0.0-0.8); Eosinophils % 3.9 %; Hematocrit 34.3 % (36-47); Lymphocytes # 2.7 10^3/uL (0.8-4.8); Lymphocytes % 43.8 %; Mean Corpuscular HGB Conc 32.4 g/dL (30-55); Mean Corpuscular Hemoglobin 28.6 pg (27-33); Mean Corpuscular Volume 88.4 fl (85-98); Mean Platelet Volume 10.6 fL (7.4-10.4); Monocytes # 0.5 10^3/uL (0.2-0.9); Monocytes % 7.2 %; Neutrophils # 2.72 10^3/uL (1.8-7.7); Neutrophils % 43.7 %; Nucleated Red Blood Cells % 0 %; Platelet Count 257 10^3/cmm (157-399); Red Blood Count 3.88 10^6/uL (3.85-5.65); Red Cell Distribution Width 12.3 % (12.1-15.1); White Blood Count 6.23 10^3/uL (3.29-11.43)
[2022-10-27 06:08] LABS: Alanine Aminotransferase 71 U/L (0-33); Albumin Level 3.9 g/dL (3.5-5.2); Alkaline Phosphatase 137 U/L (35-105); Anion Gap 9.5 (5-19); Aspartate Amino Transferase 32 U/L (0-32); Blood Urea Nitrogen 14 mg/dL (6-20); Calcium 8.8 mg/dL (8.5-10.5); Carbon Dioxide 32 mmol/L (22-29); Chloride 104 mmol/L (98-107); Globulin 1.9 g/dL (1.3-4.6); Glomerular Filtration Rate 64.3 mL/min (90-130); Glucose 80 mg/dL (65-115); Osmolality Calculated 291 mOsm/kg (285-295); Potassium 4.5 mmol/L (3.5-5.1); Sodium 141 mmol/L (136-145); Total Bilirubin 0.3 mg/dL (0.15-1.2); Total Protein 5.8 g/dL (6.6-8.7)
[2022-10-27] MEDS: clopidogrel 75 mg Tablet PO (06:20)
[2022-10-27] MEDS: lamoTRIgine 100 mg Tablet 200 MG PO (09:56)
[2022-10-27] MEDS: gabapentin 100 mg Capsule PO (09:56)
[2022-10-27] MEDS: pantoprazole DR 40 mg Tablet PO (09:56)
[2022-10-27] MEDS: ziprasidone hcl 40 mg Capsule PO (09:56)
[2022-10-27] MEDS: morphine 4 mg/mL SDV 1 mL 2 MG IVP (10:07)
--- NOTE | 2022-10-27 10:24 | PM.DCS ---
Discharge Providers Date of Admission: 10/25/22 19:22 Date of Discharge: October 27, 2022 Attending Provider at Admission: Messi Madrid MD Attending Provider at Discharge: Debbie lAas MD Primary Care Provider: Giovanni Eugene MD Diagnoses at Discharge Discharge Diagnosis (1) Syncope: Status: Resolved (2) Chest pain: Status: Acute (3) Functional 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: Status: Acute Reason for Visit Reason for Visit: SYNCOPE Hospital Course Hospital Course 57 F with chronic pain, borderline personality disorder, anxiety, depression, PTSD, who presented to [facility] due to syncopal episode.? Patient has in the last week, she had 4 syncopal episodes, no preceding lightheadedness or dizziness, no chest pain, no palpitations, no strokelike symptoms, no seizure-like symptoms.? CT head was negative. Patient has a past medical history of multiple neurological complaints including seizures and syncopal episodes. She recently had an EEG on October 01 which was normal. She has a known history of dissociative disorder with functional seizure-like symptoms, strokelike symptoms and most recently syncope. She has had an extensive work-up in the past on her hospital admissions which has included a cardiac event monitor recently placed in July 2022. Her baseline rhythm was sinus rhythm with a heart rate of an average of 89 bpm. There was 0 critical 0 serious and 4 stable events that occurred. There were no episodes of atrial fibrillation. He was tachycardic 2% and bradycardic 9% of the time, heart rate ranged between 49-1 36. Beats per minute. There were no pauses greater than or equal to 3 seconds. There were occasional PACs encountered but otherwise no arrhythmia. Recent echocardiogram has shown an EF of 60 to 65%, grade 1 diastolic dysfunction, mild MR, no significant changes compared to February 2021. Carotid artery ultrasound has shown no evidence of hemodynamically significant stenosis. She has currently established outpatient care with cardiology, neurology and psychiatry appropriately. She follows closely with her therapist and Dr. Tinsley at [facility]. recommended to follow-up within 1 week with primary care provided. with regards to lab abnormalities, she had mild transaminitis which was trending down on the day of discharge. Atorvastatin dose has been reduced from 80 mg daily to 20 mg daily due to deranged LFTs. Recommended to follow-up with her primary care provider within 1 week to see if other dose adjustments may be appropriate. Ultrasound of the liver has been ordered as outpatient. No current signs of cholecystitis. Physical Exam Narrative: General: No acute distress, AO x3 HEENT: PERRLA, pupils bilaterally equal and reactive, pallors not present Chest: Normal vesicular breath sounds, no added sounds, equal good air entry bilaterally CVS: S1-S2 regular, no murmurs, no tachycardia, no gallops, no rubs Abdomen: Soft, nontender, no organomegaly, bowel sounds present Neuro: No focal deficits, no facial deformity, AO x3 Discharge Data Studies Completed and Pending Completed Studies During Hospitalization Category Date Time Status CT cervical spin wo con* [id number] Urgent Cat Scan 10/25/22 10:[address] head wo con* [id number] Stat Cat Scan 10/25/22 10:42 Completed XR chest 1V portable [id number] Stat Exams 10/25/22 10:42 Completed Pending at discharge Category Date Time Status Tick Panel AM LABS Lab 10/28/22 04:00 Ordered Radiology Impressions Cervical Spine CT 10/25/22 10:42 IMPRESSION: No acute fracture or traumatic malalignment identified within the cervical spine. ADDENDUM: 10/25/22 1132 Partially visualized left-sided pleural effusion. Chest X-Ray 10/25/22 10:42 IMPRESSION: No acute cardiopulmonary abnormality identified. Head CT 10/25/22 10:42 IMPRESSION: No acute intracranial abnormality. Laboratory Results WBC 6.23 10^3/uL (3.29-11.43) 10/27/22 04:58 RBC 3.88 10^6/uL (3.85-5.65) 10/27/22 04:58 Hgb 11.10 g/dL (11.27-16.99) L 10/27/22 04:58 Hct 34.3 % (36-47) L 10/27/22 04:58 MCV 88.4 fl (85-98) 10/27/22 04:58 MCH 28.6 pg (27-33) 10/27/22 04:58 MCHC 32.4 g/dL (30-55) 10/27/22 04:58 RDW 12.3 % (12.1-15.1) 10/27/22 04:58 Plt Count 257 10^3/cmm (157-399) 10/27/22 04:58 MPV 10.6 fL (7.4-10.4) H 10/27/22 04:58 Neut % (Auto) 43.7 % 10/27/22 04:58 Lymph % (Auto) 43.8 % 10/27/22 04:58 [place] % (Auto) 7.2 % 10/27/22 04:58 Eos % (Auto) 3.9 % 10/27/22 04:58 Baso % (Auto) 1.1 % 10/27/22 04:58 Neut # (Auto) 2.72 10^3/uL (1.8-7.7) 10/27/22 04:58 Lymph # (Auto) 2.7 10^3/uL (0.8-4.8) 10/27/22 04:58 [place] # (Auto) 0.5 10^3/uL (0.2-0.9) 10/27/22 04:58 Eos # (Auto) 0.2 10^3/uL (0.0-0.8) 10/27/22 04:58 Baso # (Auto) 0.1 10^3/uL (0.0-0.1) 10/27/22 04:58 Nucleated RBC % (auto) 0 % 10/27/22 04:58 Nucleated RBCs # 0.0 /100WBC 10/27/22 04:58 Sodium 141 mmol/L (136-145) 10/27/22 04:58 Potassium 4.5 mmol/L (3.5-5.1) 10/27/22 04:58 Chloride 104 mmol/L (98-107) 10/27/22 04:58 Carbon Dioxide 32 mmol/L (22-29) H 10/27/22 04:58 Anion Gap 9.5 (5-19) 10/27/22 04:58 BUN 14 mg/dL (6-20) 10/27/22 04:58 Creatinine 0.9 mg/dL (0.5-0.9) 10/27/22 04:58 GFR Calculation 64.3 mL/min (90-130) L 10/27/22 04:58 Glucose 80 mg/dL (65-115) 10/27/22 04:58 Calculated Osmolality 291 mOsm/kg (285-295) 10/27/22 04:58 Lactic Acid 1.2 mmol/L (0.5-2.2) 10/25/22 12:09 Calcium 8.8 mg/dL (8.5-10.5) 10/27/22 04:58 Phosphorus 3.9 mg/dL (2.5-4.5) 10/26/22 04:47 Magnesium 2.3 mg/dL (1.7-2.3) 10/26/22 04:47 Total Bilirubin 0.3 mg/dL (0.15-1.2) 10/27/22 04:58 AST 32 U/L (0-32) 10/27/22 04:58 ALT 71 U/L (0-33) H 10/27/22 04:58 Alkaline Phosphatase 137 U/L (35-105) H 10/27/22 04:58 Troponin T Baseline 6 ng/L (0-10) 10/25/22 10:15 Troponin T 120 Minute 6.00 ng/L (0-10) 10/25/22 12:09 Delta Troponin T 0 ABS# (0-10) 10/25/22 12:09 Troponin T Hi Sens 6Hr 6.00 ng/L (0-10) 10/25/22 16:36 Troponin T Hi Sens 6Hr Delta 0 ng/L (0-12) 10/25/22 16:36 NT-Pro-B Natriuret Pep 284 pg/mL (0-125) H 10/25/22 10:15 Total Protein 5.8 g/dL (6.6-8.7) L 10/27/22 04:58 Albumin 3.9 g/dL (3.5-5.2) 10/27/22 04:58 Globulin 1.9 g/dL (1.3-4.6) 10/27/22 04:58 Lipase 28 U/L (13-60) 10/25/22 10:15 TSH 2.08 uIU/mL (0.27-4.20) 10/25/22 16:36 Urine Color Yellow (Yellow) 10/25/22 11:57 Urine Appearance Clear (CLEAR) 10/25/22 11:57 Urine pH 8 (5-7) H 10/25/22 11:57 Ur Specific [place] 1.010 (1.005-1.030) 10/25/22 11:57 Urine Protein Neg (Negative) 10/25/22 11:57 Urine Glucose (UA) Norm (Normal) 10/25/22 11:57 Urine Ketones Negative (Negative) 10/25/22 11:57 Urine Blood Neg (Negative) 10/25/22 11:57 Urine Nitrate Negative (Negative) 10/25/22 11:57 Urine Bilirubin Neg (Negative) 10/25/22 11:57 Prot Sulfosalicylic Acd Negative (Negative) 10/25/22 11:57 Urine Urobilinogen Norm mg/dL (Negative) 10/25/22 11:57 Ur Leukocyte Esterase Negative (Negative) 10/25/22 11:57 Urine Opiates Screen Negative ng/mL (Negative) 10/25/22 11:57 Ur Barbiturates Screen Negative ng/mL (Negative) 10/25/22 11:57 Ur Phencyclidine Scrn Negative ng/mL (Negative) 10/25/22 11:57 Ur Amphetamines Screen Negative ng/mL (Negative) 10/25/22 11:57 U Benzodiazepines Scrn Negative ng/mL (Negative) 10/25/22 11:57 Urine Cocaine Screen Negative ng/mL (Negative) 10/25/22 11:57 U Marijuana (THC) Screen Negative ng/mL (Negative) 10/25/22 11:57 SARS-CoV-2 Ag (Rapid) negative (Negative) 10/26/22 15:28 Vitals Last Vital Signs Temp 97.5 F L 10/27/22 07:49 Pulse 65 10/27/22 07:49 Resp 18 10/27/22 10:07 BP 113/67 10/27/22 07:49 Pulse Ox 94 10/27/22 10:07 O2 Del Method Room Air 10/27/22 07:49 Discharge Plan Discharge Patient Disposition: Home Condition: Stable Prescriptions: New atorvastatin 20 mg tablet 20 mg PO DAILY 30 Days Qty: 30 0RF Continued clopidogrel 75 mg tablet 75 mg PO QAM docusate sodium 100 mg capsule See Rx Instructions .ROUTE .COMPLEX PRN (Reason: Constipation) Rx Instructions: 200mg po at noon and 100mg po bedtime hydrocodone-acetaminophen 7.5-325 mg tablet 1 tab PO BID lamotrigine [Lamictal] 200 mg tablet 200 mg PO BID Qty: 60 2RF ziprasidone HCl [Geodon] 40 mg capsule 40 mg PO BID Qty: 60 2RF Rx Instructions: give with food (meal/snack) trazodone 100 mg tablet 400 mg PO BEDTIME PRN (Reason: insomnia) Qty: 120 2RF prazosin 5 mg capsule 20 mg PO BEDTIME Qty: 120 2RF mupirocin 2 % ointment 1 applic topical BID PRN (Reason: Rash) ondansetron HCl 4 mg tablet See Rx Instructions .ROUTE .COMPLEX Qty: 20 0RF Dose Instruction: TAKE 1 TABLET BY MOUTH EVERY 6 HOURS NEEDED FOR NAUSEA AND VOMITING Rx Instructions: TAKE 1 TABLET BY MOUTH EVERY 6 HOURS NEEDED FOR NAUSEA AND VOMITING tizanidine 4 mg tablet 4 mg PO BID PRN (Reason: muscle spasticity) Qty: 60 5RF pantoprazole [Protonix] 40 mg tablet,delayed release (DR/EC) 40 mg PO BID Qty: 60 3RF gabapentin 100 mg capsule 100 mg PO TID Qty: 90 1RF naloxegol 25 mg tablet 25 mg PO QAM Qty: 30 2RF Rx Instructions: must be taken on empty stomach; no food 1 hr after or 2-3 hrs before dose Multivitamin 50 Plus Tablet 1 tab PO DAILY@12 Metamucil 3.4 gram/5.4 gram powder 1 - 2 tbsp PO DAILY PRN (Reason: Constipation) propranolol 10 mg tablet 10 mg PO DAILY acetaminophen 325 mg Tablet 650 mg PO QID PRN (Reason: Pain) Benadryl 25 mg Capsule 50 mg PO TID PRN (Reason: Allergy Symptoms) Discontinued atorvastatin 80 mg tablet 80 mg PO DAILY Discharge Orders: Discharge Order (Routine); Ordered 10/27/22 Ordered By: Debbie Alas Referrals: Giovanni Eugene MD [Primary Care Provider] - 2 weeks Discharge Diet: Cardiac, Low Cholesterol and Low Fat Discharge Activity: Increase activity as tolerated and As per PT/OT instructions Patient Instructions: Opioid Safety Discharge Attestations Time Spent in Discharge Care*: greater than 30 min Quality Metrics Clinical Quality Measures [ No reported AMI, CVA or VTE this stay] Coding Level of Care Code Acute Code for Chg Fwd Diagnoses Syncope R55 Chest pain R07.9 Functional 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 F44.5
[2022-10-27 11:13] LABS: Hepatitis A Antibody IgM Non-Reactive (Nonreactive); Hepatitis B Core AB, Total Non-Reactive (Nonreactive); Hepatitis B Surface AB < 3.5 (11.5-1000); Hepatitis B Surface Antigen Non-Reactive (Nonreactive); Hepatitis C Virus Antibody Non-Reactive (Nonreactive)
== END 2022-10-27 12:15 | disposition home or self-care (01) ==
LOC: ER 16:28 → MEDSURG 19:24
PROVIDERS: Admitting Provider Family Medicine; Emergency Provider Emergency Medicine; PCP Family Medicine Adult Medicine; Visit Provider Student in an Organized Health Care Education/Training Program
DX: R55 Syncope and collapse (principal); R07.9 Chest pain, unspecified; F44.5 Conversion disorder with seizures or convulsions; Z91.81 History of falling; F60.3 Borderline personality disorder; F41.9 Anxiety disorder, unspecified; F32.A Depression, unspecified; F43.10 Post-traumatic stress disorder, unspecified; I44.0 Atrioventricular block, first degree; Z87.891 Personal history of nicotine dependence; I69.951 Hemiplegia and hemiparesis following unspecified cerebrovascular disease affecting right dominant side; G47.33 Obstructive sleep apnea (adult) (pediatric); I12.9 Hypertensive chronic kidney disease with stage 1 through stage 4 chronic kidney disease, or unspecified chronic kidney disease; N18.2 Chronic kidney disease, stage 2 (mild)
CPT/HCPCS: 36415; 70450; 71045; 72125; 80053; 80306; 81003; 83605; 83690; 83735; 83880; 84100; 84443; 84484; 85025; 86705; 86706; 86709; 86803; 87340; 87426; 93005; 96372; 96374; 96375; 96376; 97110; 97161; 97165; 97530; 99285; G0378; J1650; J2270; J2405; J7030

== ENCOUNTER 2022-11-02 15:22 | Emergency (ER) | payer MEDICARE, MEDICAID, SELFPAY ==
[2022-10-22 09:38] VITALS: BP 145/83; BMI 31.8
[2022-11-02 15:23] VITALS: BMI 31.7
[2022-11-02 15:26] VITALS: BP 163/99; PULSE 69; RESP 16; TEMP 36.9; O2SAT 95
--- NOTE | 2022-11-02 15:31 | CTR_ITS ---
PROCEDURE INFORMATION: Exam: CT Head Without Contrast Exam date and time: 11/02/2022 5:25 PM Age: 57 years old Clinical indication: Injury or trauma; Fall; Blunt trauma (contusions or hematomas) TECHNIQUE: Imaging protocol: Computed tomography of the head without contrast. Radiation optimization: All CT scans at this facility use at least one of these dose optimization techniques: automated exposure control; mA and/or kV adjustment per patient size (includes targeted exams where dose is matched to clinical indication); or iterative reconstruction. REPORTING DATA: Count of CT and Cardiac NM exams in prior 12 months: This patient has received 7 known CTs and 0 known cardiac nuclear medicine studies in the 12 months prior to the current study. COMPARISON: CT head wo con* [id number] 10/25/2022 11:06 AM RADIATION DOSE METRICS: Total DLP (mGy-cm): 1041 FINDINGS: Brain: No hemorrhage. No edema. Mild diffuse cerebral atrophy and sequela of chronic small vessel ischemic disease. No mass effect. Cerebral ventricles: No ventriculomegaly. Paranasal sinuses: Visualized sinuses are unremarkable. No fluid levels. Mastoid air cells: Visualized mastoid air cells are well aerated. Bones/joints: Unremarkable. No acute fracture. Soft tissues: Unremarkable. CT/CT head wo con* [id number] IMPRESSION: No acute intracranial abnormality.
--- NOTE | 2022-11-02 15:32 | XRR_ITS ---
PROCEDURE INFORMATION: Exam: XR Cervical Spine Exam date and time: 11/02/2022 3:55 PM Age: 57 years old Clinical indication: Injury or trauma; Fall TECHNIQUE: Imaging protocol: Radiologic exam of the cervical spine. Views: 4 or 5 views. COMPARISON: CT cervical spin wo con* [id number] 10/25/2022 11:06 AM FINDINGS: Bones/joints: No acute fracture. Normal alignment. Soft tissues: Unremarkable. XR/XR cervical spine 4-5V [id number] IMPRESSION: No acute findings.
[2022-11-02 16:14] LABS: Basophils # 0.1 10^3/uL (0.0-0.1); Basophils % 0.7 %; Eosinophils # 0.2 10^3/uL (0.0-0.8); Eosinophils % 2.4 %; Hematocrit 36.2 % (36-47); Lymphocytes # 2.3 10^3/uL (0.8-4.8); Lymphocytes % 28.9 %; Mean Corpuscular HGB Conc 32.9 g/dL (30-55); Mean Corpuscular Hemoglobin 28.7 pg (27-33); Mean Corpuscular Volume 87.4 fl (85-98); Mean Platelet Volume 10.6 fL (7.4-10.4); Monocytes # 0.5 10^3/uL (0.2-0.9); Monocytes % 6.7 %; Neutrophils % 60.9 %; Nucleated Red Blood Cells % 0 %; Platelet Count 239 10^3/cmm (157-399); Red Blood Count 4.14 10^6/uL (3.85-5.65); Red Cell Distribution Width 12.3 % (12.1-15.1); White Blood Count 8.04 10^3/uL (3.29-11.43)
--- NOTE | 2022-11-02 16:18 | ECG_ITS ---
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 Measurements Intervals [place] Rate: 68 P: 48 OK: 224 QRS: 20 QRSD: 88 T: 31 QT: 370 QTc: 394 Interpretive Statements SINUS RHYTHM WITH FIRST DEGREE AV BLOCK Compared to ECG 10/25/2022 23:31:14 First degree AV block now present Electronically Signed On 11-03-2022 9:47:51 CDT by Albin Campbell M.D. [email or web address]
--- NOTE | 2022-11-02 16:24 | W.ED.SYNCOPE ---
Documented by User: Carmine Estrella DO 11/03/22 06:09 HPI - Syncope General: Chief Complaint: Syncope Stated Complaint: syncope Time Seen by Provider: 11/02/22 15:29 Source: patient Mode of arrival: EMS History of Present Illness: 57-year-old female presents emergency room after a syncopal episode at home. She has had multiple episodes of these over the last few months she collapsed she hit her head on a tote when she went down she has a bit of a headache she rates her headache as 7 out of 10. She has had multiple evaluations for this including by neurology. She has been admitted for the past she is also seeing cardiology. She frequently feels little lightheaded before these episodes she will pass out, back to consciousness he is able to remember what happened does not sound like she has a postictal state she is not having any chest pain. She is concerned she may be having strokes or that she has MS. Has not been identified in by neurology consultation to this point. She is on clopidogrel. MD complaint: collapsed Onset (ago): minute(s) Prodromal symptoms: lightheaded Witnessed: Yes - by Bystander Context: standing up Injuries sustained associated with event: none Associated symptoms: Reports headache(s); Deny abdominal pain, chest pain, fever(s), lightheadedness, nausea, short of breath, vertigo or weakness Treatments prior to arrival: none Review of Systems Const: Reports: malaise; Denies: fever(s) or chills Card: Denies: chest pain or lightheadedness Resp: Denies: dyspnea, productive cough or non-productive cough GI: Denies: abdominal pain or nausea : Denies: flank pain, difficulty voiding, dysuria, urinary frequency or urinary urgency Musc: Denies: neck pain or back pain Skin/Breast: Denies: rash or pruritus Neuro: Reports: headache(s); Denies: vertigo PFSH ED PFSH: Medical History CAD (coronary artery disease) Divina rash of groin Cervical disc disorder of mid-cervical region Chronic pain disorder CKD (chronic kidney disease), stage II Constipation DDD (degenerative disc disease), lumbar Demyelinating changes in 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 Generalized anxiety disorder HTN (hypertension) Hx of deep venous thrombosis Left acute arterial ischemic stroke, MCA (middle cerebral artery) Lip lesion Major depressive disorder, recurrent severe without psychotic features Night terror disorder Onychodystrophy CONRAD (obstructive sleep apnea) Pre-diabetes Psychiatric care PVD (peripheral vascular disease) Shoulder pain, bilateral Syncope and collapse Therapeutic opioid induced constipation Transient atrial fibrillation Yeast cells and fungal elements present on diagnostic testing Surgical History History of facial surgery 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 S/P tubal ligation Family History Other Cancer Diabetes Hypertension Social History Smoking and tobacco status: former smoker Quit status (tobacco): has quit using tobacco Year quit tobacco: 2014 Second hand smoke exposure: No Smoking risk assessment/counseling performed?: No Alcohol intake: former Year of sobriety/quit date alcohol: 2002 Desire information about alcohol rehabilitation?: No Counseling given: No Substance/Drug Use: never Desire information about substance/drug rehabilitation?: No Counseling given: No Adopted: No Caregiver/support person: Yes (Nurse Camilla and aide helps with cooking, shopping and housework) Lives independently: No Household members: spouse Housing: Apartment Marital status: Marital status details: 6 years Number of children: 1 Number of grandchildren: 3 Highest education level completed: Associate Degree: Occupational, Technical, Vocational Program Education level details: Agriculture and business service: No Current occupational status: disabled Pets and animals: Yes Pets & animals: dog(s) Leisure activites: reading and other Leisure activities details: quilting Sexually active: Yes Do you think of yourself as: Straight/Heterosexual Current gender identity: Female Elenita/Mormonism: Other Special elenita needs: No Agree to transfusion: Yes (10.20.22) Financial difficulty paying for basics: Hard Female Reproductive History: Para: 1 Spontaneous abortions: Yes (10) Physical Exam Const: GENERAL APPEARANCE: cooperative and comfortable ORIENTATION/CONSCIOUSNESS: Yes awake, Yes oriented to person, Yes oriented to place and Yes oriented to time HENMT: COMMON NORMALS: normocephalic, atraumatic and hearing grossly normal bilaterally HEAD & SCALP: normocephalic and atraumatic Resp: COMMON NORMALS: normal respiratory effort, No retractions, No use of accessory muscles and clear to auscultation bilaterally AUSCULTATION: clear to auscultation bilaterally Cardio: COMMON NORMALS: regular rate, regular rhythm and No murmurs present (Cardio) RATE: regular rate RHYTHM: regular rhythm GI: COMMON NORMALS: Soft to palpation and No hepatosplenomegaly present AUSCULTATION: Yes normoactive bowel sounds PALPATION: Yes Soft to palpation, No Tenderness to palpation present (GI), No Guarding due to palpation present (GI) and Yes No hepatosplenomegaly present Extremity: COMMON NORMALS: normal to inspection, capillary refill normal, no clubbing, cyanosis or edema, no calf tenderness and no pedal edema Neuro: SENSORIUM/ORIENTATION: Yes oriented to person, Yes oriented to place and Yes oriented to time Skin: COMMON NORMALS: no rashes or lesions noted GENERAL SKIN EXAM: no rashes or lesions noted Course Vital Signs: Vital signs: Vital Signs Temperature 98.5 F 11/02/22 20:58 Pulse Rate 69 11/02/22 20:58 Respiratory Rate 16 11/02/22 20:58 Blood Pressure 140/73 11/02/22 20:58 Pulse Oximetry 95 11/02/22 20:58 Oxygen Delivery Me thod Room Air 11/02/22 15:26 MDM - Syncope Medical Decision Making Care signed out to Dr. emerson at change of shift. See final notes for diagnosis and disposition. Patient presents to the ER for passing out. Patient's states she was just a near collapse and hit her head. Patient was worked up with lab work C-spine x-ray and head CT. All of which were essentially benign. Patient be given a diagnosis of syncope and instructed to follow-up with her PCP in 7 days or sooner as needed. Lab Data 11/02/22 15:55 11/02/22 15:[address] 11/02/22 15:31 IMPRESSION: No acute intracranial abnormality. Cervical Spine X-Ray 11/02/22 15:32 IMPRESSION: No acute findings. Laboratory Results WBC 8.04 10^3/uL (3.29-11.43) 11/02/22 15:55 RBC 4.14 10^6/uL (3.85-5.65) 11/02/22 15:55 Hgb 11.90 g/dL (11.27-16.99) 11/02/22 15:55 Hct 36.2 % (36-47) 11/02/22 15:55 MCV 87.4 fl (85-98) 11/02/22 15:55 MCH 28.7 pg (27-33) 11/02/22 15:55 MCHC 32.9 g/dL (30-55) 11/02/22 15:55 RDW 12.3 % (12.1-15.1) 11/02/22 15:55 Plt Count 239 10^3/cmm (157-399) 11/02/22 15:55 MPV 10.6 fL (7.4-10.4) H 11/02/22 15:55 Neut % (Auto) 60.9 % 11/02/22 15:55 Lymph % (Auto) 28.9 % 11/02/22 15:55 [place] % (Auto) 6.7 % 11/02/22 15:55 Eos % (Auto) 2.4 % 11/02/22 15:55 Baso % (Auto) 0.7 % 11/02/22 15:55 Neut # (Auto) 4.90 10^3/uL (1.8-7.7) 11/02/22 15:55 Lymph # (Auto) 2.3 10^3/uL (0.8-4.8) 11/02/22 15:55 [place] # (Auto) 0.5 10^3/uL (0.2-0.9) 11/02/22 15:55 Eos # (Auto) 0.2 10^3/uL (0.0-0.8) 11/02/22 15:55 Baso # (Auto) 0.1 10^3/uL (0.0-0.1) 11/02/22 15:55 Nucleated RBC % (auto) 0 % 11/02/22 15:55 Nucleated RBCs # 0.0 /100WBC 11/02/22 15:55 Sodium 141 mmol/L (136-145) 11/02/22 15:55 Potassium 4.0 mmol/L (3.5-5.1) 11/02/22 15:55 Chloride 100 mmol/L (98-107) 11/02/22 15:55 Carbon Dioxide 31 mmol/L (22-29) H 11/02/22 15:55 Anion Gap 14.0 (5-19) 11/02/22 15:55 BUN 12 mg/dL (6-20) 11/02/22 15:55 Creatinine 0.8 mg/dL (0.5-0.9) 11/02/22 15:55 GFR Calculation 73.7 mL/min (90-130) L 11/02/22 15:55 Glucose 77 mg/dL (65-115) 11/02/22 15:55 Calculated Osmolality 291 mOsm/kg (285-295) 11/02/22 15:55 Calcium 9.0 mg/dL (8.5-10.5) 11/02/22 15:55 Total Bilirubin 0.3 mg/dL (0.15-1.2) 11/02/22 15:55 AST 23 U/L (0-32) 11/02/22 15:55 ALT 42 U/L (0-33) H 11/02/22 15:55 Alkaline Phosphatase 114 U/L (35-105) H 11/02/22 15:55 Total Protein 6.3 g/dL (6.6-8.7) L 11/02/22 15:55 Albumin 4.3 g/dL (3.5-5.2) 11/02/22 15:55 Globulin 2.0 g/dL (1.3-4.6) 11/02/22 15:55 Discharge Plan Discharge Patient Disposition: Home Clinical Impression: Syncope Qualifiers: Syncope type: unspecified Qualified Code(s): R55 - Syncope and collapse Condition: Stable Prescriptions: No Action clopidogrel 75 mg tablet 75 mg PO QAM docusate sodium 100 mg capsule See Rx Instructions .ROUTE .COMPLEX PRN (Reason: Constipation) Rx Instructions: 200mg po at noon and 100mg po bedtime hydrocodone-acetaminophen 7.5-325 mg tablet 1 tab PO BID lamotrigine [Lamictal] 200 mg tablet 200 mg PO BID Qty: 60 2RF ziprasidone HCl [Geodon] 40 mg capsule 40 mg PO BID Qty: 60 2RF Rx Instructions: give with food (meal/snack) trazodone 100 mg tablet 400 mg PO BEDTIME PRN (Reason: insomnia) Qty: 120 2RF prazosin 5 mg capsule 20 mg PO BEDTIME Qty: 120 2RF mupirocin 2 % ointment 1 applic topical BID PRN (Reason: Rash) ondansetron HCl 4 mg tablet See Rx Instructions .ROUTE .COMPLEX Qty: 20 0RF Dose Instruction: TAKE 1 TABLET BY MOUTH EVERY 6 HOURS NEEDED FOR NAUSEA AND VOMITING Rx Instructions: TAKE 1 TABLET BY MOUTH EVERY 6 HOURS NEEDED FOR NAUSEA AND VOMITING tizanidine 4 mg tablet 4 mg PO BID PRN (Reason: muscle spasticity) Qty: 60 5RF pantoprazole [Protonix] 40 mg tablet,delayed release (DR/EC) 40 mg PO BID Qty: 60 3RF gabapentin 100 mg capsule 100 mg PO TID Qty: 90 1RF naloxegol 25 mg tablet 25 mg PO QAM Qty: 30 2RF Rx Instructions: must be taken on empty stomach; no food 1 hr after or 2-3 hrs before dose Multivitamin 50 Plus Tablet 1 tab PO DAILY@12 Metamucil 3.4 gram/5.4 gram powder 1 - 2 tbsp PO DAILY PRN (Reason: Constipation) propranolol 10 mg tablet 10 mg PO DAILY acetaminophen 325 mg Tablet 650 mg PO QID PRN (Reason: Pain) Benadryl 25 mg Capsule 50 mg PO TID PRN (Reason: Allergy Symptoms) atorvastatin 20 mg tablet 20 mg PO DAILY 30 Days Qty: 30 0RF Discharge Orders: Discharge ED (Routine); Ordered 11/02/22 Ordered By: Lb Clayton Referrals: Giovanni uEgene MD [Primary Care Provider] - Patient Instructions: Syncope Activity Restrictions/Additional Instructions: Your lab work or imaging in the ER did not reveal any acute causes of your syncope. Please follow-up with your family practice physician in the next 7 days or sooner as needed for further evaluation and testing. 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 Generalized anxiety disorder HTN (hypertension) Hx of deep venous thrombosis Left acute arterial ischemic stroke, MCA (middle cerebral artery) Lip lesion Major depressive disorder, recurrent severe without psychotic features Night terror disorder Onychodystrophy CONRAD (obstructive sleep apnea) Pre-diabetes Psychiatric care PVD (peripheral vascular disease) Shoulder pain, bilateral Syncope and collapse Therapeutic opioid induced constipation Transient atrial fibrillation Yeast cells and fungal elements present on diagnostic testing Surgical History History of facial surgery 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 S/P tubal ligation Family History Other Cancer Diabetes Hypertension Social History Smoking and tobacco status: former smoker Quit status (tobacco): has quit using tobacco Year quit tobacco: 2014 Second hand smoke exposure: No Smoking risk assessment/counseling performed?: No Alcohol intake: former Year of sobriety/quit date alcohol: 2002 Desire information about alcohol rehabilitation?: No Counseling given: No Substance/Drug Use: never Desire information about substance/drug rehabilitation?: No Counseling given: No Adopted: No Caregiver/support person: Yes (Nurse Camilla and aide helps with cooking, shopping and housework) Lives independently: No Household members: spouse Housing: Apartment Marital status: Marital status details: 6 years Number of children: 1 Number of grandchildren: 3 Highest education level completed: Associate Degree: Occupational, Technical, Vocational Program Education level details: Agriculture and business service: No Current occupational status: disabled Pets and animals: Yes Pets & animals: dog(s) Leisure activites: reading and other Leisure activities details: quilting Sexually active: Yes Do you think of yourself as: Straight/Heterosexual Current gender identity: Female Elenita/Mormonism: Other Special elenita needs: No Agree to transfusion: Yes (10.20.22) Financial difficulty paying for basics: Hard Course Vital Signs: Vital signs: Vital Signs Temperature 98.5 F 11/02/22 20:58 Pulse Rate 69 11/02/22 20:58 Respiratory Rate 16 11/02/22 20:58 Blood Pressure 140/73 11/02/22 20:58 Pulse Oximetry 95 11/02/22 20:58 Oxygen Delivery Me thod Room Air 11/02/22 15:26 MDM - Syncope Medical Decision Making Patient presents to the ER for passing out. Patient's states she was just a near collapse and hit her head. Patient was worked up with lab work C-spine x-ray and head CT. All of which were essentially benign. Patient be given a diagnosis of syncope and instructed to follow-up with her PCP in 7 days or sooner as needed. Differential Diagnosis Likely syncope due to orthostatic hypotension and vasovagal syncope; Unlikely complete atrioventricular block, subarachnoid hemorrhage, pulmonary embolism or dehydration Medical Records I reviewed the patient's medical records. Lab Data I reviewed the patient's lab results. 11/02/22 15:55 11/02/22 15:[address] 11/02/22 15:31 IMPRESSION: No acute intracranial abnormality. Cervical Spine X-Ray 11/02/22 15:32 IMPRESSION: No acute findings. Laboratory Results WBC 8.04 10^3/uL (3.29-11.43) 11/02/22 15:55 RBC 4.14 10^6/uL (3.85-5.65) 11/02/22 15:55 Hgb 11.90 g/dL (11.27-16.99) 11/02/22 15:55 Hct 36.2 % (36-47) 11/02/22 15:55 MCV 87.4 fl (85-98) 11/02/22 15:55 MCH 28.7 pg (27-33) 11/02/22 15:55 MCHC 32.9 g/dL (30-55) 11/02/22 15:55 RDW 12.3 % (12.1-15.1) 11/02/22 15:55 Plt Count 239 10^3/cmm (157-399) 11/02/22 15:55 MPV 10.6 fL (7.4-10.4) H 11/02/22 15:55 Neut % (Auto) 60.9 % 11/02/22 15:55 Lymph % (Auto) 28.9 % 11/02/22 15:55 [place] % (Auto) 6.7 % 11/02/22 15:55 Eos % (Auto) 2.4 % 11/02/22 15:55 Baso % (Auto) 0.7 % 11/02/22 15:55 Neut # (Auto) 4.90 10^3/uL (1.8-7.7) 11/02/22 15:55 Lymph # (Auto) 2.3 10^3/uL (0.8-4.8) 11/02/22 15:55 [place] # (Auto) 0.5 10^3/uL (0.2-0.9) 11/02/22 15:55 Eos # (Auto) 0.2 10^3/uL (0.0-0.8) 11/02/22 15:55 Baso # (Auto) 0.1 10^3/uL (0.0-0.1) 11/02/22 15:55 Nucleated RBC % (auto) 0 % 11/02/22 15:55 Nucleated RBCs # 0.0 /100WBC 11/02/22 15:55 Sodium 141 mmol/L (136-145) 11/02/22 15:55 Potassium 4.0 mmol/L (3.5-5.1) 11/02/22 15:55 Chloride 100 mmol/L (98-107) 11/02/22 15:55 Carbon Dioxide 31 mmol/L (22-29) H 11/02/22 15:55 Anion Gap 14.0 (5-19) 11/02/22 15:55 BUN 12 mg/dL (6-20) 11/02/22 15:55 Creatinine 0.8 mg/dL (0.5-0.9) 11/02/22 15:55 GFR Calculation 73.7 mL/min (90-130) L 11/02/22 15:55 Glucose 77 mg/dL (65-115) 11/02/22 15:55 Calculated Osmolality 291 mOsm/kg (285-295) 11/02/22 15:55 Calcium 9.0 mg/dL (8.5-10.5) 11/02/22 15:55 Total Bilirubin 0.3 mg/dL (0.15-1.2) 11/02/22 15:55 AST 23 U/L (0-32) 11/02/22 15:55 ALT 42 U/L (0-33) H 11/02/22 15:55 Alkaline Phosphatase 114 U/L (35-105) H 11/02/22 15:55 Total Protein 6.3 g/dL (6.6-8.7) L 11/02/22 15:55 Albumin 4.3 g/dL (3.5-5.2) 11/02/22 15:55 Globulin 2.0 g/dL (1.3-4.6) 11/02/22 15:55 Discharge Plan Discharge Patient Disposition: Home Clinical Impression: Syncope Qualifiers: Syncope type: unspecified Qualified Code(s): R55 - Syncope and collapse Condition: Stable Prescriptions: No Action clopidogrel 75 mg tablet 75 mg PO QAM docusate sodium 100 mg capsule See Rx Instructions .ROUTE .COMPLEX PRN (Reason: Constipation) Rx Instructions: 200mg po at noon and 100mg po bedtime hydrocodone-acetaminophen 7.5-325 mg tablet 1 tab PO BID lamotrigine [Lamictal] 200 mg tablet 200 mg PO BID Qty: 60 2RF ziprasidone HCl [Geodon] 40 mg capsule 40 mg PO BID Qty: 60 2RF Rx Instructions: give with food (meal/snack) trazodone 100 mg tablet 400 mg PO BEDTIME PRN (Reason: insomnia) Qty: 120 2RF prazosin 5 mg capsule 20 mg PO BEDTIME Qty: 120 2RF mupirocin 2 % ointment 1 applic topical BID PRN (Reason: Rash) ondansetron HCl 4 mg tablet See Rx Instructions .ROUTE .COMPLEX Qty: 20 0RF Dose Instruction: TAKE 1 TABLET BY MOUTH EVERY 6 HOURS NEEDED FOR NAUSEA AND VOMITING Rx Instructions: TAKE 1 TABLET BY MOUTH EVERY 6 HOURS NEEDED FOR NAUSEA AND VOMITING tizanidine 4 mg tablet 4 mg PO BID PRN (Reason: muscle spasticity) Qty: 60 5RF pantoprazole [Protonix] 40 mg tablet,delayed release (DR/EC) 40 mg PO BID Qty: 60 3RF gabapentin 100 mg capsule 100 mg PO TID Qty: 90 1RF naloxegol 25 mg tablet 25 mg PO QAM Qty: 30 2RF Rx Instructions: must be taken on empty stomach; no food 1 hr after or 2-3 hrs before dose Multivitamin 50 Plus Tablet 1 tab PO DAILY@12 Metamucil 3.4 gram/5.4 gram powder 1 - 2 tbsp PO DAILY PRN (Reason: Constipation) propranolol 10 mg tablet 10 mg PO DAILY acetaminophen 325 mg Tablet 650 mg PO QID PRN (Reason: Pain) Benadryl 25 mg Capsule 50 mg PO TID PRN (Reason: Allergy Symptoms) atorvastatin 20 mg tablet 20 mg PO DAILY 30 Days Qty: 30 0RF Discharge Orders: Discharge ED (Routine); Ordered 11/02/22 Ordered By: Lb Clayton Referrals: Giovanni Eugene MD [Primary Care Provider] - Patient Instructions: Syncope Activity Restrictions/Additional Instructions: Your lab work or imaging in the ER did not reveal any acute causes of your syncope. Please follow-up with your family practice physician in the next 7 days or sooner as needed for further evaluation and testing. Coding Level of Care Code ED Commutator Undercutter for Kun Saba
[2022-11-02 16:33] LABS: Alanine Aminotransferase 42 U/L (0-33); Albumin Level 4.3 g/dL (3.5-5.2); Alkaline Phosphatase 114 U/L (35-105); Aspartate Amino Transferase 23 U/L (0-32); Blood Urea Nitrogen 12 mg/dL (6-20); Carbon Dioxide 31 mmol/L (22-29); Chloride 100 mmol/L (98-107); Glomerular Filtration Rate 73.7 mL/min (90-130); Glucose 77 mg/dL (65-115); Osmolality Calculated 291 mOsm/kg (285-295); Sodium 141 mmol/L (136-145); Total Bilirubin 0.3 mg/dL (0.15-1.2); Total Protein 6.3 g/dL (6.6-8.7)
[2022-11-02] MEDS: acetaminophen 500 mg Tablet 1000 MG PO (16:51)
[2022-11-02 18:09] VITALS: BP 146/88; BP 148/92; PULSE 72; PULSE 76
[2022-11-02 19:05] VITALS: BP 147/68; PULSE 64; RESP 16; O2SAT 93
[2022-11-02 20:26] VITALS: BP 140/73; PULSE 69; RESP 16; O2SAT 95
[2022-11-02 20:58] VITALS: BP 140/73; PULSE 69; RESP 16; TEMP 36.9; O2SAT 95
== END 2022-11-02 21:00 | disposition home or self-care (01) ==
PROVIDERS: Emergency Provider Family Medicine; PCP Family Medicine Adult Medicine
DX: R55 Syncope and collapse (principal); Z79.02 Long term (current) use of antithrombotics/antiplatelets; Z87.891 Personal history of nicotine dependence; I25.10 Atherosclerotic heart disease of native coronary artery without angina pectoris; I12.9 Hypertensive chronic kidney disease with stage 1 through stage 4 chronic kidney disease, or unspecified chronic kidney disease; N18.2 Chronic kidney disease, stage 2 (mild)
CPT/HCPCS: 70450; 72050; 80053; 85025; 93005; 99285

== ENCOUNTER 2022-11-04 09:29 | Outpatient (CLI) | payer MEDICARE, MEDICAID, SELFPAY ==
[2022-10-22 09:38] VITALS: BP 145/83; BMI 31.8
--- NOTE | 2022-11-04 10:15 | US_ITS ---
WS: [id number] RIGHT UPPER QUADRANT ULTRASOUND HISTORY: transaminitis COMPARISON: None available. Liver: 16.0 cm in length. Normal size liver and echogenicity. No bile duct dilatation or mass. Portal Vein: Normal hepatopetal flow with monophasic waveform. Gallbladder: Status post cholecystectomy. CBD: 0.2 cm Pancreas: Portions of the head and tail are obscured. The body is negative. Right kidney: 9.8 cm in length. Normal size and echogenicity. No hydronephrosis or mass. Aorta and IVC: Unremarkable abdominal aorta and IVC. No ascites. IMPRESSION: 1. Prior cholecystectomy. 2. No bile duct dilatation.
== END 2022-11-04 09:30 | disposition home or self-care (01) ==
LOC: RAD 09:30
PROVIDERS: PCP Family Medicine Adult Medicine; Visit Provider Student in an Organized Health Care Education/Training Program
DX: R74.01 Elevation of levels of liver transaminase levels (principal)
CPT/HCPCS: 76705

== ENCOUNTER → 2022-11-25 07:58 | Outpatient (BNVA) | payer MEDICARE, MEDICAID, SELFPAY ==
[2022-10-22 09:38] VITALS: BP 145/83; BMI 31.8
== END ==
PROVIDERS: PCP Family Medicine Adult Medicine; Visit Provider Podiatrist Foot & Ankle Surgery
DX: L60.8 Other nail disorders (principal); L60.3 Nail dystrophy; R94.4 Abnormal results of kidney function studies; Z86.718 Personal history of other venous thrombosis and embolism; N18.2 Chronic kidney disease, stage 2 (mild); I73.9 Peripheral vascular disease, unspecified
CPT/HCPCS: 11721

== ENCOUNTER → 2022-12-16 13:40 | Outpatient (BNVA) | payer MEDICARE, MEDICAID, SELFPAY ==
[2022-10-22 09:38] VITALS: BP 145/83; BMI 31.8
== END ==
PROVIDERS: PCP Family Medicine Adult Medicine; Visit Provider Specialist
DX: F44.5 Conversion disorder with seizures or convulsions (principal); F60.3 Borderline personality disorder; Z96.89 Presence of other specified functional implants
CPT/HCPCS: 99213

== ENCOUNTER → 2023-01-08 08:28 | Outpatient (BNVA) | payer MEDICAID, SELFPAY ==
[2022-10-22 09:38] VITALS: BP 145/83; BMI 31.8
== END ==
PROVIDERS: PCP Family Medicine Adult Medicine; Visit Provider Specialist
DX: F44.5 Conversion disorder with seizures or convulsions (principal); R55 Syncope and collapse; F60.3 Borderline personality disorder
CPT/HCPCS: 95816

== ENCOUNTER → 2023-03-01 09:40 | Outpatient (BNVA) | payer MEDICARE, MEDICAID, SELFPAY ==
[2022-10-22 09:38] VITALS: BP 145/83; BMI 31.8
== END ==
PROVIDERS: PCP Family Medicine Adult Medicine; Visit Provider Podiatrist Foot & Ankle Surgery
DX: L60.3 Nail dystrophy (principal); R94.4 Abnormal results of kidney function studies; Z86.718 Personal history of other venous thrombosis and embolism; N18.2 Chronic kidney disease, stage 2 (mild); I73.9 Peripheral vascular disease, unspecified
CPT/HCPCS: 11721

== ENCOUNTER → 2023-03-17 11:28 | Outpatient (BNVA) | payer OTHER, MEDICAID, SELFPAY ==
[2022-10-22 09:38] VITALS: BP 145/83; BMI 31.8
== END ==
PROVIDERS: PCP Family Medicine Adult Medicine; Visit Provider Specialist
DX: F44.5 Conversion disorder with seizures or convulsions (principal); R26.89 Other abnormalities of gait and mobility
CPT/HCPCS: 99214

== ENCOUNTER → 2023-03-19 11:06 | Outpatient (BNVA) | payer OTHER, MEDICAID, SELFPAY ==
[2022-10-22 09:38] VITALS: BP 145/83; BMI 31.8
== END ==
PROVIDERS: PCP Family Medicine Adult Medicine; Visit Provider Internal Medicine Cardiovascular Disease
DX: I12.9 Hypertensive chronic kidney disease with stage 1 through stage 4 chronic kidney disease, or unspecified chronic kidney disease (principal); N18.2 Chronic kidney disease, stage 2 (mild); F44.9 Dissociative and conversion disorder, unspecified; R73.03 Prediabetes; Z87.891 Personal history of nicotine dependence
CPT/HCPCS: 99214

== ENCOUNTER 2023-04-06 19:09 | Emergency (ER) | payer MEDICARE, MEDICAID, SELFPAY ==
[2022-10-22 09:38] VITALS: BP 145/83; BMI 31.8
[2023-04-06 19:11] VITALS: BP 159/94; PULSE 79; RESP 18; TEMP 36.6; O2SAT 95; BMI 35.3
--- NOTE | 2023-04-06 19:28 | ECG_ITS ---
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 Measurements Intervals [place] Rate: 75 P: 41 ME: 205 QRS: 21 QRSD: 88 T: 10 QT: 357 QTc: 400 Interpretive Statements SINUS RHYTHM LOW QRS VOLTAGE IN PRECORDIAL LEADS [QRS DEFLECTION < 1.0 mV IN CHEST LEADS] WARNING: DATA QUALITY MAY AFFECT INTERPRETATION Compared to ECG 11/02/2022 16:18:15 Low QRS voltage now present First degree AV block no longer present Electronically Signed On 04-07-2023 15:46:16 CHLORINE CELLS OPERATOR by Albin Campbell M.D. [id number]
--- NOTE | 2023-04-06 19:28 | CTR_ITS ---
PROCEDURE INFORMATION: Exam: CT Head Without Contrast Exam date and time: 04/06/2023 8:21 PM Age: 58 years old Clinical indication: Other: Seizure TECHNIQUE: Imaging protocol: Computed tomography of the head without contrast. Radiation optimization: All CT scans at this facility use at least one of these dose optimization techniques: automated exposure control; mA and/or kV adjustment per patient size (includes targeted exams where dose is matched to clinical indication); or iterative reconstruction. COMPARISON: CT head wo con* [id number] 11/02/2022 5:25 PM RADIATION DOSE METRICS: Total DLP (mGy-cm): 1039 FINDINGS: Brain: No hemorrhage. No edema. Moderate diffuse cerebral atrophy and mild sequela of chronic small vessel ischemic disease. No mass effect. Cerebral ventricles: No ventriculomegaly. Paranasal sinuses: Visualized sinuses are unremarkable. No fluid levels. Mastoid air cells: Visualized mastoid air cells are well aerated. Bones/joints: Unremarkable. No acute fracture. Soft tissues: Unremarkable. CT/CT head wo con* [id number] IMPRESSION: No acute intracranial abnormality.
--- NOTE | 2023-04-06 19:34 | ED_ITS ---
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 States she was around times green party night had an episode states she did hit her head on the table states she feels back to her baseline has some mild fatigue slight headache as well denies any other symptoms at this time. Seizure History: Yes (on seizure meds) Place: Home PFSH ED 2 PFSH: Medical History Weight gain with edema PVD (peripheral vascular disease) Lip lesion CKD (chronic kidney disease), stage II Yeast cells and fungal elements present on diagnostic testing Divina rash of groin Therapeutic opioid induced constipation Chronic pain disorder Pre-diabetes CAD (coronary artery disease) Night terror disorder Psychiatric care Functional 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 Normal EEG with behavior episodes, ~111/ Dr. Villegas Demyelinating changes in brain Onychodystrophy Dissociative and conversion disorder Left acute arterial ischemic stroke, MCA (middle cerebral artery) CONRAD (obstructive sleep apnea) HTN (hypertension) Hx of deep venous thrombosis DDD (degenerative disc disease), lumbar Cervical disc disorder of mid-cervical region Shoulder pain, bilateral Generalized anxiety disorder Major depressive disorder, recurrent severe without psychotic features Surgical History S/P placement of VNS (vagus nerve stimulation) device Turned off as per patient since 2015. 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 S/P hysterectomy S/P tubal ligation S/P cholecystectomy S/P appendectomy Family History Other Cancer Diabetes Hypertension Social History Smoking and tobacco/nicotine status: former use of tobacco/nicotine Quit status (tobacco/nicotine): has quit using Year quit tobacco: 2014 Second hand smoke exposure: No Alcohol intake: former Year of sobriety/quit date alcohol: 2002 Substance/Drug Use: never Adopted: No Caregiver/support person: Yes (Nurse Camilla and aide helps with cooking, shopping and housework) Lives independently: No Household members: spouse Housing: Apartment Marital status: Marital status details: 6 years Number of children: 1 Number of grandchildren: 3 Highest education level completed: Associate Degree: Occupational, Technical, Vocational Program Education level details: Agriculture and business service: No Current occupational status: disabled Pets and animals: Yes Pets & animals: dog(s) Leisure activites: reading and other Leisure activities details: quilting Sexually active: Yes Do you think of yourself as: Straight/Heterosexual Current gender identity: Female Elenita/Rastafarian: Other Special elenita needs: No Agree to transfusion: Yes (10.20.22) Female Reproductive History: Para: 1 Spontaneous abortions: Yes (10) Physical Exam 2 Const: COMMON NORMALS: no acute distress, patient oriented x3 and healthy appearing HENMT: COMMON NORMALS: normocephalic and atraumatic HEAD & SCALP: n ormocephalic and atraumatic Eye: COMMON NORMALS: Equal, round and reactive pupils present and EOMs intact bilaterally PUPIL: Yes Equal, round and reactive pupils present Neck/C-Spine: COMMON NORMALS: full ROM and supple Chest: COMMONS NORMALS: normal inspection of the chest Resp: COMMON NORMALS: normal respiratory effort and No use of accessory muscles Cardio: COMMON NORMALS: regular rate, regular rhythm and No murmurs present (Cardio) RATE: regular rate RHYTHM: regular rhythm GI: COMMON NORMALS: Normal to inspection, nondistended, normoactive bowel sounds present, Soft to palpation, non-tender and no masses PALPATION: Yes Soft to palpation Extremity: COMMON NORMALS: normal to inspection and full ROM Neuro: COMMON NORMALS: patient oriented x3, moves all extremities and no focal motor deficits Psych: COMMON NORMALS: mental status grossly normal, Normal thought process present and cooperative THOUGHT PROCESS: Normal thought process present Skin: COMMON NORMALS: no rashes or lesions noted and no wounds GENERAL SKIN EXAM: no rashes or lesions noted Course 2 Vital Signs: Vital signs: Vital Signs Temperature 97.8 F 04/06/23 19:11 Pulse Rate 79 04/06/23 19:11 Respiratory Rate 18 04/06/23 19:11 Blood Pressure 159/94 04/06/23 19:11 Pulse Oximetry 95 04/06/23 19:11 Oxygen Delivery Me thod Room Air 04/06/23 19:11 MDM - Seizure MDM Narrative Medical decision making narrative: Patient presents with a likely seizure she is well-appearing here she is at her baseline head CT blood works normal she is stable for discharge she is to follow-up with PCP along with her neurologist return if worsening she understands agrees to plan. Lab Data 04/06/23 19:47 04/06/23 19:47 Labs: Radiology Impressions Head CT 04/06/23 19:28 IMPRESSION: No acute intracranial abnormality. Laboratory Results WBC 8.75 10^3/uL (3.29-11.43) 04/06/23 19:47 RBC 4.10 10^6/uL (3.85-5.65) 04/06/23 19:47 Hgb 11.60 g/dL (11.27-16.99) 04/06/23 19:47 Hct 35.5 % (36-47) L 04/06/23 19:47 MCV 86.6 fl (85-98) 04/06/23 19:47 MCH 28.3 pg (27-33) 04/06/23 19:47 MCHC 32.7 g/dL (30-55) 04/06/23 19:47 RDW 12.5 % (12.1-15.1) 04/06/23 19:47 Plt Count 254 10^3/cmm (157-399) 04/06/23 19:47 MPV 10.4 fL (7.4-10.4) 04/06/23 19:47 Total Counted 100 (0-100) 04/06/23 19:47 Atypical Lymphs % Not Reportable 04/06/23 19:47 Segmented Neutrophils 66 % 04/06/23 19:47 Abs Segm Neuts (Man) 5.8 10/cmm (1.6-7.1) 04/06/23 19:47 Band Neutrophils Not Reportable 04/06/23 19:47 Lymphocytes (Manual) 27 % 04/06/23 19:47 Monocytes (Manual) 5.0 % 04/06/23 19:47 Absolute Monocytes 0.4 10^3/cmm (0.1-0.6) 04/06/23 19:47 Eosinophils (Manual) 2 % 04/06/23 19:47 Absolute Eosinophils 0.2 10^3/cmm (0.0-0.7) 04/06/23 19:47 Basophils (Manual) 0.0 % 04/06/23 19:47 Absolute Basophils 0.0 10^3/cmm (0.0-0.2) 04/06/23 19:47 Platelet Estimate Normal (Normal) 04/06/23 19:47 Sodium 139 mmol/L (136-145) 04/06/23 19:47 Potassium 3.8 mmol/L (3.5-5.1) 04/06/23 19:47 Chloride 102 mmol/L (98-107) 04/06/23 19:47 Carbon Dioxide 28 mmol/L (22-29) 04/06/23 19:47 Anion Gap 12.8 (5-19) 04/06/23 19:47 BUN 9 mg/dL (6-20) 04/06/23 19:47 Creatinine 0.9 mg/dL (0.5-0.9) 04/06/23 19:47 GFR Calculation 64.1 mL/min (90-130) L 04/06/23 19:47 Glucose 93 mg/dL (65-115) 04/06/23 19:47 Calculated Osmolality 286 mOsm/kg (285-295) 04/06/23 19:47 Calcium 8.9 mg/dL (8.5-10.5) 04/06/23 19:47 Total Bilirubin 0.2 mg/dL (0.15-1.2) 04/06/23 19:47 AST 13 U/L (0-32) 04/06/23 19:47 ALT 15 U/L (0-33) 04/06/23 19:47 Alkaline Phosphatase 97 U/L (35-105) 04/06/23 19:47 Total Protein 6.0 g/dL (6.6-8.7) L 04/06/23 19:47 Albumin 4.0 g/dL (3.5-5.2) 04/06/23 19:47 Globulin 2.0 g/dL (1.3-4.6) 04/06/23 19:47 All radiology interpretation(s) finalized by discharge EKG Data EKG 1: Attestation: I personally reviewed and interpreted this EKG as follows: EKG interpretation date: 04/06/23 EKG interpretation time: 20:12 Interpretation: nsr hr [address] or t wave abnormalities qrs 88 qtc 386 Discharge Plan Discharge Patient Disposition: Home Clinical Impression: Generalized seizure Condition: Stable Prescriptions: No Action clopidogrel 75 mg tablet 75 mg PO QAM docusate sodium 100 mg capsule See Rx Instructions .ROUTE .COMPLEX PRN (Reason: Constipation) Rx Instructions: 200mg po at noon and 100mg po bedtime hydrocodone-acetaminophen 7.5-325 mg tablet 2.5 tab PO DAILY mupirocin 2 % ointment 1 applic topical BID PRN (Reason: Rash) lamotrigine [Lamictal] 200 mg tablet 200 mg PO BID Qty: 60 2RF prazosin 5 mg capsule 20 mg PO BEDTIME Qty: 120 2RF trazodone 100 mg tablet 400 mg PO BEDTIME PRN (Reason: insomnia) Qty: 120 2RF ziprasidone HCl [Geodon] 40 mg capsule 40 mg PO BID Qty: 60 2RF Rx Instructions: give with food (meal/snack) atorvastatin 80 mg tablet 20 mg PO tizanidine 4 mg tablet 4 mg PO BID PRN (Reason: muscle spasticity) Qty: 60 5RF pantoprazole 40 mg tablet,delayed release (DR/EC) See Rx Instructions .ROUTE .COMPLEX Qty: 60 3RF Dose Instruction: TAKE ONE TABLET BY MOUTH TWICE DAILY Rx Instructions: TAKE ONE TABLET BY MOUTH TWICE DAILY ondansetron HCl 4 mg tablet 4 mg PO Q6H PRN (Reason: nausea and vomiting) Qty: 30 2RF gabapentin 100 mg capsule 100 mg PO TID Qty: 90 1RF naloxegol 25 mg tablet 25 mg PO QAM Qty: 30 2RF Rx Instructions: must be taken on empty stomach; no food 1 hr after or 2-3 hrs before dose Multivitamin 50 Plus Tablet 1 tab PO DAILY@12 Metamucil 3.4 gram/5.4 gram powder 1 - 2 tbsp PO DAILY PRN (Reason: Constipation) Benadryl 25 mg Capsule 50 mg PO TID PRN (Reason: Allergy Symptoms) Discharge Orders: Discharge ED (Routine); Ordered 04/06/23 Ordered By: Marek Arechiga Referrals: Giovanni Eugene MD [Primary Care Provider] - 4-7 days Discharge Diet: Advance as tolerated Discharge Activity: Resume usual activity Patient Instructions: Seizures Coding Level of Care Code ED Insulator Tester for Kun Saba
[2023-04-06 20:08] LABS: Hematocrit 35.5 % (36-47); Mean Corpuscular HGB Conc 32.7 g/dL (30-55); Mean Corpuscular Hemoglobin 28.3 pg (27-33); Mean Corpuscular Volume 86.6 fl (85-98); Mean Platelet Volume 10.4 fL (7.4-10.4); Platelet Count 254 10^3/cmm (157-399); Red Cell Distribution Width 12.5 % (12.1-15.1); White Blood Count 8.75 10^3/uL (3.29-11.43)
[2023-04-06 20:30] LABS: Alanine Aminotransferase 15 U/L (0-33); Alkaline Phosphatase 97 U/L (35-105); Anion Gap 12.8 (5-19); Aspartate Amino Transferase 13 U/L (0-32); Blood Urea Nitrogen 9 mg/dL (6-20); Calcium 8.9 mg/dL (8.5-10.5); Carbon Dioxide 28 mmol/L (22-29); Chloride 102 mmol/L (98-107); Creatinine Clr Calc Pharmacy 74.5833; Glomerular Filtration Rate 64.1 mL/min (90-130); Glucose 93 mg/dL (65-115); Osmolality Calculated 286 mOsm/kg (285-295); Potassium 3.8 mmol/L (3.5-5.1); Sodium 139 mmol/L (136-145); Total Bilirubin 0.2 mg/dL (0.15-1.2)
[2023-04-06 20:41] LABS: Absolute Eosinophils 0.2 10^3/cmm (0.0-0.7); Absolute Segmented Neutrophil 5.8 10/cmm (1.6-7.1); Eosinophils 2 %; Lymphocytes 27 %; Monocytes Absolute 0.4 10^3/cmm (0.1-0.6); Platelet Estimate Normal (Normal); Segmented Neutrophils 66 %; Total Cells Counted 100 (0-100)
[2023-04-06 21:12] VITALS: BP 159/94; PULSE 74; RESP 15; O2SAT 96
== END 2023-04-06 21:16 | disposition home or self-care (01) ==
PROVIDERS: Emergency Provider Emergency Medicine; PCP Family Medicine Adult Medicine
DX: G40.89 Other seizures (principal); I12.9 Hypertensive chronic kidney disease with stage 1 through stage 4 chronic kidney disease, or unspecified chronic kidney disease; N18.2 Chronic kidney disease, stage 2 (mild); I25.10 Atherosclerotic heart disease of native coronary artery without angina pectoris; Z87.891 Personal history of nicotine dependence; Z79.02 Long term (current) use of antithrombotics/antiplatelets
CPT/HCPCS: 36415; 70450; 80053; 85007; 85027; 93005; 99284

== ENCOUNTER → 2023-06-02 10:33 | Outpatient (BNVA) | payer MEDICARE, MEDICAID, SELFPAY ==
[2022-10-22 09:38] VITALS: BP 145/83; BMI 31.8
== END ==
PROVIDERS: PCP Family Medicine Adult Medicine; Visit Provider Podiatrist Foot & Ankle Surgery
DX: L60.3 Nail dystrophy (principal); R94.4 Abnormal results of kidney function studies; Z86.718 Personal history of other venous thrombosis and embolism; N18.2 Chronic kidney disease, stage 2 (mild); I73.9 Peripheral vascular disease, unspecified
CPT/HCPCS: 11721

== ENCOUNTER 2023-07-26 18:40 | Emergency (ER) | payer MEDICARE, SELFPAY ==
[2022-10-22 09:38] VITALS: BP 145/83; BMI 31.8
--- NOTE | 2023-07-26 18:44 | ECG_ITS ---
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 Measurements Intervals [place] Rate: 74 P: 47 [place]: 247 QRS: 5 QRSD: 87 T: 4 QT: 350 QTc: 390 Interpretive Statements SINUS RHYTHM WITH FIRST DEGREE AV BLOCK Compared to ECG 04/06/2023 20:12:17 First degree AV block now present Electronically Signed On 07-27-2023 7:26:03 CDT by Albin Campbell M.D. [id number]
[2023-07-26 19:00] VITALS: BP 149/97; PULSE 78; RESP 16; TEMP 36.5; O2SAT 96
[2023-07-26 19:14] LABS: Basophils # 0.1 10^3/uL (0.0-0.1); Basophils % 1.1 %; Eosinophils # 0.2 10^3/uL (0.0-0.8); Eosinophils % 2.3 %; Hematocrit 38.5 % (36-47); Lymphocytes % 32.9 %; Mean Corpuscular HGB Conc 33.2 g/dL (30-55); Mean Corpuscular Hemoglobin 28.8 pg (27-33); Mean Corpuscular Volume 86.7 fl (85-98); Mean Platelet Volume 10.2 fL (7.4-10.4); Monocytes # 0.5 10^3/uL (0.2-0.9); Monocytes % 5.1 %; Neutrophils # 5.31 10^3/uL (1.8-7.7); Neutrophils % 58.1 %; Nucleated Red Blood Cells % 0 %; Platelet Count 320 10^3/cmm (157-399); Red Blood Count 4.44 10^6/uL (3.85-5.65); Red Cell Distribution Width 12.5 % (12.1-15.1); White Blood Count 9.15 10^3/uL (3.29-11.43)
[2023-07-26 19:31] LABS: Alanine Aminotransferase 20 U/L (0-33); Albumin Level 4.4 g/dL (3.5-5.2); Alkaline Phosphatase 120 U/L (35-105); Anion Gap 14.2 (5-19); Aspartate Amino Transferase 15 U/L (0-32); Blood Urea Nitrogen 7 mg/dL (6-20); Calcium 9.2 mg/dL (8.5-10.5); Carbon Dioxide 29 mmol/L (22-29); Chloride 101 mmol/L (98-107); Creatinine Clr Calc Pharmacy 75.7401; Globulin 2.6 g/dL (1.3-4.6); Glomerular Filtration Rate 64.1 mL/min (90-130); Glucose 98 mg/dL (65-115); Osmolality Calculated 288 mOsm/kg (285-295); Potassium 4.2 mmol/L (3.5-5.1); Sodium 140 mmol/L (136-145); Total Bilirubin 0.2 mg/dL (0.15-1.2)
[2023-07-26 19:50] VITALS: BP 196/100; PULSE 75; O2SAT 95
[2023-07-26 20:04] VITALS: BP 161/93; PULSE 69; O2SAT 93
--- NOTE | 2023-07-26 20:20 | CTR_ITS ---
PROCEDURE INFORMATION: Exam: CT Head Without Contrast Exam date and time: 07/26/2023 8:28 PM Age: 58 years old Clinical indication: Injury or trauma; Fall; Blunt trauma (contusions or hematomas); Additional info: Falls/head inj TECHNIQUE: Imaging protocol: Computed tomography of the head without contrast. Radiation optimization: All CT scans at this facility use at least one of these dose optimization techniques: automated exposure control; mA and/or kV adjustment per patient size (includes targeted exams where dose is matched to clinical indication); or iterative reconstruction. COMPARISON: CT head wo con* [id number] 04/06/2023 8:21 PM RADIATION DOSE METRICS: Total DLP (mGy-cm): 1076 FINDINGS: Brain: No focal hemorrhage or midline shift is identified. Mild atrophy and chronic white matter ischemia again seen. Cerebral ventricles: No ventriculomegaly or evidence of acute hydrocephalus. Paranasal sinuses: The partially assessed sinuses are grossly clear. Mastoid air cells: Visualized mastoid air cells are well aerated. Bones: Unremarkable. No acute fracture. Partially imaged previous right-sided facial/sinus surgery. Soft tissues: Unremarkable. CT/CT head wo con* [id number] IMPRESSION: 1. No acute intracranial abnormality. 2. Mild age-related change.
--- NOTE | 2023-07-26 20:20 | CTR_ITS ---
PROCEDURE INFORMATION: Exam: CT Cervical Spine Without Contrast Exam date and time: 07/26/2023 8:28 PM Age: 58 years old Clinical indication: Injury or trauma; Fall; Additional info: Falls/head inj TECHNIQUE: Imaging protocol: Computed tomography of the cervical spine without contrast. Radiation optimization: All CT scans at this facility use at least one of these dose optimization techniques: automated exposure control; mA and/or kV adjustment per patient size (includes targeted exams where dose is matched to clinical indication); or iterative reconstruction. COMPARISON: CT cervical spin wo con* [id number] 10/25/2022 11:06 AM RADIATION DOSE METRICS: Total DLP (mGy-cm): 238.9 FINDINGS: Bones: No acute fracture. There is mild cervical degenerative change with loss of disc space and osteophyte formation. No jumped, locked or perched facets are visualized. No aggressive bone lesion is noted. Previous facial surgery. Lungs: Lung apices show no acute process. Vasculature: Advanced diffuse vascular calcification noted. Soft tissues: Left neck stimulator and postop changes. CT/CT cervical spin wo con* [id number] IMPRESSION: 1. No acute fracture is seen in the cervical spine. 2. Mild cervical degenerative change as discussed. Other chronic findings above.
[2023-07-26 20:41] LABS: Creatine Phosphokinase 46 U/L (26-192)
--- NOTE | 2023-07-26 20:53 | ED_ITS ---
Documented by User: MARKELL Barahona 07/26/23 22:01 HPI - Syncope 2 General: Chief Complaint: Syncope Stated Complaint: syncope fall Time Seen by Provider: 07/26/23 19:49 Source: patient and family Mode of arrival: EMS Limitations: no limitations History of Present Illness: Patient is a 58-year-old female presenting to the emergency department via ambulance due to multiple falls over the past couple days. Per patient and family, patient has syncopal episodes where patient will just wake up on the ground. She notes 4 episodes over the past few days, but states she has had issues with this before. In the past, she states it has been due to a low heart rate and syncope upon standing. She notes that she is mostly wheelchair-bound but has been trying to walk again and will fall while ambulating with her walker. She does note hitting her head multiple times, and is reporting a headache at this time. She does note a history of stroke and has a residual deficit, denies any other neurological complaints at this time. No visual changes or unilateral focal weakness. Family in the room states that she is at baseline mentation and that she has simply been having syncopal episodes. Patient notes that she feels not right prior to falling, but denies any chest pain, palpitations, or dizziness. No new medications. No urinary symptoms noted this time. No other symptoms to report. She does note a history of seizures for which she takes Lamictal, but her and family denies any seizure- like activity with her recent falls. complaint: collapsed Onset (ago): day(s) Prodromal symptoms: other ( Does not feel right ) Witnessed: Yes - by Bystander Context: other (Ambulating with walker) Injuries sustained associated with event: head Associated symptoms: Reports headache(s); Deny abdominal pain, chest pain, fever(s), lightheadedness or nausea History: seizure disorder and previous syncopal episode Review of Systems 2 General: Reports: 10 or more systems reviewed and unremarkable except in HPI and below Const: Denies: fever(s), chills or fatigue Eyes: Denies: change in vision ENMT: Denies: throat pain, ear or mastoid pain or nasal discharge Card: Reports: syncope; Denies: chest pain, palpitations, swelling of feet/ankles or lightheadedness Resp: Denies: dyspnea, productive cough or wheezing GI: Denies: abdominal pain, nausea, vomiting, diarrhea or constipation : Denies: flank pain, difficulty voiding, dysuria or urinary frequency Musc: Denies: neck pain, back pain or joint pain Skin/Breast: Denies: rash Neuro: Reports: headache(s) and frequent falls; Denies: numbness in extremities, weakness in extremities, sensory changes, dizziness or Slurred speech present PFSH ED 2 PFSH: Medical History Yeast dermatitis Weight gain with edema PVD (peripheral vascular disease) Lip lesion CKD (chronic kidney disease), stage II Yeast cells and fungal elements present on diagnostic testing Divina rash of groin Therapeutic opioid induced constipation Chronic pain disorder Pre-diabetes CAD (coronary artery disease) Night terror disorder Psychiatric care Functional 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 Normal EEG with behavior episodes, ~01/12/2023 Dr. Villegas Demyelinating changes in brain Onychodystrophy Dissociative and conversion disorder Left acute arterial ischemic stroke, MCA (middle cerebral artery) CONRAD (obstructive sleep apnea) HTN (hypertension) Hx of deep venous thrombosis DDD (degenerative disc disease), lumbar Cervical disc disorder of mid-cervical region Shoulder pain, bilateral Generalized anxiety disorder Major depressive disorder, recurrent severe without psychotic features Surgical History S/P placement of VNS (vagus nerve stimulation) device Turned off as per patient since 2016. 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 S/P hysterectomy S/P tubal ligation S/P cholecystectomy S/P appendectomy Family History Other Cancer Diabetes Hypertension Social History Smoking and tobacco/nicotine status: former use of tobacco/nicotine Quit status (tobacco/nicotine): has quit using Year quit tobacco: 2014 Second hand smoke exposure: No Alcohol intake: former Year of sobriety/quit date alcohol: 2002 Substance/Drug Use: never Adopted: No Caregiver/support person: Yes (Nurse Camilla and aide helps with cooking, shopping and housework) Lives independently: No Household members: spouse Housing: Apartment Marital status: Marital status details: 6 years Number of children: 1 Number of grandchildren: 3 Highest education level completed: Associate Degree: Occupational, Technical, Vocational Program Education level details: Agriculture and business service: No Current occupational status: disabled Pets and animals: Yes Pets & animals: dog(s) Leisure activites: reading and other Leisure activities details: quilting Sexually active: Yes Do you think of yourself as: Straight/Heterosexual Current gender identity: Female Elenita/Rastafarian: Other Special elenita needs: No Agree to transfusion: Yes (10.20.22) Female Reproductive History: Para: 1 Spontaneous abortions: Yes (10) Physical Exam 2 Const: COMMON NORMALS: no acute distress, patient oriented x3 and no limitations GENERAL APPEARANCE: cooperative, comfortable and well developed ORIENTATION/CONSCIOUSNESS: Yes awake, Yes oriented to person, Yes oriented to place and Yes oriented to time HENMT: COMMON NORMALS: normocephalic, atraumatic and hearing grossly normal bilaterally HEAD & SCALP: normocephalic and atraumatic Eye: COMMON NORMALS: Equal, round and reactive pupils present, EOMs intact bilaterally and conjunctivae normal CONJUNCTIVA: Yes conjunctivae normal P UPIL: Yes Equal, round and reactive pupils present Neck/C-Spine: COMMON NORMALS: full ROM, supple and no JVD Resp: COMMON NORMALS: normal respiratory effort, No retractions, No use of accessory muscles and clear to auscultation bilaterally AUSCULTATION: clear to auscultation bilaterally Cardio: COMMON NORMALS: no JVD, regular rate, regular rhythm, No clicks present (Cardio), No murmurs present (Cardio) and No rub (Cardio) RATE: r egular rate RHYTHM: regular rhythm GI: COMMON NORMALS: Normal to inspection, nondistended, normoactive bowel sounds present, Soft to palpation and non-tender AUSCULTATION: Yes normoactive bowel sounds PALPATION: Yes Soft to palpation RECTAL EXAM: d eferred Extremity: COMMON NORMALS: normal to inspection, full ROM and capillary refill normal Neuro: COMMON NORMALS: patient oriented x3, CN's II-XII intact bilaterally, moves all extremities, no focal motor deficits and no sensory deficits noted SENSORIUM/ORIENTATION: Yes oriented to person, Yes oriented to place and Yes oriented to time Psych: COMMON NORMALS: mental status grossly normal and Normal thought process present THOUGHT PROCESS: Normal thought process present Skin: COMMON NORMALS: no rashes or lesions noted GENERAL SKIN EXAM: no rashes or lesions noted Course 2 Vital Signs: Vital signs: Vital Signs Temperature 97.7 F 07/26/23 19:00 Pulse Rate 69 07/26/23 22:00 Respiratory Rate 16 07/26/23 19:00 Blood Pressure 132/85 07/26/23 22:00 Pulse Oximetry 93 07/26/23 22:00 Oxygen Delivery Me thod Room Air 07/26/23 22:00 MDM - Syncope Medical Decision Making Patient presented via ambulance for syncope and collapse over the recent days, 4 episodes in note. Patient does not history of this. Has been worked up in the past, states she was diagnosed with orthostatic hypotension. She does have a history of stroke however with residual deficit. Her lab workup was unremarkable. Head and neck CT were both negative. EKG was normal. Orthostatic vital signs at this time were negative. I have no clear explanation for patient's falls at home, other than mechanical probably from transferring from wheelchair to walker. However I will have her follow-up with primary care in the next couple of days for reevaluation. I did discuss this patient's case with supervising ED physician, Dr. Rojas, who agrees with disposition. I spoke with patient in regards to plan, who agrees and is ready for discharge home. Lab Data 07/26/23 18:55 07/26/23 18:55 Radiology Impressions Cervical Spine CT 07/26/23 20:20 IMPRESSION: 1. No acute fracture is seen in the cervical spine. 2. Mild cervical degenerative change as discussed. Other chronic findings above. Head CT 07/26/23 20:20 IMPRESSION: 1. No acute intracranial abnormality. 2. Mild age-related change. Laboratory Results WBC 9.15 10^3/uL (3.29-11.43) 07/26/23 18:55 RBC 4.44 10^6/uL (3.85-5.65) 07/26/23 18:55 Hgb 12.80 g/dL (11.27-16.99) 07/26/23 18:55 Hct 38.5 % (36-47) 07/26/23 18:55 MCV 86.7 fl (85-98) 07/26/23 18:55 MCH 28.8 pg (27-33) 07/26/23 18:55 MCHC 33.2 g/dL (30-55) 07/26/23 18:55 RDW 12.5 % (12.1-15.1) 07/26/23 18:55 Plt Count 320 10^3/cmm (157-399) 07/26/23 18:55 MPV 10.2 fL (7.4-10.4) 07/26/23 18:55 Neut % (Auto) 58.1 % 07/26/23 18:55 Lymph % (Auto) 32.9 % 07/26/23 18:55 Willacy % (Auto) 5.1 % 07/26/23 18:55 Eos % (Auto) 2.3 % 07/26/23 18:55 Baso % (Auto) 1.1 % 07/26/23 18:55 Neut # (Auto) 5.31 10^3/uL (1.8-7.7) 07/26/23 18:55 Lymph # (Auto) 3.0 10^3/uL (0.8-4.8) 07/26/23 18:55 Willacy # (Auto) 0.5 10^3/uL (0.2-0.9) 07/26/23 18:55 Eos # (Auto) 0.2 10^3/uL (0.0-0.8) 07/26/23 18:55 Baso # (Auto) 0.1 10^3/uL (0.0-0.1) 07/26/23 18:55 Nucleated RBC % (auto) 0 % 07/26/23 18:55 Nucleated RBCs # 0.0 /100WBC 07/26/23 18:55 Sodium 140 mmol/L (136-145) 07/26/23 18:55 Potassium 4.2 mmol/L (3.5-5.1) 07/26/23 18:55 Chloride 101 mmol/L (98-107) 07/26/23 18:55 Carbon Dioxide 29 mmol/L (22-29) 07/26/23 18:55 Anion Gap 14.2 (5-19) 07/26/23 18:55 BUN 7 mg/dL (6-20) 07/26/23 18:55 Creatinine 0.9 mg/dL (0.5-0.9) 07/26/23 18:55 GFR Calculation 64.1 mL/min (90-130) L 07/26/23 18:55 Glucose 98 mg/dL (65-115) 07/26/23 18:55 Calculated Osmolality 288 mOsm/kg (285-295) 07/26/23 18:55 Calcium 9.2 mg/dL (8.5-10.5) 07/26/23 18:55 Total Bilirubin 0.2 mg/dL (0.15-1.2) 07/26/23 18:55 AST 15 U/L (0-32) 07/26/23 18:55 ALT 20 U/L (0-33) 07/26/23 18:55 Alkaline Phosphatase 120 U/L (35-105) H 07/26/23 18:55 Creatine Kinase 46 U/L (26-192) 07/26/23 18:35 Total Protein 7.0 g/dL (6.6-8.7) 07/26/23 18:55 Albumin 4.4 g/dL (3.5-5.2) 07/26/23 18:55 Globulin 2.6 g/dL (1.3-4.6) 07/26/23 18:55 Urine Color Yellow (Yellow) 07/26/23 20:53 Urine Appearance Clear (CLEAR) 07/26/23 20:53 Urine pH 7 (5-7) 07/26/23 20:53 Ur Specific Given 1.010 (1.005-1.030) 07/26/23 20:53 Urine Protein Neg (Negative) 07/26/23 20:53 Urine Glucose (UA) Norm (Normal) 07/26/23 20:53 Urine Ketones Negative (Negative) 07/26/23 20:53 Urine Blood 2+ (Negative) H 07/26/23 20:53 Urine Nitrate Negative (Negative) 07/26/23 20:53 Urine Bilirubin Neg (Negative) 07/26/23 20:53 Urine Urobilinogen Neg mg/dL (Negative) 07/26/23 20:53 Ur Leukocyte Esterase Trace (Negative) H 07/26/23 20:53 Urine RBC 5-10 /hpf (0-2) H 07/26/23 20:53 Urine WBC 0-4 /hpf (0-5) H 07/26/23 20:53 Ur Squamous Epith Cells 0-4 /hpf (0-5) H 07/26/23 20:53 Amorphous Sediment Not Reportable 07/26/23 20:53 Urine Bacteria Trace /hpf (NONE) 07/26/23 20:53 All radiology interpretation(s) finalized by discharge Discharge Plan Discharge Patient Disposition: Home Clinical Impression: Syncope and collapse Condition: Stable Prescriptions: No Action clopidogrel 75 mg tablet 75 mg PO QAM docusate sodium 100 mg capsule See Rx Instructions .ROUTE .COMPLEX PRN (Reason: Constipation) Rx Instructions: 200mg po at noon and 100mg po bedtime hydrocodone-acetaminophen 7.5-325 mg tablet 2.5 tab PO DAILY mupirocin 2 % ointment 1 applic topical BID PRN (Reason: Rash) vitamin B complex Tablet 1 tab PO DAILY cholecalciferol (vitamin D3) 25 mcg (1,000 unit) capsule 25 mcg PO DAILY vitamin K2 40 mcg tablet 40 mcg PO DAILY tizanidine 4 mg tablet 4 mg PO BID PRN (Reason: muscle spasticity) Qty: 60 5RF ondansetron HCl 4 mg tablet 4 mg PO Q6H PRN (Reason: nausea and vomiting) Qty: 30 2RF pantoprazole 40 mg tablet,delayed release (DR/EC) See Rx Instructions .ROUTE .COMPLEX Qty: 60 3RF Dose Instruction: TAKE ONE TABLET BY MOUTH TWICE DAILY Rx Instructions: TAKE ONE TABLET BY MOUTH TWICE DAILY lamotrigine [Lamictal] 200 mg tablet 200 mg PO BID Qty: 60 2RF prazosin 5 mg capsule 20 mg PO BEDTIME Qty: 120 2RF trazodone 100 mg tablet 400 mg PO BEDTIME PRN (Reason: insomnia) Qty: 120 2RF ziprasidone HCl [Geodon] 40 mg capsule 40 mg PO BID Qty: 60 2RF Rx Instructions: give with food (meal/snack) naloxegol 25 mg tablet 25 mg PO QAM Qty: 30 2RF Rx Instructions: must be taken on empty stomach; no food 1 hr after or 2-3 hrs before dose atorvastatin 20 mg tablet See Rx Instructions .ROUTE .COMPLEX Qty: 30 5RF Dose Instruction: TAKE 1 TABLET BY MOUTH EVERY DAY Rx Instructions: TAKE 1 TABLET BY MOUTH EVERY DAY gabapentin 100 mg capsule See Rx Instructions .ROUTE .COMPLEX Qty: 90 1RF Dose Instruction: take 1 capsule BY MOUTH THREE TIMES DAILY FOR CHRONIC PAIN Rx Instructions: take 1 capsule BY MOUTH THREE TIMES DAILY FOR CHRONIC PAIN naftifine 2 % cream 1 applic topical DAILY 14 Days Qty: 60 0RF Multivitamin 50 Plus Tablet 1 tab PO DAILY@12 Metamucil 3.4 gram/5.4 gram powder 1 - 2 tbsp PO DAILY PRN (Reason: Constipation) Benadryl 25 mg Capsule 50 mg PO TID PRN (Reason: Allergy Symptoms) Discharge Orders: Discharge ED (Routine); Ordered 07/26/23 Ordered By: Nam Garcia Referrals: Giovanni Eugene MD [Primary Care Provider] - Discharge Diet: Usual diet Discharge Activity: Increase activity as tolerated Patient Instructions: Syncope (ED) Activity Restrictions/Additional Instructions: Follow-up with primary care as instructed. Increase your fluid intake. Continue medications as prescribed. Careful with transfer from wheelchair to walker. Return with any new or worsening symptoms. Coding Level of Care Code ED Mercury Recoverer for Chg Fwd Documented by User: Carmine Estrella DO 07/30/23 06:53 HPI - Syncope 2 General: Chief Complaint: Syncope Stated Complaint: syncope fall Time Seen by Provider: 07/26/23 19:49 PFSH ED 2 PFSH: Medical History Yeast dermatitis Weight gain with edema PVD (peripheral vascular disease) Lip lesion CKD (chronic kidney disease), stage II Yeast cells and fungal elements present on diagnostic testing Divina rash of groin Therapeutic opioid induced constipation Chronic pain disorder Pre-diabetes CAD (coronary artery disease) Night terror disorder Psychiatric care Functional 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 Normal EEG with behavior episodes, ~01/12/2023 Dr. Villegas Demyelinating changes in brain Onychodystrophy Dissociative and conversion disorder Left acute arterial ischemic stroke, MCA (middle cerebral artery) CONRAD (obstructive sleep apnea) HTN (hypertension) Hx of deep venous thrombosis DDD (degenerative disc disease), lumbar Cervical disc disorder of mid-cervical region Shoulder pain, bilateral Generalized anxiety disorder Major depressive disorder, recurrent severe without psychotic features Surgical History S/P placement of VNS (vagus nerve stimulation) device Turned off as per patient since 2015. 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 S/P hysterectomy S/P tubal ligation S/P cholecystectomy S/P appendectomy Family History Other Cancer Diabetes Hypertension Social History Smoking and tobacco/nicotine status: former use of tobacco/nicotine Quit status (tobacco/nicotine): has quit using Year quit tobacco: 2014 Second hand smoke exposure: No Alcohol intake: former Year of sobriety/quit date alcohol: 2002 Substance/Drug Use: never Adopted: No Caregiver/support person: Yes (Nurse Camilla and aide helps with cooking, shopping and housework) Lives independently: No Household members: spouse Housing: Apartment Marital status: Marital status details: 6 years Number of children: 1 Number of grandchildren: 3 Highest education level completed: Associate Degree: Occupational, Technical, Vocational Program Education level details: Agriculture and business service: No Current occupational status: disabled Pets and animals: Yes Pets & animals: dog(s) Leisure activites: reading and other Leisure activities details: quilting Sexually active: Yes Do you think of yourself as: Straight/Heterosexual Current gender identity: Female Elenita/Rastafarian: Other Special elenita needs: No Agree to transfusion: Yes (08.29.23) Course 2 Vital Signs: Vital signs: Vital Signs Temperature 97.7 F 07/26/23 19:00 Pulse Rate 69 07/26/23 22:00 Respiratory Rate 16 07/26/23 19:00 Blood Pressure 132/85 07/26/23 22:00 Pulse Oximetry 93 07/26/23 22:00 Oxygen Delivery Me thod Room Air 07/26/23 22:00 MDM - Syncope Medical Decision Making Patient presented via ambulance for syncope and collapse over the recent days, 4 episodes in note. Patient does not history of this. Has been worked up in the past, states she was diagnosed with orthostatic hypotension. She does have a history of stroke however with residual deficit. Her lab workup was unremarkable. Head and neck CT were both negative. EKG was normal. Orthostatic vital signs at this time were negative. I have no clear explanation for patient's falls at home, other than mechanical probably from transferring from wheelchair to walker. However I will have her follow-up with primary care in the next couple of days for reevaluation. I did discuss this patient's case with supervising ED physician, Dr. Rojas, who agrees with disposition. I spoke with patient in regards to plan, who agrees and is ready for discharge home. Chart reviewed Lab Data 07/26/23 18:55 07/26/23 18:55 Radiology Impressions Cervical Spine CT 07/26/23 20:20 IMPRESSION: 1. No acute fracture is seen in the cervical spine. 2. Mild cervical degenerative change as discussed. Other chronic findings above. Head CT 07/26/23 20:20 IMPRESSION: 1. No acute intracranial abnormality. 2. Mild age-related change. Laboratory Results WBC 9.15 10^3/uL (3.29-11.43) 07/26/23 18:55 RBC 4.44 10^6/uL (3.85-5.65) 07/26/23 18:55 Hgb 12.80 g/dL (11.27-16.99) 07/26/23 18:55 Hct 38.5 % (36-47) 07/26/23 18:55 MCV 86.7 fl (85-98) 07/26/23 18:55 MCH 28.8 pg (27-33) 07/26/23 18:55 MCHC 33.2 g/dL (30-55) 07/26/23 18:55 RDW 12.5 % (12.1-15.1) 07/26/23 18:55 Plt Count 320 10^3/cmm (157-399) 07/26/23 18:55 MPV 10.2 fL (7.4-10.4) 07/26/23 18:55 Neut % (Auto) 58.1 % 07/26/23 18:55 Lymph % (Auto) 32.9 % 07/26/23 18:55 Willacy % (Auto) 5.1 % 07/26/23 18:55 Eos % (Auto) 2.3 % 07/26/23 18:55 Baso % (Auto) 1.1 % 07/26/23 18:55 Neut # (Auto) 5.31 10^3/uL (1.8-7.7) 07/26/23 18:55 Lymph # (Auto) 3.0 10^3/uL (0.8-4.8) 07/26/23 18:55 Willacy # (Auto) 0.5 10^3/uL (0.2-0.9) 07/26/23 18:55 Eos # (Auto) 0.2 10^3/uL (0.0-0.8) 07/26/23 18:55 Baso # (Auto) 0.1 10^3/uL (0.0-0.1) 07/26/23 18:55 Nucleated RBC % (auto) 0 % 07/26/23 18:55 Nucleated RBCs # 0.0 /100WBC 07/26/23 18:55 Sodium 140 mmol/L (136-145) 07/26/23 18:55 Potassium 4.2 mmol/L (3.5-5.1) 07/26/23 18:55 Chloride 101 mmol/L (98-107) 07/26/23 18:55 Carbon Dioxide 29 mmol/L (22-29) 07/26/23 18:55 Anion Gap 14.2 (5-19) 07/26/23 18:55 BUN 7 mg/dL (6-20) 07/26/23 18:55 Creatinine 0.9 mg/dL (0.5-0.9) 07/26/23 18:55 GFR Calculation 64.1 mL/min (90-130) L 07/26/23 18:55 Glucose 98 mg/dL (65-115) 07/26/23 18:55 Calculated Osmolality 288 mOsm/kg (285-295) 07/26/23 18:55 Calcium 9.2 mg/dL (8.5-10.5) 07/26/23 18:55 Total Bilirubin 0.2 mg/dL (0.15-1.2) 07/26/23 18:55 AST 15 U/L (0-32) 07/26/23 18:55 ALT 20 U/L (0-33) 07/26/23 18:55 Alkaline Phosphatase 120 U/L (35-105) H 07/26/23 18:55 Creatine Kinase 46 U/L (26-192) 07/26/23 18:35 Total Protein 7.0 g/dL (6.6-8.7) 07/26/23 18:55 Albumin 4.4 g/dL (3.5-5.2) 07/26/23 18:55 Globulin 2.6 g/dL (1.3-4.6) 07/26/23 18:55 Urine Color Yellow (Yellow) 07/26/23 20:53 Urine Appearance Clear (CLEAR) 07/26/23 20:53 Urine pH 7 (5-7) 07/26/23 20:53 Ur Specific Given 1.010 (1.005-1.030) 07/26/23 20:53 Urine Protein Neg (Negative) 07/26/23 20:53 Urine Glucose (UA) Norm (Normal) 07/26/23 20:53 Urine Ketones Negative (Negative) 07/26/23 20:53 Urine Blood 2+ (Negative) H 07/26/23 20:53 Urine Nitrate Negative (Negative) 07/26/23 20:53 Urine Bilirubin Neg (Negative) 07/26/23 20:53 Urine Urobilinogen Neg mg/dL (Negative) 07/26/23 20:53 Ur Leukocyte Esterase Trace (Negative) H 07/26/23 20:53 Urine RBC 5-10 /hpf (0-2) H 07/26/23 20:53 Urine WBC 0-4 /hpf (0-5) H 07/26/23 20:53 Ur Squamous Epith Cells 0-4 /hpf (0-5) H 07/26/23 20:53 Amorphous Sediment Not Reportable 07/26/23 20:53 Urine Bacteria Trace /hpf (NONE) 07/26/23 20:53 Discharge Plan Discharge Patient Disposition: Home Clinical Impression: Syncope and collapse Condition: Stable Prescriptions: No Action clopidogrel 75 mg tablet 75 mg PO QAM docusate sodium 100 mg capsule See Rx Instructions .ROUTE .COMPLEX PRN (Reason: Constipation) Rx Instructions: 200mg po at noon and 100mg po bedtime hydrocodone-acetaminophen 7.5-325 mg tablet 2.5 tab PO DAILY mupirocin 2 % ointment 1 applic topical BID PRN (Reason: Rash) vitamin B complex Tablet 1 tab PO DAILY cholecalciferol (vitamin D3) 25 mcg (1,000 unit) capsule 25 mcg PO DAILY vitamin K2 40 mcg tablet 40 mcg PO DAILY tizanidine 4 mg tablet 4 mg PO BID PRN (Reason: muscle spasticity) Qty: 60 5RF ondansetron HCl 4 mg tablet 4 mg PO Q6H PRN (Reason: nausea and vomiting) Qty: 30 2RF pantoprazole 40 mg tablet,delayed release (DR/EC) See Rx Instructions .ROUTE .COMPLEX Qty: 60 3RF Dose Instruction: TAKE ONE TABLET BY MOUTH TWICE DAILY Rx Instructions: TAKE ONE TABLET BY MOUTH TWICE DAILY lamotrigine [Lamictal] 200 mg tablet 200 mg PO BID Qty: 60 2RF prazosin 5 mg capsule 20 mg PO BEDTIME Qty: 120 2RF trazodone 100 mg tablet 400 mg PO BEDTIME PRN (Reason: insomnia) Qty: 120 2RF ziprasidone HCl [Geodon] 40 mg capsule 40 mg PO BID Qty: 60 2RF Rx Instructions: give with food (meal/snack) naloxegol 25 mg tablet 25 mg PO QAM Qty: 30 2RF Rx Instructions: must be taken on empty stomach; no food 1 hr after or 2-3 hrs before dose atorvastatin 20 mg tablet See Rx Instructions .ROUTE .COMPLEX Qty: 30 5RF Dose Instruction: TAKE 1 TABLET BY MOUTH EVERY DAY Rx Instructions: TAKE 1 TABLET BY MOUTH EVERY DAY gabapentin 100 mg capsule See Rx Instructions .ROUTE .COMPLEX Qty: 90 1RF Dose Instruction: take 1 capsule BY MOUTH THREE TIMES DAILY FOR CHRONIC PAIN Rx Instructions: take 1 capsule BY MOUTH THREE TIMES DAILY FOR CHRONIC PAIN naftifine 2 % cream 1 applic topical DAILY 14 Days Qty: 60 0RF Multivitamin 50 Plus Tablet 1 tab PO DAILY@12 Metamucil 3.4 gram/5.4 gram powder 1 - 2 tbsp PO DAILY PRN (Reason: Constipation) Benadryl 25 mg Capsule 50 mg PO TID PRN (Reason: Allergy Symptoms) Discharge Orders: Discharge ED (Routine); Ordered 07/26/23 Ordered By: Nam Garcia Referrals: Giovanni Eugene MD [Primary Care Provider] - Discharge Diet: Usual diet Discharge Activity: Increase activity as tolerated Patient Instructions: Syncope (ED) Activity Restrictions/Additional Instructions: Follow-up with primary care as instructed. Increase your fluid intake. Continue medications as prescribed. Careful with transfer from wheelchair to walker. Return with any new or worsening symptoms. Coding Level of Care Code ED Mercury Recoverer for Kun Saba
[2023-07-26 21:20] LABS: Bilirubin Urine Neg (Negative); Blood Urine 2+ (Negative); Glucose Urine UA Norm (Normal); Ketones Urine Negative (Negative); Nitrate Urine Negative (Negative); Protein Urine Neg (Negative); Urine Appearance Clear (CLEAR); Urine Color Yellow (Yellow); Urobilinogen Urine Neg (Negative); pH Urine 7 (5-7)
[2023-07-26 21:21] LABS: Add Urine Culture? No; Add Urine Microscopic? YES; Bacteria Urine TRACE /hpf; Leukocyte Esterase Urine Trace (Negative); Squamous Epithelial Cell Urine 0-4 /hpf (0-5); WBC Urine 0-4 /hpf (0-5)
[2023-07-26] MEDS: sodium chloride 0.9% 1,000 ML 999 ML IV (21:48)
[2023-07-26 21:50] VITALS: BP 142/95; BP 168/100; BP 173/102; PULSE 71; PULSE 74; PULSE 80
[2023-07-26 22:00] VITALS: BP 132/85; PULSE 69; O2SAT 93
[2023-07-26] MEDS: ketorolac 30 mg/mL INJ IVP (22:04)
== END 2023-07-26 22:36 | disposition home or self-care (01) ==
PROVIDERS: Emergency Medicine; Emergency Provider Physician Assistant; PCP Family Medicine Adult Medicine
DX: R55 Syncope and collapse (principal); Z79.02 Long term (current) use of antithrombotics/antiplatelets; Z87.891 Personal history of nicotine dependence; I12.9 Hypertensive chronic kidney disease with stage 1 through stage 4 chronic kidney disease, or unspecified chronic kidney disease; N18.2 Chronic kidney disease, stage 2 (mild); I25.10 Atherosclerotic heart disease of native coronary artery without angina pectoris
CPT/HCPCS: 36415; 70450; 72125; 80053; 81001; 82550; 85025; 93005; 96361; 96374; 99285; J1885; J7030

== ENCOUNTER 2023-08-05 10:34 | Outpatient (RCR) | payer MEDICARE, SELFPAY ==
[2022-10-22 09:38] VITALS: BP 145/83; BMI 31.8
== END 2023-08-22 23:59 | disposition home or self-care (01) ==
LOC: SPT 10:34
PROVIDERS: PCP Family Medicine Adult Medicine; Visit Provider General Practice
DX: R26.9 Unspecified abnormalities of gait and mobility (principal)
CPT/HCPCS: 97110; 97161

== ENCOUNTER 2023-08-23 06:00 | Outpatient (RCR) | payer MEDICARE, SELFPAY ==
[2022-10-22 09:38] VITALS: BP 145/83; BMI 31.8
== END 2023-09-22 23:59 | disposition home or self-care (01) ==
LOC: SPT 06:00
PROVIDERS: PCP Family Medicine Adult Medicine; Visit Provider General Practice
DX: R26.9 Unspecified abnormalities of gait and mobility (principal)
CPT/HCPCS: 97110; 97116

== ENCOUNTER → 2023-09-08 10:15 | Outpatient (BNVA) | payer MEDICARE, MEDICAID, SELFPAY ==
[2022-10-22 09:38] VITALS: BP 145/83; BMI 31.8
== END ==
PROVIDERS: PCP Family Medicine Adult Medicine; Visit Provider Podiatrist Foot & Ankle Surgery
DX: L60.3 Nail dystrophy (principal); R94.4 Abnormal results of kidney function studies; Z86.718 Personal history of other venous thrombosis and embolism; N18.2 Chronic kidney disease, stage 2 (mild); I73.9 Peripheral vascular disease, unspecified
CPT/HCPCS: 11721

== ENCOUNTER → 2023-09-15 10:37 | Outpatient (BNVA) | payer MEDICARE, MEDICAID, SELFPAY ==
[2022-10-22 09:38] VITALS: BP 145/83; BMI 31.8
== END ==
PROVIDERS: PCP Family Medicine Adult Medicine; Visit Provider Specialist
DX: Z09 Encounter for follow-up examination after completed treatment for conditions other than malignant neoplasm (principal); R55 Syncope and collapse; F43.12 Post-traumatic stress disorder, chronic; F44.5 Conversion disorder with seizures or convulsions; F33.2 Major depressive disorder, recurrent severe without psychotic features; F44.9 Dissociative and conversion disorder, unspecified; F60.3 Borderline personality disorder; Z96.89 Presence of other specified functional implants; R26.89 Other abnormalities of gait and mobility
CPT/HCPCS: 99213

== ENCOUNTER 2023-09-23 06:00 | Outpatient (RCR) | payer MEDICARE, SELFPAY ==
[2022-10-22 09:38] VITALS: BP 145/83; BMI 31.8
== END 2023-10-23 18:00 | disposition home or self-care (01) ==
LOC: SPT 06:00
PROVIDERS: PCP Family Medicine Adult Medicine; Visit Provider General Practice
DX: R26.89 Other abnormalities of gait and mobility (principal); M62.81 Muscle weakness (generalized)
CPT/HCPCS: 97110

== ENCOUNTER 2023-10-14 13:23 | Outpatient (RCR) | payer MEDICARE, MEDICAID, SELFPAY ==
[2022-10-22 09:38] VITALS: BP 145/83; BMI 31.8
== END 2023-10-23 18:00 | disposition home or self-care (01) ==
LOC: SPT 13:23
PROVIDERS: PCP Family Medicine Adult Medicine; Visit Provider Family Medicine
DX: M71.551 Other bursitis, not elsewhere classified, right hip (principal)
CPT/HCPCS: 97161

== ENCOUNTER 2023-10-24 06:30 | Outpatient (RCR) | payer SELFPAY ==
[2022-10-22 09:38] VITALS: BP 145/83; BMI 31.8
== END 2023-11-22 23:59 | disposition home or self-care (01) ==
LOC: SPT 06:30
PROVIDERS: PCP Family Medicine Adult Medicine; Visit Provider General Practice
DX: R26.89 Other abnormalities of gait and mobility (principal)
CPT/HCPCS: 97110

== ENCOUNTER → 2023-11-03 13:17 | Outpatient (BNVA) | payer MEDICARE, SELFPAY ==
[2022-10-22 09:38] VITALS: BP 145/83; BMI 31.8
== END ==
PROVIDERS: PCP Family Medicine Adult Medicine; Visit Provider Podiatrist Foot & Ankle Surgery
DX: I73.9 Peripheral vascular disease, unspecified (principal); L60.3 Nail dystrophy; R94.4 Abnormal results of kidney function studies; Z86.718 Personal history of other venous thrombosis and embolism; N18.2 Chronic kidney disease, stage 2 (mild)
CPT/HCPCS: 11721

== ENCOUNTER → 2023-11-15 15:31 | Outpatient (BNVA) | payer MEDICARE, MEDICAID, SELFPAY ==
[2022-10-22 09:38] VITALS: BP 145/83; BMI 31.8
== END ==
PROVIDERS: PCP Family Medicine Adult Medicine; Visit Provider Obstetrics & Gynecology
DX: N89.8 Other specified noninflammatory disorders of vagina (principal)
CPT/HCPCS: 88305

== ENCOUNTER → 2024-01-12 14:28 | Outpatient (BNVA) | payer MEDICARE, SELFPAY ==
[2022-10-22 09:38] VITALS: BP 145/83; BMI 31.8
== END ==
PROVIDERS: PCP Family Medicine Adult Medicine; Visit Provider Podiatrist Foot & Ankle Surgery
DX: L60.3 Nail dystrophy (principal); R94.4 Abnormal results of kidney function studies; Z86.718 Personal history of other venous thrombosis and embolism; N18.2 Chronic kidney disease, stage 2 (mild); I73.9 Peripheral vascular disease, unspecified
CPT/HCPCS: 11721

== ENCOUNTER 2024-02-17 07:53 | Outpatient (CLI) | payer MEDICARE, SELFPAY ==
[2022-10-22 09:38] VITALS: BP 145/83; BMI 31.8
--- NOTE | 2024-02-17 08:40 | MM_ITS ---
WS: [id number] BILATERAL SCREENING DIGITAL TOMOSYNTHESIS MAMMOGRAM WITH CAD HISTORY: screening COMPARISON: 05/08/2020, 09/29/2018 Bilateral CC and MLO views with tomosynthesis and synthetic mammography submitted. Computer aided det ection analyzed. Breast composition: There are scattered areas of fibroglandular density. No suspicious masses, microc alcifications or architectural distortion. Calcifications scattered in the RIGHT breast are stable an d benign. Pacemaker noted against the LEFT chest wall obscures a small portion of the LEFT breast. MM/MM scr BI tomosynthesis [id number] IMPRESSION: BI-RADS: 2 - Benign. FOLLOW UP: 1 Year Follow-up
[2024-02-17 08:46] LABS: Estmated Average Glucose 105; Hemoglobin A1C 5.3 % (4.0-6.0)
[2024-02-17 08:52] LABS: Alanine Aminotransferase 20 U/L (0-33); Albumin Level 3.8 g/dL (3.5-5.2); Alkaline Phosphatase 105 U/L (35-105); Aspartate Amino Transferase 17 U/L (0-32); Blood Urea Nitrogen 13 mg/dL (6-20); Carbon Dioxide 27 mmol/L (22-29); Chloride 103 mmol/L (98-107); Globulin 2.3 g/dL (1.3-4.6); Glomerular Filtration Rate 64.1 mL/min (90-130); Glucose 102 mg/dL (65-115); Osmolality Calculated 288 mOsm/kg (285-295); Sodium 139 mmol/L (136-145); Total Bilirubin 0.2 mg/dL (0.15-1.2); Total Protein 6.1 g/dL (6.6-8.7)
[2024-02-17 09:06] LABS: Anion Gap 12.8 (5-19); Potassium 3.8 mmol/L (3.5-5.1)
== END 2024-02-17 07:54 | disposition home or self-care (01) ==
DX: Z12.31 Encounter for screening mammogram for malignant neoplasm of breast (principal); N18.2 Chronic kidney disease, stage 2 (mild); R73.03 Prediabetes; R92.323 Mammographic fibroglandular density, bilateral breasts; R92.1 Mammographic calcification found on diagnostic imaging of breast; Z95.0 Presence of cardiac pacemaker
CPT/HCPCS: 36415; 77063; 77067; 80053; 83036

== ENCOUNTER 2024-03-09 06:49 | Emergency (ER) | payer MEDICARE, SELFPAY ==
[2022-10-22 09:38] VITALS: BP 145/83; BMI 31.8
--- NOTE | 2024-03-09 07:03 | CT_ITS ---
WS: [id number] CT HEAD TECHNIQUE: Noncontrast CT of the head obtained from the skullbase to the vertex. CLINICAL INFORMATION: fall, hit head COMPARISON: 07/26/2023 DLP: 979.[address] scans at [facility] use at least one of these dose optimization techniques: automated e xposure control; mA and/or kV adjustment per patient size (includes targeted exams where dose is matc hed to clinical indication); or iterative reconstruction. FINDINGS: No evidence of intracranial hemorrhage or mass effect. Ventricular system and basal cisterns are yañez nt. Mild small vessel changes with mild parenchymal volume loss. No extra-axial fluid collections. No evidence of mass or mass effect. Normal conley-white differentiation. Paranasal sinuses and mastoid air cells are well aerated. .Normal visualized soft tissues. CT/CT head wo con* [id number] IMPRESSION: 1. No evidence of intracranial hemorrhage or mass effect. 2. No acute intracranial findings.
[2024-03-09 07:38] VITALS: BP 143/100; PULSE 101; RESP 18; O2SAT 96
[2024-03-09 07:41] LABS: Basophils % 0.2 %; Eosinophils # 0.1 10^3/uL (0.0-0.8); Eosinophils % 0.7 %; Hematocrit 41.2 % (36-47); Lymphocytes # 0.4 10^3/uL (0.8-4.8); Lymphocytes % 2.9 %; Mean Corpuscular HGB Conc 33.5 g/dL (30-55); Mean Corpuscular Volume 83.7 fl (85-98); Mean Platelet Volume 10.5 fL (7.4-10.4); Monocytes # 0.3 10^3/uL (0.2-0.9); Neutrophils # 12.73 10^3/uL (1.8-7.7); Neutrophils % 93.8 %; Nucleated Red Blood Cells % 0 %; Platelet Count 290 10^3/cmm (157-399); Red Blood Count 4.92 10^6/uL (3.85-5.65); Red Cell Distribution Width 12.7 % (12.1-15.1); White Blood Count 13.57 10^3/uL (3.29-11.43)
[2024-03-09] MEDS: sodium chloride 0.9% 1,000 ML 999 ML IV (07:41)
[2024-03-09] MEDS: ondansetron 2 mg/ML SDV 2 mL 4 MG IVP (07:41)
[2024-03-09 07:58] LABS: Alanine Aminotransferase 22 U/L (0-33); Albumin Level 4.4 g/dL (3.5-5.2); Alkaline Phosphatase 117 U/L (35-105); Anion Gap 18.5 (5-19); Aspartate Amino Transferase 18 U/L (0-32); Blood Urea Nitrogen 12 mg/dL (8-23); Calcium 9.2 mg/dL (8.5-10.5); Carbon Dioxide 25 mmol/L (22-29); Chloride 96 mmol/L (98-107); Globulin 2.7 g/dL (1.3-4.6); Glomerular Filtration Rate 63.9 mL/min (90-130); Glucose 116 mg/dL (65-115); Lipase 23 U/L (13-60); Osmolality Calculated 283 mOsm/kg (285-295); Potassium 3.5 mmol/L (3.5-5.1); Sodium 136 mmol/L (136-145); Total Bilirubin 0.4 mg/dL (0.15-1.2); Total Protein 7.1 g/dL (6.6-8.7)
--- NOTE | 2024-03-09 08:41 | CT_ITS ---
WS: [id number] CT ABDOMEN PELVIS TECHNIQUE: Noncontrast CT of the abdomen and pelvis with coronal and sagittal reformatted images. CLINICAL INFORMATION: PAIN COMPARISON: CT 2019 DLP: 776.[address] scans at [facility] use at least one of these dose optimization techniques: automated e xposure control; mA and/or kV adjustment per patient size (includes targeted exams where dose is matc hed to clinical indication); or iterative reconstruction. FINDINGS: Tiny LEFT and trace RIGHT pleural effusions. Slight LEFT basilar atelectasis. Noncontrast l iver is normal. Normal noncontrast spleen. Tiny esophageal hiatal hernia. Air-fluid level in the stom ach. Adrenal glands are normal. Noncontrast pancreas appears normal. Fatty atrophy of the pancreas. Normal caliber abdominal aorta. No hydronephrosis in either kidney. Tiny fat-containing umbilical her ephraim. Normal sigmoid colon. No evidence of small or large bowel obstruction. No free fluid in the abdo men or pelvis. No other acute findings. Prior cholecystectomy and appendectomy. Prior hysterectomy. CT/CT abdomen pelvis wo con [id number] IMPRESSION: 1. Small LEFT and tiny RIGHT pleural effusions. 2. Prior cholecystectomy and hysterectomy. Prior appendectomy. 3. Small esophageal hiatal hernia. 4. Normal sigmoid colon. 5. No suspicious findings in the abdomen or pelvis.
--- NOTE | 2024-03-09 08:48 | W.ED.NAVMDI ---
HPI - Nausea/Vomiting/Diarrhea General: Chief complaint: Nausea/Vomiting/Diarrhea Stated complaint: n/v Time Seen by Provider: 03/09/24 07:41 History of Present Illness: Patient presents complaining of nausea and vomiting. She states that on Wednesday she fell and hit her head. She states she does have a headache since then although she states she gets chronic headaches. She also gets abdominal migraines. She states she does have some mild lower abdominal discomfort since yesterday. No fever. No carbon oxide exposure. No focal numbness weakness or tingling her arms or legs that is new. No chest pain palpitations or shortness of breath. No cough. No dysuria. She states that she feels a little sore from her fall on Wednesday but no focal pain and does not think she injured anything. No concerning neck or back pain. No injuries to her extremities. She states she has chronic problems with her balance. She states that it has been worse since her fall. She started having nausea and vomiting yesterday. She has Zofran at home that she can take when she gets her nausea vomiting and abdominal pain with her abdominal migraines but she states she cannot keep the Zofran down so she decided to come here.No dysuria. No increased frequency orUrgency Related Data Home Medications Medication Instructions Recorded Confirmed docusate sodium 100 mg capsule 200 mg PO BID Constipation 08/23/19 03/09/24 [id number] 1 tab PO DAILY@12 03/21/20 03/09/24 tablet (Multivitamin 50 Plus tablet) clopidogrel 75 mg tablet 75 mg PO QAM 04/15/20 03/09/24 psyllium husk 3.4 gram/5.4 gram 1 - 2 tbsp PO DAILY PRN 06/04/21 03/09/24 oral powder (Metamucil) Constipation diphenhydramine HCl 25 mg capsule 50 mg PO TID PRN Allergy Symptoms 10/25/22 03/09/24 (Benadryl) hydrocodone 7.5 mg-acetaminophen 2.5 tab PO DAILY pain 03/19/23 03/09/24 325 mg tablet cholecalciferol (vitamin D3) 25 25 mcg PO DAILY 04/13/23 03/09/24 mcg (1,000 unit) capsule vitamin B complex 1 tab PO DAILY 04/13/23 03/09/24 vitamin K2 40 mcg tablet 40 mcg PO DAILY 04/13/23 03/09/24 atorvastatin 20 mg tablet 20 mg PO DAILY 03/09/24 03/09/24 azelastine 137 mcg (0.1 %) nasal 1 spray intranasal BID PRN 03/09/24 03/09/24 spray allergies gabapentin 100 mg capsule 100 mg PO TID 03/09/24 03/09/24 nystatin 100,000 unit/gram topical 1 applic topical BID PRN yeast 03/09/24 03/09/24 powder nystatin-triamcinolone 100,000 1 applic topical TID 03/09/24 03/09/24 unit/g-0.1 % topical cream pantoprazole 40 mg tablet,delayed 40 mg PO BID 03/09/24 03/09/24 release Previous Rx's Medication Instructions Recorded ondansetron HCl 4 mg tablet 4 mg PO Q6H PRN nausea and 01/21/23 vomiting #30 tabs naloxegol 25 mg tablet (Movantik) See Rx Instructions .Route 01/03/24 .COMPLEX #30 tabs prazosin 5 mg capsule 20 mg (4 x 5 mg) PO BEDTIME #120 02/10/24 caps trazodone 100 mg tablet 400 mg (4 x 100 mg) PO BEDTIME PRN 02/10/24 insomnia #120 tabs ziprasidone HCl 40 mg capsule 40 mg PO BID #60 caps 02/10/24 (Geodon) Allergies Allergy/AdvReac Type Severity Reaction Status Date / Time lisinopril Allergy Unknown Unknown Verified 03/07/24 10:44 shellfish derived Allergy Unknown hives Verified 03/07/24 10:44 aripiprazole [From Abilify] Allergy Unknown Verified 03/07/24 10:44 aspartame Allergy ADR-Nausea Verified 03/07/24 10:44 codeine Allergy Unknown Verified 03/07/24 10:44 duloxetine Allergy ADR-Anxiety Verified 03/07/24 10:44 erythromycin base Allergy ADR-Nausea Verified 03/07/24 10:44 fluticasone [From Flonase] Allergy ADR-Anxiety Verified 03/07/24 10:44 guaifenesin [From Mucinex] Allergy ADR-Anxiety Verified 03/07/24 10:44 Iodinated Contrast Media Allergy Unknown Verified 03/07/24 10:44 lithium Allergy Unknown Verified 03/07/24 10:44 nitroglycerin Allergy Unknown Verified 03/07/24 10:44 risperidone [From Risperdal] Allergy ALGY-Hives Verified 03/07/24 10:44 venlafaxine [From Effexor] Allergy Unknown Verified 03/07/24 10:44 quetiapine [From Seroquel] AdvReac Unknown ZOMBIE Verified 03/07/24 10:44 tramadol AdvReac APPLICATION LEAD Verified 03/07/24 10:44 COMPLICATION TOILET PAPER Allergy ADR-Itching Uncoded 03/07/24 10:44 PFSH ED PFSH: Medical History (Updated 03/09/24 @ 13:56 by Jessee Lucio MD) Screening for breast cancer Allergic rhinitis due to allergen Yeast dermatitis PVD (peripheral vascular disease) CKD (chronic kidney disease), stage II Chronic pain disorder Pre-diabetes CAD (coronary artery disease) Night terror disorder Psychiatric care Functional 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 Normal EEG with behavior episodes, ~01/12/2023 Dr. 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 S/P hysterectomy S/P tubal ligation S/P cholecystectomy S/P appendectomy Family History Grandmother Diabetes Heart disease Hypertension Stroke Grandfather Diabetes Heart disease Hypertension Stroke Mother Heart disease Hypertension Father Heart disease Brother Heart disease Hypertension Other Breast cancer Denies family history of Colon cancer Ovarian cancer Prostate cancer Uterine cancer Thyroid disease Social History Smoking and tobacco/nicotine status: never used tobacco/nicotine Alcohol intake: former Substance/Drug Use: never Caregiver/support person: Yes (Home health and a nurse comes by to set up medicine) Lives independently: No Household members: spouse Housing: Apartment Marital status: Marital status details: 6 years Number of children: 2 Number of grandchildren: 3 Highest education level completed: Associate Degree: Occupational, Technical, Vocational Program service: No Current occupational status: disabled Pets and animals: Yes Pets & animals: dog(s) Leisure activites: reading and other Leisure activities details: knitting and needle point Do you think of yourself as: Straight/Heterosexual Current gender identity: Female Elenita/Anabaptism: [facility] Special elenita needs: No Agree to transfusion: Yes Female Reproductive History: Para: 1 Spontaneous abortions: Yes (10) Physical Exam Narrative: EXAM NARRATIVE: Patient is alert. She has an emesis bag that is empty. Her neck is supple. No visible signs of trauma to her head. She moves her arms and legs freely. No drift in her arms or legs. She has intact [id number]. No truncal ataxia. Patient has some mild lower abdominal tenderness. No guarding or rebound. No upper abdominal tenderness. No Reeder's. No calf tenderness. No pitting edema. No CVA tenderness. Patient has no vertebral tenderness over her neck or back. She flexes and moves her neck freely. She tracks me around the room. She has moist mucous membranes. Course Vital Signs: Vital signs: Vital Signs Pulse Rate 81 03/09/24 10:55 Respiratory Rate 18 03/09/24 10:06 Blood Pressure 145/68 03/09/24 10:55 Pulse Oximetry 98 03/09/24 10:55 Oxygen Delivery Me thod Room Air 03/09/24 10:06 MDM - Nausea/Vomiting/Diarrhea Medical Decision Making Patient presents with multiple complaints. She complains of some lower abdominal discomfort. She states she has had some nausea and vomiting. She has chronic headaches but also worse headaches and she reports she fell on Wednesday and hit her head. She states she has been having some trouble walking with trouble with her balance off and on. She denies any black or bloody stools to suggest GI bleeding or black or bloody emesis. Patient is inconsistent in her history. She initially told me no abdominal pain then lower abdominal pain later when I asked her. Patient does not have any focal neurologic deficits noted on exam. I give the patient IV fluid bolus. Patient given Zofran 4 mg IV for nausea. CBC CMP EKG ordered. Also urinalysis ordered. Urinalysis shows blood in the urine and ketones. Patient's white blood cell count returned 13.5. Creatinine was not significantly elevated.Patient denies any chest pain or chest discomfort to suggest cardiac etiology. Patient's EKG showed sinus rhythm with a rate of 99 bpm with first-degree block and nonspecific ST segment changes to my interpretation. Stroke considered however no focal neurologic deficits on exam. Intracranial hemorrhage from her fall also considered. Patient sent for CT of the head. CT was negative for acute process per radiology. Patient could have intra-abdominal infection. She reports allergy to IV dye and would like to do CT without contrast. CT without contrast was ordered and did not show evidence of acute process. Patient did have some bilateral pleural effusions. She denies any shortness of breath. Patient states she is feeling much better after IV fluid and nausea medicine here. She is now up walking around the room alert and walking in the hallway asking for discharge. She states she feels much better. Patient has a stable gait. She does use her cane when she walks but will also lifted up and walk without it. Patient feeling improved. Reasonable to continue outpatient management. I advised fall precautions limits of ED evaluation, outpatient follow-up and return instructions. Patient agreeable to plan after informed discussion. Patient denies syncope with her fall on Wednesday. She states she has not passed out with any of her falls but just has poor balance chronically and will fall from time to time. She states she has Electric heat at home and no possible carbon oxide exposure Lab Data 03/09/24 07:37 03/09/24 07:[address] 03/09/24 07:03 IMPRESSION: 1. No evidence of intracranial hemorrhage or mass effect. 2. No acute intracranial findings. Abdomen/Pelvis CT 03/09/24 08:41 IMPRESSION: 1. Small LEFT and tiny RIGHT pleural effusions. 2. Prior cholecystectomy and hysterectomy. Prior appendectomy. 3. Small esophageal hiatal hernia. 4. Normal sigmoid colon. 5. No suspicious findings in the abdomen or pelvis. Laboratory Results WBC 13.57 10^3/uL (3.29-11.43) H 03/09/24 07:37 RBC 4.92 10^6/uL (3.85-5.65) 03/09/24 07:37 Hgb 13.80 g/dL (11.27-16.99) 03/09/24 07:37 Hct 41.2 % (36-47) 03/09/24 07:37 MCV 83.7 fl (85-98) L 03/09/24 07:37 MCH 28.0 pg (27-33) 03/09/24 07:37 MCHC 33.5 g/dL (30-55) 03/09/24 07:37 RDW 12.7 % (12.1-15.1) 03/09/24 07:37 Plt Count 290 10^3/cmm (157-399) 03/09/24 07:37 MPV 10.5 fL (7.4-10.4) H 03/09/24 07:37 Neut % (Auto) 93.8 % 03/09/24 07:37 Lymph % (Auto) 2.9 % 03/09/24 07:37 [place] % (Auto) 2.0 % 03/09/24 07:37 Eos % (Auto) 0.7 % 03/09/24 07:37 Baso % (Auto) 0.2 % 03/09/24 07:37 Neut # (Auto) 12.73 10^3/uL (1.8-7.7) H 03/09/24 07:37 Lymph # (Auto) 0.4 10^3/uL (0.8-4.8) L 03/09/24 07:37 [place] # (Auto) 0.3 10^3/uL (0.2-0.9) 03/09/24 07:37 Eos # (Auto) 0.1 10^3/uL (0.0-0.8) 03/09/24 07:37 Baso # (Auto) 0.0 10^3/uL (0.0-0.1) 03/09/24 07:37 Nucleated RBC % (auto) 0 % 03/09/24 07:37 Nucleated RBCs # 0.0 /100WBC 03/09/24 07:37 Sodium 136 mmol/L (136-145) 03/09/24 07:37 Potassium 3.5 mmol/L (3.5-5.1) 03/09/24 07:37 Chloride 96 mmol/L (98-107) L 03/09/24 07:37 Carbon Dioxide 25 mmol/L (22-29) 03/09/24 07:37 Anion Gap 18.5 (5-19) 03/09/24 07:37 BUN 12 mg/dL (8-23) 03/09/24 07:37 Creatinine 0.9 mg/dL (0.5-0.9) 03/09/24 07:37 GFR Calculation 63.9 mL/min (90-130) L 03/09/24 07:37 Glucose 116 mg/dL (65-115) H 03/09/24 07:37 Calculated Osmolality 283 mOsm/kg (285-295) L 03/09/24 07:37 Calcium 9.2 mg/dL (8.5-10.5) 03/09/24 07:37 Total Bilirubin 0.4 mg/dL (0.15-1.2) 03/09/24 07:37 AST 18 U/L (0-32) 03/09/24 07:37 ALT 22 U/L (0-33) 03/09/24 07:37 Alkaline Phosphatase 117 U/L (35-105) H 03/09/24 07:37 Total Protein 7.1 g/dL (6.6-8.7) 03/09/24 07:37 Albumin 4.4 g/dL (3.5-5.2) 03/09/24 07:37 Globulin 2.7 g/dL (1.3-4.6) 03/09/24 07:37 Lipase 23 U/L (13-60) 03/09/24 07:37 Urine Color Yellow (Yellow) 03/09/24 09:07 Urine Appearance Clear (CLEAR) 03/09/24 09:07 Urine pH 8.0 (5-7) A 03/09/24 09:07 Ur Specific [place] 1.017 (1.005-1.030) 03/09/24 09:07 Urine Protein Negative (Negative) 03/09/24 09:07 Urine Glucose (UA) Negative (Normal) 03/09/24 09:07 Urine Ketones 2+ (Negative) H 03/09/24 09:07 Urine Blood 1+ (Negative) A 03/09/24 09:07 Urine Nitrate Negative (Negative) 03/09/24 09:07 Urine Bilirubin Negative (Negative) 03/09/24 09:07 Urine Urobilinogen 1.0 mg/dL (Negative) 03/09/24 09:07 Ur Leukocyte Esterase Trace (Negative) A 03/09/24 09:07 Urine RBC 21-50 /hpf (0-2) H 03/09/24 09:07 Urine WBC 0-5 /hpf (0-5) 03/09/24 09:07 Ur Squamous Epith Cells 0-5 /hpf (0-5) 03/09/24 09:07 Amorphous Sediment Not Reportable 03/09/24 09:07 Urine Bacteria None seen /hpf (NONE) 03/09/24 09:07 Hyaline Casts 0-4 /lpf H 03/09/24 09:07 All radiology interpretation(s) finalized by discharge Discharge Plan Discharge Patient Disposition: Home Clinical Impression: Acute vomiting, Acute dehydration, Acute post-traumatic headache Condition: Stable Prescriptions: No Action clopidogrel 75 mg tablet 75 mg PO QAM docusate sodium 100 mg capsule 200 mg PO BID hydrocodone-acetaminophen 7.5-325 mg tablet 2.5 tab PO DAILY prazosin 5 mg capsule 20 mg PO BEDTIME Qty: 120 2RF trazodone 100 mg tablet 400 mg PO BEDTIME PRN (Reason: insomnia) Qty: 120 2RF ziprasidone HCl [Geodon] 40 mg capsule 40 mg PO BID Qty: 60 2RF Rx Instructions: give with food (meal/snack) vitamin B complex Tablet 1 tab PO DAILY cholecalciferol (vitamin D3) 25 mcg (1,000 unit) capsule 25 mcg PO DAILY vitamin K2 40 mcg tablet 40 mcg PO DAILY ondansetron HCl 4 mg tablet 4 mg PO Q6H PRN (Reason: nausea and vomiting) Qty: 30 2RF Movantik 25 mg tablet See Rx Instructions .ROUTE .COMPLEX Qty: 30 2RF Dose Instruction: TAKE 1 TABLET BY MOUTH EVERY MORNING FOR constipation *must be taken ON empty stomach; no food ONE hour AFTER or 2-3 hours before DOSE Rx Instructions: TAKE 1 TABLET BY MOUTH EVERY MORNING FOR constipation *must be taken ON empty stomach; no food ONE hour AFTER or 2-3 hours before DOSE Multivitamin 50 Plus Tablet 1 tab PO DAILY@12 Metamucil 3.4 gram/5.4 gram powder 1 - 2 tbsp PO DAILY PRN (Reason: Constipation) diphenhydramine HCl [Benadryl] 25 mg Capsule 50 mg PO TID PRN (Reason: Allergy Symptoms) atorvastatin 20 mg tablet 20 mg PO DAILY pantoprazole 40 mg tablet,delayed release (DR/EC) 40 mg PO BID nystatin-triamcinolone 100,000-0.1 unit/g-% cream 1 applic topical TID gabapentin 100 mg capsule 100 mg PO TID nystatin 100,000 unit/gram powder 1 applic topical BID PRN (Reason: yeast) azelastine 137 mcg (0.1 %) spray,non-aerosol 1 spray intranasal BID PRN (Reason: allergies) Rx Instructions: administer into each nostril Discharge Orders: Discharge ED (Routine); Ordered 03/09/24 Ordered By: Jessee Lucio Referrals: Vanessa Burrows NP [Primary Care Provider] - Activity Restrictions/Additional Instructions: Please come back if persistent vomiting, concerning headache, new numbness or weakness in your arms or legs, trouble with balance, concerning abdominal pain, persistent vomiting or unable to keep fluid down, any worse or concerns. Please ambulate with your cane. Fall precautions. Please follow-up on your test results with your doctor including blood and ketones in your urine. Coding Level of Care Code ED Advertising Display Rotator for Kun Saba
--- NOTE | 2024-03-09 08:52 | ECG_ITS ---
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
--- NOTE | 2024-03-09 09:13 | PC.PHAR ---
Pt states has been taken off of Lamotrigine 200mg. Pt states still takes Movantik 25mg, Atorvastatin 20mg, Prazosin 5mg. All 3 medications are overdue to fill.
[2024-03-09 09:15] LABS: Bilirubin Urine Negative (Negative); Blood Urine 1+ (Negative); Glucose Urine UA Negative (Normal); Ketones Urine 2+ (Negative); Leukocyte Esterase Urine Trace (Negative); Nitrate Urine Negative (Negative); Protein Urine Negative (Negative); Specific Gravity, Urine 1.017 (1.005-1.030); Urine Appearance Clear (CLEAR); Urine Color Yellow (Yellow)
[2024-03-09 09:17] LABS: Add Urine Microscopic? YES; Bacteria Urine None Seen /hpf; Hyaline Casts Urine 0-4 /lpf; RBC Urine 21-50 /hpf (0-2); Squamous Epithelial Cell Urine 0-5 /hpf (0-5); WBC Urine 0-5 /hpf (0-5)
[2024-03-09 09:21] LABS: Add Urine Culture? No
[2024-03-09 10:06] VITALS: PULSE 98; RESP 18; O2SAT 98
[2024-03-09 10:55] VITALS: BP 145/68; PULSE 81; O2SAT 98
== END 2024-03-09 10:56 | disposition home or self-care (01) ==
PROVIDERS: Emergency Provider Emergency Medicine
DX: R11.10 Vomiting, unspecified (principal); E86.0 Dehydration; G44.319 Acute post-traumatic headache, not intractable; Z79.02 Long term (current) use of antithrombotics/antiplatelets; I25.10 Atherosclerotic heart disease of native coronary artery without angina pectoris; I12.9 Hypertensive chronic kidney disease with stage 1 through stage 4 chronic kidney disease, or unspecified chronic kidney disease; N18.2 Chronic kidney disease, stage 2 (mild)
CPT/HCPCS: 12345; 36415; 70450; 74176; 80053; 81001; 83690; 85025; 93005; 96374; 99285; J2405; J7030

== ENCOUNTER 2024-03-09 13:26 | Emergency (ER) | payer MEDICARE, SELFPAY ==
[2022-10-22 09:38] VITALS: BP 145/83; BMI 31.8
[2024-03-09] VITALS (7 sets, daily range): BP systolic 97–158; BP diastolic 48–82; PULSE 92–128; RESP 15–20; TEMP 37; O2SAT 94–97
--- NOTE | 2024-03-09 13:42 | ED_ITS ---
HPI - Syncope 2 General: Chief Complaint: Syncope Stated Complaint: syncopal episode Time Seen by Provider: 03/09/24 13:27 History of Present Illness: Patient states that she had appointment with her pain management doctor today at 1:00. She states that when she got her pain management doctor's office she passed out in the waiting room. She states that they made her come here. She states she can hear by ambulance. She states that she does not want to be here and would like to be discharged. She states that she does not think she injured anything. She states she hurts all over. She states she takes chronic pain medication taking hydrocodone every 6 hours. She states that she was there to get her pain management visit. She states she has not had any pain medicine since yesterday. She states that she is not out of pain medicine but is afraid of taking it because it might make her throw up. She has not had any further vomiting. She does not think she hit her head and has no headache or head injury that she is aware of. No new neck or back or extremity pain. She states she hurts all over her entire body. She states that is chronic. She states she has leg pain neck pain back pain and all of that is chronic and unchanged. She does not think she injured anything. She denies any associated chest pain or palpitations. No black or bloody stools. She states that she does not want to be here and would like to go home. She states she has not had any further vomiting. She states she was able to take a nausea pill at home and was able to keep it down. No dysuria. No fever that she is aware of. Related Data Home Medications Medication Instructions Recorded Confirmed docusate sodium 100 mg capsule 200 mg PO BID Constipation 08/23/19 03/09/24 [id number] 1 tab PO DAILY@12 03/21/20 03/09/24 tablet (Multivitamin 50 Plus tablet) clopidogrel 75 mg tablet 75 mg PO QAM 04/15/20 03/09/24 psyllium husk 3.4 gram/5.4 gram 1 - 2 tbsp PO DAILY PRN 06/04/21 03/09/24 oral powder (Metamucil) Constipation diphenhydramine HCl 25 mg capsule 50 mg PO TID PRN Allergy Symptoms 10/25/22 03/09/24 (Benadryl) hydrocodone 7.5 mg-acetaminophen 2.5 tab PO DAILY pain 03/19/23 03/09/24 325 mg tablet cholecalciferol (vitamin D3) 25 25 mcg PO DAILY 04/13/23 03/09/24 mcg (1,000 unit) capsule vitamin B complex 1 tab PO DAILY 04/13/23 03/09/24 vitamin K2 40 mcg tablet 40 mcg PO DAILY 04/13/23 03/09/24 atorvastatin 20 mg tablet 20 mg PO DAILY 03/09/24 03/09/24 azelastine 137 mcg (0.1 %) nasal 1 spray intranasal BID PRN 03/09/24 03/09/24 spray allergies gabapentin 100 mg capsule 100 mg PO TID 03/09/24 03/09/24 nystatin 100,000 unit/gram topical 1 applic topical BID PRN yeast 03/09/24 03/09/24 powder nystatin-triamcinolone 100,000 1 applic topical TID 03/09/24 03/09/24 unit/g-0.1 % topical cream pantoprazole 40 mg tablet,delayed 40 mg PO BID 03/09/24 03/09/24 release Previous Rx's Medication Instructions Recorded ondansetron HCl 4 mg tablet 4 mg PO Q6H PRN nausea and 01/21/23 vomiting #30 tabs naloxegol 25 mg tablet (Movantik) See Rx Instructions .Route 01/03/24 .COMPLEX #30 tabs prazosin 5 mg capsule 20 mg (4 x 5 mg) PO BEDTIME #120 02/10/24 caps trazodone 100 mg tablet 400 mg (4 x 100 mg) PO BEDTIME PRN 02/10/24 insomnia #120 tabs ziprasidone HCl 40 mg capsule 40 mg PO BID #60 caps 02/10/24 (Geodon) Allergies Allergy/AdvReac Type Severity Reaction Status Date / Time lisinopril Allergy Unknown Unknown Verified 03/07/24 10:44 shellfish derived Allergy Unknown hives Verified 03/07/24 10:44 aripiprazole [From Abilify] Allergy Unknown Verified 03/07/24 10:44 aspartame Allergy ADR-Nausea Verified 03/07/24 10:44 codeine Allergy Unknown Verified 03/07/24 10:44 duloxetine Allergy ADR-Anxiety Verified 03/07/24 10:44 erythromycin base Allergy ADR-Nausea Verified 03/07/24 10:44 fluticasone [From Flonase] Allergy ADR-Anxiety Verified 03/07/24 10:44 guaifenesin [From Mucinex] Allergy ADR-Anxiety Verified 03/07/24 10:44 Iodinated Contrast Media Allergy Unknown Verified 03/07/24 10:44 lithium Allergy Unknown Verified 03/07/24 10:44 nitroglycerin Allergy Unknown Verified 03/07/24 10:44 risperidone [From Risperdal] Allergy ALGY-Hives Verified 03/07/24 10:44 venlafaxine [From Effexor] Allergy Unknown Verified 03/07/24 10:44 quetiapine [From Seroquel] AdvReac Unknown ZOMBIE Verified 03/07/24 10:44 tramadol AdvReac AUTOMATION AND CONTROLS SUPERVISOR Verified 03/07/24 10:44 COMPLICATION TOILET PAPER Allergy ADR-Itching Uncoded 03/07/24 10:44 PFSH ED 2 PFSH: Medical History (Updated 03/09/24 @ 13:56 by Jessee Lucio MD) Screening for breast cancer Allergic rhinitis due to allergen Yeast dermatitis PVD (peripheral vascular disease) CKD (chronic kidney disease), stage II Chronic pain disorder Pre-diabetes CAD (coronary artery disease) Night terror disorder Psychiatric care Functional 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 Normal EEG with behavior episodes, ~01/12/2023 Dr. 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 S/P hysterectomy S/P tubal ligation S/P cholecystectomy S/P appendectomy Family History Grandmother Diabetes Heart disease Hypertension Stroke Grandfather Diabetes Heart disease Hypertension Stroke Mother Heart disease Hypertension Father Heart disease Brother Heart disease Hypertension Other Breast cancer Denies family history of Colon cancer Ovarian cancer Prostate cancer Uterine cancer Thyroid disease Social History Smoking and tobacco/nicotine status: never used tobacco/nicotine Alcohol intake: former Substance/Drug Use: never Caregiver/support person: Yes (Home health and a nurse comes by to set up medicine) Lives independently: No Household members: spouse Housing: Apartment Marital status: Marital status details: 6 years Number of children: 2 Number of grandchildren: 3 Highest education level completed: Associate Degree: Occupational, Technical, Vocational Program service: No Current occupational status: disabled Pets and animals: Yes Pets & animals: dog(s) Leisure activites: reading and other Leisure activities details: knitting and needle point Do you think of yourself as: Straight/Heterosexual Current gender identity: Female Elenita/Confucianism: Restoration of Alfredo Special elenita needs: No Agree to transfusion: Yes Female Reproductive History: Para: 1 Spontaneous abortions: Yes (10) Physical Exam 2 Narrative: EXAM NARRATIVE: Patient is alert and appears emotionally upset but no acute distress otherwise. Her neck is supple. She moves her neck freely. No focal tenderness over her neck or back. She sits up moves freely in the bed. She has some mild lower abdominal tenderness. No guarding or rebound. Heart regular rhythm. Lung sounds are clear. No visible signs of trauma to her head. Her speech is clear. She has grossly intact motor and sensation bilaterally. She reports tenderness to light touch diffusely over her legs which she states is chronic. Legs appear warm well-perfused. No pitting edema. No focal bony tenderness. Course 2 Vital Signs: Vital signs: Vital Signs Temperature 98.6 F 03/09/24 13:43 Pulse Rate 106 H 03/09/24 17:59 Respiratory Rate 15 03/09/24 17:59 Blood Pressure 137/71 03/09/24 17:59 Pulse Oximetry 97 03/09/24 17:59 Oxygen Delivery Me thod Room Air 03/09/24 17:59 MDM - Syncope Medical Decision Making Patient presents after having reported syncopal event at her doctor's office. Patient was seen here this morning with nausea and vomiting and multiple other complaints. The patient is tearful and crying and states that they made her to come here by ambulance and she does not want to be here and wants to go home. She states that her son is driving. She states that she hurts all over and has not had her pain medicine since yesterday. She did agree to stay if I would give her a dose of hydrocodone. I ordered 2 06/24/2024 hydrocodone for her generalized pain which she states is chronic. She does not think she injured anything and declines head CT or imaging. Patient denies palpitations. Broad differential with syncope including dehydration, cardiac dysrhythmia, PE, sepsis, among many others. Patient agreed to have EKG done. EKG to my interpretation shows sinus tachycardia with rate [address] segment changes. Patient is emotionally upset. She agrees to see how she feels after the pain medicine kicks in and make sure she can keep the pain medicine down without further vomiting. She states she has not had any vomiting since this morning prior to her first ED visit. Patient denies any black or bloody stools or black complaint emesis to suggest GI bleed. Patient is asking for discharge home but agrees to a short period of observation just to let her pain medicine kick in. Will have the patient get up and walk around. She is fully alert and oriented. I do not have indication of hold the patient or treat her against her will. If she continues to insist on discharge we will discharge her home with fall precautions activity restrictions and outpatient follow-up. Patient tried to stand up and got lightheaded again. She agreed to have labs drawn. Troponin CBC CMP were drawn and patient given 1 L normal saline IV fluid bolus. Patient did increase heart rate and drop her blood pressure with standing on orthostatics. Patient received about 600 cc normal saline IV fluid bolus. She now states she feels much better and she is asking for discharge again. Patient troponin was indeterminate but not significantly elevated and she denies any chest pain or chest discomfort. Patient's white blood cell count improved from earlier today. Patient lactic was not elevated. Patient continues to want to go home. I advised again broad differential and limits of ED evaluation. She denies any shortness of breath or chest pain to suggest pulmonary embolus. She denies fever to suggest sepsis and her lactic was not elevated. Patient is sitting up asking for discharge alert and oriented. Repeat orthostatics do not show significant change in blood pressure. Patient will be discharged per her request. I advised patient again limits of ED evaluation outpatient follow-up and return instructions. CK not significantly elevated. COVID and influenza A and influenza B and RSV are negative Lab Data 03/09/24 16:33 03/09/24 16: Laboratory Results WBC 10.42 10^3/uL (3.29-11.43) 03/09/24: RBC 4.63 10^6/uL (3.85-5.65) 03/09/24: Hgb 13.00 g/dL (11.27-16.99) 03/09/24: Hct 38.3 % (36-47) 03/09/24: MCV 82.7 fl (85-98) L 03/09/24: MCH 28.1 pg (27-33) 03/09/24: MCHC 33.9 g/dL (30-55) 03/09/24: RDW 12.9 % (12.1-15.1) 03/09/24: Plt Count 272 10^3/cmm (157-399) 03/09/24: MPV 10.6 fL (7.4-10.4) H 03/09/24: Neut % (Auto) 93.1 % 03/09/24: Lymph % (Auto) 4.2 % 03/09/24: [place] % (Auto) 1.9 % 03/09/24: Eos % (Auto) 0.1 % 03/09/24 Baso % (Auto) 0.2 % 03/09/24: Neut # (Auto) 9.70 10^3/uL (1.8-7.7) H 03/09/24: Lymph # (Auto) 0.4 10^3/uL (0.8-4.8) L 03/09/24: [place] # (Auto) 0.2 10^3/uL (0.2-0.9) 03/09/24: Eos # (Auto) 0.0 10^3/uL (0.0-0.8) 03/09/24: Baso # (Auto) 0.0 10^3/uL (0.0-0.1) 01/16/25 16:33 Nucleated RBC % (auto) 0 % 03/09/24 16: Nucleated RBCs # 0.0 /100WBC 03/09/24 16:33 Sodium 137 mmol/L (136-145) 03/09/24 16:33 Potassium 3.5 mmol/L (3.5-5.1) 03/09/24 16:33 Chloride 101 mmol/L (98-107) 03/09/24 16:33 Carbon Dioxide 24 mmol/L (22-29) 03/09/24 16:33 Anion Gap 15.5 (5-19) 03/09/24 16:33 BUN 13 mg/dL (8-23) 03/09/24 16:33 Creatinine 0.8 mg/dL (0.5-0.9) 03/09/24 16:33 GFR Calculation 73.2 mL/min (90-130) L 03/09/24 16:33 Glucose 128 mg/dL (65-115) H 03/09/24 16:33 Calculated Osmolality 286 mOsm/kg (285-295) 03/09/24 16:33 Lactic Acid 1.0 mmol/L (0.5-2.2) 03/09/24 16:33 Calcium 8.4 mg/dL (8.5-10.5) L 03/09/24 16:33 Total Bilirubin 0.4 mg/dL (0.15-1.2) 03/09/24 16:33 AST 21 U/L (0-32) 03/09/24 16:33 ALT 22 U/L (0-33) 03/09/24 16:33 Alkaline Phosphatase 110 U/L (35-105) H 03/09/24 16:33 Creatine Kinase 73 U/L (26-192) 03/09/24 16:33 Troponin T Baseline 18 ng/L (0-10) H 03/09/24 16:33 Total Protein 6.4 g/dL (6.6-8.7) L 03/09/24 16:33 Albumin 4.3 g/dL (3.5-5.2) 03/09/24 16:33 Globulin 2.1 g/dL (1.3-4.6) 03/09/24 16:33 Coronavirus (PCR) Negative (Negative) 03/09/24 16:31 Influenza A (PCR) Negative (Negative) 03/09/24 16:31 Influenza Type B (PCR) Negative (Negative) 03/09/24 16:31 RSV (PCR) Negative (Negative) 03/09/24 16:31 No radiology studies performed this visit Discharge Plan Discharge Patient Disposition: Home Clinical Impression: Syncope, Chronic pain Condition: Stable Prescriptions: No Action clopidogrel 75 mg tablet 75 mg PO QAM docusate sodium 100 mg capsule 200 mg PO BID hydrocodone-acetaminophen 7.5-325 mg tablet 2.5 tab PO DAILY prazosin 5 mg capsule 20 mg PO BEDTIME Qty: 120 2RF trazodone 100 mg tablet 400 mg PO BEDTIME PRN (Reason: insomnia) Qty: 120 2RF ziprasidone HCl [Geodon] 40 mg capsule 40 mg PO BID Qty: 60 2RF Rx Instructions: give with food (meal/snack) vitamin B complex Tablet 1 tab PO DAILY cholecalciferol (vitamin D3) 25 mcg (1,000 unit) capsule 25 mcg PO DAILY vitamin K2 40 mcg tablet 40 mcg PO DAILY ondansetron HCl 4 mg tablet 4 mg PO Q6H PRN (Reason: nausea and vomiting) Qty: 30 2RF Movantik 25 mg tablet See Rx Instructions .ROUTE .COMPLEX Qty: 30 2RF Dose Instruction: TAKE 1 TABLET BY MOUTH EVERY MORNING FOR constipation *must be taken ON empty stomach; no food ONE hour AFTER or 2-3 hours before DOSE Rx Instructions: TAKE 1 TABLET BY MOUTH EVERY MORNING FOR constipation *must be taken ON empty stomach; no food ONE hour AFTER or 2-3 hours before DOSE Multivitamin 50 Plus Tablet 1 tab PO DAILY@12 Metamucil 3.4 gram/5.4 gram powder 1 - 2 tbsp PO DAILY PRN (Reason: Constipation) diphenhydramine HCl [Benadryl] 25 mg Capsule 50 mg PO TID PRN (Reason: Allergy Symptoms) atorvastatin 20 mg tablet 20 mg PO DAILY pantoprazole 40 mg tablet,delayed release (DR/EC) 40 mg PO BID nystatin-triamcinolone 100,000-0.1 unit/g-% cream 1 applic topical TID gabapentin 100 mg capsule 100 mg PO TID nystatin 100,000 unit/gram powder 1 applic topical BID PRN (Reason: yeast) azelastine 137 mcg (0.1 %) spray,non-aerosol 1 spray intranasal BID PRN (Reason: allergies) Rx Instructions: administer into each nostril Discharge Orders: Discharge ED (Routine); Ordered 03/09/24 Ordered By: Jessee Lucio Referrals: Vanessa Burrows NP [Primary Care Provider] - Patient Instructions: Opioid Safety, Pain Management Activity Restrictions/Additional Instructions: Please return if you change your mind for any reason.Please come back if you develop worsening abdominal pain, persistent abdominal pain, chest pain or shortness of breath or lightheadedness or dizziness or passing out. Fall precautions. Please come back if you develop fever, difficulty breathing, black or bloody stools, any worse or concerns or you change her mind for any reason. Coding Level of Care Code ED Prime Broker for Kun Saba
--- NOTE | 2024-03-09 13:43 | ECG_ITS ---
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
--- NOTE | 2024-03-09 13:53 | PC.PHAR ---
Pt was discharged earlier today around 11am. Med rec completed from previous conversation with pt. Pt does have [place] 7.5-325mg 2.5 tablets daily last filled 02/11/24 30ds #75-pt should have some left if taken according to directions.
[2024-03-09] MEDS: HYDROcodone-acetaminophen 5-325 mg Tablet 1 TAB PO ×2 (13:54)
[2024-03-09 16:42] LABS: Basophils % 0.2 %; Eosinophils % 0.1 %; Hematocrit 38.3 % (36-47); Lymphocytes # 0.4 10^3/uL (0.8-4.8); Lymphocytes % 4.2 %; Mean Corpuscular HGB Conc 33.9 g/dL (30-55); Mean Corpuscular Hemoglobin 28.1 pg (27-33); Mean Corpuscular Volume 82.7 fl (85-98); Mean Platelet Volume 10.6 fL (7.4-10.4); Monocytes # 0.2 10^3/uL (0.2-0.9); Monocytes % 1.9 %; Neutrophils % 93.1 %; Nucleated Red Blood Cells % 0 %; Platelet Count 272 10^3/cmm (157-399); Red Blood Count 4.63 10^6/uL (3.85-5.65); Red Cell Distribution Width 12.9 % (12.1-15.1); White Blood Count 10.42 10^3/uL (3.29-11.43)
[2024-03-09] MEDS: sodium chloride 0.9% 1,000 ML 999 ML IV (16:57)
[2024-03-09 16:58] LABS: Alanine Aminotransferase 22 U/L (0-33); Albumin Level 4.3 g/dL (3.5-5.2); Alkaline Phosphatase 110 U/L (35-105); Aspartate Amino Transferase 21 U/L (0-32); Blood Urea Nitrogen 13 mg/dL (8-23); Calcium 8.4 mg/dL (8.5-10.5); Carbon Dioxide 24 mmol/L (22-29); Chloride 101 mmol/L (98-107); Creatine Phosphokinase 73 U/L (26-192); Globulin 2.1 g/dL (1.3-4.6); Glomerular Filtration Rate 73.2 mL/min (90-130); Glucose 128 mg/dL (65-115); Osmolality Calculated 286 mOsm/kg (285-295); Sodium 137 mmol/L (136-145); Total Bilirubin 0.4 mg/dL (0.15-1.2); Total Protein 6.4 g/dL (6.6-8.7)
--- NOTE | 2024-03-09 17:03 | ECG_ITS ---
[facility] Date: 2024-03-09 Pat Name: Mikala Love Department: Room: Gender: Female Medical Device Engineer: : 1965 Requested By: Jessee Lucio Order Number: [id number] Reading MD: ORTIZ HAYS Measurements Intervals [place] Rate: 103 P: 42 HI: 188 QRS: 28 QRSD: 85 T: 56 QT: 356 QTc: 467 Interpretive Statements SINUS TACHYCARDIA NONSPECIFIC T-WAVE ABNORMALITY ABNORMAL RHYTHM ECG Compared to ECG 03/09/2024 13:43:35 No significant changes Electronically Signed On 03-10-2024 23:23:16 HEATING AND COOLING TECHNICIAN by ORTIZ HAYS [id number]
[2024-03-09 17:04] LABS: Anion Gap 15.5 (5-19); Potassium 3.5 mmol/L (3.5-5.1)
[2024-03-09 17:17] LABS: Covid PCR NEGATIVE (Negative); Influenza A NEGATIVE (Negative); Influenza B NEGATIVE (Negative); Respiratory Syncytial Virus Ce NEGATIVE (Negative)
[2024-03-09 17:17] LABS: Troponin(5th) Baseline 18 ng/L (0-10)
--- NOTE | 2024-03-09 18:09 | ECG_ITS ---
[email or web address] Test Date: 2024-03-09 Pat Name: Mikala Love Department: Room: Gender: Female Clinical Services Assistant: : 1965 Requested By: Jessee Lucio Order Number: [id number] Reading MD: ORTIZ HAYS Measurements Intervals [place] Rate: 94 P: 51 VT: 203 QRS: 35 QRSD: 82 T: 10 QT: 290 QTc: 363 Interpretive Statements SINUS RHYTHM NONSPECIFIC T-WAVE ABNORMALITY Compared to ECG 03/09/2024 17:03:04 Sinus tachycardia no longer present T-wave abnormality still present Electronically Signed On 03-10-2024 23:32:57 CITRUS FRUIT PACKER by ORTIZ HAYS [email or web address]
== END 2024-03-09 18:30 | disposition home or self-care (01) ==
PROVIDERS: Emergency Provider Emergency Medicine
DX: R55 Syncope and collapse (principal); G89.29 Other chronic pain; Z11.52 Encounter for screening for COVID-19; I12.9 Hypertensive chronic kidney disease with stage 1 through stage 4 chronic kidney disease, or unspecified chronic kidney disease; N18.2 Chronic kidney disease, stage 2 (mild); I25.10 Atherosclerotic heart disease of native coronary artery without angina pectoris
CPT/HCPCS: 12345; 80053; 82550; 83605; 84484; 85025; 87637; 93005; 99284; J7030

== ENCOUNTER → 2024-03-16 09:08 | Outpatient (BNVA) | payer MEDICARE, SELFPAY ==
[2022-10-22 09:38] VITALS: BP 145/83; BMI 31.8
== END ==
PROVIDERS: Visit Provider Specialist
DX: Z09 Encounter for follow-up examination after completed treatment for conditions other than malignant neoplasm (principal); R55 Syncope and collapse; F43.12 Post-traumatic stress disorder, chronic; F33.2 Major depressive disorder, recurrent severe without psychotic features; F60.3 Borderline personality disorder; Z96.89 Presence of other specified functional implants; G40.909 Epilepsy, unspecified, not intractable, without status epilepticus; R26.89 Other abnormalities of gait and mobility
CPT/HCPCS: 99213

== ENCOUNTER → 2024-04-24 14:53 | Outpatient (BNVA) | payer OTHER, SELFPAY ==
[2024-05-15 14:49] VITALS: BP 113/58; BMI 33.6
== END ==
PROVIDERS: Visit Provider Internal Medicine Cardiovascular Disease
DX: I12.9 Hypertensive chronic kidney disease with stage 1 through stage 4 chronic kidney disease, or unspecified chronic kidney disease (principal); N18.2 Chronic kidney disease, stage 2 (mild); R00.2 Palpitations; Z86.73 Personal history of transient ischemic attack (TIA), and cerebral infarction without residual deficits; Z79.01 Long term (current) use of anticoagulants; Z87.891 Personal history of nicotine dependence
CPT/HCPCS: 99214

== ENCOUNTER → 2024-05-08 07:57 | Outpatient (BNVA) | payer MEDICARE, SELFPAY ==
[2022-10-22 09:38] VITALS: BP 145/83; BMI 31.8
== END ==
PROVIDERS: Visit Provider Podiatrist Foot & Ankle Surgery
DX: E11.8 Type 2 diabetes mellitus with unspecified complications (principal); L60.3 Nail dystrophy; R94.4 Abnormal results of kidney function studies; Z86.718 Personal history of other venous thrombosis and embolism; N18.2 Chronic kidney disease, stage 2 (mild); I73.9 Peripheral vascular disease, unspecified
CPT/HCPCS: 11721

== ENCOUNTER → 2024-05-11 11:14 | Outpatient (BNVA) | payer OTHER, SELFPAY ==
[2022-10-22 09:38] VITALS: BP 145/83; BMI 31.8
== END ==
PROVIDERS: Visit Provider Psychiatry & Neurology Psychiatry
DX: F60.3 Borderline personality disorder (principal); F41.1 Generalized anxiety disorder; Z79.899 Other long term (current) drug therapy
CPT/HCPCS: 80061; 83036

== ENCOUNTER 2024-05-19 14:51 | Inpatient (IN) | payer MEDICARE, SELFPAY ==
[2024-05-15 14:49] VITALS: BP 113/58; BMI 33.6
[2024-05-19 14:56] VITALS: BP 128/65; PULSE 82; RESP 20; TEMP 37.1; O2SAT 96; BMI 33.5
[2024-05-19 16:32] VITALS: BP 139/80; PULSE 69; O2SAT 99
[2024-05-19 16:33] LABS: Basophils # 0.1 10^3/uL (0.0-0.1); Basophils % 0.9 %; Eosinophils # 0.1 10^3/uL (0.0-0.8); Eosinophils % 1.4 %; Hematocrit 37.5 % (36-47); Lymphocytes # 2.5 10^3/uL (0.8-4.8); Lymphocytes % 28.3 %; Mean Corpuscular HGB Conc 33.1 g/dL (30-55); Mean Corpuscular Hemoglobin 28.3 pg (27-33); Mean Corpuscular Volume 85.6 fl (85-98); Mean Platelet Volume 10.7 fL (7.4-10.4); Monocytes # 0.5 10^3/uL (0.2-0.9); Monocytes % 5.7 %; Neutrophils # 5.48 10^3/uL (1.8-7.7); Neutrophils % 63.4 %; Nucleated Red Blood Cells % 0 %; Platelet Count 261 10^3/cmm (157-399); Red Blood Count 4.38 10^6/uL (3.85-5.65); White Blood Count 8.65 10^3/uL (3.29-11.43)
--- NOTE | 2024-05-19 16:41 | ECG_ITS ---
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
[2024-05-19 16:46] LABS: Bacteria Urine None Seen /hpf; Squamous Epithelial Cell Urine 0-5 /hpf (0-5)
[2024-05-19 16:47] LABS: Add Urine Culture? Yes; Add Urine Microscopic? YES; Bilirubin Urine Neg (Negative); Blood Urine 2+ (Negative); Glucose Urine UA Norm (Normal); Ketones Urine Negative (Negative); Leukocyte Esterase Urine 2+ (Negative); Nitrate Urine Negative (Negative); Protein Urine Neg (Negative); Urine Appearance Clear (CLEAR); Urine Color Yellow (Yellow); Urobilinogen Urine Neg (Negative); pH Urine 6.5 (5-7)
[2024-05-19 16:54] LABS: Acetaminophen < 5.0 ug/mL (10-30); Alanine Aminotransferase 13 U/L (0-33); Albumin Level 4.3 g/dL (3.5-5.2); Alcohol Level < 10 mg/dL (0-10); Alkaline Phosphatase 94 U/L (35-105); Anion Gap 16.2 (5-19); Aspartate Amino Transferase 13 U/L (0-32); Blood Urea Nitrogen 16 mg/dL (8-23); Calcium 9.4 mg/dL (8.5-10.5); Carbon Dioxide 28 mmol/L (22-29); Chloride 99 mmol/L (98-107); Creatinine Clr Calc Pharmacy 56.4362; Globulin 2.8 g/dL (1.3-4.6); Glomerular Filtration Rate 50.7 mL/min (90-130); Glucose 87 mg/dL (65-115); Osmolality Calculated 289 mOsm/kg (285-295); Potassium 4.2 mmol/L (3.5-5.1); Salicylate < 0.3 mg/dL (3-10); Sodium 139 mmol/L (136-145); Thyroid Stimulating Hormone 1.91 uIU/mL (0.27-4.20); Total Bilirubin 0.2 mg/dL (0.15-1.2); Total Protein 7.1 g/dL (6.6-8.7)
[2024-05-19 17:06] LABS: Amphetamines Screen Urine Negative (Negative); Barbiturates Screen Urine Negative (Negative); Benzodiazepines Screen Urine Negative (Negative); Cocaine Screen Urine Negative (Negative); Opiate Screen Urine Positive (Negative); PCP Screen Urine Negative (Negative); THC Screen Urine Negative (Negative)
[2024-05-19 17:30] VITALS: PULSE 73; RESP 16; O2SAT 96
[2024-05-19 19:26] VITALS: BP 150/71; PULSE 72; RESP 20; TEMP 36.7; O2SAT 96
[2024-05-19 19:42] VITALS: BP 139/80; PULSE 69; O2SAT 94
[2024-05-19 20:50] VITALS: BP 150/71; PULSE 72; RESP 20; TEMP 36.7; O2SAT 96
[2024-05-19] MEDS: HYDROcodone-acetaminophen 7.5-325 mg Tablet 1 TAB PO (21:54)
[2024-05-19] MEDS: cephALEXin 500 mg Capsule PO (21:54)
[2024-05-19] MEDS: gabapentin 100 mg Capsule PO (21:55)
[2024-05-19] MEDS: psyllium powder Pkt 1 PACKET PO (21:56)
[2024-05-20 06:00] VITALS: BP 104/59; PULSE 75; RESP 16; O2SAT 96
[2024-05-20] MEDS: clopidogrel 75 mg Tablet PO (06:35)
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
[2024-05-20] MEDS: cholecalciferol (vitamin D3) 1,000 unit Tablet 1000 UNIT PO (09:01)
[2024-05-20] MEDS: cephALEXin 500 mg Capsule PO ×3 (09:01→20:44)
[2024-05-20] MEDS: gabapentin 100 mg Capsule PO ×3 (09:01→20:45)
[2024-05-20] MEDS: docusate sodium 100 mg Capsule 200 MG PO ×2 (09:01→17:53)
[2024-05-20] MEDS: multivitamin therapeutic Tablet 1 TAB PO (11:59)
[2024-05-20 14:00] VITALS: BP 150/94; PULSE 73; RESP 18; TEMP 36.7; O2SAT 95
[2024-05-20] MEDS: HYDROcodone-acetaminophen 7.5-325 mg Tablet 1 TAB PO ×2 (14:10→20:44)
[2024-05-20] MEDS: nystatin cream 30 gm 1 APPLIC TOPICAL (16:54)
[2024-05-20] MEDS: triamcinolone 0.1% cream 15 gm 1 APPLIC TOPICAL (16:54)
[2024-05-20 20:33] VITALS: BP 135/87; PULSE 84; RESP 18; TEMP 36.7; O2SAT 98
[2024-05-21] MEDS: acetaminophen 325 mg Tablet 650 MG PO ×2 (02:11→20:15)
[2024-05-21] MEDS: tizanidine 4 mg Tablet PO (03:53)
[2024-05-21] MEDS: HYDROcodone-acetaminophen 7.5-325 mg Tablet 1 TAB PO ×2 (03:53→12:19)
--- NOTE | 2024-05-21 03:54 | PC.NURSE ---
Pt approached the nurses station complaining of muscle cramps and hurting, administered zanaflex and hydro which are on the pt's prn list.
[2024-05-21] MEDS: clopidogrel 75 mg Tablet PO (05:36)
[2024-05-21 06:00] VITALS: BP 101/46; PULSE 74; RESP 18; O2SAT 94
--- NOTE | 2024-05-21 07:12 | P.NPUPN_ITS ---
Subjective NPU 2 Subjective: Patient presented today reporting that she is feeling better than she had before. We discussed the improvement and her refusing some of her medications secondary to concerns that they were not working for her. Now she is more accepting of the idea that her UTI could have been affecting her mental health as she is felt better with each subsequent dose of her Keflex. We discussed monitoring her for another day or so and likely discharging her without any changes in medications at this turnaround is complete. She denied any side effects to the medication. Mental Status Exam 2 MSE Comments: This is an obese white female in hospital scrubs looking older than her stated age, looking disheveled but with appropriate eye contact. Significant deformity of her upper lip consistent with previous cleft palate/lip or other significant injury. No abnormal movements except for mild psychomotor retardation. Cooperative with exam in mild distress. Speech is slightly decreased rate and volume. Mood described as starting to feel better, affect slightly subdued. Thought process organized. Thought content: Patient denies suicidal or homicidal ideation, there were no delusions reported or noted, she denied any auditory or visual hallucinations. Attention and concentration were intact and memory appeared mostly reliable but none were formally tested. He is alert and oriented x3. Insight and judgment are fair and impulse control is limited. Vitals/I&O/Wt Last Vital Signs Temp 98.0 F 05/20/24 20:33 Pulse 74 05/21/24 06:00 Resp 18 05/21/24 06:00 BP 101/46 05/21/24 06:00 Pulse Ox 94 05/21/24 06:00 O2 Del Method Room Air 05/19/24 21:12 Weight last 48 hrs Weight 88.621 kg Weight 85.729 kg Data NPU 05/19/24 16:18 05/19/24 16:18 A&P Assessment and plan (1) Major depressive disorder, recurrent severe without psychotic features: (2) Generalized anxiety disorder: (3) Dissociative and conversion disorder: (4) Borderline personality disorder in adult: (5) Post-traumatic stress disorder, chronic: Plan This is a 59-year-old white female with a long history of mental health concerns, trauma, personality disorder presents reporting dissociative disorder and history of multiple hospitalizations the last 1 over 4 years ago. She has been active in treatment outpatient and was seen 9 days ago with no concerns but then had things seem to get worse rapidly but also presents with a UTI which could explain some of those concerns. 1. Continue current medication. We will monitor her response to antibiotics and plan on seeing how she is doing on Wednesday along with talking to her outpatient provider about any direction he might go with an antidepressant if that is deemed to be appropriate. 2. Continue every 15 minute checks for safety. 3. Encourage individual, group and milieu therapies. 4. Obtain collateral information. PDMP PDMP Reviewed: Not Reviewed Involuntary Hold Information 2 96 Hour Hold: 96 Hour Involuntary Admission: No Attestations NPU 2 Medical Necessity Statement*: Inpatient hospitalization is medically necessary and the clinically appropriate intervention at this time. We will monitor medications and make changes as indicated. Likely length of stay 2-4 days. Coding Level of Care Code Acute Code for [facility] Fwd Diagnoses Major depressive disorder, recurrent severe without psychotic features F33.2 Generalized anxiety disorder F41.1 Dissociative and conversion disorder F44.9 Borderline personality disorder in adult F60.3 Post-traumatic stress disorder, chronic F43.12
[2024-05-21] MEDS: cholecalciferol (vitamin D3) 1,000 unit Tablet 1000 UNIT PO (08:21)
[2024-05-21] MEDS: docusate sodium 100 mg Capsule 200 MG PO ×2 (08:21→17:00)
[2024-05-21] MEDS: gabapentin 100 mg Capsule PO ×3 (08:21→20:10)
[2024-05-21] MEDS: cephALEXin 500 mg Capsule PO ×3 (08:22→20:10)
[2024-05-21] MEDS: multivitamin therapeutic Tablet 1 TAB PO (12:04)
[2024-05-21 13:18] VITALS: BP 129/80; PULSE 72; RESP 17; TEMP 37; O2SAT 98
[2024-05-21 14:00] VITALS: BP 129/80; PULSE 72; RESP 17; TEMP 37; O2SAT 98
[2024-05-21 19:59] VITALS: BP 152/82; PULSE 77; RESP 18; TEMP 36.8; O2SAT 96
--- NOTE | 2024-05-21 20:18 | PC.NURSE ---
Patient refused HS dose of Prazosin 20mg, stated she is trying to detoxify off all her meds, and restart them one at a time to see which one is causing my issues . When asked what issues she was having, pt stated, I'm confused, I'm tired all the time, i can't concentrate, I'm having more back pain. Pt was advised that those issues can be caused by the UTI that she has, but to talk to the Doctor about her meds. All her scheduled meds were explained to her and advise given that it can be very dangerous to stop medications without talking to the Doctor first.
[2024-05-21] MEDS: prazosin 5 mg Capsule 20 MG PO (20:36)
--- NOTE | 2024-05-21 20:45 | PC.NURSE ---
Patient talked to Dr Burrows and agreed to take her pazosin 20mg, med given.
[2024-05-21] MEDS: trazodone 50 mg Tablet PO (22:14)
[2024-05-22] MEDS: haloperidol 5 mg Tablet PO (03:32)
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
[2024-05-22 06:00] VITALS: RESP 16
[2024-05-22 08:46] VITALS: BP 106/61; PULSE 116; RESP 18; TEMP 36.7; O2SAT 96
[2024-05-22] MEDS: cephALEXin 500 mg Capsule PO ×3 (08:46→20:05)
[2024-05-22] MEDS: clopidogrel 75 mg Tablet PO (08:46)
[2024-05-22] MEDS: docusate sodium 100 mg Capsule 200 MG PO ×2 (08:47→17:39)
[2024-05-22] MEDS: gabapentin 100 mg Capsule PO ×3 (08:48→20:05)
[2024-05-22] MEDS: pantoprazole DR 40 mg Tablet PO ×2 (08:48→17:39)
[2024-05-22] MEDS: cholecalciferol (vitamin D3) 1,000 unit Tablet 1000 UNIT PO (08:49)
[2024-05-22] MEDS: atorvastatin 40 mg Tablet 20 MG PO (08:50)
[2024-05-22] MEDS: ziprasidone hcl 40 mg Capsule PO ×2 (08:50→17:39)
[2024-05-22] MEDS: multivitamin therapeutic Tablet 1 TAB PO (12:54)
[2024-05-22] MEDS: HYDROcodone-acetaminophen 7.5-325 mg Tablet 1 TAB PO (12:55)
[2024-05-22 14:00] VITALS: BP 98/54; PULSE 76; RESP 16; O2SAT 96
[2024-05-22] MEDS: tizanidine 4 mg Tablet PO (14:12)
--- NOTE | 2024-05-22 17:18 | P.NPUPN_ITS ---
Subjective NPU 2 Subjective: Patient presented today reporting that she is feeling significantly better. She continued to report robust improvement with the continued taking of her antibiotic and she did restart her home psychiatric medications and reports she feels really good. We discussed the likelihood of discharge tomorrow and she denied any side effects to her medications. Mental Status Exam 2 MSE Comments: This is an obese white female in hospital scrubs looking older than her stated age, looking disheveled but with appropriate eye contact. Significant deformity of her upper lip consistent with previous cleft palate/lip or other significant injury. No abnormal movements except for mild psychomotor retardation. Cooperative with exam in mild distress. Speech is slightly decreased rate and volume. Mood described as starting to feel better, affect slightly subdued. Thought process organized. Thought content: Patient denies suicidal or homicidal ideation, there were no delusions reported or noted, she denied any auditory or visual hallucinations. Attention and concentration were intact and memory appeared mostly reliable but none were formally tested. He is alert and oriented x3. Insight and judgment are fair and impulse control is limited. Vitals/I&O/Wt Last Vital Signs Temp 98.0 F 05/22/24 08:46 Pulse 76 05/22/24 14:00 Resp 16 05/22/24 14:00 BP 98/54 05/22/24 14:00 Pulse Ox 96 05/22/24 14:00 O2 Del Method Room Air 05/22/24 14:00 Weight last 48 hrs Weight 88.621 kg Data NPU 05/19/24 16:18 05/19/24 16:18 Micro: Microbiology 05/19/24 16:28 Urine Culture - Final Urine,Clean Catch Microbiology 05/19/24 16:28 Urine,Clean Catch Urine Culture - Final A&P Assessment and plan (1) Major depressive disorder, recurrent severe without psychotic features: (2) Generalized anxiety disorder: (3) Dissociative and conversion disorder: (4) Borderline personality disorder in adult: (5) Post-traumatic stress disorder, chronic: Plan This is a 59-year-old white female with a long history of mental health concerns, trauma, personality disorder presents reporting dissociative disorder and history of multiple hospitalizations the last 1 over 4 years ago. She has been active in treatment outpatient and was seen 9 days ago with no concerns but then had things seem to get worse rapidly but also presents with a UTI which could explain some of those concerns. 1. Continue current medication. We will monitor her response to antibiotics and plan on seeing how she is doing on Wednesday along with talking to her outpatient provider about any direction he might go with an antidepressant if that is deemed to be appropriate. Patient seeming to have significant recovery with the treatment of her UTI and so we agreed to leave her medications as is which she did begin taking them as directed. 2. Continue every 15 minute checks for safety. 3. Encourage individual, group and milieu therapies. 4. Obtain collateral information. PDMP PDMP Reviewed: Not Reviewed Involuntary Hold Information 2 Hold Status: Date/Time Hold Expires: voluntary 96 Hour Hold: 96 Hour Involuntary Admission: No Attestations NPU 2 Medical Necessity Statement*: Inpatient hospitalization is medically necessary and the clinically appropriate intervention at this time. We will monitor medications and make changes as indicated. Likely length of stay 1-3 days. Coding Level of Care Code Acute Code for g Fwd Diagnoses Major depressive disorder, recurrent severe without psychotic features F33.2 Generalized anxiety disorder F41.1 Dissociative and conversion disorder F44.9 Borderline personality disorder in adult F60.3 Post-traumatic stress disorder, chronic F43.12
[2024-05-22] MEDS: efferdent effervescent 1 EACH DENTAL (17:38)
[2024-05-22 19:48] VITALS: BP 120/70; PULSE 82; RESP 18; TEMP 36.9; O2SAT 95
[2024-05-22] MEDS: prazosin 5 mg Capsule 20 MG PO (20:05)
[2024-05-22] MEDS: trazodone 50 mg Tablet PO (20:08)
[2024-05-23 06:00] VITALS: BP 117/71; PULSE 100; RESP 17; TEMP 37.1; O2SAT 96
[2024-05-23] MEDS: clopidogrel 75 mg Tablet PO (09:41)
[2024-05-23] MEDS: gabapentin 100 mg Capsule PO (09:42)
[2024-05-23] MEDS: cephALEXin 500 mg Capsule PO (09:42)
[2024-05-23] MEDS: atorvastatin 40 mg Tablet 20 MG PO (09:42)
[2024-05-23] MEDS: pantoprazole DR 40 mg Tablet PO (09:43)
[2024-05-23] MEDS: cholecalciferol (vitamin D3) 1,000 unit Tablet 1000 UNIT PO (09:43)
[2024-05-23] MEDS: docusate sodium 100 mg Capsule 200 MG PO (09:43)
[2024-05-23] MEDS: ziprasidone hcl 40 mg Capsule PO (09:46)
[2024-05-23] MEDS: multivitamin therapeutic Tablet 1 TAB PO (11:47)
--- NOTE | 2024-05-23 12:10 | DCPLANNER ---
IMM completed on 05/23/2024 @ 1156pm. Pt was given a copy of her rights and she stated she understood her rights.
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
[2024-05-23 12:56] VITALS: BP 120/45; PULSE 113; RESP 17; TEMP 36.6; O2SAT 97
[2024-05-23 13:06] VITALS: BP 120/45; PULSE 113; RESP 16; TEMP 36.5; O2SAT 97
== END 2024-05-23 13:24 | disposition home or self-care (01) | DRG 885 ==
LOC: ER 17:22 → NP 17:52
PROVIDERS: Physician Assistant; Admitting Provider Psychiatry & Neurology Psychiatry; Emergency Provider Emergency Medicine; Visit Provider Psychiatry & Neurology Psychiatry
DX: F33.2 Major depressive disorder, recurrent severe without psychotic features (principal); N39.0 Urinary tract infection, site not specified; F41.1 Generalized anxiety disorder; F44.9 Dissociative and conversion disorder, unspecified; F60.3 Borderline personality disorder; F43.12 Post-traumatic stress disorder, chronic; E66.9 Obesity, unspecified; Z68.34 Body mass index [BMI] 34.0-34.9, adult; Z79.891 Long term (current) use of opiate analgesic; Z79.02 Long term (current) use of antithrombotics/antiplatelets; I44.0 Atrioventricular block, first degree; E11.51 Type 2 diabetes mellitus with diabetic peripheral angiopathy without gangrene; E11.22 Type 2 diabetes mellitus with diabetic chronic kidney disease; I12.9 Hypertensive chronic kidney disease with stage 1 through stage 4 chronic kidney disease, or unspecified chronic kidney disease; N18.2 Chronic kidney disease, stage 2 (mild); I25.10 Atherosclerotic heart disease of native coronary artery without angina pectoris; Z86.73 Personal history of transient ischemic attack (TIA), and cerebral infarction without residual deficits; G47.33 Obstructive sleep apnea (adult) (pediatric); Z86.718 Personal history of other venous thrombosis and embolism; Z87.891 Personal history of nicotine dependence
CPT/HCPCS: 80053; 80306; 80307; 81001; 84443; 85025; 87086; 93005; 97150; 97165; 99285; J9999

== ENCOUNTER → 2024-07-10 14:20 | Outpatient (BNVA) | payer MEDICARE, SELFPAY ==
[2024-05-15 14:49] VITALS: BP 113/58; BMI 33.6
== END ==
DX: R73.03 Prediabetes (principal); F60.3 Borderline personality disorder; F41.1 Generalized anxiety disorder; N18.2 Chronic kidney disease, stage 2 (mild); Z79.899 Other long term (current) drug therapy
CPT/HCPCS: 80053; 83036

== ENCOUNTER → 2024-08-01 11:45 | Outpatient (BNVA) | payer MEDICARE, SELFPAY ==
[2024-05-15 14:49] VITALS: BP 113/58; BMI 33.6
== END ==
DX: N39.0 Urinary tract infection, site not specified (principal)
CPT/HCPCS: 81000; 87086

== ENCOUNTER → 2024-08-14 08:13 | Outpatient (BNVA) | payer MEDICARE, SELFPAY ==
[2024-05-15 14:49] VITALS: BP 113/58; BMI 33.6
== END ==
PROVIDERS: Visit Provider Podiatrist Foot & Ankle Surgery
DX: I73.9 Peripheral vascular disease, unspecified (principal); L60.3 Nail dystrophy; R94.4 Abnormal results of kidney function studies; Z86.718 Personal history of other venous thrombosis and embolism; N18.2 Chronic kidney disease, stage 2 (mild)
CPT/HCPCS: 11721

== ENCOUNTER → 2024-09-13 08:17 | Outpatient (BNVA) | payer MEDICARE, MEDICAID, SELFPAY ==
[2024-05-15 14:49] VITALS: BP 113/58; BMI 33.6
== END ==
PROVIDERS: Visit Provider Specialist
DX: Z09 Encounter for follow-up examination after completed treatment for conditions other than malignant neoplasm (principal); R55 Syncope and collapse; F43.12 Post-traumatic stress disorder, chronic; F44.5 Conversion disorder with seizures or convulsions; F33.2 Major depressive disorder, recurrent severe without psychotic features; F44.9 Dissociative and conversion disorder, unspecified; F60.3 Borderline personality disorder; Z96.89 Presence of other specified functional implants; I25.118 Atherosclerotic heart disease of native coronary artery with other forms of angina pectoris; R26.89 Other abnormalities of gait and mobility; R01.1 Cardiac murmur, unspecified
CPT/HCPCS: 99214

== ENCOUNTER → 2024-11-14 13:57 | Outpatient (BNVA) | payer MEDICARE, SELFPAY ==
[2024-05-15 14:49] VITALS: BP 113/58; BMI 33.6
== END ==
PROVIDERS: Visit Provider Podiatrist Foot & Ankle Surgery
DX: E11.22 Type 2 diabetes mellitus with diabetic chronic kidney disease (principal); L60.3 Nail dystrophy; E11.8 Type 2 diabetes mellitus with unspecified complications; R94.4 Abnormal results of kidney function studies; Z86.718 Personal history of other venous thrombosis and embolism; N18.2 Chronic kidney disease, stage 2 (mild); I73.9 Peripheral vascular disease, unspecified
CPT/HCPCS: 11721

== ENCOUNTER 2024-11-24 08:05 | Outpatient (CLI) | payer MEDICARE, MEDICAID, SELFPAY ==
[2024-05-15 14:49] VITALS: BP 113/58; BMI 33.6
--- NOTE | 2024-11-24 08:30 | USCV_ITS ---
Mikala Love Age: 59 Gender: F : 1965 Exam Date: 11/24/2024 08:32 Ordering Phys: Sarah Villegas MD Technologist: Isma Giraldo Exam Location: [facility] [place] Indication: atherosclerotic heart disease BP: 110 / 70 HR: 62 Rhythm: Sinus Technical Quality: Adequate MEASUREMENTS (Male / Female) Normal Values 2D ECHO LV Diastolic Diameter PLAX 4.0 cm 4.2 - 5.9 / 3.9 - 5.3 cm IVS Diastolic Thickness 0.9 cm 0.6 - 1.0 / 0.6 - 0.9 cm IVS Systolic Thickness 1.1 cm LVPW Diastolic Thickness 0.8 cm 0.6 - 1.0 / 0.6 - 0.9 cm LVPW Systolic Thickness 1.4 cm LVOT Diameter 2.0 cm LV Ejection Fraction 2D Teich 79.7 % LV Ejection Fraction MOD 4C 67.3 % LA Diameter 3.1 cm RA Systolic Volume 4C AL 33.8 ml RA Systolic Volume 4C MOD 31.8 ml LA Sys Volume AL 40.4 cm cubed LA Sys Volume Index AL 20.7 cm cubed/m squared Aorta at Sinotubular Diameter 2.2 cm IVC Diameter 1.7 cm M-MODE LA Ao Ratio MM 1.4 AV Cusp Separation MM 1.6 cm DOPPLER AV Peak Velocity 167.0 cm/s LVOT Peak Velocity 69.0 cm/s AV Area Cont Eq vti 1.7 cm squared AV Area Cont Eq pk 1.3 cm squared MV Peak Velocity 139.0 cm/s MV Area PHT 4.8 cm squared Mitral E to A Ratio 0.9 TV Peak Velocity 292.0 cm/s TR Peak Velocity 297.0 cm/s TR Peak Gradient 35.3 mmHg TR Mean Velocity 247.0 cm/s TR Mean Gradient 25.4 mmHg TR Velocity Time Integral 86.1 cm PV Peak Velocity 88.3 cm/s RV Ejection Time 0.3 s FINDINGS Left Ventricle Normal left ventricular size and systolic function, EF 67%.no regional wall motion abnormalities. . Grade I/IV diastolic dysfunction (abnormal relaxation filling pattern), normal to mildly elevated filling pressures. Right Ventricle Normal right ventricular size and systolic function. Right Atrium Normal right atrial size. Left Atrium Normal left atrial size. IA Septum Normal appearance of the interatrial septum. Mitral Valve Trace mitral valve regurgitation. Aortic Valve No gross abnormalities noted Tricuspid Valve Trace tricuspid valve regurgitation. Pulmonic Valve Pulmonic valve not well visualized. Pericardium No pericardial effusion. Aorta Normal diameter of the aortic root and ascending thoracic aorta. IVC Normal IVC diameter. CONCLUSIONS Normal left ventricular size and systolic function, EF 67%.no regional wall motion abnormalities. . Grade I/IV diastolic dysfunction (abnormal relaxation filling pattern), normal to mildly elevated filling pressures. Trace tricuspid valve regurgitation. Estimated pulmonary artery peak systolic pressure 28 mmHg Trace mitral valve regurgitation. There is no pericardial effusion. There are no intracardiac masses. Compared to the study from 07/25/2022, there may not be a significant change Dr Curtis Jefferson MD FACC (Electronically Signed) Final Date: 25 November 2024 20:30 S
== END 2024-11-24 08:06 | disposition home or self-care (01) ==
LOC: RAD 08:08
PROVIDERS: Visit Provider Specialist
DX: I25.118 Atherosclerotic heart disease of native coronary artery with other forms of angina pectoris (principal); I50.30 Unspecified diastolic (congestive) heart failure
CPT/HCPCS: 93306

== ENCOUNTER → 2025-01-31 15:43 | Outpatient (BNVA) | payer MEDICARE, SELFPAY ==
[2024-05-15 14:49] VITALS: BP 113/58; BMI 33.6
== END ==
DX: R73.03 Prediabetes (principal); N18.2 Chronic kidney disease, stage 2 (mild)
CPT/HCPCS: 80053; 83036; 85025

== ENCOUNTER → 2025-02-12 06:47 | Outpatient (BNVA) | payer MEDICARE, MEDICAID, SELFPAY ==
[2024-05-15 14:49] VITALS: BP 113/58; BMI 33.6
== END ==
PROVIDERS: Visit Provider Podiatrist Foot & Ankle Surgery
DX: I73.9 Peripheral vascular disease, unspecified (principal); L60.3 Nail dystrophy; R94.4 Abnormal results of kidney function studies; Z86.718 Personal history of other venous thrombosis and embolism; N18.2 Chronic kidney disease, stage 2 (mild)
CPT/HCPCS: 11721

== ENCOUNTER 2025-02-19 11:05 | Outpatient (CLI) | payer MEDICARE, MEDICAID, SELFPAY ==
[2024-05-15 14:49] VITALS: BP 113/58; BMI 33.6
--- NOTE | 2025-02-19 11:20 | MM_ITS ---
WS: [id number] BILATERAL SCREENING DIGITAL TOMOSYNTHESIS MAMMOGRAM WITH CAD HISTORY: screening COMPARISON: 02/17/2024, 05/08/2020 Bilateral CC and MLO views with tomosynthesis and synthetic mammography submitted. Computer aided detection analyzed. Breast composition: There are scattered areas of fibroglandular density. No suspicious masses, microcalcifications or architectural distortion. Stable mass in the medial LEFT breast. MM/MM scr BI tomosynthesis [id number] IMPRESSION: BI-RADS: 2 - Benign. FOLLOW UP: 1 Year Follow-up
== END 2025-02-19 11:06 | disposition home or self-care (01) ==
LOC: RAD 11:06
DX: Z12.31 Encounter for screening mammogram for malignant neoplasm of breast (principal); R92.323 Mammographic fibroglandular density, bilateral breasts; N63.20 Unspecified lump in the left breast, unspecified quadrant
CPT/HCPCS: 77063; 77067